=== PATIENT | male | born 1965 ===

== ENCOUNTER 2020-03-10 17:22 | Outpatient (REF) | payer MEDICAID, SELFPAY ==
--- NOTE | 2020-03-10 18:15 | MR_ITS ---
EXAMINATION: MR LUMBAR SPINE WITHOUT CONTRAST CLINICAL INFORMATION: Bilateral leg pain. COMPARISON: X-ray from 09/26/2019 TECHNIQUE: MRI of the lumbar spine was obtained using routine sequences without contrast. FINDINGS: VERTEBRAL BODIES AND PARASPINAL STRUCTURES: Chronic fatty marrow degenerative endplate changes and significant disc space narrowing evident at L5-S1. There is a minimal posterior subluxation at L4-L5. No compression fractures are seen. The paraspinal soft tissues are unremarkable. There are mild degenerative changes of the left sacroiliac joint. The prostate gland is mildly enlarged, measuring 4.4 x 3.2 cm on the nondiagnostic lateral localizer acquisition. CONUS MEDULLARIS AND CAUDA EQUINA: Normal, terminating at the level of T12. No lower cord signal normality is seen. The cauda equina nerve roots appear normal. SPINAL LEVELS: L1-L2: No disc pathology. No central canal stenosis or foraminal narrowing. L2-L3: Well-hydrated disc without central canal stenosis or foraminal narrowing. L3-L4: Mild endplate spurring and minimal annular bulge. No central canal stenosis. Mild foraminal narrowing. L4-L5: Broad-based central disc protrusion with mild impression upon the ventral thecal sac, also abutting the traversing L5 nerve roots. Mild facet arthropathy. No central canal stenosis. Moderate foraminal narrowing, more so on the right side. L5-S1: Severe loss of disc height and mild disc bulge with facet arthropathy. No central canal stenosis. Mild bilateral foraminal narrowing. MR/MR lumbar spine wo con IMPRESSION: 1. Broad-based central disc protrusion at L4-L5 with mild impression upon the ventral thecal sac and L5 nerve roots. Moderate bilateral foraminal narrowing without central canal stenosis. 2. Severe chronic degenerative disc disease at L5-S1 without central canal stenosis. Mild foraminal narrowing at this level. 3. Incidental prostatomegaly.
== END 2020-03-10 17:23 | disposition home or self-care (01) ==
LOC: HO.MRI 17:22
PROVIDERS: Visit Provider Anesthesiology
DX: M51.36 Other intervertebral disc degeneration, lumbar region (principal)
CPT/HCPCS: 72148

== ENCOUNTER 2020-12-30 18:36 | Emergency (ER) | payer MEDICAID, SELFPAY ==
[2020-12-30 19:37] VITALS: BP 151/82; PULSE 72; RESP 16; TEMP 36.6; O2SAT 97; BMI 39.5
[2020-12-30 20:18] LABS: COVID-19 Test Negative (Negative)
[2020-12-30 20:47] LABS: IDNOW Serial# 9DD0AD1C; Strep A Nucleic Acid Negative (Negative)
[2020-12-30 21:17] LABS: Influenza A PCR NEGATIVE (Negative); Influenza B PCR NEGATIVE (Negative); Resp Syncy Virus RNA Qual PCR NEGATIVE (Negative); SARS COV2 PCR INHOUSE NEGATIVE (Negative)
--- NOTE | 2020-12-30 21:24 | ED_ITS ---
HPI - General Adult General Chief complaint: General Medical Stated complaint: flu like Time Seen by Provider: 12/30/20 20:31 Source: patient Mode of arrival: ambulatory Limitations: no limitations History of Present Illness HPI narrative: 55 y/o male whose girlfriend tested positive for COVID and was on Tamiflu at home presents for headache, body ache, sore throat. Patient has not had fevers, no cough, no vomiting or nausea. Related Data Previous Rx's Medication Instructions Recorded oseltamivir 75 mg capsule 75 mg PO BID 5 Days #10 cap 12/30/20 prednisone 20 mg tablet 40 mg PO DAILY 5 Days #10 tab 12/30/20 Allergies Allergy/AdvReac Type Severity Reaction Status Date / Time aspirin [ASA] Allergy Unknown ABD PAIN Verified 12/30/20 19:39 Review of Systems Constitutional: Constitutional: Reports body ache(s), Denies chills, Reports fatigue, Denies fever(s), Reports headache(s), Reports malaise and Denies weakness Eyes: Eyes: Denies blurry vision and Denies diplopia ENT: Denies vertigo, Denies dizziness, Denies otalgia, Reports headache(s), Denies mouth pain, Denies post nasal drip, Denies sinus pain, Denies sinus p ressure, Reports sore throat and Denies throat swelling Cardiovascular: Cardiovascular: Denies chest pain, Denies syncope, Denies leg edema, Denies lightheadedness, Denies Loss of Consciousness, Denies palpitations and Denies dyspnea Respiratory: Respiratory: Denies chest congestion, Denies cough and Denies dyspnea Gastrointestinal: Gastrointestinal: Denies abdominal pain, Denies hematochezia, Denies constipation, Denies diarrhea and Denies vomiting Musculoskeletal: Musculoskeletal: Reports no additional musculoskeletal complaints Neurologic: Denies confusion, Denies vertigo, Denies dizziness, Denies syncope, Reports headache(s) and Denies weakness Psychiatric: Psychiatric: Denies anxiety, Denies confusion and Denies depression Endocrine: Endocrine: Reports fatigue and Denies palpitations Allergic/Immunologic: Allergic/Immunologic: Denies throat swelling PMFSH Social History Social History Advance Directives: No Physical Exam Vital Signs: Vital Signs: Last Vital Signs Temp 97.9 F 12/30/20 19:37 Pulse 72 12/30/20 19:37 Resp 16 12/30/20 19:37 BP 151/82 H 12/30/20 19:37 Pulse Ox 97 12/30/20 19:37 Body Mass Index 39.5 Const: General: No confusion Nutritional Appearance: well nourished Orientation/consciousness: No confusion Limitations: no limitations HENMT: Head: Yes normal to inspection, Yes normocephalic and Yes atraumatic Ears: hearing grossly normal bilaterally, external ears normal, TM's normal bilaterally and EAC's normal General nose exam: Normal external nose present Face and sinus: Yes normal facial exam and Yes sinuses nontender Mouth: Normal oral and palatal mucosa present Throat: Yes uvula midline and Yes posterior oropharynx abnormal (erythematous) Eyes: Other: watery Conjunctivae: conjunctival abnormal diffuse (injection) Pupils: Equal, round and reactive pupils present EOM: EOMs intact bilaterally Neck: Neck: Yes full ROM, Yes supple and Yes lymphadenopathy (anterior cervical) Resp: Effort & Inspection: normal respiratory effort and able to speak in complete sentences Auscultation: clear to auscultation bilaterally, no crackles, no rales, no rhonchi and no wheezes Cardio: Rate: regular rate Rhythm: regular rhythm Heart sounds: S1 normal heart sound present and S2 normal heart sound present GI: Inspection: Yes normal to inspection Palpation (GI): Soft to palpation, nontender, no guarding and not rigid Percussion: Yes normal to percussion Auscultation: normal bowel sounds Skin: General skin exam: no rashes or lesions noted Neuro: General: No confusion Cranial nerves: Yes Equal, round and reactive pupils present Extrem: General: Yes normal to inspection and Yes full ROM Psych: Appearance: grossly normal Affect: normal affect Attitude: cooperative Thought process: Normal thought process present Course Course Course Narrative: 55-year-old male with flu-like symptoms but no fever who had exposure because his live-in girlfriend is flu positive and on Tamiflu. The patient's rapid COVID is negative, strep is negative. On exam, patient has a beefy erythematous throat, and looks like he has a viral illness. Problem with labs, flu test not run. Will treat for flu because of exposure, will give prednisone for pharyngitis. Give return precautions Medical Decision Making Lab Data Labs: Lab Results 12/30/20 12/30/20 12/30/20 Range/Units 19:42 20:02 20:02 Coronavirus (PCR) NEGATIVE (Negative) COVID-19 (SHO) Negative (Negative) COVID-19 Clin Com See Note Influenza Type A (PCR) NEGATIVE (Negative) Influenza Type B (PCR) NEGATIVE (Negative) RSV RNA Qual (PCR) NEGATIVE (Negative) S. pyogenes GrpA ANITA Negative (Negative) Discharge Plan Discharge Clinical Impression: Influenza Acute pharyngitis Qualifiers: Pharyngitis/tonsillitis etiology: other specified organisms Qualified Code(s): J02.8 - Acute pharyngitis due to other specified organisms Patient Disposition: Home, Self-Care Instructions: Pharyngitis (ED), Influenza (ED) Additional Instructions: Please use salt water gargles. Put 1 tsp of salt in a couple of warm water and gargle and spit it out. Do this 3 times a day. Please fill your prescriptions and take them as prescribed. Please alternate Tylenol and ibuprofen for pain. Take 1 or the other every 4 hours. For example, at midnight take 1000 mg of Tylenol, then at 4:00 a.m. take 800 mg ibuprofen, at 8:00 a.m. take 1000 mg of Tylenol, at noon take 800 mg of ibuprofen, at 4:00 p.m. take 1000 mg of Tylenol, at 8:00 p.m. take 800 mg of ibuprofen. Do not exceed 3000 mg of Tylenol in 24 hours. This method is proven to be as effective as an opioid for pain control. Please call your primary care provider for follow-up appointment on Friday Please return to the emergency room if you have fevers or worsening symptoms. Prescriptions: New oseltamivir 75 mg capsule 75 mg PO BID 5 Days Qty: 10 RF: 0 prednisone 20 mg tablet 40 mg PO DAILY 5 Days Qty: 10 RF: 0 Interventions: ED Discharge Assessment Last Done: 12/30/20 21:55 Discharge Date/Time: 12/30/20 21:57
== END 2020-12-30 21:57 | disposition home or self-care (01) ==
PROVIDERS: Emergency Provider Internal Medicine; PCP Student in an Organized Health Care Education/Training Program
DX: J02.8 Acute pharyngitis due to other specified organisms (principal); J11.1 Influenza due to unidentified influenza virus with other respiratory manifestations; Z20.822 Contact with and (suspected) exposure to COVID-19; R51.9 Headache, unspecified
CPT/HCPCS: 0241U; 36415; 87635; 87651; 99283

== ENCOUNTER 2021-01-22 09:19 | Emergency (ER) | payer MEDICAID, SELFPAY ==
--- NOTE | ~2021-01-22 | CT_ITS ---
EXAMINATION: CT ABDOMEN AND PELVIS WITH CONTRAST CLINICAL INFORMATION: Left upper quadrant pain. COMPARISON: Previous CT of the abdomen and pelvis August 2015 TECHNIQUE: Multidetector volumetric images were obtained from the superior aspect of the liver through the pubic symphysis following administration of 71 mL of Omnipaque 350 intravenous contrast. Sagittal and coronal reformatted images were obtained on the technologist's workstation. Oral contrast: Yes. This CT examination was performed using dose optimization techniques as appropriate, variously including the following: *Automated exposure control *Adjustment of mA and/or kV according to patient size (this includes techniques or standardized protocols for targeted exams where dose is matched to indication/reason for exam; i.e. extremities or head) *Use of iterative reconstruction technique DLP: 990 mGy-cm FINDINGS: LUNG BASES: The visualized lung bases are unremarkable. LIVER, GALLBLADDER, AND BILIARY TREE: The liver is normal in size, shape, and attenuation. No focal hepatic lesion or biliary ductal dilatation is present. The gallbladder is unremarkable with no evidence of radiopaque gallstones, gallbladder wall thickening, or obvious pericholecystic inflammatory changes. PANCREAS: Unremarkable. SPLEEN: The spleen is absent. There is subtle infiltration of the intra-abdominal fat in the left upper quadrant just deep to the abdominal wall muscles and anterior to the stomach, for example axial image 30 series 3, coronal reconstructed image 16 and sagittal reconstructed image 40. This is new from previous exam October 2015. It is, therefore, unlikely related to postsurgical changes from possible splenectomy. This may represent an area of fat necrosis. ADRENAL GLANDS: Unremarkable. KIDNEYS AND URETERS: The kidneys are unremarkable. There is contrast opacification of the collecting systems and ureters with excreted contrast. This lowers sensitivity for detection of a small stone. No stone is seen. No hydronephrosis is seen. BLADDER: Unremarkable. GASTROINTESTINAL TRACT: There is diverticulosis of the colon. The small and large bowel are otherwise unremarkable. The appendix is unremarkable. ABDOMINAL WALL: No significant hernia is appreciated. LYMPH NODES: Normal. VASCULAR: Unremarkable. PELVIC VISCERA: Unremarkable. OSSEOUS STRUCTURES: There is degenerative disc disease at L5-S1. There is a sclerotic lesion in the right iliac bone that is stable from prior exam and probably represents a bone island. CT/CT abdomen pelvis w con IMPRESSION: Slight infiltration of the fat in the left upper quadrant just deep to the abdominal wall questionable for panniculitis or fat necrosis. Absent spleen. Mild diverticulosis of the colon.
--- NOTE | ~2021-01-22 | XR_ITS ---
EXAMINATION: XR CHEST CLINICAL INFORMATION: Left upper quadrant pain. Question pneumonia. COMPARISON: Previous chest x-ray most recent April 2018 TECHNIQUE: Frontal view of the chest was obtained. FINDINGS: No significant abnormality is noted involving the heart, lungs, mediastinum, bony thorax or soft tissues. XR/XR chest 1V IMPRESSION: Unremarkable examination.
--- NOTE | ~2021-01-22 | CT_ITS ---
EXAMINATION: CT ANGIOGRAM OF THE CHEST WITH AND WITHOUT CONTRAST (CT PULMONARY ANGIOGRAM FOR PE) CLINICAL INFORMATION: Reason for Exam LUQ pain. elevated D-dimer COMPARISON: Chest x-ray from earlier the same day. TECHNIQUE: Prior to contrast administration, noncontrast localization images were obtained. Subsequently, multidetector volumetric imaging was performed from the thoracic inlet to below the diaphragms following the administration of 71 mL Omnipaque 350 intravenous contrast. No contrast reaction reported Sagittal, coronal, and MIP oblique sagittal reformatted images were obtained on the CT workstation, uploaded to PACS, and reviewed. This CT examination was performed using dose optimization techniques as appropriate, variously including the following: *Automated exposure control *Adjustment of mA and/or kV according to patient size (this includes techniques or standardized protocols for targeted exams where dose is matched to indication/reason for exam; i.e. extremities or head) *Use of iterative reconstruction technique Total exam dose-length product 500 mGy-cm FINDINGS: QUALITY OF STUDY/CONTRAST BOLUS: Exam is limited due to late timing/imaging following contrast administration. The pulmonary arteries are not optimally opacified with IV contrast. PULMONARY ARTERIES: The pulmonary arteries are normal in caliber. Exam is nondiagnostic for pulmonary embolism. THORACIC AORTA: No aneurysm or dissection. LUNG: No focal consolidation, nodules or masses. PLEURA: No pleural effusion or pneumothorax. MEDIASTINUM: The heart is upper normal in size. No pericardial effusion. No hilar or mediastinal lymphadenopathy. No evidence of septal bowing or right heart strain. CHEST WALL/AXILLA: No axillary or internal mammary lymphadenopathy. OSSEOUS STRUCTURES: There are degenerative changes of the spine.. UPPER ABDOMEN: No reflux of contrast into the hepatic veins to suggest elevated right heart pressures. CT/CT angio chest PE protocol IMPRESSION: Nondiagnostic exam for pulmonary embolism.
[2021-01-22 09:28] VITALS: BP 137/96; PULSE 70; RESP 16; TEMP 36.6; O2SAT 97; BMI 42.1
--- NOTE | 2021-01-22 09:37 | ECG_ITS ---
Test Reason : ABD PAIN Blood Pressure : / mmHG Vent. Rate : 061 BPM Atrial Rate : 061 BPM P-R Int : 134 ms QRS Dur : 086 ms QT Int : 410 ms P-R-T Axes : 011 059 015 degrees QTc Int : 412 ms Sinus rhythm with occasional Premature ventricular complexes Nonspecific T wave abnormality Abnormal ECG When compared with ECG of 04-MAR-2017 21:43, Premature ventricular complexes are now Present Nonspecific T wave abnormality now evident in Lateral leads Referred By: Wilfrid Galvez Electronically Signed By:PATTIE WASHBURN
--- NOTE | 2021-01-22 09:42 | ED.ABDPAIN ---
HPI - Abdominal Pain General Chief Complaint: Abdominal Pain Stated Complaint: ABD PAIN Time Seen by Provider: 01/22/21 09:34 Source: patient Mode of arrival: ambulatory Limitations: no limitations History of Present Illness HPI narrative: Patient presents to ED for left upper quadrant pain for 2-3 weeks. Patient describes pain as sharp and painful on movement of torso, on inspiration, and when he lies flat. Denies any recent trauma to the abdomen. Denies any shortness of breath. Patient denies any coughing, fever, or chills. MD elicited complaint: abdominal pain Related Data Previous Rx's Medication Instructions Recorded oseltamivir 75 mg capsule 75 mg PO BID 5 Days #10 cap 12/30/20 prednisone 20 mg tablet 40 mg PO DAILY 5 Days #10 tab 12/30/20 acetaminophen 325 mg capsule 325 mg PO QID PRN #28 cap 01/22/21 (Tylenol) cyclobenzaprine 10 mg tablet 10 mg PO TID PRN #18 tab 01/22/21 Allergies Allergy/AdvReac Type Severity Reaction Status Date / Time aspirin [ASA] Allergy Unknown ABD PAIN Verified 12/30/20 19:39 Review of Systems Constitutional: Reports as per HPI and Reports no additional constitutional complaints Eyes: Reports as per HPI and Reports no additional eye complaints Reports system reviewed and no additional complaints, except as documented and Reports as per HPI Cardiovascular: Reports as per HPI and Reports no additional cardiovascular complaints Respiratory: Reports as per HPI, Reports no additional respiratory complaints and Reports pain on inspiration Gastrointestinal: Reports as per HPI, Reports no additional gastrointestinal complaints and Reports abdominal pain (Left upper quadrant pain) Genitourinary: Reports no additional male genitourinary complaints and Reports as per HPI Musculoskeletal: Reports no additional musculoskeletal complaints and Reports as per HPI Reports system reviewed and no additional complaints, except as documented and Reports as per HPI Psychiatric: Reports no additional psychiatric complaints and Reports as per HPI Physical Exam Vital Signs: Vital Signs: Last Vital Signs Temp 97.8 F 01/22/21 12:51 Pulse 69 01/22/21 14:14 Resp 20 01/22/21 14:14 BP 120/51 L 01/22/21 14:14 Pulse Ox 97 01/22/21 14:14 Body Mass Index 42.1 Const: General: cooperative, healthy appearing, comfortable, no acute distress, well developed, alert, awake and Physically active Orientation/consciousness: patient oriented x3 HENMT: Head: Yes normal to inspection, Yes No palpable skull fracture present, Yes normocephalic and Yes atraumatic Eyes: General: appearance normal, both eyes and all related structures Neck: Neck: Yes normal visual inspection, Yes full ROM, Yes no lymphadenopathy, Yes no meningeal signs, Yes trachea midline, Yes supple and No tender Chest: Chest palpation & inspection: normal inspection of the chest and normal palpation of entire chest wall Resp: Effort & Inspection: normal respiratory effort and able to speak in complete sentences Auscultation: clear to auscultation bilaterally Cardio: Jugular venous distension: no JVD Heart sounds: S1 normal heart sound present and S2 normal heart sound present GI: Inspection: Yes normal to inspection and No abdominal wall ecchymosis Palpation (GI): Soft to palpation, not firm, Tenderness to palpation present (GI) in the LUQ, no guarding and not rigid Abdomen image: 1. Tenderness on palpation and on movement. Negative for any erythema, ecchymosis, or obvious palpable mass. : General: No CVA tenderness and Yes no CVA tenderness Back/Spine/Pelvis: Back: no CVA tenderness, No CVA tenderness and No back tenderness Skin: General skin exam: no rashes or lesions noted and elasticity normal Neuro: General: patient oriented x3, gait normal, no meningeal signs and CN's II-XI intact bilaterally Cranial nerves: Yes CN's II-XII intact bilaterally Extrem: Other: Lower extremities negative for swelling, pitting edema, or calf tenderness. General: Yes normal to inspection and Yes full ROM Psych: Appearance: grossly normal, well kempt and not disheveled Course Course Course Narrative: Patient will have medical evaluation including EKG, labs, and chest x-ray. GI cocktail ordered. Reevaluation(s) Reevaluation #1: EKG negative for STEMI. Troponin after 4 weeks of symptoms negative. Liver enzymes are normal. D-dimer elevated so patient will be sent for chest CT a to rule out PE the patient states pleuritic chest pain. Chest x-ray negative for pneumonia. We will sent for abdominal CT scan. Time: 09:56 Reevaluation #2: Abdominal CT scan came back positive for pannuculitis. This was discussed with patient and he was informed to follow-up with primary care provider in case he will need a biopsy of the pannuculitis. Patient given copy of labs and images for follow-up. Patient will be discharged with pain meds and muscle relaxer. Time: 15:20 MDM - Abdominal Pain MDM Narrative Medical decision making narrative: pannuculitis, abdominal strain Lab Data Result diagrams: 01/22/21 09:56 01/22/21 09:56 Labs: Lab Results 01/22/21 01/22/21 01/22/21 Range/Units 09:56 09:56 09:56 WBC 9.8 (4.8-10.8) X10*3/uL RBC 4.25 L (4.60-5.80) X10*6/uL Hgb 13.5 L (14.0-18.0) g/dl Hct 40.2 L (42-52) % MCV 94.6 (80-98) fL MCH 31.8 (27.0-33.0) pg MCHC 33.6 (31.0-36.0) g/dl RDW 14.0 (11.0-16.0) % Plt Count 364 (160-400) X10*3/uL MPV 9.7 (9.4-12.4) fL Immature Gran % (Auto) 0.3 (0.0-0.4) % Neut % (Auto) 52.8 (45-73) % Lymph % (Auto) 34.1 (20-40) % Rapides % (Auto) 8.7 (2-11) % Eos % (Auto) 3.3 (0-4) % Baso % (Auto) 0.8 (0-2) % Lymph # (Auto) 3.4 (1.2-4.9) X10*3/uL [place] # (Auto) 0.9 (0.1-1.2) X10*3/uL Eos # (Auto) 0.3 (0.0-0.4) X10*3/uL Baso # (Auto) 0.1 (0.0-0.2) X10*3/uL Abs Immat Gran (auto) 0.03 (0.00-0.03) X10*3/uL Absolute Neuts (auto) 5.2 (2.0-8.3) X10*3/uL Absolute Nucleated RBC 0.000 (0.0-0.012) X10*3/uL Nucleated RBC % (auto) 0.0 (0.0-0.2) /100WBC PT (9.9-13.0) SEC INR (0.9-1.1) APTT (24.1-38.0) SEC D-Dimer NG/ML Sodium 139 (135-145) mmol/L Potassium 4.2 (3.3-5.1) mmol/L Chloride 105 (96-108) mmol/L Carbon Dioxide 24 (22-29) mmol/L Anion Gap 14 (12-20) BUN 17 H (9-16) mg/dL Creatinine 0.85 (0.5-1.4) mg/dL Estim Creat Clear Calc 118.9 Estimated GFR > 60 Random Glucose 111 (60-115) mg/dL Calcium 9.1 (8.4-10.2) mg/dL Total Bilirubin 0.4 (0.0-1.0) mg/dL Direct Bilirubin < 0.2 (0.0-0.5) mg/dL AST 17 (5-37) U/L ALT 15 (0-40) U/L Alkaline Phosphatase 78 (39-117) U/L Troponin I High Sens < 3.5 (<3.5-35.0) ng/L Total Protein 7.1 (6.5-8.0) g/dL Albumin 4.1 (3.5-5.0) g/dL Lipase 13 (8-78) U/L // Range/Units 09:56 WBC (4.8-10.8) X10*3/uL RBC (4.60-5.80) X10*6/uL Hgb (14.0-18.0) g/dl Hct (42-52) % MCV (80-98) fL MCH (27.0-33.0) pg MCHC (31.0-36.0) g/dl RDW (11.0-16.0) % Plt Count (160-400) X10*3/uL MPV (9.4-12.4) fL Immature Gran % (Auto) (0.0-0.4) % Neut % (Auto) (45-73) % Lymph % (Auto) (20-40) % Rapides % (Auto) (2-11) % Eos % (Auto) (0-4) % Baso % (Auto) (0-2) % Lymph # (Auto) (1.2-4.9) X10*3/uL [place] # (Auto) (0.1-1.2) X10*3/uL Eos # (Auto) (0.0-0.4) X10*3/uL Baso # (Auto) (0.0-0.2) X10*3/uL Abs Immat Gran (auto) (0.00-0.03) X10*3/uL Absolute Neuts (auto) (2.0-8.3) X10*3/uL Absolute Nucleated RBC (0.0-0.012) X10*3/uL Nucleated RBC % (auto) (0.0-0.2) /100WBC PT 11.3 (9.9-13.0) SEC INR 1.0 (0.9-1.1) APTT 38.2 H (24.1-38.0) SEC D-Dimer 279 NG/ML Sodium (135-145) mmol/L Potassium (3.3-5.1) mmol/L Chloride (96-108) mmol/L Carbon Dioxide (22-29) mmol/L Anion Gap (12-20) BUN (9-16) mg/dL Creatinine (0.5-1.4) mg/dL Estim Creat Clear Calc Estimated GFR Random Glucose (60-115) mg/dL Calcium (8.4-10.2) mg/dL Total Bilirubin (0.0-1.0) mg/dL Direct Bilirubin (0.0-0.5) mg/dL AST (5-37) U/L ALT (0-40) U/L Alkaline Phosphatase (39-117) U/L Troponin I High Sens (<3.5-35.0) ng/L Total Protein (6.5-8.0) g/dL Albumin (3.5-5.0) g/dL Lipase (8-78) U/L ECG Data Interpretation: Sinus rhythm with PVC. Ventricular rate 64. Pr interval 130. QRS 84. QTC 425. Negative STEMI Discharge Plan Discharge Clinical Impression: Muscle strain, Panniculitis Patient Disposition: Home, Self-Care Instructions: Muscle Strain (ED) Additional Instructions: Return to the ED for worsening abdominal pain, nausea, vomiting, chest pain, shortness of breath, dysuria, hematuria, flank pain, fever, chills, swelling of lower extremities, calf pain, any other concerning symptoms. Prescriptions: New cyclobenzaprine 10 mg tablet 10 mg PO TID PRN (Reason: pain) Qty: 18 RF: 0 acetaminophen [Tylenol] 325 mg capsule 325 mg PO QID PRN (Reason: pain) Qty: 28 RF: 0 No Action oseltamivir 75 mg capsule 75 mg PO BID 5 Days Qty: 10 RF: 0 prednisone 20 mg tablet 40 mg PO DAILY 5 Days Qty: 10 RF: 0 Interventions: ED Discharge Assessment Last Done: 01/22/21 15:40 Discharge Date/Time: 01/22/21 15:42 Print Language: Panamanian [facility] Past Medical History Medical History (Updated 01/22/21 @ 15:23 by TOLU Crowley) Anxiety Cholecystectomy planned HTN (hypertension) Social History Social History Alcohol intake: never Patient Tobacco Use Status: Never used Tobacco Use of substances other than those prescribed or required for medical reasons: No Advance Directives: No Advance Directives Information Provided: No
[2021-01-22] MEDS: Famotidine/PF 20 MG/2 ML VIAL IVPUSH (10:00)
[2021-01-22] MEDS: Magnesium Hydrox/Alum Hydrox 30 ML ORAL.SUSP PO (10:00)
[2021-01-22] MEDS: Lidocaine HCl Viscous 2 % 15 ML SOLUTION MUCOUS MEM (10:00)
[2021-01-22] MEDS: PHENobarb/Hyoscy/Atropine/Scop 10 ML ELIXIR PO (10:00)
[2021-01-22 10:01] LABS: MANUAL DIFF FLAG NO
[2021-01-22 10:03] LABS: Basophils Absolute Auto 0.1 X10*3/uL (0.0-0.2); Basophils Percent Auto 0.8 % (0-2); Eosinophils Absolute Auto 0.3 X10*3/uL (0.0-0.4); Eosinophils Percent Auto 3.3 % (0-4); Hematocrit 40.2 % (42-52); Hemoglobin 13.5 g/dl (14.0-18.0); Imm Gran Abs Auto 0.03 X10*3/uL (0.00-0.03); Imm Gran Pct Auto 0.3 % (0.0-0.4); Lymphocytes Absolute Auto 3.4 X10*3/uL (1.2-4.9); Lymphocytes Percent Auto 34.1 % (20-40); Mean Corpuscular HGB Conc 33.6 g/dl (31.0-36.0); Mean Corpuscular Hemoglobin 31.8 pg (27.0-33.0); Mean Corpuscular Volume 94.6 fL (80-98); Mean Platelet Volume 9.7 fL (9.4-12.4); Monocytes Absolute Auto 0.9 X10*3/uL (0.1-1.2); Monocytes Percent Auto 8.7 % (2-11); Neutrophils Absolute Auto 5.2 X10*3/uL (2.0-8.3); Neutrophils Percent Auto 52.8 % (45-73); Platelet Count 364 X10*3/uL (160-400); Red Blood Count 4.25 X10*6/uL (4.60-5.80); White Blood Count 9.8 X10*3/uL (4.8-10.8)
[2021-01-22 10:09] LABS: Prothrombin Time 11.3 SEC (9.9-13.0)
[2021-01-22 10:12] LABS: D Dimer 279 NG/ML; Partial Thromboplastin Time 38.2 SEC (24.1-38.0)
[2021-01-22 10:26] LABS: Troponin-I High Sensitivity < 3.5 ng/L (<3.5-35.0)
[2021-01-22 10:28] LABS: Alanine Aminotransferase 15 U/L (0-40); Albumin Level 4.1 g/dL (3.5-5.0); Alkaline Phosphatase 78 U/L (39-117); Anion Gap 14 (12-20); Aspartate Amino Transferase 17 U/L (5-37); Bilirubin Direct < 0.2 mg/dL (0.0-0.5); Bilirubin Total 0.4 mg/dL (0.0-1.0); Blood Urea Nitrogen 17 mg/dL (9-16); Calcium 9.1 mg/dL (8.4-10.2); Carbon Dioxide 24 mmol/L (22-29); Chloride 105 mmol/L (96-108); Creatinine Clr Calc Pharmacy 118.9; Estimated Glomerular Filt Rate > 60; Glucose Random 111 mg/dL (60-115); Lipase 13 U/L (8-78); Potassium 4.2 mmol/L (3.3-5.1); Sodium 139 mmol/L (135-145); Total Protein 7.1 g/dL (6.5-8.0)
[2021-01-22 12:51] VITALS: BP 135/76; PULSE 63; RESP 18; TEMP 36.6; O2SAT 98
[2021-01-22 14:14] VITALS: BP 120/51; PULSE 69; RESP 20; O2SAT 97
== END 2021-01-22 15:42 | disposition home or self-care (01) ==
PROVIDERS: Physician Assistant; Emergency Provider Emergency Medicine; PCP Student in an Organized Health Care Education/Training Program
DX: M79.3 Panniculitis, unspecified (principal); R10.12 Left upper quadrant pain; Z79.899 Other long term (current) drug therapy
CPT/HCPCS: 36415; 71045; 71275; 74177; 80053; 82248; 83690; 84484; 85025; 85379; 85610; 85730; 93005; 96374; 99284; 99285

== ENCOUNTER → 2021-02-26 12:47 | Outpatient (BNVA) | payer MEDICAID, SELFPAY | PROVIDERS: PCP Student in an Organized Health Care Education/Training Program; Visit Provider Anesthesiology | DX: M47.816 Spondylosis without myelopathy or radiculopathy, lumbar region (principal); M51.36 Other intervertebral disc degeneration, lumbar region | CPT/HCPCS: 99212 ==

== ENCOUNTER 2021-05-25 09:57 | Day surgery (SDC) | payer MEDICAID, SELFPAY ==
[2021-05-21 12:20] VITALS: BMI 39.7
--- NOTE | 2021-05-23 13:06 | P.CONAN_ITS ---
Documented by User: Kay Ortiz NP 05/23/21 13:07 HPI - Anesthesia Eval Consult details Narrative: 55yo M for Bilateral L4-L5 Transforaminal Epidural Injection PMFSH Active Problems Active Problems: All Active Problems (Updated 05/21/21 @ 12:19 by Whit Osman RN) Disc degeneration, lumbar (Acute) Spondylosis of lumbar spine (Acute) Past Medical History Medical History (Updated 05/21/21 @ 12:19 by Whit Osman RN) Anxiety Cholecystectomy planned COVID-19 vaccine series completed Disc degeneration, lumbar HTN (hypertension) MRSA (methicillin resistant Staphylococcus aureus) Renal calculi Spondylosis of lumbar spine Surgical History Surgical History (Updated 05/21/21 @ 12:19 by Whit Osman RN) Hx of cholecystectomy Hx of cystoscopy Social History Social History Are you a primary medicare sales representative to a significant other at home: No Do you presently have visiting nurse or other home services: No Alcohol intake: never Patient Tobacco Use Status: Never used Tobacco Use of substances other than those prescribed or required for medical reasons: No Have you been hit, kicked, punched, or otherwise hurt by someone within the past year? If so, by whom?: No Are you DNR?: No Advance Directives: No Advance Directives Information Provided: Yes Advance Directives on File: No Recently lost weight without trying: No Eating poorly because of decreased appetite: No Nutrition Risks: No Nutritional Risk Poor oral hygiene: No Meds Allergies Allergy/AdvReac Type Severity Reaction Status Date / Time aspirin [ASA] Allergy Intermediate ABD PAIN Verified 05/21/21 12:19 Home Medications Medication Instructions Recorded Confirmed Last Taken Type acetaminophen 325 650 mg PO 05/21/21 Unknown History mg tablet amitriptyline 50 1 tab PO BEDTIME 05/21/21 05/21/21 Unknown History mg tablet amlodipine 10 mg 1 tab PO DAILY 05/21/21 05/21/21 05/25/21 History tablet cetirizine 10 mg 1 tab PO DAILY 05/21/21 05/21/21 Unknown History tablet chlorthalidone 50 1 tab PO DAILY 05/21/21 05/21/21 Unknown History mg tablet cholecalciferol 1 cap PO DAILY 05/21/21 05/21/21 Unknown History (vitamin D3) 25 mcg (1,000 unit) capsule cyclobenzaprine 1 tab PO TID 05/21/21 05/21/21 Unknown History 10 mg tablet gabapentin 100 mg 1 cap PO DAILY 05/21/21 05/21/21 Unknown History capsule hydroxyzine HCl 1 tab PO BEDTIME 05/21/21 05/21/21 Unknown History 50 mg tablet losartan 50 mg 1 tab PO DAILY 05/21/21 05/21/21 Unknown History tablet amlodipine 10 mg 1 tab PO DAILY 05/25/21 05/25/21 Unknown History tablet Exam Exam Date and Time: May 23, 2021 1306 Height,Weight and Vital Signs: Height 5 ft 9 in Weight 122.016 kg Pertinent Lab Results Pertinent Lab Results: Laboratory Tests 01/22/21 01/22/21 09:56 09:56 WBC 9.8 Hgb 13.5 L Hct 40.2 L Plt Count 364 Sodium 139 Potassium 4.2 Chloride 105 Carbon Dioxide 24 BUN 17 H Creatinine 0.85 Assessment and Plan Assessment Anesthesia Assessment: Chart Reviewed Documented by User: Basim Bales MD 05/25/21 14:04 COUNT INCLUDES THE [facility] Past Medical History Medical History (Updated 05/21/21 @ 12:19 by Whit Osman RN) Anxiety Cholecystectomy planned COVID-19 vaccine series completed Disc degeneration, lumbar HTN (hypertension) MRSA (methicillin resistant Staphylococcus aureus) Renal calculi Spondylosis of lumbar spine Family History Family history of problems with anesthesia: No Surgical History Surgical History (Updated 05/21/21 @ 12:19 by Whit Osman RN) Hx of cholecystectomy Hx of cystoscopy History of Problems with Anesthesia: No Social History Social History Are you a primary medicare sales representative to a significant other at home: No Do you presently have visiting nurse or other home services: No Alcohol intake: never Patient Tobacco Use Status: Never used Tobacco Use of substances other than those prescribed or required for medical reasons: No Have you been hit, kicked, punched, or otherwise hurt by someone within the past year? If so, by whom?: No Are you DNR?: No Advance Directives: No Advance Directives Information Provided: Yes Advance Directives on File: No Recently lost weight without trying: No Eating poorly because of decreased appetite: No Nutrition Risks: No Nutritional Risk Poor oral hygiene: No Meds Allergies Allergy/AdvReac Type Severity Reaction Status Date / Time aspirin [ASA] Allergy Intermediate ABD PAIN Verified 05/21/21 12:19 Home Medications Medication Instructions Recorded Confirmed Last Taken Type acetaminophen 325 650 mg PO 05/21/21 Unknown History mg tablet amitriptyline 50 1 tab PO BEDTIME 05/21/21 05/21/21 Unknown History mg tablet amlodipine 10 mg 1 tab PO DAILY 05/21/21 05/21/21 05/25/21 History tablet cetirizine 10 mg 1 tab PO DAILY 05/21/21 05/21/21 Unknown History tablet chlorthalidone 50 1 tab PO DAILY 05/21/21 05/21/21 Unknown History mg tablet cholecalciferol 1 cap PO DAILY 05/21/21 05/21/21 Unknown History (vitamin D3) 25 mcg (1,000 unit) capsule cyclobenzaprine 1 tab PO TID 05/21/21 05/21/21 Unknown History 10 mg tablet gabapentin 100 mg 1 cap PO DAILY 05/21/21 05/21/21 Unknown History capsule hydroxyzine HCl 1 tab PO BEDTIME 05/21/21 05/21/21 Unknown History 50 mg tablet losartan 50 mg 1 tab PO DAILY 05/21/21 05/21/21 Unknown History tablet amlodipine 10 mg 1 tab PO DAILY 05/25/21 05/25/21 Unknown History tablet Exam Airway Mallampati Class: II TM Dist: >3cm Neck ROM: Full Assessment and Plan Assessment Anesthesia Assessment: Anesthesia Plan Discussed Final Anesthetic Review Family History of Problems with Anesthesia: No History of Problems with Anesthesia: No NPO: Yes ASA Class: II Final Preanesthetic Review: No Changes in Pt Med Stat, Meds/Allgs Chart Reviewed, Consent Obtained/Reviewed and Anes Risks/Benef Reviewed Patient Risk: Low Procedure Risk: Low Anesthetic Plan Anesthetic Plan: MAC: Disposition: Standard PACU
--- NOTE | ~2021-05-25 | FL_ITS ---
EXAMINATION: XR FLUOROSCOPY WITH IMAGES CLINICAL INFORMATION: L4-L5 transforaminal epidural injection. COMPARISON: None. TECHNIQUE: Fluoroscopy performed by Dr. Harkins. Fluoroscopy time: 0.3 minutes DAP: 6.02 mGycm2 Images: 2 FL/FL guidance in OR FINDINGS/IMPRESSION: [place] positioned over the left L4-L5 foramen with contrast injected at this site. Please refer to the procedure report for detailed findings.
[2021-05-25 12:16] VITALS: BP 149/80; PULSE 65; RESP 17; TEMP 36.1; O2SAT 98
[2021-05-25] MEDS: Lactated Ringers 1,000 ML 100 ML IVCONT (12:35)
--- NOTE | 2021-05-25 14:56 | P.HPSUR_ITS ---
Pre-Procedural Eval Section A Date of Service: 05/25/21 Section B Chief Complaint: intervertebral disc degeneration,lumbar region Details of Present Illness: as above Relevant Family History (Specify if Yes): No Relevant Social History: None Present Medications: see Short Stay Collaborative assessment Medical History: No relevant PMH History of Previous Operations: No relevant previous surgery Allergies: Allergies Allergy/AdvReac Type Severity Reaction Status Date / Time aspirin [ASA] Allergy Intermediate ABD PAIN Verified 05/21/21 12:19 Review of Systems Sugical H&P ROS: Negative: Constitution, Cardiovascular, Respiratory, Neuro logical, Psychiatric, Hem-Onc, Allergic/Immunologic, Gastrointestinal, Genitourinary, Musculoskeletal, Integumentary, Endocrine and Eyes/Ears/Nose/Throat Exam Surgical H&P Exam: Normal: HEENT, Normal: Heart, Normal: Lungs, Normal: Extremities, Normal: Abdomen, Normal: Skin and Normal: Neurological Plan Diagnosis/Plan: Unchanged I have reviewed the history and physical and performed a pertinent physical examination on my patient. No changes have occurred unless specified.
--- NOTE | 2021-05-25 15:41 | P.BOP_ITS ---
Brief Operative Note Date of Service: 05/25/21 Pre-op diagnosis: disc degeneration lumbar Post-op diagnosis: same Procedure: transforaminal epidural steroid injection L4-5 on the right Implants: none Surgeon: Royal Harkins MD Was an Prototype Machine Operator used for this Procedure?: No Estimated blood loss (mL): 0 Condition: stable Disposition: PACU
--- NOTE | 2021-05-25 15:42 | W.PM.OPN ---
Operative Note Operative Note Date of Service: 05/25/21 Narrative: THE PATIENT CAME TO THE OPERATING ROOM AFTER OBTAINING INFORMED CONSENT.? THE RISKS OF THE PROCEDURE WERE DELINEATED THE RISK OF BLEEDING INFECTION PERIPHERAL NERVE DAMAGE EPIDURAL HEMATOMA EPIDURAL ABSCESS AND OTHER UNSPECIFIED RISKS.? THE PATIENT WAS POSITIONED PRONE ON THE OPERATING TABLE [employer] MONITORS WERE APPLIED AND PATIENT WAS MODERATELY SEDATED. ? TIME-OUT WAS OBTAINED DELINEATING CORRECT SIDE AND SITE OF THE PROCEDURE, PATIENT NAME AND DATE OF , NEED OF THE ANTIBIOTIC, RISK OF FIRE. ? LUMBAR AREA OF THE PATIENT WAS PREPPED WITH CHLORAPREP AND DRAPED WITH STERILE DRAPES, STERILELY DRAPED C-ARM WAS BROUGHT OVER THE OPERATING FIELD AND SQ PICTURE OF L2 VERTEBRA WAS DELINEATED ON THE SCREEN.? C-ARM WAS TILTED 20? TO THE RIGHT SIDE AND PICTURE OF THE RIGHT PEDICLE L4 VERTEBRA WAS OBTAINED ON THE SCREEN.? 3 MM BELOW THE LOWEST POINT OF THE PEDICLE PROJECTION TO THE SKIN WAS CHOSEN A STARTING POINT OF THE INJECTION.? 22 GAUGE 5 IN [place] SPINAL NEEDLE WAS INSERTED THROUGH THE SKIN AND STARTED TO ADVANCE TO THE FORAMINA IN ANTERIOR POSTERIOR AND OBLIQUE VIEWS IN TUNNEL VISION FASHION.? WHEN ON THE AP VIEW THE NEEDLE ENTERED THE MOST POSTERIOR AND SUPERIOR PORTION OF THE FORAMINA INJECTION OF THE CONTRAST PERFORMED DELINEATING L4 PERINEURAL SPREAD OF THE CONTRAST.? AFTER THAT TREATMENT SOLUTION CONTAINING 3 ML OF PRESERVATIVE-FREE LIDOCAINE 1% MIXED WITH KENALOG 40 MG WAS INJECTED INTO THE NEEDLE.? UPON COMPLETION OF THE INJECTION THE NEEDLE WAS REMOVED AND STERILE DRESSING WAS APPLIED.? PATIENT TOLERATED PROCEDURE WELL SHE WAS AWAKEN TAKEN OUTSIDE OF THE OPERATING ROOM TO PACU WHERE SHE RECOVERED UNEVENTFULLY.? SHE WENT HOME WITHOUT IMMEDIATE COMPLICATIONS.
[2021-05-25 15:45] VITALS: BP 170/98; PULSE 72; RESP 16; TEMP 37.3; O2SAT 95
[2021-05-25 16:00] VITALS: BP 160/97; PULSE 69; RESP 16; O2SAT 96
[2021-05-25 16:15] VITALS: BP 121/88; PULSE 74; RESP 16; TEMP 36.9; O2SAT 97
[2021-05-25 16:30] VITALS: PULSE 68; RESP 16; TEMP 36.9; O2SAT 97
== END 2021-05-25 16:39 | disposition home or self-care (01) ==
PROVIDERS: PCP Student in an Organized Health Care Education/Training Program; Visit Provider Anesthesiology
PROC: (CPT 64483; principal; 2021-05-25 13:20)
DX: M51.36 Other intervertebral disc degeneration, lumbar region (principal); M47.816 Spondylosis without myelopathy or radiculopathy, lumbar region; M54.50 Low back pain, unspecified; M79.605 Pain in left leg; M79.604 Pain in right leg; F41.1 Generalized anxiety disorder; I10 Essential (primary) hypertension; Z79.899 Other long term (current) drug therapy; Z88.8 Allergy status to other drugs, medicaments and biological substances
CPT/HCPCS: 64483; J2250; J2405; J3010; J3300; Q9967

== ENCOUNTER → 2021-06-27 08:59 | Outpatient (BNVA) | payer MEDICAID, SELFPAY | PROVIDERS: PCP Student in an Organized Health Care Education/Training Program; Visit Provider Anesthesiology | DX: M47.816 Spondylosis without myelopathy or radiculopathy, lumbar region (principal); M51.36 Other intervertebral disc degeneration, lumbar region | CPT/HCPCS: 99212 ==

== ENCOUNTER 2021-08-29 05:23 | Emergency (ER) | payer MEDICAID, SELFPAY ==
[2021-08-29 05:57] VITALS: BP 138/79; PULSE 65; RESP 20; TEMP 36.5; O2SAT 98; BMI 45.0
[2021-08-29 06:10] LABS: COVID-19 Test Negative (Negative)
[2021-08-29 06:12] LABS: Influenza A Negative (Negative); Influenza B2 Negative (Negative)
--- NOTE | 2021-08-29 06:59 | ED_ITS ---
HPI - General Adult General Chief complaint: General Medical Stated complaint: Flu like symptoms Time Seen by Provider: 08/29/21 06:36 Source: patient Mode of arrival: ambulatory Limitations: no limitations History of Present Illness MD complaint: flu like symptoms Onset (ago): day(s) (4) Location: head, face and back Radiation: non-radiation Severity: mild Quality: aching, dull and constant Pain Consistency: constant Relieving factors: none Exacerbating factors: none Associated symptoms: headaches, loss of appetite, malaise and other (sinus pressure, congestion, sore throat) Treatments prior to arrival: other (allergy medications) Related Data Home Medications Medication Instructions Recorded Confirmed acetaminophen 325 mg tablet 650 mg PO 05/21/21 amitriptyline 50 mg tablet 1 tab PO BEDTIME 05/21/21 05/21/21 amlodipine 10 mg tablet 1 tab PO DAILY 05/21/21 05/21/21 cetirizine 10 mg tablet 1 tab PO DAILY 05/21/21 05/21/21 chlorthalidone 50 mg tablet 1 tab PO DAILY 05/21/21 05/21/21 cholecalciferol (vitamin D3) 25 1 cap PO DAILY 05/21/21 05/21/21 mcg (1,000 unit) capsule cyclobenzaprine 10 mg tablet 1 tab PO TID 05/21/21 05/21/21 gabapentin 100 mg capsule 1 cap PO DAILY 05/21/21 05/21/21 hydroxyzine HCl 50 mg tablet 1 tab PO BEDTIME 05/21/21 05/21/21 losartan 50 mg tablet 1 tab PO DAILY 05/21/21 05/21/21 amlodipine 10 mg tablet 1 tab PO DAILY 05/25/21 05/25/21 Previous Rx's Medication Instructions Recorded oseltamivir 75 mg capsule 75 mg PO BID 5 Days #10 cap 12/30/20 prednisone 20 mg tablet 40 mg PO DAILY 5 Days #10 tab 12/30/20 acetaminophen 325 mg capsule 325 mg PO QID PRN #28 cap 01/22/21 (Tylenol) cyclobenzaprine 10 mg tablet 10 mg PO TID PRN #18 tab 01/22/21 amoxicillin 875 mg-potassium 1 tab PO BID #14 tab 08/29/21 clavulanate 125 mg tablet cyclobenzaprine 10 mg tablet 10 mg PO TID PRN #14 tab 08/29/21 lidocaine 4 % topical patch 1 patch TOPICAL DAILY PRN #10 ea 08/29/21 prednisone 20 mg tablet 40 mg PO DAILY 5 Days #10 tab 08/29/21 Allergies Allergy/AdvReac Type Severity Reaction Status Date / Time aspirin [ASA] Allergy Intermediate ABD PAIN Verified 06/27/21 09:22 Review of Systems Review of Systems: Constitutional : no Fever, positive Chills, positive fatigue, positive Malaise ENT/Mouth : positive sore throat, positive runny nose, pos sinus pressure and pain Eyes: No Discharge Cardiovascular : No Chest Pain, No SOB Respiratory : No Cough, No Sputum Gastrointestinal : No Nausea, No Vomiting, No Diarrhea Genitourinary : No Dysuria, No Urinary Frequency Musculoskeletal : positive Myalgia, pos back pain Skin : No rash Neuro : No Headache PMFSH Past Medical History Attestation statement: The following information was validated with the patient. Medical History Anxiety Cholecystectomy planned COVID-19 vaccine series completed Disc degeneration, lumbar HTN (hypertension) MRSA (methicillin resistant Staphylococcus aureus) Renal calculi Spondylosis of lumbar spine Surgical History Hx of cholecystectomy Hx of cystoscopy Social History Social History Are you a primary continuum of care manager to a significant other at home: No Do you presently have visiting nurse or other home services: No Alcohol intake: never Patient Tobacco Use Status: Never used Tobacco Advance Directives: No Advance Directives Information Provided: Yes Physical Exam ED Vital Signs: Vital Signs - 24 hr 08/29/21 05:57 Temperature 97.7 F Pulse Rate 65 Respiratory Rate 20 Blood Pressure 138/79 Pulse Oximetry 98 BMI result Body Mass Index 45.0 Appearance: Alert. Oriented X3. No acute distress. Eyes: Pupils equal, round and reactive to light. ENT: Pharynx mild erythema. Bilateral TMs normal. Sinus bilateral ttp, mild swelling over bilateral maxillary sinuses Neck: Normal inspection. Neck supple. CVS: Normal heart rate and rhythm. Pulses normal. Respiratory: No respiratory distress. Breath sounds normal. Abdomen: Soft and nontender. Back: mild lower back ttp on muscles no midline Skin: Skin warm and dry. Normal skin color. Normal skin turgor. Extremities: No lower extremity edema. Neuro: Oriented X 3. No motor deficit. No sensory deficit. Medical Decision Making MDM Narrative Medical decision making narrative: 55 yo male with viral like symptoms for 4 days c/o sinus pressure headache he is on allergy medications has facial pain and mild swelling - negative testing today for flu and COVID will treat for sinusitis no concern for deeper infection. At this time will treat with antibiotics and asking for medications for chronic back pain. Asked to retest in 2 days if symptoms persist Lab Data Labs: Lab Results 08/29/21 08/29/21 Range/Units 05:44 05:44 COVID-19 (SHO) Negative (Negative) COVID-19 Clin Com See Note Influenza Type A (ANITA) Negative (Negative) Influenza Type B (ANITA) Negative (Negative) Influenza A & B Note See Note Discharge Plan Discharge Clinical Impression: Acute viral syndrome Sinusitis Qualifiers: Sinusitis location: maxillary Chronicity: acute Recurrence: non-recurrent Qualified Code(s): J01.00 - Acute maxillary sinusitis, unspecified Patient Disposition: Home, Self-Care Instructions: Sinusitis (ED), Viral Syndrome (ED) Additional Instructions: return to ED for any worsening symptoms or concerns negative test for covid in flu if symptoms persist repeat in 2 days wear a mask for 5 days Prescriptions: New cyclobenzaprine 10 mg tablet 10 mg PO TID PRN (Reason: muscle spasm) Qty: 14 0RF lidocaine 4 % adhesive patch,medicated 1 patch topical DAILY PRN (Reason: pain) Qty: 10 0RF Rx Instructions: may leave on for up to 12 hrs prednisone 20 mg tablet 40 mg PO DAILY 5 Days Qty: 10 0RF amoxicillin-pot clavulanate 875-125 mg tablet 1 tab PO BID Qty: 14 0RF No Action oseltamivir 75 mg capsule 75 mg PO BID 5 Days Qty: 10 0RF prednisone 20 mg tablet 40 mg PO DAILY 5 Days Qty: 10 0RF cyclobenzaprine 10 mg tablet 10 mg PO TID PRN (Reason: pain) Qty: 18 0RF Rx Instructions: side effect is drowsiness. Do not take at work or while driving. acetaminophen [Tylenol] 325 mg capsule 325 mg PO QID PRN (Reason: pain) Qty: 28 0RF losartan 50 mg tablet 1 tab PO DAILY 0RF cyclobenzaprine 10 mg tablet 1 tab PO TID 0RF acetaminophen 325 mg tablet 650 mg PO 0RF cetirizine 10 mg tablet 1 tab PO DAILY 0RF hydroxyzine HCl 50 mg tablet 1 tab PO BEDTIME 0RF chlorthalidone 50 mg tablet 1 tab PO DAILY 0RF amitriptyline 50 mg tablet 1 tab PO BEDTIME 0RF amlodipine 10 mg tablet 1 tab PO DAILY 0RF gabapentin 100 mg capsule 1 cap PO DAILY 0RF cholecalciferol (vitamin D3) 25 mcg (1,000 unit) capsule 1 cap PO DAILY 0RF amlodipine 10 mg tablet 1 tab PO DAILY 0RF
== END 2021-08-29 07:14 | disposition home or self-care (01) ==
PROVIDERS: Emergency Provider Emergency Medicine
DX: B34.9 Viral infection, unspecified (principal); J01.00 Acute maxillary sinusitis, unspecified; G89.29 Other chronic pain; M54.9 Dorsalgia, unspecified; I10 Essential (primary) hypertension; Z20.822 Contact with and (suspected) exposure to COVID-19
CPT/HCPCS: 87502; 87635; 99283

== ENCOUNTER 2021-09-07 06:07 | Emergency (ER) | payer MEDICAID, SELFPAY ==
--- NOTE | ~2021-09-07 | CT_ITS ---
EXAMINATION: CT HEAD WITHOUT CONTRAST CLINICAL INFORMATION: New headache. COMPARISON: 09/26/[address] scan[address] TECHNIQUE: Contiguous axial imaging was performed from the skull base to vertex without intravenous administration of contrast. Coronal and sagittal reformatted images were obtained This CT examination was performed using dose optimization techniques as appropriate, variously including the following: *Automated exposure control *Adjustment of mA and/or kV according to patient size (this includes techniques or standardized protocols for targeted exams where dose is matched to indication/reason for exam; i.e. extremities or head) *Use of iterative reconstruction technique DLP: 1753 mGy-cm FINDINGS: There is no evidence of acute intracranial hemorrhage or territorial infarction. No abnormal mass effect or midline shift is seen. [place] to white matter differentiation is well preserved. No extra-axial fluid collections are identified. The ventricles are normal in size. There is no abnormal attenuation within the brain parenchyma. The osseous structures and soft tissues are normal. The paranasal sinuses show small retention cyst versus inflammatory polyp anteriorly in the left maxillary sinus. No air-fluid levels. The mastoid air cells are clear. Moderate anterior nasal septal deviation, apex the left. CT/CT head/brain wo con IMPRESSION: No acute intracranial pathology.
--- NOTE | ~2021-09-07 | CT_ITS ---
EXAMINATION: CT ABDOMEN AND PELVIS WITHOUT CONTRAST CLINICAL INFORMATION: Left upper quadrant abdominal pain. COMPARISON: CT of the abdomen and pelvis done on 01/22/2021. TECHNIQUE: Multidetector volumetric imaging was performed from the superior aspect of the liver through the pubic symphysis. Sagittal and coronal reformatted images were obtained on the technologist's workstation. This CT examination was performed using dose optimization techniques as appropriate, variously including the following: *Automated exposure control *Adjustment of mA and/or kV according to patient size (this includes techniques or standardized protocols for targeted exams where dose is matched to indication/reason for exam; i.e. extremities or head) *Use of iterative reconstruction technique DLP: 921.05 mGy-cm FINDINGS: LUNG BASES: The visualized lung bases are unremarkable. LIVER, GALLBLADDER, AND BILIARY TREE: No focal liver lesion on this nonenhanced study. The gallbladder is unremarkable with no evidence of radiopaque gallstones, gallbladder wall thickening, or obvious pericholecystic inflammatory changes. PANCREAS: Unremarkable. SPLEEN: Nonvisualized, presumably surgically absent. ADRENAL GLANDS: Unremarkable. KIDNEYS AND URETERS: The kidneys are normal in size, shape, and attenuation. No hydronephrosis, hydroureter, or calculi seen. No perinephric stranding. BLADDER: Suboptimally distended. Apparent mild diffuse wall thickening is present likely related to physiologic suboptimal distention. Superimposed infection, altered obstruction may also have similar appearance and cannot be further differentiated. GASTROINTESTINAL TRACT: Mild colonic diverticulosis without any CT features of superimposed acute diverticulitis. The small bowel loops are decompressed. The stomach is decompressed. The appendix is unremarkable. ABDOMINAL WALL: No significant hernia is appreciated. Previously documented subtle fat stranding at left upper quadrant of the abdomen shows interval resolution. LYMPH NODES: Normal. VASCULAR: Mild diffuse atherosclerotic disease of the aorta and is branches. PELVIC VISCERA: There is no pelvic mass present. No evidence of any free fluid and/or free air. OSSEOUS STRUCTURES: Stable presumed bone island involving the right iliac bone. No new abnormalities. CT/CT abdomen pelvis wo con IMPRESSION: No significant abnormality. No CT evidence of any acute intra-abdominal or intrapelvic pathology is present. Previously documented subtle fat stranding at left upper quadrant of the abdomen shows interval resolution. Fleischner guidelines were followed.
[2021-09-07 06:39] VITALS: BP 140/90; PULSE 66; RESP 16; TEMP 36.9; O2SAT 96; BMI 27.4
[2021-09-07 06:55] LABS: MANUAL DIFF FLAG NO
[2021-09-07 06:58] LABS: Basophils Absolute Auto 0.1 X10*3/uL (0.0-0.2); Basophils Percent Auto 0.6 % (0-2); Eosinophils Absolute Auto 0.4 X10*3/uL (0.0-0.4); Eosinophils Percent Auto 3.5 % (0-4); Hematocrit 42.8 % (42.0-52.0); Hemoglobin 14.3 g/dl (14.0-18.0); Imm Gran Abs Auto 0.04 X10*3/uL (0.00-0.03); Imm Gran Pct Auto 0.4 % (0.0-0.4); Lymphocytes Absolute Auto 4.4 X10*3/uL (1.2-4.9); Lymphocytes Percent Auto 39.7 % (20-40); Mean Corpuscular HGB Conc 33.4 g/dl (31.0-36.0); Mean Corpuscular Hemoglobin 31.6 pg (27.0-33.0); Mean Corpuscular Volume 94.5 fL (80.0-98.0); Mean Platelet Volume 9.5 fL (9.4-12.4); Monocytes Percent Auto 8.8 % (2-11); Neutrophils Absolute Auto 5.2 x10*3/uL (2.0-8.3); Platelet Count 386 X10*3/uL (160-400); Red Blood Count 4.53 X10*6/uL (4.60-5.80); Red Cell Distribution Width 14.3 % (11.0-16.0)
[2021-09-07 07:09] LABS: COVID-19 Test Negative (Negative); IDNOW Serial# 16C4AD1C; Influenza A Negative (Negative); Influenza B2 Negative (Negative)
[2021-09-07 07:10] LABS: Anion Gap 12 (12-20); Blood Urea Nitrogen 11 mg/dL (9-16); Calcium 9.4 mg/dL (8.4-10.2); Carbon Dioxide 28 mmol/L (22-29); Chloride 102 mmol/L (96-108); Creatinine Clr Calc Pharmacy 91.6; Estimated Glomerular Filt Rate > 60; Glucose Random 107 mg/dL (60-115); Potassium 3.9 mmol/L (3.3-5.1); Sodium 138 mmol/L (135-145)
[2021-09-07 07:27] VITALS: BP 163/90; PULSE 61; RESP 18; TEMP 36.7; O2SAT 100
--- NOTE | 2021-09-07 07:44 | ED.GENADULT ---
HPI - General Adult General Chief complaint: General Medical Stated complaint: lower back pain radiates to legs Time Seen by Provider: 09/07/21 07:38 Source: patient Mode of arrival: ambulatory Limitations: no limitations Related Data Home Medications Medication Instructions Recorded Confirmed acetaminophen 325 mg tablet 650 mg PO 05/21/21 amitriptyline 50 mg tablet 1 tab PO BEDTIME 05/21/21 05/21/21 amlodipine 10 mg tablet 1 tab PO DAILY 05/21/21 05/21/21 cetirizine 10 mg tablet 1 tab PO DAILY 05/21/21 05/21/21 chlorthalidone 50 mg tablet 1 tab PO DAILY 05/21/21 05/21/21 cholecalciferol (vitamin D3) 25 1 cap PO DAILY 05/21/21 05/21/21 mcg (1,000 unit) capsule cyclobenzaprine 10 mg tablet 1 tab PO TID 05/21/21 05/21/21 gabapentin 100 mg capsule 1 cap PO DAILY 05/21/21 05/21/21 hydroxyzine HCl 50 mg tablet 1 tab PO BEDTIME 05/21/21 05/21/21 losartan 50 mg tablet 1 tab PO DAILY 05/21/21 05/21/21 amlodipine 10 mg tablet 1 tab PO DAILY 05/25/21 05/25/21 Previous Rx's Medication Instructions Recorded oseltamivir 75 mg capsule 75 mg PO BID 5 Days #10 cap 12/30/20 prednisone 20 mg tablet 40 mg PO DAILY 5 Days #10 tab 12/30/20 acetaminophen 325 mg capsule 325 mg PO QID PRN #28 cap 01/22/21 (Tylenol) cyclobenzaprine 10 mg tablet 10 mg PO TID PRN #18 tab 01/22/21 amoxicillin 875 mg-potassium 1 tab PO BID #14 tab 08/29/21 clavulanate 125 mg tablet cyclobenzaprine 10 mg tablet 10 mg PO TID PRN #14 tab 08/29/21 lidocaine 4 % topical patch 1 patch TOPICAL DAILY PRN #10 ea 08/29/21 prednisone 20 mg tablet 40 mg PO DAILY 5 Days #10 tab 08/29/21 Allergies Allergy/AdvReac Type Severity Reaction Status Date / Time aspirin [ASA] Allergy Intermediate ABD PAIN Verified 06/27/21 09:22 [facility] Past Medical History Medical History Anxiety Cholecystectomy planned COVID-19 vaccine series completed Disc degeneration, lumbar HTN (hypertension) MRSA (methicillin resistant Staphylococcus aureus) Renal calculi Spondylosis of lumbar spine Surgical History Hx of cholecystectomy Hx of cystoscopy Social History Social History Are you a primary care companion to a significant other at home: No Do you presently have visiting nurse or other home services: No Alcohol intake: never Patient Tobacco Use Status: Never used Tobacco Advance Directives: No Advance Directives Information Provided: No Physical Exam ED Vital Signs: Vital Signs - 24 hr 09/07/21 06:39 09/07/21 07:27 Temperature 98.4 F 98.1 F Pulse Rate 66 61 Respiratory Rate 16 18 Blood Pressure 140/90 H 163/90 H Pulse Oximetry 96 100 BMI result Body Mass Index 27.4 Medical Decision Making Lab Data Result diagrams: 09/07/21 06:47 09/07/21 06:47 Labs: Lab Results 09/07/21 09/07/21 09/07/21 Range/Units 06:47 06:47 06:47 WBC 11.0 H (4.8-10.8) X10*3/uL RBC 4.53 L (4.60-5.80) X10*6/uL Hgb 14.3 (14.0-18.0) g/dl Hct 42.8 (42.0-52.0) % MCV 94.5 (80.0-98.0) fL MCH 31.6 (27.0-33.0) pg MCHC 33.4 (31.0-36.0) g/dl RDW 14.3 (11.0-16.0) % Plt Count 386 (160-400) X10*3/uL MPV 9.5 (9.4-12.4) fL Immature Gran % (Auto) 0.4 (0.0-0.4) % Neut % (Auto) 47.0 (45-73) % Lymph % (Auto) 39.7 (20-40) % [place] % (Auto) 8.8 (2-11) % Eos % (Auto) 3.5 (0-4) % Baso % (Auto) 0.6 (0-2) % Lymph # (Auto) 4.4 (1.2-4.9) X10*3/uL [place] # (Auto) 1.0 (0.1-1.2) X10*3/uL Eos # (Auto) 0.4 (0.0-0.4) X10*3/uL Baso # (Auto) 0.1 (0.0-0.2) X10*3/uL Abs Immat Gran (auto) 0.04 H (0.00-0.03) X10*3/uL Absolute Neuts (auto) 5.2 (2.0-8.3) x10*3/uL Absolute Nucleated RBC 0.000 (0.0-0.012) X10*3/uL Nucleated RBC % (auto) 0.0 (0.0-0.2) /100WBC Sodium 138 (135-145) mmol/L Potassium 3.9 (3.3-5.1) mmol/L Chloride 102 (96-108) mmol/L Carbon Dioxide 28 (22-29) mmol/L Anion Gap 12 (12-20) BUN 11 (9-16) mg/dL Creatinine 0.89 (0.5-1.4) mg/dL Estim Creat Clear Calc 91.6 Estimated GFR > 60 Random Glucose 107 (60-115) mg/dL Calcium 9.4 (8.4-10.2) mg/dL COVID-19 (SHO) (Negative) COVID-19 Clin Com Influenza Type A (ANITA) Negative (Negative) Influenza Type B (ANITA) Negative (Negative) Influenza A & B Note See Note 09/07/21 Range/Units 06:47 WBC (4.8-10.8) X10*3/uL RBC (4.60-5.80) X10*6/uL Hgb (14.0-18.0) g/dl Hct (42.0-52.0) % MCV (80.0-98.0) fL MCH (27.0-33.0) pg MCHC (31.0-36.0) g/dl RDW (11.0-16.0) % Plt Count (160-400) X10*3/uL MPV (9.4-12.4) fL Immature Gran % (Auto) (0.0-0.4) % Neut % (Auto) (45-73) % Lymph % (Auto) (20-40) % [place] % (Auto) (2-11) % Eos % (Auto) (0-4) % Baso % (Auto) (0-2) % Lymph # (Auto) (1.2-4.9) X10*3/uL [place] # (Auto) (0.1-1.2) X10*3/uL Eos # (Auto) (0.0-0.4) X10*3/uL Baso # (Auto) (0.0-0.2) X10*3/uL Abs Immat Gran (auto) (0.00-0.03) X10*3/uL Absolute Neuts (auto) (2.0-8.3) x10*3/uL Absolute Nucleated RBC (0.0-0.012) X10*3/uL Nucleated RBC % (auto) (0.0-0.2) /100WBC Sodium (135-145) mmol/L Potassium (3.3-5.1) mmol/L Chloride (96-108) mmol/L Carbon Dioxide (22-29) mmol/L Anion Gap (12-20) BUN (9-16) mg/dL Creatinine (0.5-1.4) mg/dL Estim Creat Clear Calc Estimated GFR Random Glucose (60-115) mg/dL Calcium (8.4-10.2) mg/dL COVID-19 (SHO) Negative (Negative) COVID-19 Clin Com See Note Influenza Type A (ANITA) (Negative) Influenza Type B (ANITA) (Negative) Influenza A & B Note Discharge Plan Discharge Prescriptions: No Action oseltamivir 75 mg capsule 75 mg PO BID 5 Days Qty: 10 0RF prednisone 20 mg tablet 40 mg PO DAILY 5 Days Qty: 10 0RF cyclobenzaprine 10 mg tablet 10 mg PO TID PRN (Reason: pain) Qty: 18 0RF Rx Instructions: side effect is drowsiness. Do not take at work or while driving. acetaminophen [Tylenol] 325 mg capsule 325 mg PO QID PRN (Reason: pain) Qty: 28 0RF losartan 50 mg tablet 1 tab PO DAILY 0RF cyclobenzaprine 10 mg tablet 1 tab PO TID 0RF acetaminophen 325 mg tablet 650 mg PO 0RF cetirizine 10 mg tablet 1 tab PO DAILY 0RF hydroxyzine HCl 50 mg tablet 1 tab PO BEDTIME 0RF chlorthalidone 50 mg tablet 1 tab PO DAILY 0RF amitriptyline 50 mg tablet 1 tab PO BEDTIME 0RF amlodipine 10 mg tablet 1 tab PO DAILY 0RF gabapentin 100 mg capsule 1 cap PO DAILY 0RF cholecalciferol (vitamin D3) 25 mcg (1,000 unit) capsule 1 cap PO DAILY 0RF amlodipine 10 mg tablet 1 tab PO DAILY 0RF cyclobenzaprine 10 mg tablet 10 mg PO TID PRN (Reason: muscle spasm) Qty: 14 0RF lidocaine 4 % adhesive patch,medicated 1 patch topical DAILY PRN (Reason: pain) Qty: 10 0RF Rx Instructions: may leave on for up to 12 hrs prednisone 20 mg tablet 40 mg PO DAILY 5 Days Qty: 10 0RF amoxicillin-pot clavulanate 875-125 mg tablet 1 tab PO BID Qty: 14 0RF
--- NOTE | 2021-09-07 07:50 | PC.NURSE ---
pt alert and oriented, skin appropriate for ethnicity, pt states not feeling well for months, having lots of headaches describes it as pressure, back pain, sore throat, also reports that his legs where very swollen last night, no visible edema this morning, and feeling generally weak
[2021-09-07 07:54] LABS: Alanine Aminotransferase 16 U/L (0-40); Albumin Level 3.9 g/dL (3.5-5.0); Alkaline Phosphatase 81 U/L (39-117); Aspartate Amino Transferase 15 U/L (5-37); Bilirubin Direct < 0.2 mg/dL (0.0-0.5); Bilirubin Total 0.3 mg/dL (0.0-1.0); Lipase 12 U/L (8-78); Total Protein 6.9 g/dL (6.5-8.0)
[2021-09-07 08:00] LABS: Appearance Urine CLEAR; Color Urine YELLOW; Glucose Urine UA NEG (NEG); Leukocyte Esterase Urine NEG (NEG); Nitrite Urine NEG (NEG); Specific Gravity - Urine 1.015 (1.005-1.025); UACC Culture Trigger NO; Urine Blood 1+ (NEG); Urine Ketones NEG (NEG); Urine Protein NEG (NEG-TRACE)
[2021-09-07 08:05] LABS: Squamous Epithelial Cell Urine 1+ /LPF
[2021-09-07 08:06] LABS: WBC Urine 0 /HPF (0-4)
--- NOTE | 2021-09-07 08:30 | ED_ITS ---
HPI - General Adult General Chief complaint: General Medical Stated complaint: lower back pain radiates to legs Time Seen by Provider: 09/07/21 07:38 Source: patient Mode of arrival: ambulatory Limitations: no limitations History of Present Illness HPI narrative: 55-year-old male presents with multiple complaints. Patient states that he has tingling and pain in his bilateral legs, radiating into his low back. He has body aches and feels that his ?bones hurt?. He has had a constant headache. He has had left upper quadrant pain that is worse with eating. His eyes are itchy. Patient was seen 08/29/2021 for 4 days of a viral syndrome with back pain diagnosed with sinusitis given Augmentin, prednisone, and Flexeril for chronic back pain. Patient states he has not gotten any better since that visit. Patient states he has been feeling ill for 2 months. States that 2 months ago his headache started and have been gradual in onset. They were intermittent but have been constant for the last month. The headache is on the right side of his head and is 9/10. No neck pain, no blurry vision, no double vision, no loss of vision. Patient has no headache history. Patient has a past medical history of chronic low back pain, with lumbar degenerative disc disease, and spondylosis of lumbar spine. Patient states when he wakes up in the morning his legs are very painful, and he can walk but stiffly. States his mom had rheumatoid arthritis. He has not had any rashes, no fevers. He has not been incontinent of bowel or bladder, no urinary retention, no saddle paresthesias, no history of IV drug use, no history of cancer. Patient did have an MR of his lumbar spine in 2019 it showed disc protrusion at L4-L5 with involvement of L5 nerve roots with moderate bilateral foraminal narrowing, and severe chronic degenerative disc disease of L5-S1, no central canal stenosis Patient states he has had left upper quadrant pain for the past 7 months, he is nauseous after he eats. No diarrhea, no changes in bowel movement. No vomiting. Patient had CT abdomen pelvis December 2020 left upper quadrant showed possible panniculitis or fat necrosis. In addition, patient states he has had itchy eyes and sore throat for the last month. Related Data Home Medications Medication Instructions Recorded Confirmed acetaminophen 325 mg tablet 650 mg PO 05/21/21 amitriptyline 50 mg tablet 1 tab PO BEDTIME 05/21/21 05/21/21 amlodipine 10 mg tablet 1 tab PO DAILY 05/21/21 05/21/21 cetirizine 10 mg tablet 1 tab PO DAILY 05/21/21 05/21/21 chlorthalidone 50 mg tablet 1 tab PO DAILY 05/21/21 05/21/21 cholecalciferol (vitamin D3) 25 1 cap PO DAILY 05/21/21 05/21/21 mcg (1,000 unit) capsule cyclobenzaprine 10 mg tablet 1 tab PO TID 05/21/21 05/21/21 gabapentin 100 mg capsule 1 cap PO DAILY 05/21/21 05/21/21 hydroxyzine HCl 50 mg tablet 1 tab PO BEDTIME 05/21/21 05/21/21 losartan 50 mg tablet 1 tab PO DAILY 05/21/21 05/21/21 amlodipine 10 mg tablet 1 tab PO DAILY 05/25/21 05/25/21 Previous Rx's Medication Instructions Recorded oseltamivir 75 mg capsule 75 mg PO BID 5 Days #10 cap 12/30/20 prednisone 20 mg tablet 40 mg PO DAILY 5 Days #10 tab 12/30/20 acetaminophen 325 mg capsule 325 mg PO QID PRN #28 cap 01/22/21 (Tylenol) cyclobenzaprine 10 mg tablet 10 mg PO TID PRN #18 tab 01/22/21 amoxicillin 875 mg-potassium 1 tab PO BID #14 tab 08/29/21 clavulanate 125 mg tablet cyclobenzaprine 10 mg tablet 10 mg PO TID PRN #14 tab 08/29/21 lidocaine 4 % topical patch 1 patch TOPICAL DAILY PRN #10 ea 08/29/21 prednisone 20 mg tablet 40 mg PO DAILY 5 Days #10 tab 08/29/21 dexamethasone 6 mg tablet 6 mg PO DAILY 3 Days #3 tab 09/07/21 ketorolac 10 mg tablet 10 mg PO Q6H 5 Days #20 tab 09/07/21 Allergies Allergy/AdvReac Type Severity Reaction Status Date / Time aspirin [ASA] Allergy Intermediate ABD PAIN Verified 06/27/21 09:22 Review of Systems Constitutional: Constitutional: Reports body ache(s), Denies chills, Reports fatigue, Denies fever(s), Reports headache(s), Denies malaise and Denies weakness Eyes: Eyes: Denies blurry vision, Denies change in vision, Denies diplopia, Reports itchy eyes and Denies loss of vision ENT: Reports Normal hearing present, Denies vertigo, Denies dizziness, Denies otalgia, Reports headache(s), Denies mouth pain, Denies post nasal drip, Denies sinus pain, Denies sinus pressure, Denies sore throat and Denies throat swelling Cardiovascular: Cardiovascular: Denies chest pain, Denies syncope, Denies leg edema, Denies lightheadedness, Denies Loss of Consciousness, Denies palpitations and Denies dyspnea Respiratory: Respiratory: Denies chest congestion, Denies cough and Denies dyspnea Gastrointestinal: Gastrointestinal: Reports abdominal pain, Denies hematochezia, Denies constipation, Denies fecal incontinence, Denies diarrhea, Reports nausea and Denies vomiting Genitourinary: Genitourinary: Reports no additional male genitourinary complaints, Reports dysuria, Denies flank pain, Denies urinary incontinence and Denies urinary urgency Musculoskeletal: Musculoskeletal: Reports back pain and Reports myalgias Neurologic: Reports Normal hearing present, Denies Abnormal speech present, Denies confusion, Denies vertigo, Denies dizziness, Denies syncope, Reports headache(s), Denies loss of vision, Denies Sensory deficit (Neuro) and Denies weakness Psychiatric: Psychiatric: Denies anxiety, Denies confusion and Denies depress ion Endocrine: Endocrine: Reports fatigue, Reports polydipsia and Denies palpitations Allergic/Immunologic: Allergic/Immunologic: Reports itchy eyes, Reports seasonal rhinorrhea and Denies throat swelling PMFSH Past Medical History Medical History Anxiety Cholecystectomy planned COVID-19 vaccine series completed Disc degeneration, lumbar HTN (hypertension) MRSA (methicillin resistant Staphylococcus aureus) Renal calculi Spondylosis of lumbar spine Surgical History Hx of cholecystectomy Hx of cystoscopy Social History Social History Are you a primary career guidance technician to a significant other at home: No Do you presently have visiting nurse or other home services: No Alcohol intake: never Patient Tobacco Use Status: Never used Tobacco Use of substances other than those prescribed or required for medical reasons: No Advance Directives: No Advance Directives Information Provided: No Physical Exam ED Vital Signs: Vital Signs - 24 hr 09/07/21 06:39 09/07/21 07:27 Temperature 98.4 F 98.1 F Pulse Rate 66 61 Respiratory Rate 16 18 Blood Pressure 140/90 H 163/90 H Pulse Oximetry 96 100 BMI result Body Mass Index 27.4 Const General: comfortable, alert and awake; No confusion Nutritional Appearance: well nourished and obese centrally obese Orientation/consciousness: patient oriented x3 and No confusion Limitations: no limitations HENMT Head: Yes normal to inspection, Yes normocephalic and Yes atraumatic Ears: hearing grossly normal bilaterally, external ears normal, TM's normal bilaterally and EAC's normal General nose exam: Normal external nose present Face and sinus: Yes normal facial exam and Yes sinuses nontender Mouth: Normal oral and palatal mucosa present Throat: Yes posterior oropharynx normal Eyes Conjunctivae: conjunctival abnormal bilateral conjunctival injection diffuse Pupils: Equal, round and reactive pupils present EOM: EOMs intact bilaterally and No Nystagmus present Neck Neck: Yes full ROM, Yes no lymphadenopathy and Yes supple Resp Effort & Inspection: normal respiratory effort and able to speak in complete sentences Auscultation: clear to auscultation bilaterally, no crackles, no rales, no rhonc hi and no wheezes Cardio Rate: regular rate Rhythm: regular rhythm Heart sounds: S1 normal heart sound present and S2 normal heart sound present GI Inspection: Yes distended, Yes Abdominal panniculus present, Yes obesity and Yes scar Palpation (GI): Soft to palpation, Tenderness to palpation present (GI) in the epigastrum and in the LUQ, Guarding due to palpation present (GI) in the LUQ and not rigid Percussion: Yes normal to percussion Auscultation: normal bowel sounds General: Yes CVA tenderness on the right Back/Spine/Pelvis Back: CVA tenderness Cervical Spine: normal cervical lordosis, cervical ROM normal, No Cervical spine tenderness, No step off deformity and No cervical ROM abnormal Thoracic/Lumbar Spine: straight leg raise negative bilaterally, paraspinal muscle tenderness on the right in the upper lumbar, No thoracic spinal tenderness and lumbar spinal tenderness at L4 and at L5 Skin General skin exam: no rashes or lesions noted Neuro General: patient oriented x3, gait normal, tone normal, moves all extremities and No confusion Cranial nerves: Yes CN's II-XII intact bilaterally, Yes Facial sensation intact/muscles of mastication intact, Yes Equal, round and reactive pupils present, Yes Normal accommodation reflex present, Yes Bilaterally intact EOM present, Yes Nystagmus not present, Yes Normal facial strength present, Yes Midline tongue present, Yes Normal hearing present, Yes Ability to bilaterally rotate head present, Yes Ability to bilaterally elevate shoulders present and No Nystagmus present Cognition (Neuro): normal cognition Speech: No Abnormal speech present Gait exam (Neuro): Normal gait present Motor exam (neuro): 5/5 motor strength present throughout and Pronator motor function not present Sensory Exam: No Sensory deficit (Neuro) Deep tendon reflexes (DTR's): Right brachioradialis reflex intensity grade: 1+, Left brachioradialis reflex intensity grade: 1+, Right patellar reflex intensity grade: 1+ and Left patellar reflex intensity grade: 1+ Coordination: [id number] test normal and [id number] test normal Pupils: Normal pupillary reactivity/response: bilateral Extrem General: Yes normal to inspection and Yes full ROM Psych Appearance: grossly normal Affect: normal affect Attitude: cooperative Thought process: Normal thought process present Course Course Course Narrative: 55-year-old male presents for multiple complaints including left upper quadrant pain, body aches, back pain, leg numbness, headache, seasonal allergy symptoms. On exam, patient is mildly hypertensive at 163/90, he tells me he has the appointment with his PCP in 2 weeks to address his hypertension. He is afebrile. On exam, patient has injected conjunctiva, eyes are puffy, patient has right CVA tenderness, is tender and guarding in his left upper quadrant, has tenderness over his lumbar bony spine. Patient says he is always tender over his lumbar spine, that this is chronic, patient is neurologically intact, can get up and walk, no focal neuro deficits. White blood cell count is 11, creatinine 0.89, lipase is 12, labs are unremarkable. Patient is flu and COVID negative. Urine shows +1 blood, no infection. Will CT head, CT abdomen, get Lyme test, give patient headache cocktail Reevaluation(s) Reevaluation #1: CT/CT abdomen pelvis wo con IMPRESSION: No significant abnormality. No CT evidence of any acute intra-abdominal or intrapelvic pathology is present. Previously documented subtle fat stranding at left upper quadrant of the abdomen shows interval resolution. Head CT shows no acute intracranial abnormality On re-exam, patient's headache has resolved completely, his back pain and body aches are better. With normal labs, stable vitals, normal neurological exam, and normal imaging, patient is safe to disposition home Will prescribe dexamethasone to stop a rebound headache, will continue with keto rolac, counseled patient he must follow up with his primary care provider for rheumatological referral, to follow-up on Lyme disease lab, to follow-up on his microscopic hematuria Given to caution, patient's were answered Medical Decision Making Lab Data Result diagrams: 09/07/21 06:47 09/07/21 06:47 Labs: Lab Results 09/07/21 09/07/21 09/07/21 Range/Units 06:47 06:47 06:47 WBC 11.0 H (4.8-10.8) X10*3/uL RBC 4.53 L (4.60-5.80) X10*6/uL Hgb 14.3 (14.0-18.0) g/dl Hct 42.8 (42.0-52.0) % MCV 94.5 (80.0-98.0) fL MCH 31.6 (27.0-33.0) pg MCHC 33.4 (31.0-36.0) g/dl RDW 14.3 (11.0-16.0) % Plt Count 386 (160-400) X10*3/uL MPV 9.5 (9.4-12.4) fL Immature Gran % (Auto) 0.4 (0.0-0.4) % Neut % (Auto) 47.0 (45-73) % Lymph % (Auto) 39.7 (20-40) % [place] % (Auto) 8.8 (2-11) % Eos % (Auto) 3.5 (0-4) % Baso % (Auto) 0.6 (0-2) % Lymph # (Auto) 4.4 (1.2-4.9) X10*3/uL [place] # (Auto) 1.0 (0.1-1.2) X10*3/uL Eos # (Auto) 0.4 (0.0-0.4) X10*3/uL Baso # (Auto) 0.1 (0.0-0.2) X10*3/uL Abs Immat Gran (auto) 0.04 H (0.00-0.03) X10*3/uL Absolute Neuts (auto) 5.2 (2.0-8.3) x10*3/uL Absolute Nucleated RBC 0.000 (0.0-0.012) X10*3/uL Nucleated RBC % (auto) 0.0 (0.0-0.2) /100WBC Sodium 138 (135-145) mmol/L Potassium 3.9 (3.3-5.1) mmol/L Chloride 102 (96-108) mmol/L Carbon Dioxide 28 (22-29) mmol/L Anion Gap 12 (12-20) BUN 11 (9-16) mg/dL Creatinine 0.89 (0.5-1.4) mg/dL Estim Creat Clear Calc 91.6 Estimated GFR > 60 Random Glucose 107 (60-115) mg/dL Calcium 9.4 (8.4-10.2) mg/dL Total Bilirubin 0.3 (0.0-1.0) mg/dL Direct Bilirubin < 0.2 (0.0-0.5) mg/dL AST 15 (5-37) U/L ALT 16 (0-40) U/L Alkaline Phosphatase 81 (39-117) U/L Total Protein 6.9 (6.5-8.0) g/dL Albumin 3.9 (3.5-5.0) g/dL Lipase 12 (8-78) U/L Urine Color Urine Appearance Urine pH (5.0-8.0) Ur Specific [place] (1.005-1.025) Urine Protein (NEG-TRACE) MG/DL Urine Glucose (UA) (NEG) MG/DL Urine Ketones (NEG) MG/DL Urine Blood (NEG) Urine Nitrite (NEG) Ur Leukocyte Esterase (NEG) Urine RBC (0) /HPF Urine WBC (0-4) /HPF Ur Squamous Epith Cells /LPF Urine Bacteria /LPF COVID-19 (SHO) (Negative) COVID-19 Clin Com Influenza Type A (ANITA) Negative (Negative) Influenza Type B (ANITA) Negative (Negative) Influenza A & B Note See Note 09/07/21 09/07/21 Range/Units 06:47 07:47 WBC (4.8-10.8) X10*3/uL RBC (4.60-5.80) X10*6/uL Hgb (14.0-18.0) g/dl Hct (42.0-52.0) % MCV (80.0-98.0) fL MCH (27.0-33.0) pg MCHC (31.0-36.0) g/dl RDW (11.0-16.0) % Plt Count (160-400) X10*3/uL MPV (9.4-12.4) fL Immature Gran % (Auto) (0.0-0.4) % Neut % (Auto) (45-73) % Lymph % (Auto) (20-40) % [place] % (Auto) (2-11) % Eos % (Auto) (0-4) % Baso % (Auto) (0-2) % Lymph # (Auto) (1.2-4.9) X10*3/uL [place] # (Auto) (0.1-1.2) X10*3/uL Eos # (Auto) (0.0-0.4) X10*3/uL Baso # (Auto) (0.0-0.2) X10*3/uL Abs Immat Gran (auto) (0.00-0.03) X10*3/uL Absolute Neuts (auto) (2.0-8.3) x10*3/uL Absolute Nucleated RBC (0.0-0.012) X10*3/uL Nucleated RBC % (auto) (0.0-0.2) /100WBC Sodium (135-145) mmol/L Potassium (3.3-5.1) mmol/L Chloride (96-108) mmol/L Carbon Dioxide (22-29) mmol/L Anion Gap (12-20) BUN (9-16) mg/dL Creatinine (0.5-1.4) mg/dL Estim Creat Clear Calc Estimated GFR Random Glucose (60-115) mg/dL Calcium (8.4-10.2) mg/dL Total Bilirubin (0.0-1.0) mg/dL Direct Bilirubin (0.0-0.5) mg/dL AST (5-37) U/L ALT (0-40) U/L Alkaline Phosphatase (39-117) U/L Total Protein (6.5-8.0) g/dL Albumin (3.5-5.0) g/dL Lipase (8-78) U/L Urine Color YELLOW Urine Appearance CLEAR Urine pH 7.0 (5.0-8.0) Ur Specific [place] 1.015 (1.005-1.025) Urine Protein NEG (NEG-TRACE) MG/DL Urine Glucose (UA) NEG (NEG) MG/DL Urine Ketones NEG (NEG) MG/DL Urine Blood 1+ H (NEG) Urine Nitrite NEG (NEG) Ur Leukocyte Esterase NEG (NEG) Urine RBC 1-4 (0) /HPF Urine WBC 0 (0-4) /HPF Ur Squamous Epith Cells 1+ /LPF Urine Bacteria NONE /LPF COVID-19 (SHO) Negative (Negative) COVID-19 Clin Com See Note Influenza Type A (ANITA) (Negative) Influenza Type B (ANITA) (Negative) Influenza A & B Note Discharge Plan Discharge Clinical Impression: Chronic low back pain, Headache, Myalgia, Abdominal pain, Hematuria Patient Disposition: Home, Self-Care Instructions: Acute Headache (ED), Abdominal Pain (ED), Back Pain (ED) Additional Instructions: I have ordered dexamethasone to stop your headache from returning. You got a dose today, fill the prescription and take it once a day for the next 3 days starting tomorrow I also prescribed ketorolac, this is very good pain medication, please take every 6 hours for the next 5 days. The pathology in your abdomen that was seen on prior CT scan has resolved. This CT scan of your belly is normal. The CT scan of your head is normal. All of your labs were normal. You have a trace amount of blood in your urine. I did do a lab for Lyme disease. These are things he must follow-up with with your primary care provider. I also think you need to be referred to rheumatology. Please return to the emergency room for any new or concerning symptoms. Prescriptions: New dexamethasone 6 mg tablet 6 mg PO DAILY 3 Days Qty: 3 0RF ketorolac 10 mg tablet 10 mg PO Q6H 5 Days Qty: 20 0RF No Action oseltamivir 75 mg capsule 75 mg PO BID 5 Days Qty: 10 0RF prednisone 20 mg tablet 40 mg PO DAILY 5 Days Qty: 10 0RF cyclobenzaprine 10 mg tablet 10 mg PO TID PRN (Reason: pain) Qty: 18 0RF Rx Instructions: side effect is drowsiness. Do not take at work or while driving. acetaminophen [Tylenol] 325 mg capsule 325 mg PO QID PRN (Reason: pain) Qty: 28 0RF losartan 50 mg tablet 1 tab PO DAILY 0RF cyclobenzaprine 10 mg tablet 1 tab PO TID 0RF acetaminophen 325 mg tablet 650 mg PO 0RF cetirizine 10 mg tablet 1 tab PO DAILY 0RF hydroxyzine HCl 50 mg tablet 1 tab PO BEDTIME 0RF chlorthalidone 50 mg tablet 1 tab PO DAILY 0RF amitriptyline 50 mg tablet 1 tab PO BEDTIME 0RF amlodipine 10 mg tablet 1 tab PO DAILY 0RF gabapentin 100 mg capsule 1 cap PO DAILY 0RF cholecalciferol (vitamin D3) 25 mcg (1,000 unit) capsule 1 cap PO DAILY 0RF amlodipine 10 mg tablet 1 tab PO DAILY 0RF cyclobenzaprine 10 mg tablet 10 mg PO TID PRN (Reason: muscle spasm) Qty: 14 0RF lidocaine 4 % adhesive patch,medicated 1 patch topical DAILY PRN (Reason: pain) Qty: 10 0RF Rx Instructions: may leave on for up to 12 hrs prednisone 20 mg tablet 40 mg PO DAILY 5 Days Qty: 10 0RF amoxicillin-pot clavulanate 875-125 mg tablet 1 tab PO BID Qty: 14 0RF
[2021-09-07] MEDS: Ketorolac Tromethamine 30 MG/ML VIAL IM (08:56)
[2021-09-07] MEDS: diphenhydrAMINE HCL 25 MG TABLET 50 MG PO (08:56)
[2021-09-07] MEDS: Metoclopramide HCl 10 MG TABLET PO (08:57)
--- NOTE | 2021-09-07 10:30 | PC.NURSE ---
pt resting comfortably reports no pain at this time
[2021-09-07] MEDS: dexAMETHasone 6 MG TABLET PO (11:21)
[2021-09-07 11:32] VITALS: BP 148/87; PULSE 65; RESP 17; O2SAT 97
[2021-09-10 21:31] LABS: Lyme Abs Screen <0.90 index
== END 2021-09-07 11:34 | disposition home or self-care (01) ==
PROVIDERS: Physician Assistant; Emergency Provider Emergency Medicine
DX: M54.50 Low back pain, unspecified (principal); G89.29 Other chronic pain; R51.9 Headache, unspecified; R31.9 Hematuria, unspecified; M79.10 Myalgia, unspecified site; M51.36 Other intervertebral disc degeneration, lumbar region; M47.816 Spondylosis without myelopathy or radiculopathy, lumbar region; M51.26 Other intervertebral disc displacement, lumbar region; I10 Essential (primary) hypertension; Z20.822 Contact with and (suspected) exposure to COVID-19
CPT/HCPCS: 70450; 74176; 80048; 80076; 81001; 81003; 83690; 85025; 86617; 86618; 87502; 87635; 96372; 99284; J1885; J8540; Q0163

== ENCOUNTER 2021-10-24 08:24 | Emergency (ER) | payer MEDICAID, SELFPAY ==
[2021-10-24 08:27] VITALS: BP 162/90; PULSE 70; RESP 17; TEMP 36.8; O2SAT 97; BMI 44.9
[2021-10-24 08:44] LABS: MANUAL DIFF FLAG NO
[2021-10-24 08:47] LABS: Basophils Absolute Auto 0.1 X10*3/uL (0.0-0.2); Basophils Percent Auto 0.8 % (0-2); Eosinophils Absolute Auto 0.4 X10*3/uL (0.0-0.4); Eosinophils Percent Auto 2.8 % (0-4); Hematocrit 43.3 % (42.0-52.0); Hemoglobin 14.8 g/dl (14.0-18.0); Imm Gran Abs Auto 0.04 X10*3/uL (0.00-0.03); Imm Gran Pct Auto 0.3 % (0.0-0.4); Lymphocytes Absolute Auto 4.3 X10*3/uL (1.2-4.9); Lymphocytes Percent Auto 34.6 % (20-40); Mean Corpuscular HGB Conc 34.2 g/dl (31.0-36.0); Mean Corpuscular Hemoglobin 32.4 pg (27.0-33.0); Mean Corpuscular Volume 94.7 fL (80.0-98.0); Mean Platelet Volume 10.1 fL (9.4-12.4); Monocytes Absolute Auto 1.1 X10*3/uL (0.1-1.2); Monocytes Percent Auto 8.8 % (2-11); Neutrophils Absolute Auto 6.6 x10*3/uL (2.0-8.3); Neutrophils Percent Auto 52.7 % (45-73); Platelet Count 357 X10*3/uL (160-400); Red Blood Count 4.57 X10*6/uL (4.60-5.80); Red Cell Distribution Width 14.4 % (11.0-16.0); White Blood Count 12.6 X10*3/uL (4.8-10.8)
[2021-10-24 08:56] LABS: Anion Gap 12 (12-20); Blood Urea Nitrogen 15 mg/dL (9-16); Carbon Dioxide 26 mmol/L (22-29); Chloride 106 mmol/L (96-108); Creatinine Clr Calc Pharmacy 121.7; Estimated Glomerular Filt Rate > 60; Glucose Random 104 mg/dL (60-115); Sodium 140 mmol/L (135-145)
--- NOTE | 2021-10-24 09:12 | ED.URI ---
HPI - URI/Sore Throat General Chief Complaint: Headache Stated Complaint: HEADACHE, JAW PAIN, BACK PAIN, DIZZY Time Seen by Provider: 10/24/21 09:04 Source: patient Mode of arrival: ambulatory Limitations: no limitations History of Present Illness HPI Narrative: Patient presents to the emergency department for evaluation of upper respiratory symptoms. He states that the past week he has been experiencing diffuse headache, pressure, nasal congestion, pain in his upper jaw, sore throat, and chronic low back pain. Has generalized body aches. Has trialed OTC cold medications without relief. Denies any known sick contacts, states he has been vaccinated for COVID-19. He denies fevers, chills, dizziness or lightheadedness, presyncope/syncope, neck pain or stiffness, chest pain, palpitations, shortness of breath, difficulty breathing, nausea, vomiting, diarrhea, constipation, abdominal pain, dysuria, urinary frequency, numbness or tingling of the perineum or extremities weakness. MD elicited complaint: sore throat, nasal congestion and sinus pain Pertinent past history: sinusitis Onset (ago): week(s) Consistency: constant Severity: moderate Description of mucous: yellow Able to tolerate fluids by mouth: Yes Relieving factors: nothing Related Data Home Medications Medication Instructions Recorded Confirmed acetaminophen 325 mg tablet 650 mg PO 05/21/21 amitriptyline 50 mg tablet 1 tab PO BEDTIME 05/21/21 05/21/21 amlodipine 10 mg tablet 1 tab PO DAILY 05/21/21 05/21/21 cetirizine 10 mg tablet 1 tab PO DAILY 05/21/21 05/21/21 chlorthalidone 50 mg tablet 1 tab PO DAILY 05/21/21 05/21/21 cholecalciferol (vitamin D3) 25 1 cap PO DAILY 05/21/21 05/21/21 mcg (1,000 unit) capsule cyclobenzaprine 10 mg tablet 1 tab PO TID 05/21/21 05/21/21 gabapentin 100 mg capsule 1 cap PO DAILY 05/21/21 05/21/21 hydroxyzine HCl 50 mg tablet 1 tab PO BEDTIME 05/21/21 05/21/21 losartan 50 mg tablet 1 tab PO DAILY 05/21/21 05/21/21 amlodipine 10 mg tablet 1 tab PO DAILY 05/25/21 05/25/21 Previous Rx's Medication Instructions Recorded oseltamivir 75 mg capsule 75 mg PO BID 5 days #10 caps 12/30/20 prednisone 20 mg tablet 40 mg PO DAILY 5 days #10 tabs 12/30/20 acetaminophen 325 mg capsule 325 mg PO QID PRN pain #28 caps 01/22/21 (Tylenol) cyclobenzaprine 10 mg tablet 10 mg PO TID PRN pain #18 tabs 01/22/21 amoxicillin 875 mg-potassium 1 tab PO BID #14 tabs 08/29/21 clavulanate 125 mg tablet cyclobenzaprine 10 mg tablet 10 mg PO TID PRN muscle spasm #14 08/29/21 tabs lidocaine 4 % topical patch 1 patch topical DAILY PRN pain #10 08/29/21 ea prednisone 20 mg tablet 40 mg PO DAILY 5 days #10 tabs 08/29/21 dexamethasone 6 mg tablet 6 mg PO DAILY 3 days #3 tabs 09/07/21 ketorolac 10 mg tablet 10 mg PO Q6H 5 days #20 tabs 09/07/21 amoxicillin 875 mg-potassium 1 tab PO BID 7 days #14 tabs 10/24/21 clavulanate 125 mg tablet fluticasone propionate 50 1 spray intranasal DAILY #16 grams 10/24/21 mcg/actuation nasal spray,suspension (Flonase Allergy Relief) Allergies Allergy/AdvReac Type Severity Reaction Status Date / Time aspirin [ASA] Allergy Intermediate ABD PAIN Verified 06/27/21 09:22 Review of Systems Review of Systems: Constitutional: No fever. No chills. No weakness. Positive fatigue. ENT/ Mouth: No Ear Pain, positive Nasal Congestion, positive sore throat, No Rhinorrhea, No Swallowing Difficulty Skin: No rash or itching. Cardiovascular: No chest pain. No palpitations. Respiratory: No shortness of breath. Positive cough. No sputum production. Gastrointestinal: No nausea. No vomiting. No diarrhea. No abdominal pain. Genitourinary: No burning micturition. No urinary frequency. Neurologic: No headache. No dizziness. No syncope. No numbness or tingling in the extremities. Musculoskeletal: No muscle pain. No back pain. No joint pain or stiffness. Yes all other systems are reviewed and are negative PMFSH Past Medical History Attestation statement: The following information was validated with the patient. Source: old records reviewed Medical History Anxiety Cholecystectomy planned COVID-19 vaccine series completed HTN (hypertension) MRSA (methicillin resistant Staphylococcus aureus) Renal calculi Surgical History Hx of cholecystectomy Hx of cystoscopy Social History Social History Are you a primary healthcare technician to a significant other at home: No Do you presently have visiting nurse or other home services: No Alcohol intake: never Patient Tobacco Use Status: Never used Tobacco Advance Directives: No Advance Directives Information Provided: Yes Physical Exam Vital Signs: Vital Signs: Last Vital Signs Temp 98.2 F 10/24/21 08:27 Pulse 70 10/24/21 08:27 Resp 17 10/24/21 08:27 BP 162/90 H 10/24/21 08:27 Pulse Ox 97 10/24/21 08:27 O2 Del Method 10/24/21 08:27 BMI result Body Mass Index 44.9 Vital signs have been reviewed as normal and appeared to be correct. Blood pressure normal.? Heart rate normal.? Respiration rate normal. Temperature normal.? Oxygen saturation normal. Appearance: Alert.?Oriented to person, place and time. No acute distress.?Normal affect. Eyes: Pupils equal, round and reactive to light.? EOMI. No nystagmus. ENT: TM normal bilaterally. Pharynx normal.??Tenderness with palpation over the left frontal and maxillary sinus Neck: Normal inspection.? Neck supple.??No cervical adenopathy CVS: Heart sounds normal. Normal heart rate and rhythm.? Pulses normal.?? Respiratory: No respiratory distress.? Lung sounds clear to auscultation bilaterally?? Abdomen: Soft and non-tender. Normoactive bowel sounds. Skin: Skin warm and dry.? Normal skin color.? ? Extremities: No lower extremity edema.? Neuro: Moves all extremities spontaneously. Sensation intact bilaterally. No motor deficits. Ambulates with normal steady gait. Course Course Course Narrative: Patient is a 55-year-old male with past medical history of anxiety, hypertension, degenerative disc disease of the lumbar spine, chronic low back pain presenting for evaluation of upper respiratory symptoms. COVID-19 testing negative. Influenza testing negative. At this time history and physical exam not consistent with ACS/PE/pneumonia. Well-appearing, nontoxic, afebrile, no tachycardia or tachypnea/hypoxia. Speaking clear full sentences, ambulatory with steady gait. Reports already trialing OTC cold medications without relief. At this time will treat for sinusitis with antibiotic, discussed conservative treatment including rest, hydration, Tylenol/ibuprofen as needed for headache and and body aches, saline nasal spray, humidifier, [id number] cold medication. Advised to follow-up with primary care provider as needed, discussed reasons to return back to the emergency department. All questions were answered. Patient discharged home in stable condition. MDM - URI/Sore Throat Medical Records Attestation: I reviewed the patient's medical records. Lab Data Attestation: I reviewed the patient's lab results. Result diagrams: 10/24/21 08:39 10/24/21 08:39 Labs: Lab Results 10/24/21 10/24/21 10/24/21 Range/Units 08:39 08:39 09:09 WBC 12.6 H (4.8-10.8) X10*3/uL RBC 4.57 L (4.60-5.80) X10*6/uL Hgb 14.8 (14.0-18.0) g/dl Hct 43.3 (42.0-52.0) % MCV 94.7 (80.0-98.0) fL MCH 32.4 (27.0-33.0) pg MCHC 34.2 (31.0-36.0) g/dl RDW 14.4 (11.0-16.0) % Plt Count 357 (160-400) X10*3/uL MPV 10.1 (9.4-12.4) fL Immature Gran % (Auto) 0.3 (0.0-0.4) % Neut % (Auto) 52.7 (45-73) % Lymph % (Auto) 34.6 (20-40) % [place] % (Auto) 8.8 (2-11) % Eos % (Auto) 2.8 (0-4) % Baso % (Auto) 0.8 (0-2) % Lymph # (Auto) 4.3 (1.2-4.9) X10*3/uL [place] # (Auto) 1.1 (0.1-1.2) X10*3/uL Eos # (Auto) 0.4 (0.0-0.4) X10*3/uL Baso # (Auto) 0.1 (0.0-0.2) X10*3/uL Abs Immat Gran (auto) 0.04 H (0.00-0.03) X10*3/uL Absolute Neuts (auto) 6.6 (2.0-8.3) x10*3/uL Absolute Nucleated RBC 0.000 (0.0-0.012) X10*3/uL Nucleated RBC % (auto) 0.0 (0.0-0.2) /100WBC Sodium 140 (135-145) mmol/L Potassium 4.0 (3.3-5.1) mmol/L Chloride 106 (96-108) mmol/L Carbon Dioxide 26 (22-29) mmol/L Anion Gap 12 (12-20) BUN 15 (9-16) mg/dL Creatinine 0.86 (0.5-1.4) mg/dL Estim Creat Clear Calc 121.7 Estimated GFR > 60 Random Glucose 104 (60-115) mg/dL Calcium 9.0 (8.4-10.2) mg/dL COVID-19 ([facility]O) (Negative) COVID-19 Clin Com Influenza Type A (ANITA) Negative (Negative) Influenza Type B (ANITA) Negative (Negative) Influenza A & B Note See Note 10/24/21 Range/Units 09:09 WBC (4.8-10.8) X10*3/uL RBC (4.60-5.80) X10*6/uL Hgb (14.0-18.0) g/dl Hct (42.0-52.0) % MCV (80.0-98.0) fL MCH (27.0-33.0) pg MCHC (31.0-36.0) g/dl RDW (11.0-16.0) % Plt Count (160-400) X10*3/uL MPV (9.4-12.4) fL Immature Gran % (Auto) (0.0-0.4) % Neut % (Auto) (45-73) % Lymph % (Auto) (20-40) % [place] % (Auto) (2-11) % Eos % (Auto) (0-4) % Baso % (Auto) (0-2) % Lymph # (Auto) (1.2-4.9) X10*3/uL [place] # (Auto) (0.1-1.2) X10*3/uL Eos # (Auto) (0.0-0.4) X10*3/uL Baso # (Auto) (0.0-0.2) X10*3/uL Abs Immat Gran (auto) (0.00-0.03) X10*3/uL Absolute Neuts (auto) (2.0-8.3) x10*3/uL Absolute Nucleated RBC (0.0-0.012) X10*3/uL Nucleated RBC % (auto) (0.0-0.2) /100WBC Sodium (135-145) mmol/L Potassium (3.3-5.1) mmol/L Chloride (96-108) mmol/L Carbon Dioxide (22-29) mmol/L Anion Gap (12-20) BUN (9-16) mg/dL Creatinine (0.5-1.4) mg/dL Estim Creat Clear Calc Estimated GFR Random Glucose (60-115) mg/dL Calcium (8.4-10.2) mg/dL COVID-19 ([facility]) Negative (Negative) COVID-19 Clin Com See Note Influenza Type A (ANITA) (Negative) Influenza Type B (ANITA) (Negative) Influenza A & B Note Discharge Plan Discharge Clinical Impression: Sinusitis Patient Disposition: Home, Self-Care Instructions: Sinusitis (ED) Additional Instructions: You may given an antibiotic to treat your sinus infection, please complete this entire course. Be sure to rest, stay well hydrated drinking plenty of fluids, eat small frequent meals. Tylenol/ibuprofen can be used as needed for fever/pain. Muvy-eyv-mwtaadv cold medications may be helpful as well for symptoms. Saline nasal spray, humidifier may be helpful for nasal congestion. You may return to the emergency department with any new or worsening symptoms or concerns. Follow-up with your primary care provider as needed. Prescriptions: New amoxicillin-pot clavulanate 875-125 mg tablet 1 tab PO BID 7 Days Qty: 14 0RF fluticasone propionate [Flonase Allergy Relief] 50 mcg/actuation spray,suspension 1 spray intranasal DAILY Qty: 16 0RF Rx Instructions: administer into each nostril No Action oseltamivir 75 mg capsule 75 mg PO BID 5 Days Qty: 10 0RF prednisone 20 mg tablet 40 mg PO DAILY 5 Days Qty: 10 0RF cyclobenzaprine 10 mg tablet 10 mg PO TID PRN (Reason: pain) Qty: 18 0RF Rx Instructions: side effect is drowsiness. Do not take at work or while driving. acetaminophen [Tylenol] 325 mg capsule 325 mg PO QID PRN (Reason: pain) Qty: 28 0RF losartan 50 mg tablet 1 tab PO DAILY cyclobenzaprine 10 mg tablet 1 tab PO TID acetaminophen 325 mg tablet 650 mg PO cetirizine 10 mg tablet 1 tab PO DAILY hydroxyzine HCl 50 mg tablet 1 tab PO BEDTIME chlorthalidone 50 mg tablet 1 tab PO DAILY amitriptyline 50 mg tablet 1 tab PO BEDTIME amlodipine 10 mg tablet 1 tab PO DAILY gabapentin 100 mg capsule 1 cap PO DAILY cholecalciferol (vitamin D3) 25 mcg (1,000 unit) capsule 1 cap PO DAILY amlodipine 10 mg tablet 1 tab PO DAILY cyclobenzaprine 10 mg tablet 10 mg PO TID PRN (Reason: muscle spasm) Qty: 14 0RF lidocaine 4 % adhesive patch,medicated 1 patch topical DAILY PRN (Reason: pain) Qty: 10 0RF Rx Instructions: may leave on for up to 12 hrs prednisone 20 mg tablet 40 mg PO DAILY 5 Days Qty: 10 0RF amoxicillin-pot clavulanate 875-125 mg tablet 1 tab PO BID Qty: 14 0RF dexamethasone 6 mg tablet 6 mg PO DAILY 3 Days Qty: 3 0RF ketorolac 10 mg tablet 10 mg PO Q6H 5 Days Qty: 20 0RF
[2021-10-24 09:37] LABS: COVID-19 Test Negative (Negative); IDNOW Serial# 16C4AD1C
[2021-10-24 09:38] LABS: IDNOW Serial# 9DD0AD1C; Influenza A Negative (Negative); Influenza B2 Negative (Negative)
== END 2021-10-24 10:03 | disposition home or self-care (01) ==
PROVIDERS: Nurse Practitioner Family; Emergency Provider Emergency Medicine; PCP Student in an Organized Health Care Education/Training Program
DX: J32.8 Other chronic sinusitis (principal); Z20.822 Contact with and (suspected) exposure to COVID-19; I10 Essential (primary) hypertension
CPT/HCPCS: 36415; 80048; 85025; 87502; 87635; 99283

== ENCOUNTER 2021-11-18 07:37 | Emergency (ER) | payer MEDICAID, SELFPAY ==
[2021-11-18 07:48] VITALS: BP 147/89; PULSE 108; RESP 20; TEMP 36.8; O2SAT 96; BMI 44.9
[2021-11-18 08:12] LABS: COVID-19 Test Positive (Negative); IDNOW Serial# 08D9AD1C
--- NOTE | 2021-11-18 09:07 | ED_ITS ---
HPI - General Adult General Chief complaint: Dizziness Stated complaint: back pain, headache Time Seen by Provider: 11/18/21 09:02 Source: patient Mode of arrival: ambulatory Limitations: no limitations History of Present Illness HPI narrative: This is a 55 years old male presented to the ED complaining of general malaise nausea poor p.o. intake he tested positive for COVID. He has been unable to eat or drink for the last couple Onset (ago): day(s) (2) Radiation: non-radiation Severity: mild Pain Consistency: constant Relieving factors: none Exacerbating factors: none Related Data Home Medications Medication Instructions Recorded Confirmed acetaminophen 325 mg tablet 650 mg PO 05/21/21 amitriptyline 50 mg tablet 1 tab PO BEDTIME 05/21/21 05/21/21 amlodipine 10 mg tablet 1 tab PO DAILY 05/21/21 05/21/21 cetirizine 10 mg tablet 1 tab PO DAILY 05/21/21 05/21/21 chlorthalidone 50 mg tablet 1 tab PO DAILY 05/21/21 05/21/21 cholecalciferol (vitamin D3) 25 1 cap PO DAILY 05/21/21 05/21/21 mcg (1,000 unit) capsule cyclobenzaprine 10 mg tablet 1 tab PO TID 05/21/21 05/21/21 gabapentin 100 mg capsule 1 cap PO DAILY 05/21/21 05/21/21 hydroxyzine HCl 50 mg tablet 1 tab PO BEDTIME 05/21/21 05/21/21 losartan 50 mg tablet 1 tab PO DAILY 05/21/21 05/21/21 amlodipine 10 mg tablet 1 tab PO DAILY 05/25/21 05/25/21 Previous Rx's Medication Instructions Recorded oseltamivir 75 mg capsule 75 mg PO BID 5 days #10 caps 12/30/20 prednisone 20 mg tablet 40 mg PO DAILY 5 days #10 tabs 12/30/20 acetaminophen 325 mg capsule 325 mg PO QID PRN pain #28 caps 01/22/21 (Tylenol) cyclobenzaprine 10 mg tablet 10 mg PO TID PRN pain #18 tabs 01/22/21 amoxicillin 875 mg-potassium 1 tab PO BID #14 tabs 08/29/21 clavulanate 125 mg tablet cyclobenzaprine 10 mg tablet 10 mg PO TID PRN muscle spasm #14 05/04/22 tabs lidocaine 4 % topical patch 1 patch topical DAILY PRN pain #10 08/29/21 ea prednisone 20 mg tablet 40 mg PO DAILY 5 days #10 tabs 08/29/21 dexamethasone 6 mg tablet 6 mg PO DAILY 3 days #3 tabs 09/07/21 ketorolac 10 mg tablet 10 mg PO Q6H 5 days #20 tabs 09/07/21 amoxicillin 875 mg-potassium 1 tab PO BID 7 days #14 tabs 10/24/21 clavulanate 125 mg tablet fluticasone propionate 50 1 spray intranasal DAILY #16 grams 10/24/21 mcg/actuation nasal spray,suspension (Flonase Allergy Relief) nirmatrelvir 300 mg (150 mg x See Rx Instructions PO .COMPLEX 11/18/21 2)-ritonavir 100 mg tablet (EUA) #30 tabs (Paxlovid) Allergies Allergy/AdvReac Type Severity Reaction Status Date / Time aspirin [ASA] Allergy Intermediate ABD PAIN Verified 06/27/21 09:22 Review of Systems Review of Systems: Yes all other systems are reviewed and are negative Constitutional: Constitutional: Reports no additional constitutional complaints ENT: Reports system reviewed and no additional complaints, except as docum ented Cardiovascular: Cardiovascular: Reports no additional cardiovascular complaints Neurologic: Reports system reviewed and no additional complaints, except as documented Psychiatric: Psychiatric: Reports as per HPI Hematologic/Lymphatic: Hematologic/Lymphatic: Reports no additional hematologic/lymphatic complaints PMFSH Past Medical History Medical History Anxiety Cholecystectomy planned COVID-19 vaccine series completed Disc degeneration, lumbar HTN (hypertension) MRSA (methicillin resistant Staphylococcus aureus) Renal calculi Spondylosis of lumbar spine Surgical History Hx of cholecystectomy Hx of cystoscopy Social History Social History Are you a primary senior resident care director to a significant other at home: No Do you presently have visiting nurse or other home services: No Alcohol intake: never Patient Tobacco Use Status: Never used Tobacco Advance Directives: No Advance Directives Information Provided: No Physical Exam ED Vital Signs: Vital Signs - 24 hr 11/18/21 07:48 Temperature 98.2 F Pulse Rate 108 H Respiratory Rate 20 Blood Pressure 147/89 H Pulse Oximetry 96 Oxygen Delivery Method Room Air BMI result Body Mass Index 44.9 Const General: cooperative Nutritional Appearance: average body habitus Orientation/consciousness: oriented to person Limitations: no limitations HENMT Head: Yes normal to inspection Ears: hearing grossly normal bilaterally General nose exam: Normal external nose present Face and sinus: Yes normal facial exam Throat: Yes posterior oropharynx normal Neck Neck: Yes normal visual inspection Resp Effort & Inspection: normal respiratory effort and able to speak in complete sentences Auscultation: clear to auscultation bilaterally Cardio Jugular venous distension: no JVD Rate: regular rate Rhythm: regular rhythm GI Inspection: Yes normal to inspection Palpation (GI): Soft to palpation, not firm, nontender and no guarding Neuro General: oriented to person Course Reevaluation(s) Reevaluation #1: Patient feeling better,he is requesting prescription for paxlovid,risk benefit discussed,he wants elaine go ahead with paxlovid Medical Decision Making Lab Data Result diagrams: 11/18/21 09:14 11/18/21 09:14 Labs: Lab Results 11/18/21 11/18/21 11/18/21 Range/Units 07:54 09:14 09:14 WBC 8.5 (4.8-10.8) X10*3/uL RBC 5.11 (4.60-5.80) X10*6/uL Hgb 16.0 (14.0-18.0) g/dl Hct 47.5 (42.0-52.0) % MCV 93.0 (80.0-98.0) fL MCH 31.3 (27.0-33.0) pg MCHC 33.7 (31.0-36.0) g/dl RDW 14.0 (11.0-16.0) % Plt Count 109 L D (160-400) X10*3/uL MPV 9.8 (9.4-12.4) fL Immature Gran % (Auto) 0.6 H (0.0-0.4) % Neut % (Auto) 78.0 H (45-73) % Lymph % (Auto) 17.5 L (20-40) % [place] % (Auto) 3.7 (2-11) % Eos % (Auto) 0.0 (0-4) % Baso % (Auto) 0.2 (0-2) % Lymph # (Auto) 1.5 (1.2-4.9) X10*3/uL [place] # (Auto) 0.3 (0.1-1.2) X10*3/uL Eos # (Auto) 0.0 (0.0-0.4) X10*3/uL Baso # (Auto) 0.0 (0.0-0.2) X10*3/uL Abs Immat Gran (auto) 0.05 H (0.00-0.03) X10*3/uL Absolute Neuts (auto) 6.6 (2.0-8.3) x10*3/uL Absolute Nucleated RBC 0.000 (0.0-0.012) X10*3/uL Nucleated RBC % (auto) 0.0 (0.0-0.2) /100WBC Smear Tech's Comments VERIFIED Sodium 138 (135-145) mmol/L Potassium 3.5 (3.3-5.1) mmol/L Chloride 99 (96-108) mmol/L Carbon Dioxide 26 (22-29) mmol/L Anion Gap 17 (12-20) BUN 14 (9-16) mg/dL Creatinine 1.10 (0.5-1.4) mg/dL Estim Creat Clear Calc 95.2 Estimated GFR > 60 Random Glucose 82 (60-115) mg/dL Calcium 8.6 (8.4-10.2) mg/dL Total Bilirubin 2.7 H (0.0-1.0) mg/dL AST 04229 H (5-37) U/L ALT 46901 H (0-40) U/L Alkaline Phosphatase 177 H D (39-117) U/L Total Protein 6.9 (6.5-8.0) g/dL Albumin 3.9 (3.5-5.0) g/dL COVID-19 ([facility]O) Positive A (Negative) COVID-19 Clin Com See Note Discharge Plan Discharge Clinical Impression: COVID-19 Patient Disposition: Home, Self-Care Instructions: COVID-19 (Coronavirus Disease 2019) (ED) Additional Instructions: Follow-up with primary care physician return if worse Prescriptions: New Paxlovid (EUA) 300 mg (150 mg x 2)-100 mg tablet See Rx Instructions .ROUTE .COMPLEX Qty: 30 0RF Rx Instructions: take TWO 150 mg tablets of nirmatrelvir with ONE 100 mg tablet of ritonavir twice daily for 5 days No Action oseltamivir 75 mg capsule 75 mg PO BID 5 Days Qty: 10 0RF prednisone 20 mg tablet 40 mg PO DAILY 5 Days Qty: 10 0RF cyclobenzaprine 10 mg tablet 10 mg PO TID PRN (Reason: pain) Qty: 18 0RF Rx Instructions: side effect is drowsiness. Do not take at work or while driving. acetaminophen [Tylenol] 325 mg capsule 325 mg PO QID PRN (Reason: pain) Qty: 28 0RF losartan 50 mg tablet 1 tab PO DAILY cyclobenzaprine 10 mg tablet 1 tab PO TID acetaminophen 325 mg tablet 650 mg PO cetirizine 10 mg tablet 1 tab PO DAILY hydroxyzine HCl 50 mg tablet 1 tab PO BEDTIME chlorthalidone 50 mg tablet 1 tab PO DAILY amitriptyline 50 mg tablet 1 tab PO BEDTIME amlodipine 10 mg tablet 1 tab PO DAILY gabapentin 100 mg capsule 1 cap PO DAILY cholecalciferol (vitamin D3) 25 mcg (1,000 unit) capsule 1 cap PO DAILY amlodipine 10 mg tablet 1 tab PO DAILY cyclobenzaprine 10 mg tablet 10 mg PO TID PRN (Reason: muscle spasm) Qty: 14 0RF lidocaine 4 % adhesive patch,medicated 1 patch topical DAILY PRN (Reason: pain) Qty: 10 0RF Rx Instructions: may leave on for up to 12 hrs prednisone 20 mg tablet 40 mg PO DAILY 5 Days Qty: 10 0RF amoxicillin-pot clavulanate 875-125 mg tablet 1 tab PO BID Qty: 14 0RF dexamethasone 6 mg tablet 6 mg PO DAILY 3 Days Qty: 3 0RF ketorolac 10 mg tablet 10 mg PO Q6H 5 Days Qty: 20 0RF amoxicillin-pot clavulanate 875-125 mg tablet 1 tab PO BID 7 Days Qty: 14 0RF fluticasone propionate [Flonase Allergy Relief] 50 mcg/actuation spray,suspension 1 spray intranasal DAILY Qty: 16 0RF Rx Instructions: administer into each nostril Interventions: ED Discharge Assessment Last Done: 11/18/21 11:10 Discharge Date/Time: 11/18/21 11:11
[2021-11-18] MEDS: 0.9 % Sodium Chloride 1,000 ML 999 ML IVCONT (09:16)
[2021-11-18 09:23] LABS: Basophils Percent Auto 0.2 % (0-2); PLT CLUMP 1; SCAN SMEAR FLAG 1
[2021-11-18 09:24] LABS: Hematocrit 47.5 % (42.0-52.0); Imm Gran Abs Auto 0.05 X10*3/uL (0.00-0.03); Imm Gran Pct Auto 0.6 % (0.0-0.4); Lymphocytes Absolute Auto 1.5 X10*3/uL (1.2-4.9); Lymphocytes Percent Auto 17.5 % (20-40); MANUAL DIFF FLAG SCAN; Mean Corpuscular HGB Conc 33.7 g/dl (31.0-36.0); Mean Corpuscular Hemoglobin 31.3 pg (27.0-33.0); Mean Platelet Volume 9.8 fL (9.4-12.4); Monocytes Absolute Auto 0.3 X10*3/uL (0.1-1.2); Monocytes Percent Auto 3.7 % (2-11); Neutrophils Absolute Auto 6.6 x10*3/uL (2.0-8.3); Red Blood Count 5.11 X10*6/uL (4.60-5.80)
[2021-11-18 09:25] LABS: White Blood Count 8.5 X10*3/uL (4.8-10.8)
[2021-11-18 09:32] LABS: Platelet Count 109 X10*3/uL (160-400)
[2021-11-18 09:48] LABS: SLIDE REVIEW VERIFIED
[2021-11-18 09:52] LABS: Albumin Level 3.9 g/dL (3.5-5.0); Alkaline Phosphatase 177 U/L (39-117); Anion Gap 17 (12-20); Bilirubin Total 2.7 mg/dL (0.0-1.0); Blood Urea Nitrogen 14 mg/dL (9-16); Calcium 8.6 mg/dL (8.4-10.2); Carbon Dioxide 26 mmol/L (22-29); Chloride 99 mmol/L (96-108); Creatinine Clr Calc Pharmacy 95.2; Estimated Glomerular Filt Rate > 60; Glucose Random 82 mg/dL (60-115); Potassium 3.5 mmol/L (3.3-5.1); Sodium 138 mmol/L (135-145); Total Protein 6.9 g/dL (6.5-8.0)
[2021-11-18 11:09] LABS: Alanine Aminotransferase 12980 U/L (0-40); Aspartate Amino Transferase 20916 U/L (5-37)
== END 2021-11-18 11:11 | disposition home or self-care (01) ==
PROVIDERS: Emergency Provider Emergency Medicine; PCP Student in an Organized Health Care Education/Training Program
DX: U07.1 COVID-19 (principal); R42 Dizziness and giddiness; R51.9 Headache, unspecified; M54.50 Low back pain, unspecified; Z79.899 Other long term (current) drug therapy
CPT/HCPCS: 36415; 80053; 85025; 87635; 99283

== ENCOUNTER 2022-03-30 11:53 | Emergency (ER) | payer MEDICAID, SELFPAY ==
[2022-03-30 12:09] VITALS: BP 164/105; PULSE 64; RESP 18; TEMP 36.9; O2SAT 98; BMI 44.4
--- NOTE | 2022-03-30 12:17 | ED_ITS ---
HPI - General Adult General Chief complaint: Upper Respiratory Symptoms Stated complaint: headache, back pain, sore throat Time Seen by Provider: 03/30/22 12:39 Source: patient Mode of arrival: ambulatory Limitations: no limitations History of Present Illness HPI narrative: Naman is a 56 yo male with a PMHx of chronic low back pain and hypertension who presents to the emergency department with a CC of 3-4 days of headache which he says is 10/10 throbbing pain, which he says is making his vision blurry, but he does have chronic vision changes and uses girlfriend glasses, he also endorses runny nose, sore throat, and body aches. He has tried allergy medication which hasn't helped, but nothing seems to make his symptoms worse. He additionally reports some fevers, chills, occasional sob, a non productive cough, but denies chest pain, n/v/d/c or urinary changes. He reports that his sister is sick with similar symptoms. He has been vaccinated against COVID and flu, and did have COVID this past summer. Onset (ago): day(s) (4) Location: head and back Radiation: non-radiation Severity: severe Relieving factors: none Exacerbating factors: none Associated symptoms: cough, fever/chills and headaches Treatments prior to arrival: other (allergy medication) Related Data Home Medications Medication Instructions Recorded Confirmed acetaminophen 325 mg tablet 650 mg PO 05/21/21 amitriptyline 50 mg tablet 1 tab PO BEDTIME 05/21/21 05/21/21 amlodipine 10 mg tablet 1 tab PO DAILY 05/21/21 05/21/21 cetirizine 10 mg tablet 1 tab PO DAILY 05/21/21 05/21/21 chlorthalidone 50 mg tablet 1 tab PO DAILY 05/21/21 05/21/21 cholecalciferol (vitamin D3) 25 1 cap PO DAILY 05/21/21 05/21/21 mcg (1,000 unit) capsule cyclobenzaprine 10 mg tablet 1 tab PO TID 05/21/21 05/21/21 gabapentin 100 mg capsule 1 cap PO DAILY 05/21/21 05/21/21 hydroxyzine HCl 50 mg tablet 1 tab PO BEDTIME 05/21/21 05/21/21 losartan 50 mg tablet 1 tab PO DAILY 05/21/21 05/21/21 amlodipine 10 mg tablet 1 tab PO DAILY 05/25/21 05/25/21 Previous Rx's Medication Instructions Recorded oseltamivir 75 mg capsule 75 mg PO BID 5 days #10 caps 12/30/20 prednisone 20 mg tablet 40 mg PO DAILY 5 days #10 tabs 12/30/20 acetaminophen 325 mg capsule 325 mg PO QID PRN pain #28 caps 01/22/21 (Tylenol) cyclobenzaprine 10 mg tablet 10 mg PO TID PRN pain #18 tabs 01/22/21 amoxicillin 875 mg-potassium 1 tab PO BID #14 tabs 08/29/21 clavulanate 125 mg tablet cyclobenzaprine 10 mg tablet 10 mg PO TID PRN muscle spasm #14 08/29/21 tabs lidocaine 4 % topical patch 1 patch topical DAILY PRN pain #10 08/29/21 ea prednisone 20 mg tablet 40 mg PO DAILY 5 days #10 tabs 08/29/21 dexamethasone 6 mg tablet 6 mg PO DAILY 3 days #3 tabs 09/07/21 ketorolac 10 mg tablet 10 mg PO Q6H 5 days #20 tabs 09/07/21 amoxicillin 875 mg-potassium 1 tab PO BID 7 days #14 tabs 10/24/21 clavulanate 125 mg tablet fluticasone propionate 50 1 spray intranasal DAILY #16 grams 10/24/21 mcg/actuation nasal spray,suspension (Flonase Allergy Relief) nirmatrelvir 300 mg (150 mg See Rx Instructions PO .COMPLEX 11/18/21 x2)-ritonavir 100 mg tablet,dose #30 tabs pack(EUA) (Paxlovid) cyclobenzaprine 10 mg tablet 10 mg PO TID PRN muscle spasm #10 03/30/22 tabs ketorolac 10 mg tablet 10 mg PO Q8H #20 tabs 03/30/22 Allergies Allergy/AdvReac Type Severity Reaction Status Date / Time aspirin [ASA] Allergy Intermediate ABD PAIN Verified 03/30/22 12:09 Review of Systems Review of Systems: Yes all other systems are reviewed and are negative Constitutional: Constitutional: Reports no additional constitutional complaints, Reports body ache(s), Reports chills, Reports fever(s), Reports headache(s) and Denies weakness Eyes: Eyes: Reports no additional eye complaints and Reports change in vision (ongoing issue, is planning on getting glasses) ENT: Reports system reviewed and no additional complaints, except as documented, Denies dizziness, Reports headache(s), Reports nasal congestion, Denies nasal discharge, Denies neck pain and Reports sore throat Cardiovascular: Cardiovascular: Reports no additional cardiovascular complaints, Denies chest pain, Denies leg edema and Reports dyspnea (occasional) Respiratory: Respiratory: Reports no additional respiratory complaints, Reports cough and Reports dyspnea (occasional) Gastrointestinal: Gastrointestinal: Reports no additional gastrointestinal complaints, Denies abdominal pain, Denies diarrhea, Denies nausea and Denies vomiting Genitourinary: Genitourinary: Denies urinary incontinence Musculoskeletal: Musculoskeletal: Reports no additional musculoskeletal complaints, Reports back pain, Denies arthralgias, Denies joint swelling, Denies neck pain, Denies numbness and Denies tingling Integumentary/Breasts: Skin/Breast: Reports system reviewed and no additional complaints, except as docu and Denies rash Neurologic: Reports system reviewed and no additional complaints, except as documented, Denies dizziness, Reports headache(s), Denies numbness, Denies tingling and Denies weakness PMFSH Past Medical History Attestation statement: The following information was validated with the patient. Source: old records reviewed and nursing notes reviewed Medical History Anxiety Cholecystectomy planned COVID-19 vaccine series completed Disc degeneration, lumbar HTN (hypertension) MRSA (methicillin resistant Staphylococcus aureus) Renal calculi Spondylosis of lumbar spine Surgical History Hx of cholecystectomy Hx of cystoscopy Social History Social History Are you a primary human services care specialist to a significant other at home: No Do you presently have visiting nurse or other home services: No Alcohol intake: never Patient Tobacco Use Status: Never used Tobacco Advance Directives: No Advance Directives Information Provided: Yes Physical Exam ED Vital Signs: Vital Signs - 24 hr 03/30/22 12:09 Temperature 98.4 F Pulse Rate 64 Respiratory Rate 18 Blood Pressure 164/105 H Pulse Oximetry 98 Oxygen Delivery Method Room Air BMI result Body Mass Index 44.4 Const General: cooperative, well developed, alert and awake Orientation/consciousness: patient oriented x3 Limitations: no limitations HENUT Head: Yes normal to inspection Ears: hearing grossly normal bilaterally, external ears normal and TM's normal bilaterally General nose exam: Normal external nose present Face and sinus: Yes normal facial exam Mouth: Normal oral and palatal mucosa present Throat: Yes posterior oropharynx normal Eyes General: appearance normal, both eyes and all related structures Pupils: Equal, round and reactive pupils present EOM: EOMs intact bilaterally Neck Neck: Yes normal visual inspection, Yes full ROM and Yes no lymphadenopathy Resp Effort & Inspection: normal respiratory effort and able to speak in complete sentences Auscultation: clear to auscultation bilaterally Cardio Rate: regular rate Rhythm: regular rhythm Heart sounds: S1 normal heart sound present and S2 normal heart sound present GI Inspection: Yes normal to inspection Auscultation: normal bowel sounds General: Yes no CVA tenderness Back/Spine/Pelvis Back: no CVA tenderness Thoracic/Lumbar Spine: lumbar spinal tenderness (disc degeneration) Skin General skin exam: no rashes or lesions noted Neuro General: patient oriented x3 Cranial nerves: Yes CN's II-XII intact bilaterally and Yes Equal, round and re active pupils present Extrem General: Yes normal to inspection, Yes no pedal edema and Yes no calf tenderness Course Course Course Narrative: This is a rapid medical exam. Additional HPI/ROS/PE deferred to primary provider. 56 yo male history of HTN here with complaints of headache, back pain, joint pain, body aches, sore throat x 3 days. Will send testing for rsv, flu, covid, strep. VSS 56 yo male with PMHx of chornic back pain and hypertension presents with CC of 3-4 days of fever, chills, headache, body aches, nasal congestion, non- productive cough, sore throat, and occasional shortness of breath. He denies CP, n/v/d/c, or urinary changes. PE is notable for lumbar spine tenderness on palpation, rest of exam not concerning. 1318 pending COVID, Flu, RSV swabs, Strep negative. Reevaluation(s) Reevaluation #1: 1500-strep test is negative. Flu, COVID, RSV testing are negative. Likely viral syndrome. Patient will be discharged home with recommendations for supportive care. Reviewed worrisome signs and symptoms when to return to the emergency room. Comfortable plan for discharge home. Medications Administered Discontinued Medications Generic Name Dose Route Start Last Admin Trade Name Freq PRN Reason Stop Dose Admin Acetaminophen 975 mg 03/30/22 12:36 03/30/22 12:41 Acetaminophen 325 Mg Tablet PO 03/30/22 12:37 975 mg ONCE ONE Administration Medical Decision Making MDM Narrative Medical decision making narrative: Based on history and physical exam, symptoms likely correspond with viral infection. Medical Records Medical records reviewed: Yes I reviewed the patient's medical records. Lab Data Lab results reviewed: Yes I reviewed the patient's lab results. Labs: Lab Results 03/30/22 03/30/22 Range/Units 12:20 12:20 Influenza Type A (PCR) NEGATIVE (Negative) Influenza Type B (PCR) NEGATIVE (Negative) RSV RNA Qual (PCR) NEGATIVE (Negative) SARS-CoV-2 RNA (RT-PCR) NEGATIVE (Negative) S. pyogenes GrpA ANITA Negative (Negative) Discharge Plan Discharge Clinical Impression: Viral infection Patient Disposition: Home, Self-Care Instructions: Viral Syndrome (ED) Additional Instructions: Testing for flu, COVID, RSV are all negative. Strep test is negative. Motrin or Tylenol continue for any pain or fever Increase fluids, rest Follow-up with primary care doctor for any persistent symptoms. Prescriptions: New ketorolac 10 mg tablet 10 mg PO Q8H Qty: 20 0RF cyclobenzaprine 10 mg tablet 10 mg PO TID PRN (Reason: muscle spasm) Qty: 10 0RF No Action oseltamivir 75 mg capsule 75 mg PO BID 5 Days Qty: 10 0RF prednisone 20 mg tablet 40 mg PO DAILY 5 Days Qty: 10 0RF cyclobenzaprine 10 mg tablet 10 mg PO TID PRN (Reason: pain) Qty: 18 0RF Rx Instructions: side effect is drowsiness. Do not take at work or while driving. acetaminophen [Tylenol] 325 mg capsule 325 mg PO QID PRN (Reason: pain) Qty: 28 0RF losartan 50 mg tablet 1 tab PO DAILY cyclobenzaprine 10 mg tablet 1 tab PO TID acetaminophen 325 mg tablet 650 mg PO cetirizine 10 mg tablet 1 tab PO DAILY hydroxyzine HCl 50 mg tablet 1 tab PO BEDTIME chlorthalidone 50 mg tablet 1 tab PO DAILY amitriptyline 50 mg tablet 1 tab PO BEDTIME amlodipine 10 mg tablet 1 tab PO DAILY gabapentin 100 mg capsule 1 cap PO DAILY cholecalciferol (vitamin D3) 25 mcg (1,000 unit) capsule 1 cap PO DAILY amlodipine 10 mg tablet 1 tab PO DAILY cyclobenzaprine 10 mg tablet 10 mg PO TID PRN (Reason: muscle spasm) Qty: 14 0RF lidocaine 4 % adhesive patch,medicated 1 patch topical DAILY PRN (Reason: pain) Qty: 10 0RF Rx Instructions: may leave on for up to 12 hrs prednisone 20 mg tablet 40 mg PO DAILY 5 Days Qty: 10 0RF amoxicillin-pot clavulanate 875-125 mg tablet 1 tab PO BID Qty: 14 0RF dexamethasone 6 mg tablet 6 mg PO DAILY 3 Days Qty: 3 0RF ketorolac 10 mg tablet 10 mg PO Q6H 5 Days Qty: 20 0RF amoxicillin-pot clavulanate 875-125 mg tablet 1 tab PO BID 7 Days Qty: 14 0RF fluticasone propionate [Flonase Allergy Relief] 50 mcg/actuation spray,suspension 1 spray intranasal DAILY Qty: 16 0RF Rx Instructions: administer into each nostril Paxlovid (EUA) 300 mg (150 mg x 2)-100 mg tablet See Rx Instructions .ROUTE .COMPLEX Qty: 30 0RF Rx Instructions: take TWO 150 mg tablets of nirmatrelvir with ONE 100 mg tablet of ritonavir twice daily for 5 days Referrals: Heather Marroquin MD [Primary Care Provider] - 1 week Interventions: ED Discharge Assessment Last Done: 03/30/22 14:47 Discharge Date/Time: 03/30/22 14:47
--- NOTE | 2022-03-30 12:26 | PC.NURSE ---
odilia almaraz pt ok to go to [facility] with BP
[2022-03-30] MEDS: Acetaminophen 325 MG TABLET 975 MG PO (12:41)
[2022-03-30 12:55] LABS: Strep A Nucleic Acid Negative (Negative)
[2022-03-30 13:36] LABS: Influenza A PCR NEGATIVE (Negative); Influenza B PCR NEGATIVE (Negative); Resp Syncy Virus RNA Qual PCR NEGATIVE (Negative); SARS COV2 PCR INHOUSE NEGATIVE (Negative)
== END 2022-03-30 14:47 | disposition home or self-care (01) ==
PROVIDERS: Emergency Provider Emergency Medicine; PCP Student in an Organized Health Care Education/Training Program
DX: B34.9 Viral infection, unspecified (principal); R51.9 Headache, unspecified; Z20.822 Contact with and (suspected) exposure to COVID-19; I10 Essential (primary) hypertension; Z79.899 Other long term (current) drug therapy
CPT/HCPCS: 0241U; 36415; 87651; 99283

== ENCOUNTER 2022-04-21 09:34 | Emergency (ER) | payer MEDICAID, SELFPAY ==
[2022-04-21 09:39] VITALS: BP 156/88; PULSE 86; RESP 18; TEMP 37; O2SAT 98; BMI 34.2
--- NOTE | 2022-04-21 09:54 | PC.NURSE ---
nasal swab obtained
--- NOTE | 2022-04-21 10:02 | ED_ITS ---
HPI - General Adult General Chief complaint: General Medical Stated complaint: headache 4days/ back pain Time Seen by Provider: 04/21/22 09:47 Source: patient Mode of arrival: ambulatory History of Present Illness HPI narrative: 56-year-old male with past medical history of anxiety, HTN, degenerative disc disease, MRSA, spondylosis, renal calculi, presenting to the ED complaining of headache, myalgias, body ache, generalized fatigue, and back pain x4 days. States back pain is acute on chronic, denies known injury/trauma or fall. Denies headache being maximal in onset. Denies vision loss, cough, CP/SOB, abdominal pain, pedal edema, recent travel, known sick contacts, urinary retention/incontinence Onset (ago): day(s) Related Data Home Medications Medication Instructions Recorded Confirmed acetaminophen 325 mg tablet 650 mg PO 05/21/21 amitriptyline 50 mg tablet 1 tab PO BEDTIME 05/21/21 05/21/21 amlodipine 10 mg tablet 1 tab PO DAILY 05/21/21 05/21/21 cetirizine 10 mg tablet 1 tab PO DAILY 05/21/21 05/21/21 chlorthalidone 50 mg tablet 1 tab PO DAILY 05/21/21 05/21/21 cholecalciferol (vitamin D3) 25 1 cap PO DAILY 05/21/21 05/21/21 mcg (1,000 unit) capsule cyclobenzaprine 10 mg tablet 1 tab PO TID 05/21/21 05/21/21 gabapentin 100 mg capsule 1 cap PO DAILY 05/21/21 05/21/21 hydroxyzine HCl 50 mg tablet 1 tab PO BEDTIME 05/21/21 05/21/21 losartan 50 mg tablet 1 tab PO DAILY 05/21/21 05/21/21 amlodipine 10 mg tablet 1 tab PO DAILY 05/25/21 05/25/21 Previous Rx's Medication Instructions Recorded oseltamivir 75 mg capsule 75 mg PO BID 5 days #10 caps 12/30/20 prednisone 20 mg tablet 40 mg PO DAILY 5 days #10 tabs 12/30/20 acetaminophen 325 mg capsule 325 mg PO QID PRN pain #28 caps 01/22/21 (Tylenol) cyclobenzaprine 10 mg tablet 10 mg PO TID PRN pain #18 tabs 01/22/21 amoxicillin 875 mg-potassium 1 tab PO BID #14 tabs 08/29/21 clavulanate 125 mg tablet cyclobenzaprine 10 mg tablet 10 mg PO TID PRN muscle spasm #14 08/29/21 tabs lidocaine 4 % topical patch 1 patch topical DAILY PRN pain #10 08/29/21 ea prednisone 20 mg tablet 40 mg PO DAILY 5 days #10 tabs 08/29/21 dexamethasone 6 mg tablet 6 mg PO DAILY 3 days #3 tabs 09/07/21 ketorolac 10 mg tablet 10 mg PO Q6H 5 days #20 tabs 09/07/21 amoxicillin 875 mg-potassium 1 tab PO BID 7 days #14 tabs 10/24/21 clavulanate 125 mg tablet fluticasone propionate 50 1 spray intranasal DAILY #16 grams 10/24/21 mcg/actuation nasal spray,suspension (Flonase Allergy Relief) nirmatrelvir 300 mg (150 mg See Rx Instructions PO .COMPLEX 11/18/21 x2)-ritonavir 100 mg tablet,dose #30 tabs pack(EUA) (Paxlovid) cyclobenzaprine 10 mg tablet 10 mg PO TID PRN muscle spasm #10 03/30/22 tabs ketorolac 10 mg tablet 10 mg PO Q8H #20 tabs 03/30/22 [id number]-[id number] 1 cap PO Q4-6H PRN headache #14 04/21/22 50 mg-300 mg-40 mg capsule caps (Fioricet) Allergies Allergy/AdvReac Type Severity Reaction Status Date / Time aspirin [ASA] Allergy Intermediate ABD PAIN Verified 03/30/22 12:09 Review of Systems Review of Systems: Constitutional: No Fever, No Chills, No Night Sweats, + Fatigue, + Malaise ENT/Mouth: + Ear Pain, + Nasal Congestion, No Sinus Pain, No Hoarseness, No sore throat, + Rhinorrhea, No Swallowing Difficulty Eyes: No Eye Pain, No Swelling, No Discharge, No Vision Changes Cardiovascular: No Chest Pain, No SOB, No Dyspnea on Exertion, No Edema Respiratory: No Cough, No Sputum, No Dyspnea Gastrointestinal: No Nausea, No Vomiting, No Diarrhea, No Constipation, No Abdominal pain Genitourinary: No Dysuria, No Urinary Frequency, No Hematuria, No Urinary Incontinence/retention, No Flank Pain Musculoskeletal: No joint pain, + Myalgias, No Joint Swelling Skin: No Skin Lesions, No rash Neuro: No Weakness, No Numbness, No Loss of Consciousness, No Dizziness, + Headache Yes all other systems are reviewed and are negative Constitutional: Constitutional: Reports as per [facility] Past Medical History Attestation statement: The following information was validated with the patient. Medical History Anxiety Cholecystectomy planned COVID-19 vaccine series completed Disc degeneration, lumbar HTN (hypertension) MRSA (methicillin resistant Staphylococcus aureus) Renal calculi Spondylosis of lumbar spine Surgical History Hx of cholecystectomy Hx of cystoscopy Social History Social History Are you a primary neurocritical care physician to a significant other at home: No Do you presently have visiting nurse or other home services: No Alcohol intake: never Patient Tobacco Use Status: Never used Tobacco Advance Directives: No Physical Exam ED Vital Signs: Vital Signs - 24 hr 04/21/22 09:39 Temperature 98.6 F Pulse Rate 86 Respiratory Rate 18 Blood Pressure 156/88 H Pulse Oximetry 98 Oxygen Delivery Method Room Air BMI result Body Mass Index 34.2 Const General: cooperative, healthy appearing and no acute distress Orientation/consciousness: patient oriented x3 Limitations: no limitations HENMT Head: Yes normal to inspection and Yes atraumatic Ears: hearing grossly normal bilaterally, external ears normal, TM's normal bilaterally and mastoids normal General nose exam: Normal external nose present Face and sinus: Yes normal facial exam Mouth: Normal oral and palatal mucosa present Throat: Yes posterior oropharynx normal, Yes tonsils normal, Yes uvula midline, No peritonsillar mass, No uvula laterally displaced and No uvular edema Eyes Other: + mild bilateral periorbital puffiness. No erythema/warmth/cellulitis. EOMs intact without entrapment General: appearance normal, both eyes and all related structures Pupils: Equal, round and reactive pupils present EOM: EOMs intact bilaterally Neck Neck: Yes normal visual inspection and Yes no meningeal signs Resp Effort & Inspection: normal respiratory effort and no respiratory distress Auscultation: clear to auscultation bilaterally, no crackles, no rales, no rhonchi and no wheezes Cardio Rate: regular rate Heart sounds: S1 normal heart sound present and S2 normal heart sound present GI Inspection: Yes normal to inspection Palpation (GI): Soft to palpation, nontender, no guarding and not rigid Skin Rashes: no rashes Wounds: no wounds Neuro Other: Strength intact throughout. No saddle anesthesia. Sensation intact to light touch. Neurovascular intact distally General: patient oriented x3, tone normal and no meningeal signs Cranial nerves: Yes Equal, round and reactive pupils present Gait exam (Neuro): Normal gait present Extrem General: Yes normal to inspection, Yes no pedal edema and Yes no calf tenderness Course Course Course Narrative: 1158--COVID-19/influenza/RSV negative > patient reports symptomatic improvement Results discussed with patient including worrisome signs and symptoms and strict return precautions, and when to return to the emergency department. They verbalized understanding and feel safe for discharge at this time. Medications Administered Discontinued Medications Generic Name Dose Route Start Last Admin Trade Name Freq PRN Reason Stop Dose Admin Acetaminophen/Butalbital/Caffeine 2 tab 04/21/22 09:56 04/21/22 10:22 Butalb/Acetamin/Caff 50/325/40 Tablet PO 04/21/22 09:57 2 tab ONCE ONE Administration Diphenhydramine HCl 12.5 mg 04/21/22 11:30 04/21/22 12:01 Diphenhydramine Hcl 25 Mg Capsule PO 04/21/22 11:31 Not Given ONCE ONE Diphenhydramine HCl 25 mg 04/21/22 12:01 04/21/22 12:04 Diphenhydramine Hcl 25 Mg Capsule PO 04/21/22 12:02 25 mg ONCE ONE Administration Metoclopramide HCl 10 mg 04/21/22 11:30 04/21/22 12:00 Metoclopramide Hcl 10 Mg Tablet PO 04/21/22 11:31 10 mg ONCE ONE Administration Sumatriptan Succinate 50 mg 04/21/22 11:30 04/21/22 12:19 Sumatriptan Succinate 50 Mg Tablet PO 04/21/22 11:31 50 mg ONCE ONE Administration Medical Decision Making Medical Decision Making MDM Narrative: 56-year-old male with past medical history of anxiety, HTN, degenerative disc disease, MRSA, spondylosis, renal calculi, presenting to the ED complaining of headache, myalgias, body ache, generalized fatigue, and back pain x4 days. On exam vital signs stable, NAD, nontoxic appearing, no midline spinous tenderness, no right-sided symptoms, ambulating with steady gait. Concern for viral illness vs MSK pain/strain/spasm pain vs migraine headache. Low suspicion for ICH, SAH, cauda equina/cord compression Plan: COVID-19/influenza/RSV testing, p.o. Fioricet, re-evaluate Differential Diagnosis Differential Diagnoses: The differential diagnosis associated with the presentation includes Admission/Observation Consideration of admission/observation: Escalation of care including admission/observation considered Lab Data Labs: Lab Results 04/21/22 Range/Units 09:51 Influenza Type A (PCR) NEGATIVE (Negative) Influenza Type B (PCR) NEGATIVE (Negative) RSV RNA Qual (PCR) NEGATIVE (Negative) SARS-CoV-2 RNA (RT-PCR) NEGATIVE (Negative) Discharge Plan Discharge Clinical Impression: Acute viral syndrome Patient Disposition: Home, Self-Care Instructions: Viral Syndrome (ED) Additional Instructions: You tested negative for COVID-19, flu, and RSV Rest. Stay hydrated. Fioricet for headaches, take as needed. In addition take Motrin. Be aware Fioricet as Tylenol mixed in do not exceed 4 g in 1 day. If headache persists or worsens, you develop weakness, vision change or loss return to the emergency department. Please have close follow-up with her doctor Prescriptions: New pefdirjkox-[id number]-dvzh [Fioricet] 50-300-40 mg capsule 1 cap PO Q4-6H PRN (Reason: headache) Qty: 14 0RF No Action oseltamivir 75 mg capsule 75 mg PO BID 5 Days Qty: 10 0RF prednisone 20 mg tablet 40 mg PO DAILY 5 Days Qty: 10 0RF cyclobenzaprine 10 mg tablet 10 mg PO TID PRN (Reason: pain) Qty: 18 0RF Rx Instructions: side effect is drowsiness. Do not take at work or while driving. acetaminophen [Tylenol] 325 mg capsule 325 mg PO QID PRN (Reason: pain) Qty: 28 0RF losartan 50 mg tablet 1 tab PO DAILY cyclobenzaprine 10 mg tablet 1 tab PO TID acetaminophen 325 mg tablet 650 mg PO cetirizine 10 mg tablet 1 tab PO DAILY hydroxyzine HCl 50 mg tablet 1 tab PO BEDTIME chlorthalidone 50 mg tablet 1 tab PO DAILY amitriptyline 50 mg tablet 1 tab PO BEDTIME amlodipine 10 mg tablet 1 tab PO DAILY gabapentin 100 mg capsule 1 cap PO DAILY cholecalciferol (vitamin D3) 25 mcg (1,000 unit) capsule 1 cap PO DAILY amlodipine 10 mg tablet 1 tab PO DAILY cyclobenzaprine 10 mg tablet 10 mg PO TID PRN (Reason: muscle spasm) Qty: 14 0RF lidocaine 4 % adhesive patch,medicated 1 patch topical DAILY PRN (Reason: pain) Qty: 10 0RF Rx Instructions: may leave on for up to 12 hrs prednisone 20 mg tablet 40 mg PO DAILY 5 Days Qty: 10 0RF amoxicillin-pot clavulanate 875-125 mg tablet 1 tab PO BID Qty: 14 0RF dexamethasone 6 mg tablet 6 mg PO DAILY 3 Days Qty: 3 0RF ketorolac 10 mg tablet 10 mg PO Q6H 5 Days Qty: 20 0RF amoxicillin-pot clavulanate 875-125 mg tablet 1 tab PO BID 7 Days Qty: 14 0RF fluticasone propionate [Flonase Allergy Relief] 50 mcg/actuation spray,suspension 1 spray intranasal DAILY Qty: 16 0RF Rx Instructions: administer into each nostril Paxlovid (EUA) 300 mg (150 mg x 2)-100 mg tablet See Rx Instructions .ROUTE .COMPLEX Qty: 30 0RF Rx Instructions: take TWO 150 mg tablets of nirmatrelvir with ONE 100 mg tablet of ritonavir twice daily for 5 days ketorolac 10 mg tablet 10 mg PO Q8H Qty: 20 0RF cyclobenzaprine 10 mg tablet 10 mg PO TID PRN (Reason: muscle spasm) Qty: 10 0RF Referrals: Heather Marroquin MD [Primary Care Provider] - 5 days Interventions: ED Discharge Assessment Last Done: 04/21/22 12:31 Discharge Date/Time: 04/21/22 12:32
--- NOTE | 2022-04-21 10:30 | PC.NURSE ---
pt medicated per order for 12/05 headache
[2022-04-21 11:14] LABS: Influenza A PCR NEGATIVE (Negative); Influenza B PCR NEGATIVE (Negative); Resp Syncy Virus RNA Qual PCR NEGATIVE (Negative); SARS COV2 PCR INHOUSE NEGATIVE (Negative)
--- NOTE | 2022-04-21 12:06 | PC.NURSE ---
pt medicated per order, called pharmacy for missing medication will administer when it is brought to [facility]
== END 2022-04-21 12:32 | disposition home or self-care (01) ==
PROVIDERS: Emergency Provider Student in an Organized Health Care Education/Training Program; PCP Student in an Organized Health Care Education/Training Program
DX: B34.9 Viral infection, unspecified (principal); R51.9 Headache, unspecified; M54.50 Low back pain, unspecified; Z20.822 Contact with and (suspected) exposure to COVID-19
CPT/HCPCS: 0241U; 99283

== ENCOUNTER 2022-05-23 07:11 | Emergency (ER) | payer MEDICAID, SELFPAY ==
--- NOTE | ~2022-05-23 | CT_ITS ---
EXAMINATION: CT ABDOMEN AND PELVIS WITHOUT CONTRAST CLINICAL INFORMATION: Left flank pain COMPARISON: Abdomen from 09/07/2021 TECHNIQUE: Multidetector volumetric imaging was performed from the superior aspect of the liver through the pubic symphysis. Sagittal and coronal reformatted images were obtained on the technologist's workstation. This CT examination was performed using dose optimization techniques as appropriate, variously including the following: *Automated exposure control *Adjustment of mA and/or kV according to patient size (this includes techniques or standardized protocols for targeted exams where dose is matched to indication/reason for exam; i.e. extremities or head) *Use of iterative reconstruction technique DLP: 1102 mGy-cm FINDINGS: LUNG BASES: Bibasilar atelectasis. LIVER, GALLBLADDER, AND BILIARY TREE: The liver is normal in size and shape. Decreased hepatic attenuation suggesting hepatic steatosis. No focal hepatic lesion or biliary ductal dilatation is present. The gallbladder is unremarkable with no evidence of radiopaque gallstones, gallbladder wall thickening, or obvious pericholecystic inflammatory changes. PANCREAS: Unremarkable. SPLEEN: Not visualized and presumed surgical absence ADRENAL GLANDS: Unremarkable. KIDNEYS AND URETERS: The kidneys are normal in size, shape, and attenuation. No hydronephrosis, hydroureter, or calculi seen. No perinephric stranding. BLADDER: Unremarkable. GASTROINTESTINAL TRACT: Slight colonic diverticulosis without acute diverticulitis. The small and large bowel are unremarkable. The appendix is unremarkable. ABDOMINAL WALL: No significant hernia is appreciated. LYMPH NODES: No enlarged lymph nodes per size criteria. VASCULAR: Abdominal aorta is nonaneurysmal and demonstrates atherosclerotic calcifications. PELVIC VISCERA: Prostate measures 3.9 cm. OSSEOUS STRUCTURES: Multilevel degenerative changes of the thoracolumbar and lumbosacral spine. No large lytic or blastic lesions degenerative changes of the bilateral sacroiliac joints. Sclerotic focus in the right ilium statistically representing bone islands. Smaller bone island also noted left iliac bone. CT/CT abdomen pelvis wo IV con IMPRESSION: 1. No acute process of the abdomen or pelvis identified. 2. Decreased hepatic attenuation suggesting hepatic steatosis. 3. Spleen is not visualized and presumed surgical absence. 4. Slight colonic diverticulosis without acute diverticulitis.
--- NOTE | 2022-05-23 07:37 | ED.BACK ---
HPI - Back Pain/Injury General Chief Complaint: Back Pain/Injury Stated Complaint: back pain Time Seen by Provider: 05/23/22 07:27 Source: patient Mode of arrival: ambulatory History of Present Illness HPI Narrative: 56-year-old male who presents with chronic, persistent back pain without associated fever, chills, nausea, vomiting, IVDA history, bowel or bladder dysfunction and denies weakness in either lower extremity. Patient also denies any traumatic event and states he is undergone physical therapy as well as back injections and the last back injection he received was 2 months ago. Related Data Home Medications Medication Instructions Recorded Confirmed acetaminophen 325 mg tablet 650 mg PO 05/21/21 amitriptyline 50 mg tablet 1 tab PO BEDTIME 05/21/21 05/21/21 amlodipine 10 mg tablet 1 tab PO DAILY 05/21/21 05/21/21 cetirizine 10 mg tablet 1 tab PO DAILY 05/21/21 05/21/21 chlorthalidone 50 mg tablet 1 tab PO DAILY 05/21/21 05/21/21 cholecalciferol (vitamin D3) 25 1 cap PO DAILY 05/21/21 05/21/21 mcg (1,000 unit) capsule cyclobenzaprine 10 mg tablet 1 tab PO TID 05/21/21 05/21/21 gabapentin 100 mg capsule 1 cap PO DAILY 05/21/21 05/21/21 hydroxyzine HCl 50 mg tablet 1 tab PO BEDTIME 05/21/21 05/21/21 losartan 50 mg tablet 1 tab PO DAILY 05/21/21 05/21/21 amlodipine 10 mg tablet 1 tab PO DAILY 05/25/21 05/25/21 Previous Rx's Medication Instructions Recorded oseltamivir 75 mg capsule 75 mg PO BID 5 days #10 caps 12/30/20 prednisone 20 mg tablet 40 mg PO DAILY 5 days #10 tabs 12/30/20 acetaminophen 325 mg capsule 325 mg PO QID PRN pain #28 caps 01/22/21 (Tylenol) cyclobenzaprine 10 mg tablet 10 mg PO TID PRN pain #18 tabs 01/22/21 amoxicillin 875 mg-potassium 1 tab PO BID #14 tabs 08/29/21 clavulanate 125 mg tablet cyclobenzaprine 10 mg tablet 10 mg PO TID PRN muscle spasm #14 08/29/21 tabs lidocaine 4 % topical patch 1 patch topical DAILY PRN pain #10 08/29/21 ea prednisone 20 mg tablet 40 mg PO DAILY 5 days #10 tabs 08/29/21 dexamethasone 6 mg tablet 6 mg PO DAILY 3 days #3 tabs 09/07/21 ketorolac 10 mg tablet 10 mg PO Q6H 5 days #20 tabs 09/07/21 amoxicillin 875 mg-potassium 1 tab PO BID 7 days #14 tabs 10/24/21 clavulanate 125 mg tablet fluticasone propionate 50 1 spray intranasal DAILY #16 grams 10/24/21 mcg/actuation nasal spray,suspension (Flonase Allergy Relief) nirmatrelvir 300 mg (150 mg See Rx Instructions PO .COMPLEX 11/18/21 x2)-ritonavir 100 mg tablet,dose #30 tabs pack(EUA) (Paxlovid) cyclobenzaprine 10 mg tablet 10 mg PO TID PRN muscle spasm #10 03/30/22 tabs ketorolac 10 mg tablet 10 mg PO Q8H #20 tabs 03/30/22 uamydnmpyn-xxhxgafkuhypj-ythbxmxp 1 cap PO Q4-6H PRN headache #14 04/21/22 50 mg-300 mg-40 mg capsule caps (Fioricet) cyclobenzaprine 5 mg tablet 5 mg PO Q8H PRN pain (scale score 04/21/22 7-10) 5 days #14 tabs lidocaine 5 % topical patch 1 patch topical DAILY PRN pain #30 04/21/22 (Lidoderm) ea nitrofurantoin 100 mg PO Q12H 7 days #14 caps 05/23/22 monohydrate/macrocrystals 100 mg capsule (Macrobid) Allergies Allergy/AdvReac Type Severity Reaction Status Date / Time aspirin [ASA] Allergy Intermediate ABD PAIN Verified 03/30/22 12:09 Review of Systems Review of Systems: Pertinent positives and negatives as stated in HPI [facility] Past Medical History Source: nursing notes reviewed Medical History Anxiety Cholecystectomy planned COVID-19 vaccine series completed Disc degeneration, lumbar HTN (hypertension) MRSA (methicillin resistant Staphylococcus aureus) Renal calculi Spondylosis of lumbar spine Surgical History Hx of cholecystectomy Hx of cystoscopy Social History Social History Are you a primary critical care unit nurse to a significant other at home: No Do you presently have visiting nurse or other home services: No Alcohol intake: never Patient Tobacco Use Status: Never used Tobacco Advance Directives: No Physical Exam Vital Signs: Vital Signs: Last Vital Signs Temp 97.6 F 05/23/22 07:45 Pulse 74 05/23/22 07:45 Resp 16 05/23/22 07:45 BP 178/82 H 05/23/22 07:45 Pulse Ox 97 05/23/22 07:45 O2 Del Method 05/23/22 07:45 BMI result Body Mass Index 43.5 VITAL SIGNS: Reviewed. GENERAL: Well developed, well nourished, in no acute distress. HEAD: Normocephalic/atraumatic EYES: PERRLA, EOMI EARS: Ext canals without abnormality OROPHARYNX: no oral lesions noted, posterior pharynx clear LUNGS: Normal breath sounds. CARDIOVASCULAR: Regular rate and rhythm without noted murmurs ABDOMEN: Soft, non-tender, non-distended with bowel sounds. BACK: No midline vertebral tenderness or step-offs noted patient appears to have increased tenderness on palpation left paraspinal of the lumbar greater than right. No evidence of erythema or induration. MUSCULOSKELETAL: No tenderness, deformities, or effusions noted on gross inspection. EXTREMITIES: No cyanosis, clubbing or edema. SKIN: Inspection of the skin reveals no rashes NEUROLOGIC: Alert and oriented x 4. Strength and sensation to light touch were grossly intact x 4, DTRs intact Medications Administered Discontinued Medications Generic Name Dose Route Start Last Admin Trade Name Ace PRN Reason Stop Dose Admin Acetaminophen 975 mg 05/23/22 07:42 05/23/22 07:52 Acetaminophen 325 Mg Tablet PO 05/23/22 07:43 975 mg ONCE ONE Administration Lidocaine 1 patch 05/23/22 07:42 05/23/22 07:53 Lidocaine 4 % Patch Adh..Patch TRANSDERMA 05/23/22 07:43 1 patch ONCE ONE Administration Protocol Medical Decision Making Medical Decision Making MDM Narrative: 56-year-old male with chronic, persistent back pain with multiple modalities pursued previously. I will provide combination analgesics but patient was counseled on the need for having a discussion with his primary care provider about possible surgical intervention if warranted. There is no clinical suspicion for cauda equina or spinal abscess at this time. Will obtain a urine sample to rule out urinary etiologies he does have a remote history of renal colic however symptoms are not consistent with a renal colic presentation. I reviewed all laboratory investigations and imaging in my interpretation is that patient has chronic back pain with UTI. Patient was recommended to continue with current regimen and to follow-up with his primary care provider for extensive discussion regarding possible surgical intervention. Differential Diagnosis Differential Diagnoses: The differential diagnosis associated with the presentation includes Please see discussion above Lab Data MDM Lab Attestation statement: I reviewed the patient's lab results. Please see the discussion above Labs: Lab Results 05/23/22 Range/Units 07:56 Urine Color Yellow Urine Appearance Clear Urine pH 6.5 (5.0-9.0) Ur Specific [place] 1.020 (1.005-1.025) Urine Protein Negative (Neg-Trace) mg/dL Urine Glucose (UA) Negative (Negative) mg/dL Urine Ketones Trace (Negative) mg/dL Urine Blood Small (1+) H (Negative) Urine Nitrite Negative (Negative) Ur Leukocyte Esterase Small (1+) H (Negative) Urine RBC 6-10 H (0-2) /HPF Urine WBC 11-20 H (0-5) /HPF Ur Squamous Epith Cells 0-2 (0-2) /HPF Urine Bacteria None Seen (None Seen) Hyaline Casts 0-2 (0-2) /LPF Radiology Impression Radiologist Impression: My interpretation is in agreement with radiology's impression of the imaging study. External Record Review External record reviewed: Outpatient record and Prior outpatient labs Chronic Conditions Patient?s care impacted by: Hypertension Discharge Plan Discharge Clinical Impression: Chronic low back pain, Acute UTI Patient Disposition: Home, Self-Care Instructions: Urinary Tract Infection in Men (ED), Pain Management (ED), Chronic Pain (ED), Back Pain (ED), Lower Back Exercises (ED) Additional Instructions: 1. Tylenol 1000 mg, orally, every 6 hours as needed for pain control. Do not exceed 4000 mg within 24 hours. 2. Lidocaine patch, apply to area of maximal tenderness as directed on the outside packaging. 3. Please follow-up with your primary care provider next 1-2 days for re-evaluation and a full discussion regarding your options for further treatment of your chronic back pain. Return to the ER for any worsening of your symptoms that are associated with fever, chills, nausea, vomiting. Prescriptions: New nitrofurantoin monohyd/m-cryst [Macrobid] 100 mg capsule 100 mg PO Q12H 7 Days Qty: 14 0RF Rx Instructions: must administer with a meal/food No Action oseltamivir 75 mg capsule 75 mg PO BID 5 Days Qty: 10 0RF prednisone 20 mg tablet 40 mg PO DAILY 5 Days Qty: 10 0RF adngxyjjla-byuynxlfrgwdr-oahh [Fioricet] 50-300-40 mg capsule 1 cap PO Q4-6H PRN (Reason: headache) Qty: 14 0RF lidocaine [Lidoderm] 5 % adhesive patch,medicated 1 patch topical DAILY MDD remove after 12 hours PRN (Reason: pain) Qty: 30 0RF Rx Instructions: leave on most painful area for up to 12 hrs cyclobenzaprine 5 mg tablet 5 mg PO Q8H PRN (Reason: pain (scale score 7-10)) 5 Days Qty: 14 0RF cyclobenzaprine 10 mg tablet 10 mg PO TID PRN (Reason: pain) Qty: 18 0RF Rx Instructions: side effect is drowsiness. Do not take at work or while driving. acetaminophen [Tylenol] 325 mg capsule 325 mg PO QID PRN (Reason: pain) Qty: 28 0RF losartan 50 mg tablet 1 tab PO DAILY cyclobenzaprine 10 mg tablet 1 tab PO TID acetaminophen 325 mg tablet 650 mg PO cetirizine 10 mg tablet 1 tab PO DAILY hydroxyzine HCl 50 mg tablet 1 tab PO BEDTIME chlorthalidone 50 mg tablet 1 tab PO DAILY amitriptyline 50 mg tablet 1 tab PO BEDTIME amlodipine 10 mg tablet 1 tab PO DAILY gabapentin 100 mg capsule 1 cap PO DAILY cholecalciferol (vitamin D3) 25 mcg (1,000 unit) capsule 1 cap PO DAILY amlodipine 10 mg tablet 1 tab PO DAILY cyclobenzaprine 10 mg tablet 10 mg PO TID PRN (Reason: muscle spasm) Qty: 14 0RF lidocaine 4 % adhesive patch,medicated 1 patch topical DAILY PRN (Reason: pain) Qty: 10 0RF Rx Instructions: may leave on for up to 12 hrs prednisone 20 mg tablet 40 mg PO DAILY 5 Days Qty: 10 0RF amoxicillin-pot clavulanate 875-125 mg tablet 1 tab PO BID Qty: 14 0RF dexamethasone 6 mg tablet 6 mg PO DAILY 3 Days Qty: 3 0RF ketorolac 10 mg tablet 10 mg PO Q6H 5 Days Qty: 20 0RF amoxicillin-pot clavulanate 875-125 mg tablet 1 tab PO BID 7 Days Qty: 14 0RF fluticasone propionate [Flonase Allergy Relief] 50 mcg/actuation spray,suspension 1 spray intranasal DAILY Qty: 16 0RF Rx Instructions: administer into each nostril Paxlovid (EUA) 300 mg (150 mg x 2)-100 mg tablet See Rx Instructions .ROUTE .COMPLEX Qty: 30 0RF Rx Instructions: take TWO 150 mg tablets of nirmatrelvir with ONE 100 mg tablet of ritonavir twice daily for 5 days ketorolac 10 mg tablet 10 mg PO Q8H Qty: 20 0RF cyclobenzaprine 10 mg tablet 10 mg PO TID PRN (Reason: muscle spasm) Qty: 10 0RF Referrals: Heather Marroquin MD [Primary Care Provider] -
[2022-05-23 07:45] VITALS: BP 178/82; PULSE 74; RESP 16; TEMP 36.4; O2SAT 97; BMI 43.5
[2022-05-23] MEDS: Acetaminophen 325 MG TABLET 975 MG PO (07:52)
[2022-05-23] MEDS: Lidocaine 4 % Patch ADH..PATCH 1 PATCH TRANSDERMA (07:53)
[2022-05-23 08:07] LABS: Appearance Urine Clear; Color Urine Yellow; Glucose Urine UA Negative (Negative); Leukocyte Esterase Urine Small (1+) (Negative); Nitrite Urine Negative (Negative); PH 6.5 (5.0-9.0); UMIC TRIGGER UACC YES; Urine Blood Small (1+) (Negative); Urine Ketones Trace mg/dL (Negative); Urine Protein Negative (Neg-Trace)
[2022-05-23 08:09] LABS: Bacteria Urine None Seen (None Seen); Hyaline Casts Urine 0-2 /LPF (0-2); Squamous Epithelial Cell Urine 0-2 /HPF (0-2); UACC Culture Trigger YES
--- NOTE | 2022-05-23 08:20 | PC.NURSE ---
PT MEDICATED CHARTED. HE IS AMBULATORY IN ED WITH MILD GUARDING
[2022-05-23] MEDS: Nitrofurantoin Monohyd/M-Cryst 100 MG CAPSULE PO (09:37)
== END 2022-05-23 09:42 | disposition home or self-care (01) ==
PROVIDERS: Emergency Provider Student in an Organized Health Care Education/Training Program; PCP Student in an Organized Health Care Education/Training Program
DX: N39.0 Urinary tract infection, site not specified (principal); M54.50 Low back pain, unspecified; R10.9 Unspecified abdominal pain; Z79.899 Other long term (current) drug therapy
CPT/HCPCS: 74176; 81001; 81003; 87086; 99284

== ENCOUNTER 2022-06-17 10:12 | Emergency (ER) | payer MEDICAID, SELFPAY ==
--- NOTE | ~2022-06-17 | XR_ITS ---
EXAMINATION: XR FOOT, RIGHT CLINICAL INFORMATION: Pain and swelling after falling down 3 steps. COMPARISON: March 04, 2017 TECHNIQUE: AP, lateral, and oblique views of the right foot. FINDINGS: There is no evidence of acute fracture or dislocation of the right foot. Calcaneal spurs at insertion of Achilles tendon is seen. Joint spaces appear maintained. There is some dorsal spurring related to tell lesions about the dorsum of the talar and navicular bones. No radiopaque foreign body. There is soft tissue swelling overlying the dorsum of the tarsal bones. XR/XR foot RT 2V IMPRESSION: No acute fracture or dislocation of the right foot.
[2022-06-17 10:20] VITALS: BP 155/100; PULSE 100; RESP 18; TEMP 36.7; O2SAT 97; BMI 44.9
[2022-06-17 12:10] VITALS: BP 164/87; PULSE 87; RESP 13; TEMP 36.6; O2SAT 95
--- NOTE | 2022-06-17 13:20 | ED.LOWEXIN ---
HPI - Extremity Injury (Lower) General Chief Complaint: Extremity Injury, Lower Stated Complaint: R foot inj Time Seen by Provider: 06/17/22 12:10 History of Present Illness HPI Narrative: Patient complains of right foot and ankle pain and swelling for the last 3 days after he tripped and twisted his ankle and foot coming down some stairs No other injury, no head injury no headache no neck pain no numbness weakness or tingling no back pain no other extremity Related Data Home Medications Medication Instructions Recorded Confirmed acetaminophen 325 mg tablet 650 mg PO 05/21/21 amitriptyline 50 mg tablet 1 tab PO BEDTIME 05/21/21 05/21/21 amlodipine 10 mg tablet 1 tab PO DAILY 05/21/21 05/21/21 cetirizine 10 mg tablet 1 tab PO DAILY 05/21/21 05/21/21 chlorthalidone 50 mg tablet 1 tab PO DAILY 05/21/21 05/21/21 cholecalciferol (vitamin D3) 25 1 cap PO DAILY 05/21/21 05/21/21 mcg (1,000 unit) capsule cyclobenzaprine 10 mg tablet 1 tab PO TID 05/21/21 05/21/21 gabapentin 100 mg capsule 1 cap PO DAILY 05/21/21 05/21/21 hydroxyzine HCl 50 mg tablet 1 tab PO BEDTIME 05/21/21 05/21/21 losartan 50 mg tablet 1 tab PO DAILY 05/21/21 05/21/21 amlodipine 10 mg tablet 1 tab PO DAILY 05/25/21 05/25/21 Previous Rx's Medication Instructions Recorded oseltamivir 75 mg capsule 75 mg PO BID 5 days #10 caps 12/30/20 prednisone 20 mg tablet 40 mg PO DAILY 5 days #10 tabs 12/30/20 acetaminophen 325 mg capsule 325 mg PO QID PRN pain #28 caps 01/22/21 (Tylenol) cyclobenzaprine 10 mg tablet 10 mg PO TID PRN pain #18 tabs 01/22/21 amoxicillin 875 mg-potassium 1 tab PO BID #14 tabs 08/29/21 clavulanate 125 mg tablet cyclobenzaprine 10 mg tablet 10 mg PO TID PRN muscle spasm #14 08/29/21 tabs lidocaine 4 % topical patch 1 patch topical DAILY PRN pain #10 08/29/21 ea prednisone 20 mg tablet 40 mg PO DAILY 5 days #10 tabs 08/29/21 dexamethasone 6 mg tablet 6 mg PO DAILY 3 days #3 tabs 09/07/21 ketorolac 10 mg tablet 10 mg PO Q6H 5 days #20 tabs 09/07/21 amoxicillin 875 mg-potassium 1 tab PO BID 7 days #14 tabs 10/24/21 clavulanate 125 mg tablet fluticasone propionate 50 1 spray intranasal DAILY #16 grams 10/24/21 mcg/actuation nasal spray,suspension (Flonase Allergy Relief) nirmatrelvir 300 mg (150 mg See Rx Instructions PO .COMPLEX 11/18/21 x2)-ritonavir 100 mg tablet,dose #30 tabs pack(EUA) (Paxlovid) cyclobenzaprine 10 mg tablet 10 mg PO TID PRN muscle spasm #10 03/30/22 tabs ketorolac 10 mg tablet 10 mg PO Q8H #20 tabs 03/30/22 bybbnobhde-ejnibngscvfpn-xjcjcxop 1 cap PO Q4-6H PRN headache #14 04/21/22 50 mg-300 mg-40 mg capsule caps (Fioricet) cyclobenzaprine 5 mg tablet 5 mg PO Q8H PRN pain (scale score 04/21/22 7-10) 5 days #14 tabs lidocaine 5 % topical patch 1 patch topical DAILY PRN pain #30 04/21/22 (Lidoderm) ea nitrofurantoin 100 mg PO Q12H 7 days #14 caps 05/23/22 monohydrate/macrocrystals 100 mg capsule (Macrobid) oxycodone 5 mg tablet 5 mg PO Q6H PRN pain #10 tabs 06/17/22 Allergies Allergy/AdvReac Type Severity Reaction Status Date / Time aspirin [ASA] Allergy Intermediate Dizziness Verified 06/17/22 10:22 [facility] Past Medical History Source: nursing notes reviewed Medical History Anxiety Cholecystectomy planned COVID-19 vaccine series completed Disc degeneration, lumbar HTN (hypertension) MRSA (methicillin resistant Staphylococcus aureus) Renal calculi Spondylosis of lumbar spine Surgical History Hx of cholecystectomy Hx of cystoscopy Social History Social History Are you a primary wound care center consultant to a significant other at home: No Do you presently have visiting nurse or other home services: No Alcohol intake: never Patient Tobacco Use Status: Never used Tobacco Physical Exam Vital Signs: Vital Signs: Last Vital Signs Temp 97.8 F 06/17/22 12:10 Pulse 87 06/17/22 12:10 Resp 13 06/17/22 12:10 BP 164/87 H 06/17/22 12:10 Pulse Ox 95 06/17/22 12:10 O2 Del Method 06/17/22 12:10 BMI result Body Mass Index 44.9 General appearance no acute distress Head is normocephalic atraumatic Neck is supple nontender Respiratory no distress Chest wall nontender Abdomen is non tender The back full range of motion no tenderness Extremities the right ankle is tender and swollen both medially and laterally with some ecchymosis, neurovascular intact distal, knee has full range of motion no tenderness Other extremities normal range of motion Neuro no focal motor sensory deficits Course Course Course Narrative: X-rays of right foot and ankle were negative Patient could ambulate but was uncomfortable so he is given crutches and will follow with orthopedist if needed Medications Administered Discontinued Medications Generic Name Dose Route Start Last Admin Trade Name Freq PRN Reason Stop Dose Admin Oxycodone HCl 5 mg 06/17/22 13:24 06/17/22 13:41 Oxycodone Hcl Immed Release 5 Mg Tablet PO 06/17/22 13:25 5 mg ONCE ONE Administration Discharge Plan Discharge Clinical Impression: Right ankle sprain Patient Disposition: Home, Self-Care Additional Instructions: X-rays did not show a broken bone but x-rays can miss fractures and many other soft tissue injuries Usually you will have a lot of improvement within a week if not improving after week follow with orthopedist or your doctor for re-evaluation Return any worse condition or any concerns Prescriptions: New oxycodone 5 mg tablet 5 mg PO Q6H PRN (Reason: pain) Qty: 10 0RF Rx Instructions: Partial Fill upon patient request. No Action oseltamivir 75 mg capsule 75 mg PO BID 5 Days Qty: 10 0RF prednisone 20 mg tablet 40 mg PO DAILY 5 Days Qty: 10 0RF csfzcdntut-jvxlcjjxoyluc-fwar [Fioricet] 50-300-40 mg capsule 1 cap PO Q4-6H PRN (Reason: headache) Qty: 14 0RF lidocaine [Lidoderm] 5 % adhesive patch,medicated 1 patch topical DAILY MDD remove after 12 hours PRN (Reason: pain) Qty: 30 0RF Rx Instructions: leave on most painful area for up to 12 hrs cyclobenzaprine 5 mg tablet 5 mg PO Q8H PRN (Reason: pain (scale score 7-10)) 5 Days Qty: 14 0RF nitrofurantoin monohyd/m-cryst [Macrobid] 100 mg capsule 100 mg PO Q12H 7 Days Qty: 14 0RF Rx Instructions: must administer with a meal/food cyclobenzaprine 10 mg tablet 10 mg PO TID PRN (Reason: pain) Qty: 18 0RF Rx Instructions: side effect is drowsiness. Do not take at work or while driving. acetaminophen [Tylenol] 325 mg capsule 325 mg PO QID PRN (Reason: pain) Qty: 28 0RF losartan 50 mg tablet 1 tab PO DAILY cyclobenzaprine 10 mg tablet 1 tab PO TID acetaminophen 325 mg tablet 650 mg PO cetirizine 10 mg tablet 1 tab PO DAILY hydroxyzine HCl 50 mg tablet 1 tab PO BEDTIME chlorthalidone 50 mg tablet 1 tab PO DAILY amitriptyline 50 mg tablet 1 tab PO BEDTIME amlodipine 10 mg tablet 1 tab PO DAILY gabapentin 100 mg capsule 1 cap PO DAILY cholecalciferol (vitamin D3) 25 mcg (1,000 unit) capsule 1 cap PO DAILY amlodipine 10 mg tablet 1 tab PO DAILY cyclobenzaprine 10 mg tablet 10 mg PO TID PRN (Reason: muscle spasm) Qty: 14 0RF lidocaine 4 % adhesive patch,medicated 1 patch topical DAILY PRN (Reason: pain) Qty: 10 0RF Rx Instructions: may leave on for up to 12 hrs prednisone 20 mg tablet 40 mg PO DAILY 5 Days Qty: 10 0RF amoxicillin-pot clavulanate 875-125 mg tablet 1 tab PO BID Qty: 14 0RF dexamethasone 6 mg tablet 6 mg PO DAILY 3 Days Qty: 3 0RF ketorolac 10 mg tablet 10 mg PO Q6H 5 Days Qty: 20 0RF amoxicillin-pot clavulanate 875-125 mg tablet 1 tab PO BID 7 Days Qty: 14 0RF fluticasone propionate [Flonase Allergy Relief] 50 mcg/actuation spray,suspension 1 spray intranasal DAILY Qty: 16 0RF Rx Instructions: administer into each nostril Paxlovid (EUA) 300 mg (150 mg x 2)-100 mg tablet See Rx Instructions .ROUTE .COMPLEX Qty: 30 0RF Rx Instructions: take TWO 150 mg tablets of nirmatrelvir with ONE 100 mg tablet of ritonavir twice daily for 5 days ketorolac 10 mg tablet 10 mg PO Q8H Qty: 20 0RF cyclobenzaprine 10 mg tablet 10 mg PO TID PRN (Reason: muscle spasm) Qty: 10 0RF Referrals: Omer Hanna MD [Physician] - (Right foot and ankle injury) Interventions: ED Discharge Assessment Last Done: 06/17/22 13:47 Discharge Date/Time: 06/17/22 13:52
[2022-06-17] MEDS: oxyCODONE HCl Immed Release 5 MG TABLET PO (13:41)
== END 2022-06-17 13:52 | disposition home or self-care (01) ==
PROVIDERS: Emergency Provider Emergency Medicine; PCP Student in an Organized Health Care Education/Training Program
DX: S99.921A Unspecified injury of right foot, initial encounter (principal); M25.571 Pain in right ankle and joints of right foot; W01.0XXA Fall on same level from slipping, tripping and stumbling without subsequent striking against object, initial encounter; Y93.9 Activity, unspecified; Y92.9 Unspecified place or not applicable; Y99.9 Unspecified external cause status; Z79.899 Other long term (current) drug therapy
CPT/HCPCS: 73620; 99283; 99284

== ENCOUNTER 2022-07-11 09:47 | Outpatient (REF) | payer MEDICAID, SELFPAY ==
--- NOTE | ~2022-07-11 | XR_ITS ---
EXAMINATION: XR ANKLE, RIGHT CLINICAL INFORMATION: Pain COMPARISON: Foot radiographs 06/17/2022 TECHNIQUE: AP, lateral, and mortise views of the right ankle. FINDINGS: There is an corticated fracture fragment arising from the medial malleolus, likely small avulsion fracture. There is overlying soft tissue swelling. Tibial plafond and intact. Degenerative changes are noted at the talonavicular joint. Calcaneal spurs. All broad-based osteochondroma arising from the posterior malleolus. XR/XR ankle RT min 3V IMPRESSION: Small avulsion fracture arising from the medial malleolus, not apparent on foot radiographs dated 06/23/2022.
== END 2022-07-11 09:48 | disposition home or self-care (01) ==
LOC: HO.HOSX 09:47
PROVIDERS: Visit Provider Physician Assistant
DX: S93.401A Sprain of unspecified ligament of right ankle, initial encounter (principal)
CPT/HCPCS: 73610; 99202

== ENCOUNTER 2022-07-12 10:43 | Outpatient (REF) | payer MEDICAID, SELFPAY ==
--- NOTE | ~2022-07-12 | US_ITS ---
EXAMINATION: US VENOUS ULTRASOUND WITH DOPPLER LOWER EXTREMITY, RIGHT CLINICAL INFORMATION: Right ankle swelling. COMPARISON: Ultrasound bilateral lower extremity 10/29/2018 TECHNIQUE: Ultrasound of the deep veins is performed from the hip to the calf with compression sonography and color and pulse Doppler assessment. Spectral analysis with color-flow imaging is performed. FINDINGS: There is normal venous compression and respiratory variation and augmented flow. The visualized common femoral vein, superficial femoral vein, profunda femoral vein, popliteal vein, and the trifurcation region shows no evidence of deep venous thrombosis. There is a small Funk's cyst measuring 3.8 minute 0.9 cm. There is a dense calcification in the medial calf question loose body. It measures 2.2 x 1.0 cm small lymph node visualized in the popliteal fossa measuring 0.6 x 0.5 x 1.0 cm. Minimal thickening of the Achilles tendon. If the patient's symptoms persist, followup ultrasound in 5 days 7 days might be of value to exclude proximal propagation from a non-visualized calf vein. US/US venous duplex LE RT IMPRESSION: No DVT demonstrated in the right lower extremity. Small Funk's cyst, small benign-appearing lymph node and medial popliteal fossa calcification question loose body versus vascular. Correlate with right knee x-rays.
== END 2022-07-12 10:44 | disposition home or self-care (01) ==
LOC: HO.US 10:43
PROVIDERS: PCP Student in an Organized Health Care Education/Training Program; Visit Provider Student in an Organized Health Care Education/Training Program
DX: M25.471 Effusion, right ankle (principal)
CPT/HCPCS: 93971

== ENCOUNTER 2022-08-11 09:38 | Emergency (ER) | payer MEDICAID, SELFPAY ==
--- NOTE | ~2022-08-11 | US_ITS ---
EXAMINATION: BILATERAL LOWER EXTREMITY VENOUS ULTRASOUND CLINICAL INFORMATION: Bilateral lower extremity edema. COMPARISON: None TECHNIQUE: Doppler spectral analysis and color flow Doppler imaging was performed of the lower extremities. Compression and augmentation maneuvers were performed. FINDINGS: The right and left common femoral vein, greater saphenous vein takeoff, femoral vein, and popliteal vein are normally compressible with normal augmentation responses and phasic changes seen with Doppler imaging. The midcalf posterior tibial veins are patent as well. The [place] peroneal veins are only partially visualized and appear patent to the extent seen. There is soft tissue edema in the calf bilaterally, more prominent on the right side than the left. No popliteal cyst is seen. US/US venous duplex LE BI IMPRESSION: No evidence of deep venous thrombosis in the right or left lower extremity. Depending on clinical circumstances, since the peroneal veins are incompletely imaged, consider repeat DVT exam in 7-10 days to exclude proximal clot propagation from a nonvisualized calf vein.
[2022-08-11 09:50] VITALS: BP 146/110; PULSE 69; RESP 17; TEMP 36.9; O2SAT 95; BMI 44.4
--- NOTE | 2022-08-11 10:05 | ED_ITS ---
HPI - General Adult General Chief complaint: Allergic Reaction Stated complaint: allergic reaction? Time Seen by Provider: 08/11/22 10:04 Source: patient Mode of arrival: ambulatory History of Present Illness HPI narrative: 56-year-old male with a past medical history of anxiety, HTN, MRSA, renal calculi, DVT, presenting to the ED complaining of feeling not right after drinking multiple around 09:00. Reports something 'chunky' inside the bottle which he coughed/puked up. Reports associated abdominal discomfort, nausea, and pruritic eyes after ingestion. Also reports bilateral LE pitting edema > RLE since waking this morning. Denies SOB, cough, fever, diarrhea, rash, known allergens, recent travel, CP, vision change/loss. Denies taking AC Onset (ago): hour(s) Related Data Home Medications Medication Instructions Recorded Confirmed acetaminophen 325 mg tablet 650 mg PO 05/21/21 amitriptyline 50 mg tablet 1 tab PO BEDTIME 05/21/21 05/21/21 amlodipine 10 mg tablet 1 tab PO DAILY 05/21/21 05/21/21 cetirizine 10 mg tablet 1 tab PO DAILY 05/21/21 05/21/21 chlorthalidone 50 mg tablet 1 tab PO DAILY 05/21/21 05/21/21 cholecalciferol (vitamin D3) 25 1 cap PO DAILY 05/21/21 05/21/21 mcg (1,000 unit) capsule cyclobenzaprine 10 mg tablet 1 tab PO TID 05/21/21 05/21/21 gabapentin 100 mg capsule 1 cap PO DAILY 05/21/21 05/21/21 hydroxyzine HCl 50 mg tablet 1 tab PO BEDTIME 05/21/21 05/21/21 losartan 50 mg tablet 1 tab PO DAILY 05/21/21 05/21/21 amlodipine 10 mg tablet 1 tab PO DAILY 05/25/21 05/25/21 Previous Rx's Medication Instructions Recorded oseltamivir 75 mg capsule 75 mg PO BID 5 days #10 caps 12/30/20 prednisone 20 mg tablet 40 mg PO DAILY 5 days #10 tabs 12/30/20 acetaminophen 325 mg capsule 325 mg PO QID PRN pain #28 caps 01/22/21 (Tylenol) cyclobenzaprine 10 mg tablet 10 mg PO TID PRN pain #18 tabs 01/22/21 amoxicillin 875 mg-potassium 1 tab PO BID #14 tabs 08/29/21 clavulanate 125 mg tablet cyclobenzaprine 10 mg tablet 10 mg PO TID PRN muscle spasm #14 08/29/21 tabs lidocaine 4 % topical patch 1 patch topical DAILY PRN pain #10 08/29/21 ea prednisone 20 mg tablet 40 mg PO DAILY 5 days #10 tabs 08/29/21 dexamethasone 6 mg tablet 6 mg PO DAILY 3 days #3 tabs 09/07/21 ketorolac 10 mg tablet 10 mg PO Q6H 5 days #20 tabs 09/07/21 amoxicillin 875 mg-potassium 1 tab PO BID 7 days #14 tabs 10/24/21 clavulanate 125 mg tablet fluticasone propionate 50 1 spray intranasal DAILY #16 grams 10/24/21 mcg/actuation nasal spray,suspension (Flonase Allergy Relief) nirmatrelvir 300 mg (150 mg See Rx Instructions PO .COMPLEX 11/18/21 x2)-ritonavir 100 mg tablet,dose #30 tabs pack(EUA) (Paxlovid) cyclobenzaprine 10 mg tablet 10 mg PO TID PRN muscle spasm #10 03/30/22 tabs ketorolac 10 mg tablet 10 mg PO Q8H #20 tabs 03/30/22 [id number]-fjzhualcgjzbj-jlrgjqnr 1 cap PO Q4-6H PRN headache #14 04/21/22 50 mg-300 mg-40 mg capsule caps (Fioricet) cyclobenzaprine 5 mg tablet 5 mg PO Q8H PRN pain (scale score 04/21/22 7-10) 5 days #14 tabs lidocaine 5 % topical patch 1 patch topical DAILY PRN pain #30 04/21/22 (Lidoderm) ea nitrofurantoin 100 mg PO Q12H 7 days #14 caps 05/23/22 monohydrate/macrocrystals 100 mg capsule (Macrobid) oxycodone 5 mg tablet 5 mg PO Q6H PRN pain #10 tabs 06/17/22 diclofenac sodium 75 mg 75 mg PO BID PRN pain #60 tabs 07/11/22 tablet,delayed release Allergies Allergy/AdvReac Type Severity Reaction Status Date / Time aspirin [ASA] Allergy Intermediate Dizziness Verified 08/11/22 09:53 Review of Systems Review of Systems: Constitutional: No Fever, No Chills, No Fatigue, No Malaise ENT/Mouth: No Ear Pain, No Nasal Congestion, No sore throat, No Rhinorrhea, No Swallowing Difficulty Eyes: No Eye Pain, + Swelling, +pruritis, No Redness, No Foreign Body, No Discharge, No Vision Changes Cardiovascular: No Chest Pain, No SOB, + Edema Respiratory: + Cough, No Sputum, No Wheezing, No Dyspnea Gastrointestinal: + Nausea, No Vomiting, No Diarrhea, No Constipation, + Abdominal pain Genitourinary: No Dysuria, No Urinary Frequency, No Hematuria, No Urinary Incontinence/retention, No Flank Pain Musculoskeletal: No joint pain, No Myalgias, No Joint Swelling Skin: No Skin Lesions, No rash Neuro: No Weakness, No Numbness, No Dizziness, No Headache Yes all other systems are reviewed and are negative Constitutional: Constitutional: Reports as per [facility] Past Medical History Attestation statement: The following information was validated with the patient. Medical History Anxiety Cholecystectomy planned COVID-19 vaccine series completed Disc degeneration, lumbar HTN (hypertension) MRSA (methicillin resistant Staphylococcus aureus) Renal calculi Spondylosis of lumbar spine Surgical History Hx of cholecystectomy Hx of cystoscopy Social History Social History Are you a primary home health caregiver to a significant other at home: No Do you presently have visiting nurse or other home services: No Alcohol intake: never Patient Tobacco Use Status: Never used Tobacco Advance Directives: No Advance Directives Information Provided: Yes Physical Exam ED Vital Signs: Vital Signs - 24 hr 08/11/22 09:50 08/11/22 12:20 Temperature 98.4 F 97.8 F Pulse Rate 69 66 Respiratory Rate 17 18 Blood Pressure 146/110 H 166/96 H Pulse Oximetry 95 100 Oxygen Delivery Method Room Air Room Air BMI result Body Mass Index 44.4 Const General: cooperative, healthy appearing, comfortable and no acute distress Orientation/consciousness: patient oriented x3 Limitations: no limitations HENMT Head: Yes normal to inspection and Yes atraumatic Ears: hearing grossly normal bilaterally General nose exam: Normal external nose present Face and sinus: Yes normal facial exam Mouth: Normal oral and palatal mucosa present Throat: Yes posterior oropharynx normal, Yes tonsils normal, Yes uvula midline, No peritonsillar mass, No uvula laterally displaced and No uvular edema Eyes Other: + mild bilateral eye puffiness, no edema/erythema or warmth. No conjunctival injection/drainage. PERRLA General: appearance normal, both eyes and all related structures Pupils: Equal, round and reactive pupils present EOM: EOMs intact bilaterally Neck Neck: Yes normal visual inspection, Yes no meningeal signs, Yes supple and No anterior neck swelling Resp Effort & Inspection: normal respiratory effort, no respiratory distress and no stridor Auscultation: clear to auscultation bilaterally, no crackles, no rales, no rhonchi and no wheezes Cardio Rate: regular rate Heart sounds: S1 normal heart sound present and S2 normal heart sound present GI Inspection: Yes normal to inspection Palpation (GI): Soft to palpation, nontender, no guarding and not rigid Skin Rashes: no rashes Wounds: no wounds Neuro General: patient oriented x3, gait normal, tone normal, moves all extremities and no meningeal signs Cranial nerves: Yes Equal, round and reactive pupils present Gait exam (Neuro): Normal gait present Extrem Other: + bilateral LE pitting edema > RLE. No calf ttp General: Yes edema Course Course Course Narrative: -1245--labs reassuring. BNP 30 US venous duplex LE BI IMPRESSION: No evidence of deep venous thrombosis in the right or left lower extremity. Depending on clinical circumstances, since the peroneal veins are incompletely imaged, consider repeat DVT exam in 7-10 days to exclude proximal clot propagation from a nonvisualized calf vein. ? > results discussed. Patient reports symptomatic improvement after medications given in the ED. Results discussed with patient including worrisome signs and symptoms and strict return precautions, and when to return to the emergency department. They verbalized understanding and feel safe for discharge at this time. Medications Administered Discontinued Medications Generic Name Dose Route Start Last Admin Trade Name Freq PRN Reason Stop Dose Admin Diphenhydramine HCl 50 mg 08/11/22 10:15 08/11/22 10:49 Diphenhydramine Hcl 50 Mg/Ml Vial IM 08/11/22 10:16 50 mg ONCE ONE Administration Loratadine 10 mg 08/11/22 10:15 08/11/22 10:50 Loratadine 10 Mg Tablet PO 08/11/22 10:16 10 mg ONCE ONE Administration Medical Decision Making Medical Decision Making [facility] Narrative: 56-year-old male with a past medical history of anxiety, HTN, MRSA, renal calculi, DVT, presenting to the ED complaining of feeling not right after drinking multiple around 09:00. Reports associated abdominal discomfort, nausea, and pruritic eyes after ingestion. Also reports bilateral LE pitting edema > RLE. On exam hypertensive, NAD, nontoxic appearing, mild bilateral eye puffiness noted without evidence of preseptal/septal cellulitis. No appreciable rash, lungs CTA, posterior oropharynx abdominal, talking in complete sentences, no stridor. Abdomen soft/nontender. Bilateral LE pitting edema noted, greater on the right. Patient brought green substance which he coughed up to the ED & would like it to be tested. Concern for allergic reaction vs spoiled [place] vs DVT vs ?CHF. No evidence of anaphylaxis. Low suspicion for intra abdominal process including appendicitis/diverticulitis or pancreatitis. Plan: Labs, venous duplex ultrasound, sputum culture, IM Benadryl and Claritin Please refer to course for remaining clinical decision making, interpretation of labs/imaging results, and discussions with consultants and/or family members. Differential Diagnosis Differential Diagnoses: The differential diagnosis associated with the presentation includes As above Admission/Observation Consideration of admission/observation: Escalation of care including admission/observation considered Lab Data [facility] Lab Attestation statement: I reviewed the patient's lab results. 08/11/22 11:19 08/11/22 11:19 Labs: Lab Results 08/11/22 08/11/22 08/11/22 Range/Units 11:19 11:19 11:19 WBC 9.2 (4.8-10.8) X10*3/uL RBC 4.29 L (4.60-5.80) X10*6/uL Hgb 13.5 L (14.0-18.0) g/dl Hct 41.1 L (42.0-52.0) % MCV 95.8 (80.0-98.0) fL MCH 31.5 (27.0-33.0) pg MCHC 32.8 (31.0-36.0) g/dl RDW 15.0 (11.0-16.0) % Plt Count 341 D (160-400) X10*3/uL MPV 10.2 (9.4-12.4) fL Immature Gran % (Auto) 0.3 (0.0-0.4) % Neut % (Auto) 53.3 (45-73) % Lymph % (Auto) 33.8 (20-40) % [place] % (Auto) 9.7 (2-11) % Eos % (Auto) 2.2 (0-4) % Baso % (Auto) 0.7 (0-2) % Lymph # (Auto) 3.1 (1.2-4.9) X10*3/uL [place] # (Auto) 0.9 (0.1-1.2) X10*3/uL Eos # (Auto) 0.2 (0.0-0.4) X10*3/uL Baso # (Auto) 0.1 (0.0-0.2) X10*3/uL Abs Immat Gran (auto) 0.03 (0.00-0.03) X10*3/uL Absolute Neuts (auto) 4.9 (2.0-8.3) x10*3/uL Absolute Nucleated RBC 0.000 (0.0-0.012) X10*3/uL Nucleated RBC % (auto) 0.0 (0.0-0.2) /100WBC PT 11.6 (10.0-13.1) SEC INR 1.0 (0.9-1.1) Sodium 143 (135-145) mmol/L Potassium 3.7 (3.3-5.1) mmol/L Chloride 108 (96-108) mmol/L Carbon Dioxide 30 H (22-29) mmol/L Anion Gap 9 L (12-20) BUN 16 (9-16) mg/dL Creatinine 0.89 (0.5-1.4) mg/dL Estim Creat Clear Calc 115.5 Estimated GFR > 60 Random Glucose 105 (60-115) mg/dL Calcium 9.0 (8.4-10.2) mg/dL Total Bilirubin 0.7 (0.0-1.0) mg/dL Direct Bilirubin 0.2 (0.0-0.5) mg/dL AST 21 (5-37) U/L ALT 15 (0-40) U/L Alkaline Phosphatase 80 (39-117) U/L B-Natriuretic Peptide (<100) pg/mL Total Protein 6.6 (6.5-8.0) g/dL Albumin 4.0 (3.5-5.0) g/dL 08/11/22 Range/Units 11:19 WBC (4.8-10.8) X10*3/uL RBC (4.60-5.80) X10*6/uL Hgb (14.0-18.0) g/dl Hct (42.0-52.0) % MCV (80.0-98.0) fL MCH (27.0-33.0) pg MCHC (31.0-36.0) g/dl RDW (11.0-16.0) % Plt Count (160-400) X10*3/uL MPV (9.4-12.4) fL Immature Gran % (Auto) (0.0-0.4) % Neut % (Auto) (45-73) % Lymph % (Auto) (20-40) % [place] % (Auto) (2-11) % Eos % (Auto) (0-4) % Baso % (Auto) (0-2) % Lymph # (Auto) (1.2-4.9) X10*3/uL [place] # (Auto) (0.1-1.2) X10*3/uL Eos # (Auto) (0.0-0.4) X10*3/uL Baso # (Auto) (0.0-0.2) X10*3/uL Abs Immat Gran (auto) (0.00-0.03) X10*3/uL Absolute Neuts (auto) (2.0-8.3) x10*3/uL Absolute Nucleated RBC (0.0-0.012) X10*3/uL Nucleated RBC % (auto) (0.0-0.2) /100WBC PT (10.0-13.1) SEC INR (0.9-1.1) Sodium (135-145) mmol/L Potassium (3.3-5.1) mmol/L Chloride (96-108) mmol/L Carbon Dioxide (22-29) mmol/L Anion Gap (12-20) BUN (9-16) mg/dL Creatinine (0.5-1.4) mg/dL Estim Creat Clear Calc Estimated GFR Random Glucose (60-115) mg/dL Calcium (8.4-10.2) mg/dL Total Bilirubin (0.0-1.0) mg/dL Direct Bilirubin (0.0-0.5) mg/dL AST (5-37) U/L ALT (0-40) U/L Alkaline Phosphatase (39-117) U/L B-Natriuretic Peptide 30 (<100) pg/mL Total Protein (6.5-8.0) g/dL Albumin (3.5-5.0) g/dL Radiology Impression Discussion of test interpretation with radiology: I have reviewed the radiologist's reading. External Record Review External record reviewed: Inpatient record, Office record, Outpatient record, Prior outpatient labs, Prior outpatient radiology, Primary care record and Outside ED record Discharge Plan Discharge Clinical Impression: Allergic reaction, Bilateral edema of lower extremity Patient Disposition: Home, Self-Care Instructions: Leg Edema (ED), General Allergic Reaction (ED) Additional Instructions: Your blood work was reassuring. ultrasound does not show a blood clot however if your symptoms persist we recommend repeat ultrasound in 7-10 days Please avoid [place]. If symptoms recur, persist please take Benadryl or Zyrtec/Claritin at home If you develop any shortness of breath/wheezing or throat closing sensation return to the ED immediately Please have close follow-up with your doctor Prescriptions: No Action oseltamivir 75 mg capsule 75 mg PO BID 5 Days Qty: 10 0RF prednisone 20 mg tablet 40 mg PO DAILY 5 Days Qty: 10 0RF avhqyprusj-fjuicwpackpkt-hlty [Fioricet] 50-300-40 mg capsule 1 cap PO Q4-6H PRN (Reason: headache) Qty: 14 0RF lidocaine [Lidoderm] 5 % adhesive patch,medicated 1 patch topical DAILY MDD remove after 12 hours PRN (Reason: pain) Qty: 30 0RF Rx Instructions: leave on most painful area for up to 12 hrs cyclobenzaprine 5 mg tablet 5 mg PO Q8H PRN (Reason: pain (scale score 7-10)) 5 Days Qty: 14 0RF nitrofurantoin monohyd/m-cryst [Macrobid] 100 mg capsule 100 mg PO Q12H 7 Days Qty: 14 0RF Rx Instructions: must administer with a meal/food oxycodone 5 mg tablet 5 mg PO Q6H PRN (Reason: pain) Qty: 10 0RF Rx Instructions: Partial Fill upon patient request. cyclobenzaprine 10 mg tablet 10 mg PO TID PRN (Reason: pain) Qty: 18 0RF Rx Instructions: side effect is drowsiness. Do not take at work or while driving. acetaminophen [Tylenol] 325 mg capsule 325 mg PO QID PRN (Reason: pain) Qty: 28 0RF losartan 50 mg tablet 1 tab PO DAILY cyclobenzaprine 10 mg tablet 1 tab PO TID acetaminophen 325 mg tablet 650 mg PO cetirizine 10 mg tablet 1 tab PO DAILY hydroxyzine HCl 50 mg tablet 1 tab PO BEDTIME chlorthalidone 50 mg tablet 1 tab PO DAILY amitriptyline 50 mg tablet 1 tab PO BEDTIME amlodipine 10 mg tablet 1 tab PO DAILY gabapentin 100 mg capsule 1 cap PO DAILY cholecalciferol (vitamin D3) 25 mcg (1,000 unit) capsule 1 cap PO DAILY amlodipine 10 mg tablet 1 tab PO DAILY cyclobenzaprine 10 mg tablet 10 mg PO TID PRN (Reason: muscle spasm) Qty: 14 0RF lidocaine 4 % adhesive patch,medicated 1 patch topical DAILY PRN (Reason: pain) Qty: 10 0RF Rx Instructions: may leave on for up to 12 hrs prednisone 20 mg tablet 40 mg PO DAILY 5 Days Qty: 10 0RF amoxicillin-pot clavulanate 875-125 mg tablet 1 tab PO BID Qty: 14 0RF dexamethasone 6 mg tablet 6 mg PO DAILY 3 Days Qty: 3 0RF ketorolac 10 mg tablet 10 mg PO Q6H 5 Days Qty: 20 0RF amoxicillin-pot clavulanate 875-125 mg tablet 1 tab PO BID 7 Days Qty: 14 0RF fluticasone propionate [Flonase Allergy Relief] 50 mcg/actuation spray,suspension 1 spray intranasal DAILY Qty: 16 0RF Rx Instructions: administer into each nostril Paxlovid (EUA) 300 mg (150 mg x 2)-100 mg tablet See Rx Instructions .ROUTE .COMPLEX Qty: 30 0RF Rx Instructions: take TWO 150 mg tablets of nirmatrelvir with ONE 100 mg tablet of ritonavir twice daily for 5 days ketorolac 10 mg tablet 10 mg PO Q8H Qty: 20 0RF cyclobenzaprine 10 mg tablet 10 mg PO TID PRN (Reason: muscle spasm) Qty: 10 0RF diclofenac sodium 75 mg tablet,delayed release (DR/EC) 75 mg PO BID PRN (Reason: pain) Qty: 60 0RF Referrals: Heather Marroquin MD [Primary Care Provider] - 3 days Interventions: ED Discharge Assessment Last Done: 08/11/22 13:04 Discharge Date/Time: 08/11/22 13:05
[2022-08-11] MEDS: diphenhydrAMINE HCL 50 MG/ML VIAL IM (10:49)
[2022-08-11] MEDS: Loratadine 10 MG TABLET PO (10:50)
[2022-08-11 11:28] LABS: MANUAL DIFF FLAG NO
[2022-08-11 11:30] LABS: Basophils Absolute Auto 0.1 X10*3/uL (0.0-0.2); Basophils Percent Auto 0.7 % (0-2); Eosinophils Absolute Auto 0.2 X10*3/uL (0.0-0.4); Eosinophils Percent Auto 2.2 % (0-4); Hematocrit 41.1 % (42.0-52.0); Hemoglobin 13.5 g/dl (14.0-18.0); Imm Gran Abs Auto 0.03 X10*3/uL (0.00-0.03); Imm Gran Pct Auto 0.3 % (0.0-0.4); Lymphocytes Absolute Auto 3.1 X10*3/uL (1.2-4.9); Lymphocytes Percent Auto 33.8 % (20-40); Mean Corpuscular HGB Conc 32.8 g/dl (31.0-36.0); Mean Corpuscular Hemoglobin 31.5 pg (27.0-33.0); Mean Corpuscular Volume 95.8 fL (80.0-98.0); Mean Platelet Volume 10.2 fL (9.4-12.4); Monocytes Absolute Auto 0.9 X10*3/uL (0.1-1.2); Monocytes Percent Auto 9.7 % (2-11); Neutrophils Absolute Auto 4.9 x10*3/uL (2.0-8.3); Neutrophils Percent Auto 53.3 % (45-73); Platelet Count 341 X10*3/uL (160-400); Red Blood Count 4.29 X10*6/uL (4.60-5.80); White Blood Count 9.2 X10*3/uL (4.8-10.8)
[2022-08-11 11:34] LABS: Prothrombin Time 11.6 SEC (10.0-13.1)
[2022-08-11 11:51] LABS: Alanine Aminotransferase 15 U/L (0-40); Alkaline Phosphatase 80 U/L (39-117); Anion Gap 9 (12-20); Aspartate Amino Transferase 21 U/L (5-37); Bilirubin Direct 0.2 mg/dL (0.0-0.5); Bilirubin Total 0.7 mg/dL (0.0-1.0); Blood Urea Nitrogen 16 mg/dL (9-16); Carbon Dioxide 30 mmol/L (22-29); Chloride 108 mmol/L (96-108); Creatinine Clr Calc Pharmacy 115.5; Estimated Glomerular Filt Rate > 60; Glucose Random 105 mg/dL (60-115); Potassium 3.7 mmol/L (3.3-5.1); Sodium 143 mmol/L (135-145); Total Protein 6.6 g/dL (6.5-8.0)
[2022-08-11 12:02] LABS: B Type Natriuretic Peptide 30 pg/mL (<100)
[2022-08-11 12:20] VITALS: BP 166/96; PULSE 66; RESP 18; TEMP 36.6; O2SAT 100
== END 2022-08-11 13:05 | disposition home or self-care (01) ==
PROVIDERS: Physician Assistant; Emergency Provider Emergency Medicine; PCP Student in an Organized Health Care Education/Training Program
DX: R60.0 Localized edema (principal); L50.0 Allergic urticaria; R06.02 Shortness of breath; Z79.899 Other long term (current) drug therapy
CPT/HCPCS: 36415; 80048; 80076; 83880; 85025; 85610; 93970; 99284; J1200

== ENCOUNTER 2022-12-14 17:08 | Emergency (ER) | payer MEDICAID, SELFPAY ==
[2022-12-14 17:14] VITALS: BP 138/93; PULSE 85; RESP 18; TEMP 36.4; O2SAT 95; BMI 43.6
--- NOTE | 2022-12-14 17:14 | ED_ITS ---
HPI - Back Pain/Injury General Chief Complaint: Back Pain/Injury Stated Complaint: lower back pain x1 wk Time Seen by Provider: 12/14/22 17:20 Source: patient Mode of arrival: ambulatory Limitations: no limitations History of Present Illness HPI Narrative: 57 yo male with with past medical history of HTN, depression, chronic lower back pain here with lower back pain radiating down right leg x 1 week. No fall or i njury. NO incontinence of urine/stool. No fevers/chills. No numbness/tingling. Taking motrin/tylenol without relief of pain. Patient ambulatory Related Data Home Medications Medication Instructions Recorded Confirmed acetaminophen 325 mg tablet 650 mg PO 05/21/21 amitriptyline 50 mg tablet 1 tab PO BEDTIME 05/21/21 05/21/21 amlodipine 10 mg tablet 1 tab PO DAILY 05/21/21 05/21/21 cetirizine 10 mg tablet 1 tab PO DAILY 05/21/21 05/21/21 chlorthalidone 50 mg tablet 1 tab PO DAILY 05/21/21 05/21/21 cholecalciferol (vitamin D3) 25 1 cap PO DAILY 05/21/21 05/21/21 mcg (1,000 unit) capsule cyclobenzaprine 10 mg tablet 1 tab PO TID 05/21/21 05/21/21 gabapentin 100 mg capsule 1 cap PO DAILY 05/21/21 05/21/21 hydroxyzine HCl 50 mg tablet 1 tab PO BEDTIME 05/21/21 05/21/21 losartan 50 mg tablet 1 tab PO DAILY 05/21/21 05/21/21 amlodipine 10 mg tablet 1 tab PO DAILY 05/25/21 05/25/21 Previous Rx's Medication Instructions Recorded oseltamivir 75 mg capsule 75 mg PO BID 5 days #10 caps 12/30/20 prednisone 20 mg tablet 40 mg PO DAILY 5 days #10 tabs 12/30/20 acetaminophen 325 mg capsule 325 mg PO QID PRN pain #28 caps 01/22/21 (Tylenol) cyclobenzaprine 10 mg tablet 10 mg PO TID PRN pain #18 tabs 01/22/21 amoxicillin 875 mg-potassium 1 tab PO BID #14 tabs 08/29/21 clavulanate 125 mg tablet cyclobenzaprine 10 mg tablet 10 mg PO TID PRN muscle spasm #14 08/29/21 tabs lidocaine 4 % topical patch 1 patch topical DAILY PRN pain #10 08/29/21 ea prednisone 20 mg tablet 40 mg PO DAILY 5 days #10 tabs 08/29/21 dexamethasone 6 mg tablet 6 mg PO DAILY 3 days #3 tabs 09/07/21 ketorolac 10 mg tablet 10 mg PO Q6H 5 days #20 tabs 09/07/21 amoxicillin 875 mg-potassium 1 tab PO BID 7 days #14 tabs 10/24/21 clavulanate 125 mg tablet fluticasone propionate 50 1 spray intranasal DAILY #16 grams 10/24/21 mcg/actuation nasal spray,suspension (Flonase Allergy Relief) nirmatrelvir 300 mg (150 mg See Rx Instructions PO .COMPLEX 11/18/21 x2)-ritonavir 100 mg tablet,dose #30 tabs pack (Paxlovid) cyclobenzaprine 10 mg tablet 10 mg PO TID PRN muscle spasm #10 03/30/22 tabs ketorolac 10 mg tablet 10 mg PO Q8H #20 tabs 03/30/22 darwuljhzs-icxiwypbqghoa-fanjfaou 1 cap PO Q4-6H PRN headache #14 04/21/22 50 mg-300 mg-40 mg capsule caps (Fioricet) cyclobenzaprine 5 mg tablet 5 mg PO Q8H PRN pain (scale score 04/21/22 7-10) 5 days #14 tabs lidocaine 5 % topical patch 1 patch topical DAILY PRN pain #30 04/21/22 (Lidoderm) ea nitrofurantoin 100 mg PO Q12H 7 days #14 caps 05/23/22 monohydrate/macrocrystals 100 mg capsule (Macrobid) oxycodone 5 mg tablet 5 mg PO Q6H PRN pain #10 tabs 06/17/22 diclofenac sodium 75 mg 75 mg PO BID PRN pain #60 tabs 07/11/22 tablet,delayed release amlodipine 10 mg tablet (Norvasc) 10 mg PO DAILY #30 tabs 12/14/22 cyclobenzaprine 10 mg tablet 10 mg PO TID PRN muscle spasm #15 12/14/22 tabs lidocaine 5 % topical patch 1 patch topical DAILY #30 ea 12/14/22 (Lidoderm) naproxen 500 mg tablet 500 mg PO BID PRN pain #30 tabs 12/14/22 Allergies Allergy/AdvReac Type Severity Reaction Status Date / Time aspirin [ASA] Allergy Intermediate Dizziness Verified 08/11/22 09:53 Review of Systems Review of Systems: Yes all other systems are reviewed and are negative Constitutional: Constitutional: Reports no additional constitutional complaints, Denies body ache(s), Denies chills, Denies fever(s), Denies headache(s) and Denies weakness Eyes: Eyes: Reports no additional eye complaints and Denies change in vision ENT: Reports system reviewed and no additional complaints, except as documented, Denies dizziness, Denies headache(s), Denies nasal congestion, Denies nasal discharge and Denies neck pain Cardiovascular: Cardiovascular: Reports no additional cardiovascular complaints, Denies chest pain, Denies leg edema and Denies dyspnea Respiratory: Respiratory: Reports no additional respiratory complaints, Denies cough and Denies dyspnea Gastrointestinal: Gastrointestinal: Reports no additional gastrointestinal complaints, Denies abdominal pain, Denies diarrhea, Denies nausea and Denies vomiting Genitourinary: Genitourinary: Denies urinary incontinence Musculoskeletal: Musculoskeletal: Reports no additional musculoskeletal complaints, Reports back pain, Denies arthralgias, Denies joint swelling, Denies neck pain, Denies numbness and Denies tingling Integumentary/Breasts: Skin/Breast: Reports system reviewed and no additional complaints, except as docu and Denies rash Neurologic: Reports system reviewed and no additional complaints, except as documented, Denies Abnormal speech present, Denies dizziness, Denies headache(s), Denies numbness, Denies tingling and Denies weakness PMF Past Medical History Attestation statement: The following information was validated with the patient. Source: old records reviewed and nursing notes reviewed Medical History Anxiety Cholecystectomy planned COVID-19 vaccine series completed Disc degeneration, lumbar HTN (hypertension) MRSA (methicillin resistant Staphylococcus aureus) Renal calculi Spondylosis of lumbar spine Surgical History Hx of cholecystectomy Hx of cystoscopy Social History Social History Are you a primary associate director career services to a significant other at home: No Do you presently have visiting nurse or other home services: No Alcohol intake: never Patient Tobacco Use Status: Never used Tobacco Advance Directives: No Advance Directives Information Provided: No Physical Exam Vital Signs: Vital Signs: Last Vital Signs Temp 97.6 F 12/14/22 17:14 Pulse 85 12/14/22 17:14 Resp 18 12/14/22 17:14 BP 138/93 H 12/14/22 17:14 Pulse Ox 95 12/14/22 17:14 O2 Del Method Room Air 12/14/22 17:14 BMI result Body Mass Index 43.6 Const: General: cooperative, healthy appearing, comfortable and no acute distress Orientation/consciousness: patient oriented x3 Limitations: no limitations HEENT: Head: Yes normal to inspection Ears: hearing grossly normal bilaterally General nose exam: Normal external nose present Face and sinus: Yes normal facial exam Mouth: Normal oral and palatal mucosa present Throat: Yes posterior oropharynx normal Eyes: General: appearance normal, both eyes and all related structures Pupils: Equal, round and reactive pupils present Neck: Neck: Yes normal visual inspection Chest: Chest palpation & inspection: normal inspection of the chest Resp: Effort & Inspection: normal respiratory effort Auscultation: clear to auscultation bilaterally Cardio: Rate: regular rate Rhythm: regular rhythm Peripheral pulses: Peripheral pulses 2+ throughout GI: Inspection: Yes normal to inspection Palpation (GI): Soft to palpation and nontender Auscultation: normal bowel sounds Back/Spine/Pelvis: Other: +tenderness to lumbar mid spine, soft tissues lumbar area R>L Thoracic/Lumbar Spine: thoracic and lumbar spine normal to inspection Skin: General skin exam: no rashes or lesions noted Neuro: General: patient oriented x3, no focal motor deficits and normal sensation to monofilament Cranial nerves: Yes Equal, round and reactive pupils present Cognition (Neuro): normal cognition Speech: No Abnormal speech present Gait exam (Neuro): Normal gait present Motor exam (neuro): 5/5 motor strength present throughout Sensory Exam: Normal double simultaneous stimulation for sensation Deep tendon reflexes (DTR's): Right patellar reflex intensity grade: 2+ and Left patellar reflex intensity grade: 2+ Extrem: General: Yes normal to inspection Course Course Course Narrative: This is a rapid medical exam. Deferred additional HPI, ROS, PE to primary provider. 57 yo male with past medical history of HTN, depression, chronic lower back pain here with lower back pain radiating down right leg x 1 week. No fall or injury. NO incontinence of urine/stool. No fevers/chills. No numbness/tingling. Taking motrin/tylenol without relief of pain Medications Administered Discontinued Medications Generic Name Dose Route Start Last Admin Trade Name Freq PRN Reason Stop Dose Admin Ketorolac Tromethamine 60 mg 12/14/22 17:22 12/14/22 17:30 Ketorolac Tromethamine 60 Mg/2 Ml Vial IM 12/14/22 17:23 60 mg ONCE ONE Administration Medical Decision Making Medical Decision Making MDM Narrative: 57 yo male with history of HTN, depression, chronic lower back pain here with lo wer back pain radiating down right leg x 1 week. No fall or injury. NO incontinence of urine/stool. No fevers/chills. No numbness/tingling. Taking motrin/tylenol without relief of pain ON exam TTP to mid lumbar spine with no step offs or deformities. No neurological deficits or red flag symptoms Likely chronic back pain Will send home with NSAID, muscle relaxant and medicated patches Reviewed worrisome signs/symptoms with patient and when to seek additional care. comfortable with discharge home -also requesting ref[facility] [place] [facility] Differential Diagnosis Differential Diagnoses: The differential diagnosis associated with the presentation includes NO neurological deficits or red flag symptoms, no fevers, no weight loss/night sweats, no immunocompromised state, no IVDA to suggest need for epidural abscess, malignancy, cord compression/caude equina No fall or trauma to suggest fracture Admission/Observation Consideration of admission/observation: Escalation of care including admission/observation considered NO neurological deficits or red flag symptoms to suggest neurosurgical emergency, need for emergent MRI and or referral Tests considered The following testing was considered but not selected: NO neurological deficits or red flag symptoms to suggest need for emergent MRI Discharge Plan Discharge Clinical Impression: Chronic low back pain Patient Disposition: Home, Self-Care Instructions: Chronic Back Pain (DC) Additional Instructions: Heat or ice Gentle stretching No heavy lifting or bending Follow-up with pain management Friday return for incontinence of urine/stool, fever >100.4, numbness/tingling or weakness in the lower extremities Prescriptions: New naproxen 500 mg tablet 500 mg PO BID PRN (Reason: pain) Qty: 30 0RF cyclobenzaprine 10 mg tablet 10 mg PO TID PRN (Reason: muscle spasm) Qty: 15 0RF lidocaine [Lidoderm] 5 % adhesive patch,medicated 1 patch topical DAILY Qty: 30 0RF Rx Instructions: leave on most painful area for up to 12 hrs amlodipine [Norvasc] 10 mg tablet 10 mg PO DAILY Qty: 30 0RF No Action oseltamivir 75 mg capsule 75 mg PO BID 5 Days Qty: 10 0RF prednisone 20 mg tablet 40 mg PO DAILY 5 Days Qty: 10 0RF [id number] [Fioricet] 50-300-40 mg capsule 1 cap PO Q4-6H PRN (Reason: headache) Qty: 14 0RF lidocaine [Lidoderm] 5 % adhesive patch,medicated 1 patch topical DAILY MDD remove after 12 hours PRN (Reason: pain) Qty: 30 0RF Rx Instructions: leave on most painful area for up to 12 hrs cyclobenzaprine 5 mg tablet 5 mg PO Q8H PRN (Reason: pain (scale score 7-10)) 5 Days Qty: 14 0RF nitrofurantoin monohyd/m-cryst [Macrobid] 100 mg capsule 100 mg PO Q12H 7 Days Qty: 14 0RF Rx Instructions: must administer with a meal/food oxycodone 5 mg tablet 5 mg PO Q6H PRN (Reason: pain) Qty: 10 0RF Rx Instructions: Partial Fill upon patient request. cyclobenzaprine 10 mg tablet 10 mg PO TID PRN (Reason: pain) Qty: 18 0RF Rx Instructions: side effect is drowsiness. Do not take at work or while driving. acetaminophen [Tylenol] 325 mg capsule 325 mg PO QID PRN (Reason: pain) Qty: 28 0RF losartan 50 mg tablet 1 tab PO DAILY cyclobenzaprine 10 mg tablet 1 tab PO TID acetaminophen 325 mg tablet 650 mg PO cetirizine 10 mg tablet 1 tab PO DAILY hydroxyzine HCl 50 mg tablet 1 tab PO BEDTIME chlorthalidone 50 mg tablet 1 tab PO DAILY amitriptyline 50 mg tablet 1 tab PO BEDTIME amlodipine 10 mg tablet 1 tab PO DAILY gabapentin 100 mg capsule 1 cap PO DAILY cholecalciferol (vitamin D3) 25 mcg (1,000 unit) capsule 1 cap PO DAILY amlodipine 10 mg tablet 1 tab PO DAILY cyclobenzaprine 10 mg tablet 10 mg PO TID PRN (Reason: muscle spasm) Qty: 14 0RF lidocaine 4 % adhesive patch,medicated 1 patch topical DAILY PRN (Reason: pain) Qty: 10 0RF Rx Instructions: may leave on for up to 12 hrs prednisone 20 mg tablet 40 mg PO DAILY 5 Days Qty: 10 0RF amoxicillin-pot clavulanate 875-125 mg tablet 1 tab PO BID Qty: 14 0RF dexamethasone 6 mg tablet 6 mg PO DAILY 3 Days Qty: 3 0RF ketorolac 10 mg tablet 10 mg PO Q6H 5 Days Qty: 20 0RF amoxicillin-pot clavulanate 875-125 mg tablet 1 tab PO BID 7 Days Qty: 14 0RF fluticasone propionate [Flonase Allergy Relief] 50 mcg/actuation spray,suspension 1 spray intranasal DAILY Qty: 16 0RF Rx Instructions: administer into each nostril Paxlovid 300 mg (150 mg x 2)-100 mg tablet See Rx Instructions .ROUTE .COMPLEX Qty: 30 0RF Rx Instructions: take TWO 150 mg tablets of nirmatrelvir with ONE 100 mg tablet of ritonavir twice daily for 5 days ketorolac 10 mg tablet 10 mg PO Q8H Qty: 20 0RF cyclobenzaprine 10 mg tablet 10 mg PO TID PRN (Reason: muscle spasm) Qty: 10 0RF diclofenac sodium 75 mg tablet,delayed release (DR/EC) 75 mg PO BID PRN (Reason: pain) Qty: 60 0RF Referrals: Royal Harkins MD [Physician] - 1 week
[2022-12-14] MEDS: Ketorolac Tromethamine 60 MG/2 ML VIAL IM (17:30)
== END 2022-12-14 17:35 | disposition home or self-care (01) ==
PROVIDERS: Emergency Provider Emergency Medicine; PCP Student in an Organized Health Care Education/Training Program
DX: M54.50 Low back pain, unspecified (principal); G89.29 Other chronic pain; I10 Essential (primary) hypertension; Z79.899 Other long term (current) drug therapy
CPT/HCPCS: 96372; 99283; 99284; J1885

== ENCOUNTER 2022-12-26 08:11 | Emergency (ER) | payer MEDICAID, SELFPAY ==
--- NOTE | ~2022-12-26 | CT_ITS ---
EXAMINATION: CT ABDOMEN AND PELVIS WITHOUT CONTRAST CLINICAL INFORMATION: Right flank pain. Hematuria. COMPARISON: 05/23/2022 TECHNIQUE: Multidetector volumetric imaging was performed from the superior aspect of the liver through the pubic symphysis. Sagittal and coronal reformatted images were obtained on the technologist's workstation. This CT examination was performed using dose optimization techniques as appropriate, variously including the following: *Automated exposure control *Adjustment of mA and/or kV according to patient size (this includes techniques or standardized protocols for targeted exams where dose is matched to indication/reason for exam; i.e. extremities or head) *Use of iterative reconstruction technique DLP: 813 mGy-cm FINDINGS: Motion artifact technically degrades image quality. LUNG BASES: No pleural or pericardial effusion. LIVER, GALLBLADDER, AND BILIARY TREE: The noncontrast liver is normal in size and contour. No biliary ductal dilatation is present. The gallbladder is unremarkable with no evidence of radiopaque gallstones, gallbladder wall thickening, or obvious pericholecystic inflammatory changes. PANCREAS: No ductal dilatation. SPLEEN: Surgically absent. ADRENAL GLANDS: No adrenal mass. KIDNEYS AND URETERS: The kidneys are symmetric in size. No renal calculus. No hydronephrosis or perinephric stranding. BLADDER: Unremarkable. GASTROINTESTINAL TRACT: Duodenal diverticulum. Small and large bowel loops are of normal caliber. No small bowel obstruction. Appendix is within normal limits. ABDOMINAL WALL: No significant hernia is appreciated. LYMPH NODES: No bulky abdominal or pelvic lymphadenopathy. VASCULAR: Normal caliber abdominal aorta. PELVIC VISCERA: The prostate gland and seminal vesicles are unremarkable. OSSEOUS STRUCTURES: No destructive bone lesions. CT/CT abdomen pelvis wo IV con IMPRESSION: No nephrolithiasis or hydronephrosis.
--- NOTE | ~2022-12-26 | XR_ITS ---
EXAMINATION: XR LUMBOSACRAL SPINE CLINICAL INFORMATION: 3 weeks of low back pain. COMPARISON: 09/26/2019 lumbar spine radiographs. TECHNIQUE: Three views of the lumbosacral spine. FINDINGS: There is normal lumbar lordosis and spinal alignment. The vertebral bodies are intact. Mild to moderate marginal osteophyte formation is seen. Moderate degenerative disc disease is seen at L5-S1. There is no acute fracture. The soft tissues are unremarkable. XR/XR lumbar spine 2-3V IMPRESSION: 1. Multilevel degenerative changes as detailed above without acute abnormality.
[2022-12-26 08:17] VITALS: BP 148/95; PULSE 67; RESP 18; TEMP 36.6; O2SAT 96; BMI 43.4
[2022-12-26 08:21] VITALS: O2SAT 97
--- NOTE | 2022-12-26 08:21 | PC.NURSE ---
pt a&ox3. respirations even and unlabored. pt comes reporting 10/10 lower right back pain that radiates into his right upper back. pt denies injury to the area. pt denies urinary and bowel problems. pt lower right back hanger to touch. provider at bedside.
--- NOTE | 2022-12-26 08:29 | ED_ITS ---
HPI - Back Pain/Injury General Chief Complaint: Back Pain/Injury Stated Complaint: lower back pain Time Seen by Provider: 12/26/22 08:18 Source: patient Mode of arrival: ambulatory Limitations: no limitations History of Present Illness HPI Narrative: 57-year-old male presents with acute on chronic back pain. The pain is in the lumbar area. The pain sometimes radiates to the thoracic area. Is worse with movement, rotation, lifting, twisting. There is no numbness, tingling or weakness. The pain is severe. The pain is achy and sore. patient does not remember any specific injury. He has been on ibuprofen 800 mg and muscle relaxers without any relief. Related Data Home Medications Medication Instructions Recorded Confirmed acetaminophen 325 mg tablet 650 mg PO 05/21/21 amitriptyline 50 mg tablet 1 tab PO BEDTIME 05/21/21 05/21/21 amlodipine 10 mg tablet 1 tab PO DAILY 05/21/21 05/21/21 cetirizine 10 mg tablet 1 tab PO DAILY 05/21/21 05/21/21 chlorthalidone 50 mg tablet 1 tab PO DAILY 05/21/21 05/21/21 cholecalciferol (vitamin D3) 25 1 cap PO DAILY 05/21/21 05/21/21 mcg (1,000 unit) capsule cyclobenzaprine 10 mg tablet 1 tab PO TID 05/21/21 05/21/21 gabapentin 100 mg capsule 1 cap PO DAILY 05/21/21 05/21/21 hydroxyzine HCl 50 mg tablet 1 tab PO BEDTIME 05/21/21 05/21/21 losartan 50 mg tablet 1 tab PO DAILY 05/21/21 05/21/21 amlodipine 10 mg tablet 1 tab PO DAILY 05/25/21 05/25/21 Previous Rx's Medication Instructions Recorded oseltamivir 75 mg capsule 75 mg PO BID 5 days #10 caps 12/30/20 prednisone 20 mg tablet 40 mg PO DAILY 5 days #10 tabs 12/30/20 acetaminophen 325 mg capsule 325 mg PO QID PRN pain #28 caps 01/22/21 (Tylenol) cyclobenzaprine 10 mg tablet 10 mg PO TID PRN pain #18 tabs 01/22/21 amoxicillin 875 mg-potassium 1 tab PO BID #14 tabs 08/29/21 clavulanate 125 mg tablet cyclobenzaprine 10 mg tablet 10 mg PO TID PRN muscle spasm #14 08/29/21 tabs lidocaine 4 % topical patch 1 patch topical DAILY PRN pain #10 08/29/21 ea prednisone 20 mg tablet 40 mg PO DAILY 5 days #10 tabs 08/29/21 dexamethasone 6 mg tablet 6 mg PO DAILY 3 days #3 tabs 09/07/21 ketorolac 10 mg tablet 10 mg PO Q6H 5 days #20 tabs 09/07/21 amoxicillin 875 mg-potassium 1 tab PO BID 7 days #14 tabs 10/24/21 clavulanate 125 mg tablet fluticasone propionate 50 1 spray intranasal DAILY #16 grams 10/24/21 mcg/actuation nasal spray,suspension (Flonase Allergy Relief) nirmatrelvir 300 mg (150 mg See Rx Instructions PO .COMPLEX 11/18/21 x2)-ritonavir 100 mg tablet,dose #30 tabs pack (Paxlovid) cyclobenzaprine 10 mg tablet 10 mg PO TID PRN muscle spasm #10 03/30/22 tabs ketorolac 10 mg tablet 10 mg PO Q8H #20 tabs 03/30/22 [id number] 1 cap PO Q4-6H PRN headache #14 04/21/22 50 mg-300 mg-40 mg capsule caps (Fioricet) cyclobenzaprine 5 mg tablet 5 mg PO Q8H PRN pain (scale score 04/21/22 7-10) 5 days #14 tabs lidocaine 5 % topical patch 1 patch topical DAILY PRN pain #30 04/21/22 (Lidoderm) ea nitrofurantoin 100 mg PO Q12H 7 days #14 caps 05/23/22 monohydrate/macrocrystals 100 mg capsule (Macrobid) oxycodone 5 mg tablet 5 mg PO Q6H PRN pain #10 tabs 06/17/22 diclofenac sodium 75 mg 75 mg PO BID PRN pain #60 tabs 07/11/22 tablet,delayed release amlodipine 10 mg tablet (Norvasc) 10 mg PO DAILY #30 tabs 12/14/22 cyclobenzaprine 10 mg tablet 10 mg PO TID PRN muscle spasm #15 12/14/22 tabs lidocaine 5 % topical patch 1 patch topical DAILY #30 ea 08/19/23 (Lidoderm) naproxen 500 mg tablet 500 mg PO BID PRN pain #30 tabs 12/14/22 gabapentin 300 mg capsule 300 mg PO TID #30 caps 12/26/22 lidocaine 5 % topical patch 1 patch topical DAILY #30 ea 12/26/22 meloxicam 15 mg tablet 15 mg PO DAILY #20 tabs 12/26/22 methocarbamol 750 mg tablet 750 mg PO Q8H PRN muscle pain #14 12/26/22 tabs Allergies Allergy/AdvReac Type Severity Reaction Status Date / Time aspirin [ASA] Allergy Intermediate Dizziness Verified 12/26/22 08:21 Review of Systems Review of Systems: CONSTITUTIONAL: Denies weight loss, fever and chills. HEENT: Denies changes in vision and hearing. RESPIRATORY: Denies SOB and cough. CV: Denies palpitations no CP. GI: Denies abdominal pain, nausea, vomiting and diarrhea. : Denies dysuria and urinary frequency. MSK: + myalgia and joint pain. SKIN: Denies rash and pruritus. NEUROLOGICAL: Denies headache and syncope. PSYCHIATRIC: Denies recent changes in mood. Denies anxiety and depression. All other ROS are negative unless in HPI PMFSH Past Medical History Medical History Anxiety Cholecystectomy planned COVID-19 vaccine series completed Disc degeneration, lumbar HTN (hypertension) MRSA (methicillin resistant Staphylococcus aureus) Renal calculi Spondylosis of lumbar spine Surgical History Hx of cholecystectomy Hx of cystoscopy Social History Social History Are you a primary attending ambulatory care to a significant other at home: No Do you presently have visiting nurse or other home services: No Alcohol intake: never Patient Tobacco Use Status: Never used Tobacco Smoked in Last 30 Days: No Use of substances other than those prescribed or required for medical reasons: No Advance Directives: No Advance Directives Information Provided: No Physical Exam Vital Signs: Vital Signs: Last Vital Signs Temp 97.8 F 12/26/22 10:38 Pulse 53 12/26/22 10:38 Resp 18 12/26/22 10:38 BP 143/89 H 12/26/22 10:38 Pulse Ox 97 08/31/23 10:38 O2 Del Method Room Air 12/26/22 10:38 BMI result Body Mass Index 43.4 GEN: Well developed, no acute distress, alert, oriented HEENT: Normocephalic, atraumatic, normal external ears, nose appears normal Eyes: Normal to appearance Neck: Supple, no lymphadenopathy Respiratory: Talks in complete sentences, no respiratory distress Extremities: No clubbing cyanosis or edema Neurologic: No focal neurologic deficits, cranial nerves 2-12 intact, gait normal Skin: No rash Back: No midline tenderness, step-off or deformity. Significant left-sided paraspinous tenderness Course Reevaluation(s) Reevaluation #1: pain is moderated. Waiting on urinalysis. Time: 10:33 Reevaluation #2: Patient is doing better at this time. We discussed all results. He will follow-up regarding hematuria. He will follow up also with his primary care provider regarding possible physical therapy or other complementary care for his chronic back pain Time: 12:50 Medications Administered Discontinued Medications Generic Name Dose Route Start Last Admin Trade Name Ace PRN Reason Stop Dose Admin Acetaminophen 975 mg 12/26/22 08:27 12/26/22 08:36 Acetaminophen 325 Mg Tablet PO 12/26/22 08:28 975 mg ONCE ONE Administration Gabapentin 300 mg 12/26/22 08:27 12/26/22 08:37 Gabapentin 300 Mg Capsule PO 12/26/22 08:28 300 mg ONCE ONE Administration Ketorolac Tromethamine 30 mg 12/26/22 08:27 12/26/22 08:37 Ketorolac Tromethamine 30 Mg/Ml Vial IM 12/26/22 08:28 30 mg ONCE ONE Administration Lidocaine 1 patch 12/26/22 08:27 12/26/22 08:37 Lidocaine 4 % Patch Adh..Patch TRANSDERMA 12/26/22 08:28 1 patch ONCE ONE Administration Protocol Medical Decision Making Medical Decision Making MDM Narrative: This patient presents with back pain most consistent with muscle pain. Differential diagnoses includes lumbago versus musculoskeletal spasm / strain versus sciatica. No back pain red flags on history or physical. Presentation not consistent with malignancy (lack of history of malignancy, lack of B symptoms), fracture (no trauma, no bony tenderness to palpation), cauda equina (no bowel or urinary incontinence/retention, no saddle anesthesia, no distal weakness), AAA, viscus perforation , pulmonary embolism, renal colic, pyelonephritis (afebrile, no CVAT, no urinary symptoms). Given the clinical picture, no indication for MRI at this time. Plan: pain control, supportive care, reassess Differential Diagnosis Differential Diagnoses: The differential diagnosis associated with the presentation includes (see above) Lumbar back pain Lab Data MDM Lab Attestation statement: I reviewed the patient's lab results. Labs: Lab Results 12/26/22 Range/Units 09:10 Urine Color Yellow Urine Appearance Clear Urine pH 6.5 (5.0-9.0) Ur Specific [place] >= 1.030 H (1.005-1.025) Urine Protein Trace (Neg-Trace) mg/dL Urine Glucose (UA) Negative (Negative) mg/dL Urine Ketones Trace (Negative) mg/dL Urine Blood Small (1+) H (Negative) Urine Nitrite Negative (Negative) Ur Leukocyte Esterase Negative (Negative) Urine RBC 11-20 H (0-2) /HPF Urine WBC 0-5 (0-5) /HPF Ur Squamous Epith Cells 3-5 (0-2) /HPF Urine Bacteria None Seen (None Seen) Hyaline Casts 0-2 (0-2) /LPF Independent Interpretation I performed an independent interpretation of an: Plain X-Ray ( lumbar spine: No acute findings) and CT Scan ( Abdomen pelvis no acute findings) Radiology Impression Discussion of test interpretation with radiology: I have reviewed the radiologist's reading. Radiologist Impression: XR/XR lumbar spine 2-3V IMPRESSION: 1. Multilevel degenerative changes as detailed above without acute abnormality. ? ? Dictated By: Getachew Qureshi MD Signed By: <Electronically signed by Getachew Qureshi MD in [facility]> 12/26/[address]/CT abdomen pelvis wo IV con IMPRESSION: No nephrolithiasis or hydronephrosis. Dictated By: Michelle Flowers MD Signed By: <Electronically signed by Michelle Flowers MD in [facility]> 12/26/22 1234 Tests considered The following testing was considered but not selected: CT, MRI Prescription Management I considered prescription management with: Pain Medication Chronic Conditions Patient?s care impacted by: Hypertension Discharge Plan Discharge Clinical Impression: Strain of lumbar region, Microscopic hematuria Patient Disposition: Home, Self-Care Instructions: Acute Low Back Pain (ED) Additional Instructions: for Pain Meloxicam 15 mg daily Gabapention 300 mg three times daily Lidocaine Patch daily Tylenol 975 mg every 6 hours as needed Methocarbamol 750 mg every 8 hours as needed Stop cyclobenazaprine, ibuprofen, naproxen, diclofinac Prescriptions: New meloxicam 15 mg tablet 15 mg PO DAILY Qty: 20 0RF gabapentin 300 mg capsule 300 mg PO TID Qty: 30 0RF methocarbamol 750 mg tablet 750 mg PO Q8H PRN (Reason: muscle pain) Qty: 14 0RF lidocaine 5 % adhesive patch,medicated 1 patch topical DAILY Qty: 30 0RF Rx Instructions: leave on most painful area for up to 12 hrs No Action oseltamivir 75 mg capsule 75 mg PO BID 5 Days Qty: 10 0RF prednisone 20 mg tablet 40 mg PO DAILY 5 Days Qty: 10 0RF [id number] [Fioricet] 50-300-40 mg capsule 1 cap PO Q4-6H PRN (Reason: headache) Qty: 14 0RF lidocaine [Lidoderm] 5 % adhesive patch,medicated 1 patch topical DAILY MDD remove after 12 hours PRN (Reason: pain) Qty: 30 0RF Rx Instructions: leave on most painful area for up to 12 hrs cyclobenzaprine 5 mg tablet 5 mg PO Q8H PRN (Reason: pain (scale score 7-10)) 5 Days Qty: 14 0RF nitrofurantoin monohyd/m-cryst [Macrobid] 100 mg capsule 100 mg PO Q12H 7 Days Qty: 14 0RF Rx Instructions: must administer with a meal/food oxycodone 5 mg tablet 5 mg PO Q6H PRN (Reason: pain) Qty: 10 0RF Rx Instructions: Partial Fill upon patient request. cyclobenzaprine 10 mg tablet 10 mg PO TID PRN (Reason: pain) Qty: 18 0RF Rx Instructions: side effect is drowsiness. Do not take at work or while driving. acetaminophen [Tylenol] 325 mg capsule 325 mg PO QID PRN (Reason: pain) Qty: 28 0RF losartan 50 mg tablet 1 tab PO DAILY cyclobenzaprine 10 mg tablet 1 tab PO TID acetaminophen 325 mg tablet 650 mg PO cetirizine 10 mg tablet 1 tab PO DAILY hydroxyzine HCl 50 mg tablet 1 tab PO BEDTIME chlorthalidone 50 mg tablet 1 tab PO DAILY amitriptyline 50 mg tablet 1 tab PO BEDTIME amlodipine 10 mg tablet 1 tab PO DAILY gabapentin 100 mg capsule 1 cap PO DAILY cholecalciferol (vitamin D3) 25 mcg (1,000 unit) capsule 1 cap PO DAILY amlodipine 10 mg tablet 1 tab PO DAILY cyclobenzaprine 10 mg tablet 10 mg PO TID PRN (Reason: muscle spasm) Qty: 14 0RF lidocaine 4 % adhesive patch,medicated 1 patch topical DAILY PRN (Reason: pain) Qty: 10 0RF Rx Instructions: may leave on for up to 12 hrs prednisone 20 mg tablet 40 mg PO DAILY 5 Days Qty: 10 0RF amoxicillin-pot clavulanate 875-125 mg tablet 1 tab PO BID Qty: 14 0RF dexamethasone 6 mg tablet 6 mg PO DAILY 3 Days Qty: 3 0RF ketorolac 10 mg tablet 10 mg PO Q6H 5 Days Qty: 20 0RF amoxicillin-pot clavulanate 875-125 mg tablet 1 tab PO BID 7 Days Qty: 14 0RF fluticasone propionate [Flonase Allergy Relief] 50 mcg/actuation spray,suspension 1 spray intranasal DAILY Qty: 16 0RF Rx Instructions: administer into each nostril Paxlovid 300 mg (150 mg x 2)-100 mg tablet See Rx Instructions .ROUTE .COMPLEX Qty: 30 0RF Rx Instructions: take TWO 150 mg tablets of nirmatrelvir with ONE 100 mg tablet of ritonavir twice daily for 5 days ketorolac 10 mg tablet 10 mg PO Q8H Qty: 20 0RF cyclobenzaprine 10 mg tablet 10 mg PO TID PRN (Reason: muscle spasm) Qty: 10 0RF naproxen 500 mg tablet 500 mg PO BID PRN (Reason: pain) Qty: 30 0RF cyclobenzaprine 10 mg tablet 10 mg PO TID PRN (Reason: muscle spasm) Qty: 15 0RF lidocaine [Lidoderm] 5 % adhesive patch,medicated 1 patch topical DAILY Qty: 30 0RF Rx Instructions: leave on most painful area for up to 12 hrs amlodipine [Norvasc] 10 mg tablet 10 mg PO DAILY Qty: 30 0RF diclofenac sodium 75 mg tablet,delayed release (/EDUARD) 75 mg PO BID PRN (Reason: pain) Qty: 60 0RF Referrals: Heather Marroquin MD [Primary Care Provider] - 5 days (Recommend seeing primary care provider for PT.)
[2022-12-26] MEDS: Acetaminophen 325 MG TABLET 975 MG PO (08:36)
[2022-12-26] MEDS: Lidocaine 4 % Patch ADH..PATCH 1 PATCH TRANSDERMA (08:37)
[2022-12-26] MEDS: Gabapentin 300 MG CAPSULE PO (08:37)
[2022-12-26] MEDS: Ketorolac Tromethamine 30 MG/ML VIAL IM (08:37)
[2022-12-26 09:20] LABS: Appearance Urine Clear; Color Urine Yellow; Glucose Urine UA Negative (Negative); Leukocyte Esterase Urine Negative (Negative); Nitrite Urine Negative (Negative); PH 6.5 (5.0-9.0); Specific Gravity - Urine >= 1.030 (1.005-1.025); UMIC TRIGGER UACC YES; Urine Blood Small (1+) (Negative); Urine Ketones Trace mg/dL (Negative); Urine Protein Trace mg/dL (Neg-Trace)
[2022-12-26 10:38] VITALS: BP 143/89; PULSE 53; RESP 18; TEMP 36.6; O2SAT 97
[2022-12-26 11:07] LABS: Bacteria Urine None Seen (None Seen); Hyaline Casts Urine 0-2 /LPF (0-2); WBC Urine 0-5 /HPF (0-5)
== END 2022-12-26 13:12 | disposition home or self-care (01) ==
PROVIDERS: Emergency Provider Emergency Medicine; PCP Student in an Organized Health Care Education/Training Program
DX: S39.012A Strain of muscle, fascia and tendon of lower back, initial encounter (principal); X58.XXXA Exposure to other specified factors, initial encounter; R31.29 Other microscopic hematuria; Z79.899 Other long term (current) drug therapy; Y93.9 Activity, unspecified; Y92.9 Unspecified place or not applicable; Y99.9 Unspecified external cause status
CPT/HCPCS: 72100; 74176; 81001; 96372; 99284; J1885

== ENCOUNTER 2023-04-17 06:21 | Emergency (ER) | payer MEDICAID, SELFPAY ==
--- NOTE | ~2023-04-17 | CT_ITS ---
EXAMINATION: CT ABDOMEN AND PELVIS WITHOUT CONTRAST CLINICAL INFORMATION: Epigastric and left upper quadrant pain with tenderness to palpation COMPARISON: CT abdomen pelvis 12/26/2022 TECHNIQUE: Multidetector volumetric imaging was performed from the superior aspect of the liver through the pubic symphysis. Sagittal and coronal reformatted images were obtained on the technologist's workstation. This CT examination was performed using dose optimization techniques as appropriate, variously including the following: *Automated exposure control *Adjustment of mA and/or kV according to patient size (this includes techniques or standardized protocols for targeted exams where dose is matched to indication/reason for exam; i.e. extremities or head) *Use of iterative reconstruction technique DLP: 856 mGy-cm FINDINGS: LUNG BASES: The visualized lung bases are unremarkable. LIVER, GALLBLADDER, AND BILIARY TREE: The liver is normal in size, shape, and attenuation. No focal hepatic lesion or biliary ductal dilatation is present. The gallbladder is unremarkable with no evidence of radiopaque gallstones, gallbladder wall thickening, or obvious pericholecystic inflammatory changes. PANCREAS: Unremarkable. SPLEEN: The spleen is not seen ADRENAL GLANDS: Unremarkable. KIDNEYS AND URETERS: The kidneys are normal in size, shape, and attenuation. No hydronephrosis, hydroureter, or calculi seen. No perinephric stranding. BLADDER: Unremarkable. GASTROINTESTINAL TRACT: The small and large bowel are unremarkable. The appendix is unremarkable. ABDOMINAL WALL: No significant hernia is appreciated. LYMPH NODES: No retroperitoneal lymphadenopathy. VASCULAR: Calcific atherosclerotic changes are present in the aorta and iliofemoral vessels. There is no evidence of an abdominal aortic aneurysm. PELVIC VISCERA: The prostate and seminal vesicles are unremarkable. OSSEOUS STRUCTURES: Mild degenerative changes are seen in the spine most prominent in the lower thoracic region and at L5-S1. No bony destructive lesions. CT/CT abdomen pelvis wo IV con IMPRESSION: 1. A cause for the patient's epigastric and left upper quadrant pain has not been found. 2. Incidental findings as described above. Fleischner guidelines were followed.
[2023-04-17 06:29] VITALS: BP 177/99; PULSE 72; RESP 18; TEMP 36.9; O2SAT 96; BMI 46.0
--- NOTE | 2023-04-17 06:38 | ED_ITS ---
HPI - General Adult General Chief complaint: Back Pain/Injury Stated complaint: Abd pain/Back pain/Headache Time Seen by Provider: 04/17/23 06:35 Source: patient Mode of arrival: ambulatory Limitations: no limitations History of Present Illness HPI narrative: 57 year old male with pmhx significant for HTN, chronic low back pain, lumbar DDD, DVT presents to the ED this morning with a complaint of abdominal pain x2 days. Reports pain in the epigastric and LUQ region. Pain is intermittent, lasting a few hours. Describes pain as a tight, squeezing sensation. No radiation. Pain is not exacerbated with eating. Last BM yesterday which he reports was normal stool. Additionally endorses acute on chronic low back pain. Takes muscle relaxers and motrin for this at home. Denies fall/injury/trauma. States at last ED visit he was told I have a lump in my abdomen that could be cancerous . Has followed up with PCP with unremarkable workup. Colonoscopy 8 mo ago returned normal. Denies fever, chills, chest pain, palpitations, SOB, nausea, vomiting, hematemesis, diarrhea, constipation, hematochezia, melena, dysuria, hematuria, penile discharge, flank pain, bowel or bladder incontinence or retention, saddle anesthesia. Denies ETOH consumption. Denies IVDU. Related Data Home Medications Medication Instructions Recorded Confirmed acetaminophen 325 mg tablet 650 mg PO 05/21/21 amitriptyline 50 mg tablet 1 tab PO BEDTIME 05/21/21 05/21/21 amlodipine 10 mg tablet 1 tab PO DAILY 05/21/21 05/21/21 cetirizine 10 mg tablet 1 tab PO DAILY 05/21/21 05/21/21 chlorthalidone 50 mg tablet 1 tab PO DAILY 05/21/21 05/21/21 cholecalciferol (vitamin D3) 25 1 cap PO DAILY 05/21/21 05/21/21 mcg (1,000 unit) capsule cyclobenzaprine 10 mg tablet 1 tab PO TID 05/21/21 05/21/21 gabapentin 100 mg capsule 1 cap PO DAILY 05/21/21 05/21/21 hydroxyzine HCl 50 mg tablet 1 tab PO BEDTIME 05/21/21 05/21/21 losartan 50 mg tablet 1 tab PO DAILY 05/21/21 05/21/21 amlodipine 10 mg tablet 1 tab PO DAILY 05/25/21 05/25/21 Previous Rx's Medication Instructions Recorded oseltamivir 75 mg capsule 75 mg PO BID 5 days #10 caps 12/30/20 prednisone 20 mg tablet 40 mg (2 x 20 mg) PO DAILY 5 days 12/30/20 #10 tabs acetaminophen 325 mg capsule 325 mg PO QID PRN pain #28 caps 01/22/21 (Tylenol) cyclobenzaprine 10 mg tablet 10 mg PO TID PRN pain #18 tabs 01/22/21 amoxicillin 875 mg-potassium 1 tab PO BID #14 tabs 08/29/21 clavulanate 125 mg tablet cyclobenzaprine 10 mg tablet 10 mg PO TID PRN muscle spasm #14 08/29/21 tabs lidocaine 4 % topical patch 1 patch topical DAILY PRN pain #10 08/29/21 ea prednisone 20 mg tablet 40 mg (2 x 20 mg) PO DAILY 5 days 08/29/21 #10 tabs dexamethasone 6 mg tablet 6 mg PO DAILY 3 days #3 tabs 09/07/21 ketorolac 10 mg tablet 10 mg PO Q6H 5 days #20 tabs 09/07/21 amoxicillin 875 mg-potassium 1 tab PO BID 7 days #14 tabs 10/24/21 clavulanate 125 mg tablet fluticasone propionate 50 1 spray intranasal DAILY #16 grams 10/24/21 mcg/actuation nasal spray,suspension (Flonase Allergy Relief) nirmatrelvir 300 mg (150 mg See Rx Instructions PO .COMPLEX 11/18/21 x2)-ritonavir 100 mg tablet,dose #30 tabs pack (Paxlovid) cyclobenzaprine 10 mg tablet 10 mg PO TID PRN muscle spasm #10 03/30/22 tabs ketorolac 10 mg tablet 10 mg PO Q8H #20 tabs 03/30/22 [id number]-[id number]-[id number] 1 cap PO Q4-6H PRN headache #14 04/21/22 50 mg-300 mg-40 mg capsule caps (Fioricet) cyclobenzaprine 5 mg tablet 5 mg PO Q8H PRN pain (scale score 04/21/22 7-10) 5 days #14 tabs lidocaine 5 % topical patch 1 patch topical DAILY PRN pain #30 04/21/22 (Lidoderm) ea nitrofurantoin 100 mg PO Q12H 7 days #14 caps 05/23/22 monohydrate/macrocrystals 100 mg capsule (Macrobid) oxycodone 5 mg tablet 5 mg PO Q6H PRN pain #10 tabs 06/17/22 diclofenac sodium 75 mg 75 mg PO BID PRN pain #60 tabs 07/11/22 tablet,delayed release amlodipine 10 mg tablet (Norvasc) 10 mg PO DAILY #30 tabs 12/14/22 cyclobenzaprine 10 mg tablet 10 mg PO TID PRN muscle spasm #15 12/14/22 tabs lidocaine 5 % topical patch 1 patch topical DAILY #30 ea 12/14/22 (Lidoderm) naproxen 500 mg tablet 500 mg PO BID PRN pain #30 tabs 12/14/22 gabapentin 300 mg capsule 300 mg PO TID #30 caps 12/26/22 lidocaine 5 % topical patch 1 patch topical DAILY #30 ea 12/26/22 meloxicam 15 mg tablet 15 mg PO DAILY #20 tabs 12/26/22 methocarbamol 750 mg tablet 750 mg PO Q8H PRN muscle pain #14 12/26/22 tabs cyclobenzaprine 10 mg tablet 10 mg PO BEDTIME PRN muscle spasm 04/17/23 #7 tabs lidocaine 5 % topical patch 1 patch topical DAILY #15 ea 04/17/23 (Lidoderm) naproxen 500 mg tablet 500 mg PO Q8-12H PRN pain (scale 04/17/23 score 4-6) #14 tabs Allergies Allergy/AdvReac Type Severity Reaction Status Date / Time aspirin [ASA] Allergy Intermediate Dizziness Verified 12/26/22 08:21 Review of Systems 2 Review of Systems: Constitutional: No fever, chills, fatigue, night sweats, weight changes ENT/Mouth: No ear pain, hearing loss, nasal congestion, sinus pain, rhinorrhea, sore throat Eyes: No eye pain, swelling, redness, vision changes, discharge Cardio: No chest pain, palpitations, BARRAZA, orthopnea, peripheral edema Pulm: No SOB, cough, sputum, wheezing, dyspnea, hemoptysis GI: No nausea, vomiting, hematemesis, +abdominal pain, No diarrhea, constipation, hematochezia, melena : No irregular bleeding, dysuria, frequency, urgency, hesitancy, hematuria, flank pain, urinary flow changes, urinary incontinence or retention MSK: +back pain, No neck pain, joint pain, myalgias Skin: No lesions, rashes Neuro: No weakness, numbness, paresthesias, LOC, dizziness, headache All other systems reviewed and are negative. [facility] Past Medical History Attestation statement: The following information was validated with the patient. Source: old records reviewed and nursing notes reviewed Medical History COVID-19 vaccine series completed Renal calculi MRSA (methicillin resistant Staphylococcus aureus) Disc degeneration, lumbar Spondylosis of lumbar spine Cholecystectomy planned Anxiety HTN (hypertension) Surgical History Hx of cholecystectomy Hx of cystoscopy Social History Social History Are you a primary intensive care unit nurse to a significant other at home: No Do you presently have visiting nurse or other home services: No Alcohol intake: never Patient Tobacco Use Status: Never used Tobacco Smoked in Last 30 Days: No Use of substances other than those prescribed or required for medical reasons: No Advance Directives: No Advance Directives Information Provided: No Physical Exam ED Vital Signs: Vital Signs - 24 hr 04/17/23 06:29 04/17/23 07:32 04/17/23 08:06 Temperature 98.5 F 98.1 F 97.9 F Pulse Rate 72 67 58 Respiratory Rate 18 18 20 Blood Pressure 177/99 H 161/94 H 157/89 H Pulse Oximetry 96 95 96 Oxygen Delivery Method Room Air Room Air Room Air BMI result Body Mass Index 46.0 Vital signs stable Const General: cooperative, healthy appearing, comfortable, no acute distress, alert and awake Orientation/consciousness: patient oriented x3 Limitations: no limitations HENMT Head: Yes normal to inspection Ears: hearing grossly normal bilaterally Eyes General: appearance normal, both eyes and all related structures Conjunctivae: conjunctivae normal Sclerae: sclerae normal Pupils: Equal, round and reactive pupils present EOM: EOMs intact bilaterally Neck Neck: Yes normal visual inspection, Yes full ROM and Yes no JVD Resp Effort & Inspection: normal respiratory effort and able to speak in complete sentences Auscultation: clear to auscultation bilaterally Cardio Rate: regular rate Rhythm: regular rhythm Peripheral pulses: radial pulses present, posterior tibial pulses present and dorsalis pedis present GI Other: + obese abdomen, soft, nondistended, tender to palpation of the epigastric and left upper quadrant, no rebound tenderness or guarding, no hepatomegaly. Spleen absent. Normoactive bowel sounds x4. Inspection: Yes normal to inspection General: Yes no CVA tenderness Back/Spine/Pelvis Other: No midline spinous tenderness. Bilateral lumbar paraspinal muscle tenderness to palpation. No step off deformity. Back: no CVA tenderness Skin General skin exam: no rashes or lesions noted Neuro Other: Strength 5/5 intact throughout.? No saddle anesthesia.? Sensation intact to light touch.? Neurovascular intact distally.? General: patient oriented x3, gait normal and moves all extremities Cranial nerves: Yes Equal, round and reactive pupils present Deep tendon reflexes (DTR's): Right patellar reflex intensity grade: 2+ and Left patellar reflex intensity grade: 2+ Extrem General: Yes normal to inspection and Yes full ROM Course Course Course Narrative: 09-- CBC showing slight leukocytosis to 11.4 without left shift. Chemistry without acute electrolyte abnormality requiring intervention. Lipase WNL. Patient tested negative for influenza, COVID, RSV. CT essentially unremarkable. It does show degenerative changes within the lower thoracic spine consistent with patient's pain. >> discussed workup with patient. As there is no definitive etiology for patient's epigastric pain, will refer patient to GI specialist for possible upper endoscopy if symptoms persist. >> he reports improvement in back pain with Toradol and lidocaine patch. Likely musculoskeletal pain. Will send these medications to patient's pharmacy. Advised him to follow-up with his primary care provider as he may need corticosteroid injections. States that he has had these in the past however it has been sometime. >> He is ambulating with steady gait in the emergency department. Patient has remained stable throughout ED visit today. Discussed strict return precautions. All questions answered at this time. Patient is agreeable with disposition and stable for discharge. Medications Administered Discontinued Medications Generic Name Dose Route Start Last Admin Trade Name Freq PRN Reason Stop Dose Admin Baclofen 10 mg 04/17/23 06:54 04/17/23 07:33 Baclofen 10 Mg Tablet PO 04/17/23 06:55 10 mg ONCE ONE Administration Ketorolac Tromethamine 30 mg 04/17/23 06:54 04/17/23 07:34 Ketorolac Tromethamine 30 Mg/Ml Vial IVPUSH 04/17/23 06:55 30 mg ONCE ONE Administration Lidocaine 1 patch 04/17/23 06:54 04/17/23 07:33 Lidocaine 4 % Patch Adh..Patch TRANSDERMA 04/17/23 06:55 1 patch ONCE ONE Administration Protocol Medical Decision Making Medical Decision Making [facility] Narrative: 57 year old male with pmhx significant for HTN, chronic low back pain, lumbar DDD, DVT presents to the ED this morning with a complaint of abdominal pain x2 days. Vital signs stable. Patient nontoxic appearing and in no acute distress. On exam, obese abdomen, soft, nondistended, tender to palpation of the epigastric and left upper quadrant, no rebound tenderness or guarding, no hepatomegaly. Spleen absent. Normoactive bowel sounds x4. no midline spinous tenderness. Bilateral lumbar paraspinal muscle tenderness to palpation. No step off deformity. No CVAT. Ambulating with steady gait. Clinical concern for pancreatitis, diverticulosis, diverticulitis, gastritis, gastroenteritis, peptic ulcer disease. Unlikely appendicitis, hepatitis, cirrhosis, ischemic bowel, bowel obstruction. Plan for basic labs, serology, imaging, UA, pain control, and re-evaluation. Differential Diagnosis Differential Diagnoses: The differential diagnosis associated with the presentation includes As above Admission/Observation Consideration of admission/observation: Escalation of care including admission/observation considered In this 57-year-old male with acute epigastric pain, admission was considered. Lab Data [facility] Lab Attestation statement: I reviewed the patient's lab results. As above 04/17/23 06:40 04/17/23 06:40 Labs: Lab Results 04/17/23 Range/Units 06:40 WBC 11.4 H (4.8-10.8) X10*3/uL RBC 4.80 (4.60-5.80) X10*6/uL Hgb 15.1 (14.0-18.0) g/dl Hct 44.4 (42.0-52.0) % MCV 92.5 (80.0-98.0) fL MCH 31.5 (27.0-33.0) pg MCHC 34.0 (31.0-36.0) g/dl RDW 14.0 (11.0-16.0) % Plt Count 401 H (160-400) X10*3/uL MPV 10.1 (9.4-12.4) fL Immature Gran % (Auto) 0.4 (0.0-0.4) % Neut % (Auto) 42.7 L (45-73) % Lymph % (Auto) 45.2 H (20-40) % Sanders % (Auto) 7.6 (2-11) % Eos % (Auto) 3.3 (0-4) % Baso % (Auto) 0.8 (0-2) % Lymph # (Auto) 5.1 H (1.2-4.9) X10*3/uL Sanders # (Auto) 0.9 (0.1-1.2) X10*3/uL Eos # (Auto) 0.4 (0.0-0.4) X10*3/uL Baso # (Auto) 0.1 (0.0-0.2) X10*3/uL Abs Immat Gran (auto) 0.04 H (0.00-0.03) X10*3/uL Absolute Neuts (auto) 4.9 (2.0-8.3) x10*3/uL Absolute Nucleated RBC 0.000 (0.0-0.012) X10*3/uL Nucleated RBC % (auto) 0.0 (0.0-0.2) /100WBC Smear Tech's Comments VERIFIED Sodium 141 (135-145) mmol/L Potassium 3.6 (3.3-5.1) mmol/L Chloride 103 (96-108) mmol/L Carbon Dioxide 25 (22-29) mmol/L Anion Gap 17 (12-20) BUN 12 (9-16) mg/dL Creatinine 0.87 (0.5-1.4) mg/dL Estim Creat Clear Calc 119.1 Estimated GFR > 60 Random Glucose 104 (60-115) mg/dL Calcium 9.1 (8.4-10.2) mg/dL Total Bilirubin 0.4 (0.0-1.0) mg/dL AST 20 (5-37) U/L ALT 13 (0-40) U/L Alkaline Phosphatase 94 (39-117) U/L Total Protein 7.8 (6.5-8.0) g/dL Albumin 4.2 (3.5-5.0) g/dL Lipase 14 (8-78) U/L Influenza Type A (PCR) NEGATIVE (Negative) Influenza Type B (PCR) NEGATIVE (Negative) RSV RNA Qual (PCR) NEGATIVE (Negative) SARS-CoV-2 RNA (RT-PCR) NEGATIVE (Negative) Independent Interpretation I performed an independent interpretation of an: CT Scan Interpretation: CT abdomen/pelvis without acute intra-abdominal pathology, agree with radiologist's interpretation. Radiology Impression Discussion of test interpretation with radiology: I have reviewed the radiologist's reading. Radiologist Impression: CT abdomen pelvis wo IV con IMPRESSION: 1. A cause for the patient's epigastric and left upper quadrant pain has not been found. 2. Incidental findings as described above. Fleischner guidelines were followed. External Record Review External record reviewed: Inpatient record, Office record, Outpatient record, Prior outpatient labs, Prior outpatient radiology, Primary care record and Outside ED record Prescription Management I considered prescription management with: Pain Medication and Other (muscle relaxer) Chronic Conditions Patient?s care impacted by: Other (chronic back pain) Social Determinants Patient?s care significantly limited by Social Determinants of Health including: Other Social Determinant of Health Critical Care Time Critical Care Time Critical Care Time: No Discharge Plan Discharge Clinical Impression: Chronic thoracic back pain Patient Disposition: Home, Self-Care Instructions: Chronic Pain (ED), Lower Back Exercises (ED), Non-pharmacological Pain Management Therapies for Adults (ED) Additional Instructions: Your lab work was unremarkable. You tested negative for flu, RSV, COVID. The CT scan of your abdomen/pelvis did not show any acute pathology in the abdomen. It does show degenerative changes within your lower thoracic spine. Your pain improved with Toradol and lidocaine patch today. Please follow-up with your primary care provider. A referral to a GI doctor and an design engineering specialist have been provided to you. You may call them to make an appointment. Avoid bending, lifting, or twisting. You may ice several times per day for 20 minutes at a time for the next 48 hours and then change to heat for back pain. Flexeril is a muscle relaxer. Take this at night as it makes you drowsy. Do not drive, drink alcohol, or operate machinery while taking it. Naproxen is an anti-inflammatory / pain medication. Take with food. Do not take this with Ibuprofen. Lidoderm patches are numbing patches. Apply to painful areas. In addition you may take Tylenol at home. If your pain worsens, if you develop new numbness, tingling, weakness, loss of bowel or bladder function call 911 or return to the ER immediately for evaluation. Prescriptions: New lidocaine [Lidoderm] 5 % adhesive patch,medicated 1 patch topical DAILY Qty: 15 0RF Rx Instructions: leave on most painful area for up to 12 hrs naproxen 500 mg tablet 500 mg PO Q8-12H PRN (Reason: pain (scale score 4-6)) Qty: 14 0RF cyclobenzaprine 10 mg tablet 10 mg PO BEDTIME PRN (Reason: muscle spasm) Qty: 7 0RF No Action oseltamivir 75 mg capsule 75 mg PO BID 5 Days Qty: 10 0RF prednisone 20 mg tablet 40 mg PO DAILY 5 Days Qty: 10 0RF ynbduxfvip-slxcvfsoiemdn-uigf [Fioricet] 50-300-40 mg capsule 1 cap PO Q4-6H PRN (Reason: headache) Qty: 14 0RF lidocaine [Lidoderm] 5 % adhesive patch,medicated 1 patch topical DAILY MDD remove after 12 hours PRN (Reason: pain) Qty: 30 0RF Rx Instructions: leave on most painful area for up to 12 hrs cyclobenzaprine 5 mg tablet 5 mg PO Q8H PRN (Reason: pain (scale score 7-10)) 5 Days Qty: 14 0RF nitrofurantoin monohyd/m-cryst [Macrobid] 100 mg capsule 100 mg PO Q12H 7 Days Qty: 14 0RF Rx Instructions: must administer with a meal/food oxycodone 5 mg tablet 5 mg PO Q6H PRN (Reason: pain) Qty: 10 0RF Rx Instructions: Partial Fill upon patient request. cyclobenzaprine 10 mg tablet 10 mg PO TID PRN (Reason: pain) Qty: 18 0RF Rx Instructions: side effect is drowsiness. Do not take at work or while driving. acetaminophen [Tylenol] 325 mg capsule 325 mg PO QID PRN (Reason: pain) Qty: 28 0RF losartan 50 mg tablet 1 tab PO DAILY cyclobenzaprine 10 mg tablet 1 tab PO TID acetaminophen 325 mg tablet 650 mg PO cetirizine 10 mg tablet 1 tab PO DAILY hydroxyzine HCl 50 mg tablet 1 tab PO BEDTIME chlorthalidone 50 mg tablet 1 tab PO DAILY amitriptyline 50 mg tablet 1 tab PO BEDTIME amlodipine 10 mg tablet 1 tab PO DAILY gabapentin 100 mg capsule 1 cap PO DAILY cholecalciferol (vitamin D3) 25 mcg (1,000 unit) capsule 1 cap PO DAILY amlodipine 10 mg tablet 1 tab PO DAILY cyclobenzaprine 10 mg tablet 10 mg PO TID PRN (Reason: muscle spasm) Qty: 14 0RF lidocaine 4 % adhesive patch,medicated 1 patch topical DAILY PRN (Reason: pain) Qty: 10 0RF Rx Instructions: may leave on for up to 12 hrs prednisone 20 mg tablet 40 mg PO DAILY 5 Days Qty: 10 0RF amoxicillin-pot clavulanate 875-125 mg tablet 1 tab PO BID Qty: 14 0RF dexamethasone 6 mg tablet 6 mg PO DAILY 3 Days Qty: 3 0RF ketorolac 10 mg tablet 10 mg PO Q6H 5 Days Qty: 20 0RF amoxicillin-pot clavulanate 875-125 mg tablet 1 tab PO BID 7 Days Qty: 14 0RF fluticasone propionate [Flonase Allergy Relief] 50 mcg/actuation spray,suspension 1 spray intranasal DAILY Qty: 16 0RF Rx Instructions: administer into each nostril Paxlovid 300 mg (150 mg x 2)-100 mg tablet See Rx Instructions .ROUTE .COMPLEX Qty: 30 0RF Rx Instructions: take TWO 150 mg tablets of nirmatrelvir with ONE 100 mg tablet of ritonavir twice daily for 5 days ketorolac 10 mg tablet 10 mg PO Q8H Qty: 20 0RF cyclobenzaprine 10 mg tablet 10 mg PO TID PRN (Reason: muscle spasm) Qty: 10 0RF naproxen 500 mg tablet 500 mg PO BID PRN (Reason: pain) Qty: 30 0RF cyclobenzaprine 10 mg tablet 10 mg PO TID PRN (Reason: muscle spasm) Qty: 15 0RF lidocaine [Lidoderm] 5 % adhesive patch,medicated 1 patch topical DAILY Qty: 30 0RF Rx Instructions: leave on most painful area for up to 12 hrs amlodipine [Norvasc] 10 mg tablet 10 mg PO DAILY Qty: 30 0RF meloxicam 15 mg tablet 15 mg PO DAILY Qty: 20 0RF gabapentin 300 mg capsule 300 mg PO TID Qty: 30 0RF methocarbamol 750 mg tablet 750 mg PO Q8H PRN (Reason: muscle pain) Qty: 14 0RF lidocaine 5 % adhesive patch,medicated 1 patch topical DAILY Qty: 30 0RF Rx Instructions: leave on most painful area for up to 12 hrs diclofenac sodium 75 mg tablet,delayed release (DR/EC) 75 mg PO BID PRN (Reason: pain) Qty: 60 0RF Referrals: [facility] [place] Gastroenterology Services [Provider Group] [facility] [place] Orthopedic Surgeons [Provider Group] [facility] [place] Pain Management [Provider Group] Stand Alone Forms: Work/School Release
[2023-04-17 06:56] LABS: Basophils Absolute Auto 0.1 X10*3/uL (0.0-0.2); Basophils Percent Auto 0.8 % (0-2); Eosinophils Absolute Auto 0.4 X10*3/uL (0.0-0.4); Eosinophils Percent Auto 3.3 % (0-4); Hematocrit 44.4 % (42.0-52.0); Hemoglobin 15.1 g/dl (14.0-18.0); Imm Gran Abs Auto 0.04 X10*3/uL (0.00-0.03); Imm Gran Pct Auto 0.4 % (0.0-0.4); Lymphocytes Absolute Auto 5.1 X10*3/uL (1.2-4.9); Lymphocytes Percent Auto 45.2 % (20-40); MANUAL DIFF FLAG SCAN; Mean Corpuscular Hemoglobin 31.5 pg (27.0-33.0); Mean Corpuscular Volume 92.5 fL (80.0-98.0); Mean Platelet Volume 10.1 fL (9.4-12.4); Monocytes Absolute Auto 0.9 X10*3/uL (0.1-1.2); Monocytes Percent Auto 7.6 % (2-11); Neutrophils Absolute Auto 4.9 x10*3/uL (2.0-8.3); Neutrophils Percent Auto 42.7 % (45-73); Platelet Count 401 X10*3/uL (160-400); SCAN SMEAR FLAG 1; White Blood Count 11.4 X10*3/uL (4.8-10.8)
[2023-04-17 07:09] LABS: Alanine Aminotransferase 13 U/L (0-40); Albumin Level 4.2 g/dL (3.5-5.0); Alkaline Phosphatase 94 U/L (39-117); Anion Gap 17 (12-20); Aspartate Amino Transferase 20 U/L (5-37); Bilirubin Total 0.4 mg/dL (0.0-1.0); Blood Urea Nitrogen 12 mg/dL (9-16); Calcium 9.1 mg/dL (8.4-10.2); Carbon Dioxide 25 mmol/L (22-29); Chloride 103 mmol/L (96-108); Creatinine Clr Calc Pharmacy 119.1; Estimated Glomerular Filt Rate > 60; Glucose Random 104 mg/dL (60-115); Lipase 14 U/L (8-78); Potassium 3.6 mmol/L (3.3-5.1); Sodium 141 mmol/L (135-145); Total Protein 7.8 g/dL (6.5-8.0)
[2023-04-17 07:24] LABS: Influenza A PCR NEGATIVE (Negative); Influenza B PCR NEGATIVE (Negative); Resp Syncy Virus RNA Qual PCR NEGATIVE (Negative); SARS COV2 PCR INHOUSE NEGATIVE (Negative)
[2023-04-17 07:32] VITALS: BP 161/94; PULSE 67; RESP 18; TEMP 36.7; O2SAT 95
[2023-04-17 07:33] LABS: SLIDE REVIEW VERIFIED
[2023-04-17] MEDS: Baclofen 10 MG TABLET PO (07:33)
[2023-04-17] MEDS: Lidocaine 4 % Patch ADH..PATCH 1 PATCH TRANSDERMA (07:33)
[2023-04-17] MEDS: Ketorolac Tromethamine 30 MG/ML VIAL IVPUSH (07:34)
--- NOTE | 2023-04-17 07:38 | PC.NURSE ---
Pt reporting upper left abd pain, soft tender. skin pwd. respirations even and unlabored. Pt able to move all extremities independently.
[2023-04-17 08:06] VITALS: BP 157/89; PULSE 58; RESP 20; TEMP 36.6; O2SAT 96
== END 2023-04-17 09:41 | disposition home or self-care (01) ==
PROVIDERS: Emergency Provider Emergency Medicine Emergency Medical Services; PCP Student in an Organized Health Care Education/Training Program
DX: M54.6 Pain in thoracic spine (principal); R10.2 Pelvic and perineal pain; Z20.822 Contact with and (suspected) exposure to COVID-19; Z20.828 Contact with and (suspected) exposure to other viral communicable diseases; Z79.899 Other long term (current) drug therapy
CPT/HCPCS: 0241U; 36415; 74176; 80053; 83690; 85025; 96374; 99284; J1885

== ENCOUNTER 2023-06-27 10:14 | Outpatient (RCR) | payer OTHER, SELFPAY | END 2024-02-19 11:17 | disposition home or self-care (01) | LOC: HO.PT 10:14 | PROVIDERS: PCP Student in an Organized Health Care Education/Training Program; Visit Provider Student in an Organized Health Care Education/Training Program | DX: G89.29 Other chronic pain (principal); M54.6 Pain in thoracic spine | CPT/HCPCS: 97110; 97161; 97162; 97530 ==

== ENCOUNTER 2023-11-03 05:59 | Emergency (ER) | payer OTHER, SELFPAY ==
--- NOTE | ~2023-11-03 | XR_ITS ---
EXAMINATION: XR CHEST CLINICAL INFORMATION: Covid positive with coughing and chest pain. Shortness of breath COMPARISON: Chest radiograph and CT angiogram chest 01/22/2021 TECHNIQUE: Frontal view of the chest was obtained. FINDINGS: No significant abnormality is noted involving the heart, lungs, mediastinum, bony thorax or soft tissues. XR/XR chest 1V IMPRESSION: Unremarkable examination.
[2023-11-03 06:18] VITALS: BP 152/83; PULSE 84; RESP 20; TEMP 36.8; O2SAT 96; BMI 44.4
[2023-11-03 07:16] LABS: Influenza A PCR NEGATIVE (Negative); Influenza B PCR NEGATIVE (Negative); Resp Syncy Virus RNA Qual PCR NEGATIVE (Negative); SARS COV2 PCR INHOUSE POSITIVE (Negative)
[2023-11-03 07:39] LABS: IDNOW Serial# 08D9AD1C; Strep A Nucleic Acid Negative (Negative)
[2023-11-03] MEDS: Ketorolac Tromethamine 60 MG/2 ML VIAL IM (07:43)
--- NOTE | 2023-11-03 07:55 | ED.GENADULT ---
HPI - General Adult General Chief complaint: General Medical Stated complaint: lower back pain Time Seen by Provider: 11/03/23 06:34 Source: patient Mode of arrival: ambulatory Limitations: no limitations History of Present Illness ED Provider: Dr. Higgins HPI narrative: Patient was exposed to his niece who has COVID. In the past he had Paxlovid when he was COVID positive, he has obesity and HTN. patient is complaining of mostly cough, sore throat, severe bodyaches. Onset (ago): day(s) Severity: mild Associated symptoms: cough, fever/chills and headaches Related Data Home Medications ?Medication ?Instructions ?Recorded ?Confirmed acetaminophen 325 mg tablet 650 mg PO 05/21/21 amitriptyline 50 mg tablet 1 tab PO BEDTIME 05/21/21 05/21/21 cetirizine 10 mg tablet 1 tab PO DAILY 05/21/21 05/21/21 chlorthalidone 50 mg tablet 1 tab PO DAILY 05/21/21 05/21/21 cholecalciferol (vitamin D3) 25 1 cap PO DAILY 05/21/21 05/21/21 mcg (1,000 unit) capsule cyclobenzaprine 10 mg tablet 1 tab PO TID 05/21/21 05/21/21 gabapentin 100 mg capsule 1 cap PO DAILY 05/21/21 05/21/21 hydroxyzine HCl 50 mg tablet 1 tab PO BEDTIME 05/21/21 05/21/21 losartan 50 mg tablet 1 tab PO DAILY 05/21/21 05/21/21 amlodipine 10 mg tablet 1 tab PO DAILY 05/25/21 05/25/21 Previous Rx's ?Medication ?Instructions ?Recorded oseltamivir 75 mg capsule 75 mg PO BID 5 days #10 caps 12/30/20 prednisone 20 mg tablet 40 mg (2 x 20 mg) PO DAILY 5 days 12/30/20 #10 tabs acetaminophen 325 mg capsule 325 mg PO QID PRN pain #28 caps 01/22/21 (Tylenol) cyclobenzaprine 10 mg tablet 10 mg PO TID PRN pain #18 tabs 01/22/21 lidocaine 4 % topical patch 1 patch topical DAILY PRN pain #10 08/29/21 ea prednisone 20 mg tablet 40 mg (2 x 20 mg) PO DAILY 5 days 08/29/21 #10 tabs dexamethasone 6 mg tablet 6 mg PO DAILY 3 days #3 tabs 09/07/21 ketorolac 10 mg tablet 10 mg PO Q6H 5 days #20 tabs 09/07/21 amoxicillin 875 mg-potassium 1 tab PO BID 7 days #14 tabs 10/24/21 clavulanate 125 mg tablet fluticasone propionate 50 1 spray intranasal DAILY #16 grams 10/24/21 mcg/actuation nasal spray,suspension (Flonase Allergy Relief) nirmatrelvir 300 mg (150 mg See Rx Instructions PO .COMPLEX 11/18/21 x2)-ritonavir 100 mg tablet,dose #30 tabs pack (Paxlovid) ketorolac 10 mg tablet 10 mg PO Q8H #20 tabs 03/30/22 uralyiehzl-trldsshrzfoze-qrlgofdr 1 cap PO Q4-6H PRN headache #14 04/21/22 50 mg-300 mg-40 mg capsule caps (Fioricet) cyclobenzaprine 5 mg tablet 5 mg PO Q8H PRN pain (scale score 04/21/22 7-10) 5 days #14 tabs nitrofurantoin 100 mg PO Q12H 7 days #14 caps 05/23/22 monohydrate/macrocrystals 100 mg capsule (Macrobid) oxycodone 5 mg tablet 5 mg PO Q6H PRN pain #10 tabs 06/17/22 diclofenac sodium 75 mg 75 mg PO BID PRN pain #60 tabs 07/11/22 tablet,delayed release naproxen 500 mg tablet 500 mg PO BID PRN pain #30 tabs 12/14/22 gabapentin 300 mg capsule 300 mg PO TID #30 caps 12/26/22 lidocaine 5 % topical patch 1 patch topical DAILY #30 ea 12/26/22 meloxicam 15 mg tablet 15 mg PO DAILY #20 tabs 12/26/22 methocarbamol 750 mg tablet 750 mg PO Q8H PRN muscle pain #14 12/26/22 tabs cyclobenzaprine 10 mg tablet 10 mg PO BEDTIME PRN muscle spasm 04/17/23 #7 tabs naproxen 500 mg tablet 500 mg PO Q8-12H PRN pain (scale 04/17/23 score 4-6) #14 tabs nirmatrelvir 300 mg (150 mg See Rx Instructions PO .COMPLEX 11/03/23 x2)-ritonavir 100 mg tablet,dose #30 ea pack (Paxlovid) Allergies Allergy/AdvReac Type Severity Reaction Status Date / Time aspirin [ASA] Allergy Intermediate Dizziness Verified 11/03/23 06:21 Review of Systems Review of Systems: Yes all other systems are reviewed and are negative Neurologic: Denies Sensory deficit (Neuro) [facility] Past Medical History Medical History COVID-19 vaccine series completed Renal calculi MRSA (methicillin resistant Staphylococcus aureus) Disc degeneration, lumbar Spondylosis of lumbar spine Cholecystectomy planned Anxiety HTN (hypertension) Surgical History Hx of cholecystectomy Hx of cystoscopy Social History Social History Are you a primary point of care specialist to a significant other at home: No Do you presently have visiting nurse or other home services: No Alcohol intake: never Patient Tobacco Use Status: Never used Tobacco Smoked in Last 30 Days: No Use of substances other than those prescribed or required for medical reasons: No Advance Directives: No Advance Directives Information Provided: No Physical Exam ED Vital Signs: Vital Signs - 24 hr 11/03/23 06:18 Temperature 98.2 F Pulse Rate 84 Respiratory Rate 20 Blood Pressure 152/83 H Pulse Oximetry 96 Oxygen Delivery Method Room Air BMI result Body Mass Index 44.4 Const Nutritional Appearance: obese Orientation/consciousness: oriented to person and patient oriented x3 Limitations: no limitations HENMT Head: Yes normal to inspection Ears: external ears normal General nose exam: Normal external nose present Mouth: Normal oral and palatal mucosa present and oropharynx normal Throat: Yes posterior oropharynx normal Eyes General: appearance normal, both eyes and all related structures Neck Neck: Yes normal visual inspection Chest Chest palpation & inspection: normal inspection of the chest Resp Auscultation: clear to auscultation bilaterally Cardio Jugular venous distension: no JVD Rate: regular rate Rhythm: regular rhythm Heart sounds: S1 normal heart sound present and S2 normal heart sound present GI Inspection: Yes normal to inspection Palpation (GI): Soft to palpation, nontender and No hepatosplenomegaly present Auscultation: normal bowel sounds General: Yes no CVA tenderness Back/Spine/Pelvis Back: no CVA tenderness Skin General skin exam: no rashes or lesions noted Neuro General: oriented to person and patient oriented x3 Cranial nerves: Yes CN's II-XII intact bilaterally Motor exam (neuro): 5/5 motor strength present throughout Sensory Exam: No Sensory deficit (Neuro) Extrem General: Yes normal to inspection Psych Appearance: grossly normal Course Reevaluation(s) Reevaluation #1: Patient with COVID, asking for paxlovid, will try and order through the pharmacy but this seems to be difficult from the ED Time: 08:00 Medications Administered Discontinued Medications Generic Name Dose Route Start Last Admin Trade Name Brandonq PRN Reason Stop Dose Admin Ketorolac Tromethamine 60 mg 11/03/23 07:23 11/03/23 07:43 Ketorolac Tromethamine 60 Mg/2 Ml Vial IM 11/03/23 07:24 60 mg ONCE ONE Administration Medical Decision Making Differential Diagnosis Differential Diagnoses: The differential diagnosis associated with the presentation includes (COVID, Flu, RSV, pneumonia) Admission/Observation Consideration of admission/observation: Escalation of care including admission/observation considered (upon arrival patient considered for admission) Lab Data Labs: Lab Results 11/03/23 Range/Units 06:27 Influenza Type A (PCR) NEGATIVE (Negative) Influenza Type B (PCR) NEGATIVE (Negative) RSV RNA Qual (PCR) NEGATIVE (Negative) SARS-CoV-2 RNA (RT-PCR) POSITIVE A (Negative) S. pyogenes GrpA ANITA Negative (Negative) Independent Interpretation I performed an independent interpretation of an: Plain X-Ray (no infiltrate) Prescription Management I considered prescription management with: Antibiotic (no evidence of pneumonia) Chronic Conditions Patient?s care impacted by: Hypertension and Other (obesity) Discharge Plan Discharge Clinical Impression: COVID-19 Patient Disposition: Home, Self-Care Instructions: COVID-19 (Coronavirus Disease 2019) (ED) Prescriptions: New Paxlovid 300 mg (150 mg x 2)-100 mg tablets,dose pack See Rx Instructions .ROUTE .COMPLEX Qty: 30 0RF Rx Instructions: take TWO 150 mg tablets of nirmatrelvir with ONE 100 mg tablet of ritonavir twice daily for 5 days No Action oseltamivir 75 mg capsule 75 mg PO BID 5 Days Qty: 10 0RF prednisone 20 mg tablet 40 mg PO DAILY 5 Days Qty: 10 0RF wfakxxxuzy-myqqzexoyuagf-rwfq [Fioricet] 50-300-40 mg capsule 1 cap PO Q4-6H PRN (Reason: headache) Qty: 14 0RF cyclobenzaprine 5 mg tablet 5 mg PO Q8H PRN (Reason: pain (scale score 7-10)) 5 Days Qty: 14 0RF nitrofurantoin monohyd/m-cryst [Macrobid] 100 mg capsule 100 mg PO Q12H 7 Days Qty: 14 0RF Rx Instructions: must administer with a meal/food oxycodone 5 mg tablet 5 mg PO Q6H PRN (Reason: pain) Qty: 10 0RF Rx Instructions: Partial Fill upon patient request. cyclobenzaprine 10 mg tablet 10 mg PO TID PRN (Reason: pain) Qty: 18 0RF Rx Instructions: side effect is drowsiness. Do not take at work or while driving. acetaminophen [Tylenol] 325 mg capsule 325 mg PO QID PRN (Reason: pain) Qty: 28 0RF losartan 50 mg tablet 1 tab PO DAILY cyclobenzaprine 10 mg tablet 1 tab PO TID acetaminophen 325 mg tablet 650 mg PO cetirizine 10 mg tablet 1 tab PO DAILY hydroxyzine HCl 50 mg tablet 1 tab PO BEDTIME chlorthalidone 50 mg tablet 1 tab PO DAILY amitriptyline 50 mg tablet 1 tab PO BEDTIME gabapentin 100 mg capsule 1 cap PO DAILY cholecalciferol (vitamin D3) 25 mcg (1,000 unit) capsule 1 cap PO DAILY amlodipine 10 mg tablet 1 tab PO DAILY lidocaine 4 % adhesive patch,medicated 1 patch topical DAILY PRN (Reason: pain) Qty: 10 0RF Rx Instructions: may leave on for up to 12 hrs prednisone 20 mg tablet 40 mg PO DAILY 5 Days Qty: 10 0RF dexamethasone 6 mg tablet 6 mg PO DAILY 3 Days Qty: 3 0RF ketorolac 10 mg tablet 10 mg PO Q6H 5 Days Qty: 20 0RF amoxicillin-pot clavulanate 875-125 mg tablet 1 tab PO BID 7 Days Qty: 14 0RF fluticasone propionate [Flonase Allergy Relief] 50 mcg/actuation spray,suspension 1 spray intranasal DAILY Qty: 16 0RF Rx Instructions: administer into each nostril Paxlovid 300 mg (150 mg x 2)-100 mg tablet See Rx Instructions .ROUTE .COMPLEX Qty: 30 0RF Rx Instructions: take TWO 150 mg tablets of nirmatrelvir with ONE 100 mg tablet of ritonavir twice daily for 5 days ketorolac 10 mg tablet 10 mg PO Q8H Qty: 20 0RF naproxen 500 mg tablet 500 mg PO BID PRN (Reason: pain) Qty: 30 0RF meloxicam 15 mg tablet 15 mg PO DAILY Qty: 20 0RF gabapentin 300 mg capsule 300 mg PO TID Qty: 30 0RF methocarbamol 750 mg tablet 750 mg PO Q8H PRN (Reason: muscle pain) Qty: 14 0RF lidocaine 5 % adhesive patch,medicated 1 patch topical DAILY Qty: 30 0RF Rx Instructions: leave on most painful area for up to 12 hrs naproxen 500 mg tablet 500 mg PO Q8-12H PRN (Reason: pain (scale score 4-6)) Qty: 14 0RF cyclobenzaprine 10 mg tablet 10 mg PO BEDTIME PRN (Reason: muscle spasm) Qty: 7 0RF diclofenac sodium 75 mg tablet,delayed release (DR/EC) 75 mg PO BID PRN (Reason: pain) Qty: 60 0RF Referrals: Heather Marroquin MD [Primary Care Provider] - 5 days Print Language: Georgian
[2023-11-03 08:52] VITALS: BP 174/96; PULSE 87; RESP 14; O2SAT 98
[2023-11-03 09:07] VITALS: BP 174/96; PULSE 87; RESP 14; TEMP -17.7; TEMP 0; O2SAT 98
== END 2023-11-03 09:09 | disposition home or self-care (01) ==
PROVIDERS: Emergency Provider Emergency Medicine; PCP Student in an Organized Health Care Education/Training Program
DX: U07.1 COVID-19 (principal); R07.89 Other chest pain; J02.9 Acute pharyngitis, unspecified; R06.02 Shortness of breath; M54.50 Low back pain, unspecified; M79.10 Myalgia, unspecified site
CPT/HCPCS: 0241U; 71045; 87651; 96372; 99284; J1885

== ENCOUNTER 2023-12-19 07:13 | Emergency (ER) | payer OTHER, SELFPAY ==
[2023-12-19 07:18] VITALS: BP 151/107; PULSE 72; RESP 16; TEMP 36.4; O2SAT 97; BMI 45.2
--- NOTE | 2023-12-19 07:56 | ED_ITS ---
HPI - Back Pain/Injury General Chief Complaint: Back Pain/Injury Stated Complaint: back pain Time Seen by Provider: 12/19/23 07:34 Source: patient and old records reviewed Mode of arrival: ambulatory Limitations: no limitations History of Present Illness ED Provider: NOMI MEADOWS Narrative: 58 yo male with PMH of HTN, anxiety, chronic back pain not on blood thinners here with c/o chronic worsening pain on tylenol, gabapentin, meloxicam. He denies new injury, no bowel/bladder incontinence, no saddle anesthesia. No fevers. No abdominal pain. He states he has not seen spine doctor in years. He cannot take it anymore. He is asking for something to help him. He also wants COVID test. MD elicited complaint: back pain Pertinent past history: prior back pain Onset (ago): month(s) Timing: progressively worsening Severity: moderate Similar Symptoms Previously: Yes Quality: throbbing Location: lumbar spine Radiation: none Exacerbating factors: movement Relieving factors: none Context: unknown Associated symptoms: denies other symptoms Treatments prior to arrival: cold therapy, NSAIDS and prescription analgesics Work related injury: No Related Data Home Medications ?Medication ?Instructions ?Recorded ?Confirmed acetaminophen 325 mg tablet 650 mg PO 05/21/21 amitriptyline 50 mg tablet 1 tab PO BEDTIME 05/21/21 05/21/21 cetirizine 10 mg tablet 1 tab PO DAILY 05/21/21 05/21/21 chlorthalidone 50 mg tablet 1 tab PO DAILY 05/21/21 05/21/21 cholecalciferol (vitamin D3) 25 1 cap PO DAILY 05/21/21 05/21/21 mcg (1,000 unit) capsule cyclobenzaprine 10 mg tablet 1 tab PO TID 05/21/21 05/21/21 gabapentin 100 mg capsule 1 cap PO DAILY 05/21/21 05/21/21 hydroxyzine HCl 50 mg tablet 1 tab PO BEDTIME 05/21/21 05/21/21 losartan 50 mg tablet 1 tab PO DAILY 05/21/21 05/21/21 amlodipine 10 mg tablet 1 tab PO DAILY 05/25/21 05/25/21 Previous Rx's ?Medication ?Instructions ?Recorded oseltamivir 75 mg capsule 75 mg PO BID 5 days #10 caps 12/30/20 prednisone 20 mg tablet 40 mg (2 x 20 mg) PO DAILY 5 days 12/30/20 #10 tabs acetaminophen 325 mg capsule 325 mg PO QID PRN pain #28 caps 01/22/21 (Tylenol) cyclobenzaprine 10 mg tablet 10 mg PO TID PRN pain #18 tabs 01/22/21 lidocaine 4 % topical patch 1 patch topical DAILY PRN pain #10 08/29/21 ea prednisone 20 mg tablet 40 mg (2 x 20 mg) PO DAILY 5 days 08/29/21 #10 tabs dexamethasone 6 mg tablet 6 mg PO DAILY 3 days #3 tabs 09/07/21 ketorolac 10 mg tablet 10 mg PO Q6H 5 days #20 tabs 09/07/21 amoxicillin 875 mg-potassium 1 tab PO BID 7 days #14 tabs 10/24/21 clavulanate 125 mg tablet fluticasone propionate 50 1 spray intranasal DAILY #16 grams 10/24/21 mcg/actuation nasal spray,suspension (Flonase Allergy Relief) nirmatrelvir 300 mg (150 mg See Rx Instructions PO .COMPLEX 11/18/21 x2)-ritonavir 100 mg tablet,dose #30 tabs pack (Paxlovid) ketorolac 10 mg tablet 10 mg PO Q8H #20 tabs 03/30/22 furoaplhrh-hqhvsrdymvifj-azaozmsd 1 cap PO Q4-6H PRN headache #14 04/21/22 50 mg-300 mg-40 mg capsule caps (Fioricet) cyclobenzaprine 5 mg tablet 5 mg PO Q8H PRN pain (scale score 04/21/22 7-10) 5 days #14 tabs nitrofurantoin 100 mg PO Q12H 7 days #14 caps 05/23/22 monohydrate/macrocrystals 100 mg capsule (Macrobid) oxycodone 5 mg tablet 5 mg PO Q6H PRN pain #10 tabs 06/17/22 diclofenac sodium 75 mg 75 mg PO BID PRN pain #60 tabs 07/11/22 tablet,delayed release naproxen 500 mg tablet 500 mg PO BID PRN pain #30 tabs 12/14/22 gabapentin 300 mg capsule 300 mg PO TID #30 caps 12/26/22 lidocaine 5 % topical patch 1 patch topical DAILY #30 ea 12/26/22 meloxicam 15 mg tablet 15 mg PO DAILY #20 tabs 12/26/22 methocarbamol 750 mg tablet 750 mg PO Q8H PRN muscle pain #14 12/26/22 tabs cyclobenzaprine 10 mg tablet 10 mg PO BEDTIME PRN muscle spasm 04/17/23 #7 tabs naproxen 500 mg tablet 500 mg PO Q8-12H PRN pain (scale 04/17/23 score 4-6) #14 tabs nirmatrelvir 300 mg (150 mg See Rx Instructions PO .COMPLEX 11/03/23 x2)-ritonavir 100 mg tablet,dose #30 ea pack (Paxlovid) morphine 15 mg immediate release 15 mg PO Q8H PRN pain #14 tabs 12/19/23 tablet prednisone 20 mg tablet 40 mg (2 x 20 mg) PO DAILY 5 days 12/19/23 #10 tabs Allergies Allergy/AdvReac Type Severity Reaction Status Date / Time aspirin [ASA] Allergy Intermediate Dizziness Verified 12/19/23 07:20 Review of Systems Review of Systems: Constitutional : No Weight loss, No Fever, No Chills, ENT/Mouth : No Hearing loss, No Ear Pain, No Nasal Congestion, No Sinus Pain, No Hoarseness, No sore throat, No Rhinorrhea, No Swallowing Difficulty Cardiovascular : No Chest Pain, No SOB Respiratory : No Cough, No Dyspnea Gastrointestinal : No Nausea, No Vomiting, No Diarrhea, No abdominal Pain, No Hematochezia, No Melena Genitourinary : No Dysuria, No Urinary Frequency, No Hematuria, No Urinary Incontinence, Musculoskeletal : positive back pain Skin : No Skin Lesions, No rash Neuro : No Weakness, No Numbness, No Paresthesias, no loss of bowel or bladder incontinence, no saddle anesthesia All other systems reviewed and are negative [facility] Past Medical History Attestation statement: The following information was validated with the patient. Source: old records reviewed Medical History COVID-19 vaccine series completed Renal calculi MRSA (methicillin resistant Staphylococcus aureus) Disc degeneration, lumbar Spondylosis of lumbar spine Cholecystectomy planned Anxiety HTN (hypertension) Surgical History Hx of cholecystectomy Hx of cystoscopy Social History Social History Are you a primary foster care worker to a significant other at home: No Do you presently have visiting nurse or other home services: No Alcohol intake: never Patient Tobacco Use Status: Never used Tobacco Advance Directives: No Advance Directives Information Provided: Yes Do you have a plan to hurt others: No Plan Physical Exam Vital Signs: Vital Signs: Last Vital Signs Temp 97.5 F 12/19/23 07:18 Pulse 72 12/19/23 07:18 Resp 16 12/19/23 07:18 BP 151/107 H 12/19/23 07:18 Pulse Ox 97 12/19/23 07:18 O2 Del Method Room Air 12/19/23 07:18 BMI result Body Mass Index 45.2 Appearance: Alert. Oriented X3. No acute distress. Eyes: Pupils equal, round and reactive to light. ENT: Pharynx normal. Neck: Normal inspection. Neck supple. CVS: Normal heart rate and rhythm. Pulses normal. Respiratory: No respiratory distress. Breath sounds normal. Abdomen: Soft and nontender. Back: ttp along right lateral lumbar paraspinals that reproduces pain Skin: Skin warm and dry. Normal skin color. Normal skin turgor. Extremities: No lower extremity edema. No calf ttp Neuro: Oriented X 3. No motor deficit. No sensory deficit. Medical Decision Making Medical Decision Making MDM Narrative: 58 yo male with PMH of HTN, anxiety, chronic back pain not on blood thinners here with c/o low back pain worsening recently he has no b/b incontinence no saddle anesthesia, no IVDA, no thinners at this time will start on steroids and PO pain control refer to our pain management center. He is also asking for COVID test - no CP/SOB Differential Diagnosis Differential Diagnoses: The differential diagnosis associated with the presentation includes lumbar strain, pain, chronic back pain Admission/Observation Consideration of admission/observation: Escalation of care including admission/observation considered not toxic chronic issue can be managed as outpatient Lab Data MDM Lab Attestation statement: I reviewed the patient's lab results. Labs: Lab Results 12/19/23 Range/Units 08:24 COVID-19 ([facility]) Negative (Negative) COVID-19 Clin Com See Note External Record Review External record reviewed: Outpatient record Prescription Management I considered prescription management with: Pain Medication and Other Discharge Plan Discharge Clinical Impression: Chronic low back pain Qualifiers: Back pain laterality: bilateral Sciatica presence: without sciatica Qualified Code(s): M54.50 - Low back pain, unspecified Patient Disposition: Home, Self-Care Instructions: Chronic Pain (ED) Additional Instructions: your COVID swab is negative please follow up with the spine center and pain management center here given your chronic low back pain this will need close management return for worsening symptoms like loss of control of your bowel or bladders, numbness or any other concerns take medications as prescribed Prescriptions: New prednisone 20 mg tablet 40 mg PO DAILY 5 Days Qty: 10 0RF morphine 15 mg tablet 15 mg PO Q8H PRN (Reason: pain) Qty: 14 0RF Rx Instructions: Partial Fill upon patient request. No Action oseltamivir 75 mg capsule 75 mg PO BID 5 Days Qty: 10 0RF prednisone 20 mg tablet 40 mg PO DAILY 5 Days Qty: 10 0RF jmslaemavh-zwsbxyipxqafq-blkt [Fioricet] 50-300-40 mg capsule 1 cap PO Q4-6H PRN (Reason: headache) Qty: 14 0RF cyclobenzaprine 5 mg tablet 5 mg PO Q8H PRN (Reason: pain (scale score 7-10)) 5 Days Qty: 14 0RF nitrofurantoin monohyd/m-cryst [Macrobid] 100 mg capsule 100 mg PO Q12H 7 Days Qty: 14 0RF Rx Instructions: must administer with a meal/food oxycodone 5 mg tablet 5 mg PO Q6H PRN (Reason: pain) Qty: 10 0RF Rx Instructions: Partial Fill upon patient request. cyclobenzaprine 10 mg tablet 10 mg PO TID PRN (Reason: pain) Qty: 18 0RF Rx Instructions: side effect is drowsiness. Do not take at work or while driving. acetaminophen [Tylenol] 325 mg capsule 325 mg PO QID PRN (Reason: pain) Qty: 28 0RF losartan 50 mg tablet 1 tab PO DAILY cyclobenzaprine 10 mg tablet 1 tab PO TID acetaminophen 325 mg tablet 650 mg PO cetirizine 10 mg tablet 1 tab PO DAILY hydroxyzine HCl 50 mg tablet 1 tab PO BEDTIME chlorthalidone 50 mg tablet 1 tab PO DAILY amitriptyline 50 mg tablet 1 tab PO BEDTIME gabapentin 100 mg capsule 1 cap PO DAILY cholecalciferol (vitamin D3) 25 mcg (1,000 unit) capsule 1 cap PO DAILY amlodipine 10 mg tablet 1 tab PO DAILY lidocaine 4 % adhesive patch,medicated 1 patch topical DAILY PRN (Reason: pain) Qty: 10 0RF Rx Instructions: may leave on for up to 12 hrs prednisone 20 mg tablet 40 mg PO DAILY 5 Days Qty: 10 0RF dexamethasone 6 mg tablet 6 mg PO DAILY 3 Days Qty: 3 0RF ketorolac 10 mg tablet 10 mg PO Q6H 5 Days Qty: 20 0RF amoxicillin-pot clavulanate 875-125 mg tablet 1 tab PO BID 7 Days Qty: 14 0RF fluticasone propionate [Flonase Allergy Relief] 50 mcg/actuation spray,suspension 1 spray intranasal DAILY Qty: 16 0RF Rx Instructions: administer into each nostril Paxlovid 300 mg (150 mg x 2)-100 mg tablet See Rx Instructions .ROUTE .COMPLEX Qty: 30 0RF Rx Instructions: take TWO 150 mg tablets of nirmatrelvir with ONE 100 mg tablet of ritonavir twice daily for 5 days ketorolac 10 mg tablet 10 mg PO Q8H Qty: 20 0RF naproxen 500 mg tablet 500 mg PO BID PRN (Reason: pain) Qty: 30 0RF meloxicam 15 mg tablet 15 mg PO DAILY Qty: 20 0RF gabapentin 300 mg capsule 300 mg PO TID Qty: 30 0RF methocarbamol 750 mg tablet 750 mg PO Q8H PRN (Reason: muscle pain) Qty: 14 0RF lidocaine 5 % adhesive patch,medicated 1 patch topical DAILY Qty: 30 0RF Rx Instructions: leave on most painful area for up to 12 hrs naproxen 500 mg tablet 500 mg PO Q8-12H PRN (Reason: pain (scale score 4-6)) Qty: 14 0RF cyclobenzaprine 10 mg tablet 10 mg PO BEDTIME PRN (Reason: muscle spasm) Qty: 7 0RF Paxlovid 300 mg (150 mg x 2)-100 mg tablets,dose pack See Rx Instructions .ROUTE .COMPLEX Qty: 30 0RF Rx Instructions: take TWO 150 mg tablets of nirmatrelvir with ONE 100 mg tablet of ritonavir twice daily for 5 days diclofenac sodium 75 mg tablet,delayed release (DR/EC) 75 mg PO BID PRN (Reason: pain) Qty: 60 0RF Referrals: [facility] [Provider Group] Print Language: Romanian
[2023-12-19 08:49] LABS: COVID-19 Test Negative (Negative); IDNOW Serial# 08D9AD1C
[2023-12-19 09:12] VITALS: BP 151/107; PULSE 72; RESP 16; TEMP 36.4; O2SAT 97
== END 2023-12-19 09:13 | disposition home or self-care (01) ==
PROVIDERS: Emergency Provider Emergency Medicine; PCP Student in an Organized Health Care Education/Training Program
DX: G89.29 Other chronic pain (principal); M54.50 Low back pain, unspecified; Z11.52 Encounter for screening for COVID-19; I10 Essential (primary) hypertension; Z79.899 Other long term (current) drug therapy
CPT/HCPCS: 87635; 99282; 99283

== ENCOUNTER 2024-01-23 13:14 | Outpatient (AMB) | payer OTHER, SELFPAY ==
--- NOTE | 2024-01-23 13:19 | A.OFFVIS_ITS ---
Vital Signs 01/23/24 13:25 Height 5 ft 6 in Weight 280 lb BMI 45.2 BP 170/96 H Blood Pressure Location Lt brachial Position Sitting Respiration 16 Pulse 72 Pulse Source Pulse Oximeter Pulse Oximetry (%) 97 Oxygen Delivery Method Room Air Intake Visit Reasons: LOW BACK PAIN/ED REFERRAL Intake Note: Patient comes in for low back pain. Reports pain 9/10. Allergies aspirin [ASA] Allergy (Intermediate, Verified 01/23/24 13:24) Dizziness HPI Comments Details: Higher him is very pleasant 54 years old gentleman who is under my observation for long period of time.? He received L4-5 transforaminal epidural steroid injection on the right 2 years ago with me. He reported after the procedure 80% pain improvement. He reported today that for 1 year after the injection he had maintain this 80% pain improvement. After that the pain was starting to come back however it was more less easily to be managed with oral NSAIDs and Tylenol. Now patient states that the pain became unbearable again. He wants me to perform the injection as it was done before here. I agreed to perform the injection I will schedule him for the procedure accordingly. He wants to have this procedure done under sedation under anesthesiologist care. He is also reporting that he is trying to lose weight. I encouraged him to continue into this direction. He also complained today on pain in the right shoulder. On physical exam he can not lift the arm above the shoulder line. Very likely shoulder osteoarthritis on the right. I will send him for x-ray and then I will see him in 3 weeks to evaluate his shoulder condition. [facility] Medical History COVID-19 vaccine series completed Renal calculi MRSA (methicillin resistant Staphylococcus aureus) Disc degeneration, lumbar Spondylosis of lumbar spine Cholecystectomy planned Anxiety HTN (hypertension) Surgical History Hx of cholecystectomy Hx of cystoscopy Social History Are you a primary medical care manager to a significant other at home: No Do you presently have visiting nurse or other home services: No Alcohol intake: never Patient Tobacco Use Status: Never used Tobacco Review of Systems Const All systems reviewed & are unremarkable except as noted in HPI and below Neuro Denies confusion and Denies Sensory deficit (Neuro) Psych Denies confusion Physical Exam Vital Signs: Last Vital Signs Pulse 72 01/23/24 13:25 Resp 16 01/23/24 13:25 BP 170/96 H 01/23/24 13:25 Pulse Ox 97 01/23/24 13:25 Oxygen Delivery Method Room Air 01/23/24 13:25 BMI result Body Mass Index 45.2 Const General: No confusion Orientation/consciousness: No confusion Eyes Pupils: Equal, round and reactive pupils present EOM: EOMs intact bilaterally Chest Chest palpation & inspection: normal inspection of the chest Resp Effort & Inspection: normal respiratory effort, able to speak in complete sentences, normal respiratory pattern, no audible wheezes and no cough Cardio Jugular venous distension: no JVD Back/Spine/Pelvis Other: Left knee is tender on palpation. Lower right knee tender on palpation. There is significant tenderness to palpation of entire lumbar spine. He is able to flex lumbar spine forward only to 30?. Unable to flex backward. He reports increasing weakness in bilateral lower extremities. Denies incontinence with urine and/or stool. He denies Valsalva maneuver positive for pain increase. SLR is positive for pain in the back radiating to the level of the knee. [place] is positive for pain increase bilaterally more on the right. Bilateral lateral rotation of the hip results in trochanteric pain but not pain in the groin. Neuro General: No confusion Cranial nerves: Yes Equal, round and reactive pupils present Sensory Exam: No Sensory deficit (Neuro) Extrem Other: On physical exam of the right shoulder range of motion is limited, unable to lift arm above the shoulder line. Psych Speech and movement: Normal speech and movement present Affect: normal affect Attitude: cooperative Thought process: Normal thought process present Thought content: Normal thought content present Insight: Good insight present (Psych) Judgement: Good judgement present (Psych) Results Reviewed Results Reviewed: MRI of the lumbar spine was obtained using routine sequences without contrast. FINDINGS: VERTEBRAL BODIES AND PARASPINAL STRUCTURES: Chronic fatty marrow degenerative endplate changes and significant disc space narrowing evident at L5-S1. There is a minimal posterior subluxation at L4-L5. No compression fractures are seen. The paraspinal soft tissues are unremarkable. There are mild degenerative changes of the left sacroiliac joint. The prostate gland is mildly enlarged, measuring 4.4 x 3.2 cm on the nondiagnostic lateral localizer acquisition. CONUS MEDULLARIS AND CAUDA EQUINA: Normal, terminating at the level of T12. No lower cord signal normality is seen. The cauda equina nerve roots appear normal. SPINAL LEVELS: L1-L2: No disc pathology. No central canal stenosis or foraminal narrowing. L2-L3: Well-hydrated disc without central canal stenosis or foraminal narrowing. L3-L4: Mild endplate spurring and minimal annular bulge. No central canal stenosis. Mild foraminal narrowing. L4-L5: Broad-based central disc protrusion with mild impression upon the ventral thecal sac, also abutting the traversing L5 nerve roots. Mild facet arthropathy. No central canal stenosis. Moderate foraminal narrowing, more so on the right side. L5-S1: Severe loss of disc height and mild disc bulge with facet arthropathy. No central canal stenosis. Mild bilateral foraminal narrowing. IMPRESSION: 1. Broad-based central disc protrusion at L4-L5 with mild impression upon the ventral thecal sac and L5 nerve roots. Moderate bilateral foraminal narrowing without central canal stenosis. ? 2. Severe chronic degenerative disc disease at L5-S1 without central canal stenosis. Mild foraminal narrowing at this level. ? 3. Incidental prostatomegaly. ? Assessment & Plan Assessment & Plan (1) Right shoulder pain: Code(s): M25.511 - Pain in right shoulder Category: Medical (2) Osteoarthritis of right shoulder: Code(s): M19.011 - Primary osteoarthritis, right shoulder Category: Medical (3) Spondylosis of lumbar spine: Code(s): M47.816 - Spondylosis without myelopathy or radiculopathy, lumbar region Category: Medical Plan: Good results for past 35 days he is with 80% pain relief from transforaminal bilateral L4-5 epidural steroid injection. He received this under sedation. Next procedure is needed when his pain will come back. I will schedule this patient for bilateral transforaminal epidural steroid injection L4-5. He reports that he insists that the procedure will be done under sedation. He does not have to schedule an extra appointment with me. He wants to receive the injection he just need to give us a call and we will pre approved with his insurance company. (4) Disc degeneration, lumbar: Code(s): M51.36 - Other intervertebral disc degeneration, lumbar region Category: Medical (5) Radiculopathy, lumbar region: Code(s): M54.16 - Radiculopathy, lumbar region Category: Medical Plan I will schedule this patient for repeated right-sided L4-5 transforaminal epidural steroid injection under minimal sedation in the operating room. I also will schedule him for x-ray of the right shoulder. I will see him in 3 weeks to evaluate right shoulder problem. When his insurance will approve transforaminal epidural steroid injection I will perform the procedure and will see patient in 1 month after the procedure. Orders: Orders XR shoulder RT min 2V Today M19.011 - Primary osteoarthritis, right shoulder, M25.511 - Pain in right shoulder Coding Level of Care Code Est Pt Level 3 (43670) Diagnoses Right shoulder pain M25.511 Osteoarthritis of right shoulder M19.011 Spondylosis of lumbar spine M47.816 Disc degeneration, lumbar M51.36 Radiculopathy, lumbar region M54.16
[2024-01-23 13:25] VITALS: BP 170/96; PULSE 72; RESP 16; O2SAT 97; BMI 45.2
== END 2024-01-23 13:34 | disposition home or self-care (01) ==
PROVIDERS: PCP Student in an Organized Health Care Education/Training Program; Visit Provider Anesthesiology
DX: M25.511 Pain in right shoulder (principal); M19.011 Primary osteoarthritis, right shoulder; M47.816 Spondylosis without myelopathy or radiculopathy, lumbar region; M51.36 Other intervertebral disc degeneration, lumbar region; M54.16 Radiculopathy, lumbar region
CPT/HCPCS: 99213

== ENCOUNTER → 2024-01-23 13:14 | Outpatient (BNVA) | payer OTHER, SELFPAY | PROVIDERS: PCP Student in an Organized Health Care Education/Training Program; Visit Provider Anesthesiology | DX: M25.511 Pain in right shoulder (principal); M19.011 Primary osteoarthritis, right shoulder; M51.36 Other intervertebral disc degeneration, lumbar region; M47.816 Spondylosis without myelopathy or radiculopathy, lumbar region; M54.16 Radiculopathy, lumbar region | CPT/HCPCS: 99212 ==

== ENCOUNTER 2024-02-12 08:41 | Outpatient (REF) | payer OTHER, SELFPAY ==
--- NOTE | ~2024-02-12 | XR_ITS ---
EXAMINATION: XR SHOULDER, RIGHT CLINICAL INFORMATION: Primary osteoarthritis right shoulder COMPARISON: None available. TECHNIQUE: AP external rotation, Grashey, scapular Y, and axillary views of the right shoulder. FINDINGS: Mild osteoarthritis of the acromioclavicular joint. Glenohumeral joint normal. Surrounding bone and soft tissues unremarkable. XR/XR shoulder RT min 2V IMPRESSION: Mild osteoarthritis of the acromioclavicular joint. Electronically signed by: Umang Johnson MD 02/18/2024 01:24 PM EDT RP
== END 2024-02-12 08:42 | disposition home or self-care (01) ==
LOC: HO.XRAY 08:41
PROVIDERS: PCP Student in an Organized Health Care Education/Training Program; Visit Provider Anesthesiology
DX: M19.011 Primary osteoarthritis, right shoulder (principal)
CPT/HCPCS: 73030

== ENCOUNTER 2024-02-22 07:02 | Emergency (ER) | payer OTHER, SELFPAY ==
--- NOTE | ~2024-02-22 | US_ITS ---
EXAMINATION: RIGHT LOWER EXTREMITY DEEP VENOUS ULTRASOUND CLINICAL INFORMATION: Pain COMPARISON: Bilateral lower extremity DVT study August 11, 2022 TECHNIQUE: Duplex Doppler imaging with compression maneuvers were performed of the right lower extremity deep venous system. Examination is limited secondary to patient body habitus. FINDINGS: The visualized common femoral, femoral and popliteal veins demonstrate normal compressibility and color flow without evidence of venous thrombosis. Visualized portions of the calf veins demonstrate normal color fill-in suggesting patency. There is no evidence of a Funk's cyst. US/US venous duplex LE RT IMPRESSION: No evidence of deep venous thrombosis involving the right lower extremity. Electronically signed by: Noman Kaplan MD 02/22/2024 08:30 AM EDT
--- NOTE | ~2024-02-22 | XR_ITS ---
EXAMINATION: XR KNEE, RIGHT CLINICAL INFORMATION: Pain after injury one week ago COMPARISON: Bilateral knee radiographs August 20, 2018 TECHNIQUE: Four views of the right knee. FINDINGS: No fracture or dislocation. Small suprapatellar joint effusion. Joint spaces are well-maintained. Tiny tricompartmental marginal osteophytes. Soft tissue calcifications of the medial knee. No localized soft tissue swelling. XR/XR knee RT 3V IMPRESSION: Small suprapatellar joint effusion with mild degenerative changes of the right knee. Electronically signed by: Noman Kaplan MD 02/22/2024 07:38 AM EDT
[2024-02-22 07:04] VITALS: BP 186/91; PULSE 69; RESP 18; TEMP 36.6; O2SAT 99; BMI 45.1
--- NOTE | 2024-02-22 07:17 | ED.LOWEXIN ---
HPI - Extremity Injury (Lower) General Chief Complaint: Extremity Injury, Lower Stated Complaint: r leg pain Time Seen by Provider: 02/22/24 07:11 Source: patient Mode of arrival: ambulatory Limitations: no limitations History of Present Illness HPI Narrative: Is told the male presented to the emergency is localized in the right knee right calf. Pain is been ongoing for about a week no injury. Denies any systemic symptoms such as fever or chills vomiting Onset (ago): week(s) (1) Place: home Severity: moderate Relieving factors: nothing Exacerbating factors: movement Associated symptoms: snap/pop sensation Other symptoms: none Related Data Home Medications ?Medication ?Instructions ?Recorded ?Confirmed acetaminophen 325 mg tablet 650 mg PO 05/21/21 amitriptyline 50 mg tablet 1 tab PO BEDTIME 05/21/21 05/21/21 cetirizine 10 mg tablet 1 tab PO DAILY 05/21/21 05/21/21 chlorthalidone 50 mg tablet 1 tab PO DAILY 05/21/21 05/21/21 cholecalciferol (vitamin D3) 25 1 cap PO DAILY 05/21/21 05/21/21 mcg (1,000 unit) capsule cyclobenzaprine 10 mg tablet 1 tab PO TID 05/21/21 05/21/21 gabapentin 100 mg capsule 1 cap PO DAILY 05/21/21 05/21/21 hydroxyzine HCl 50 mg tablet 1 tab PO BEDTIME 05/21/21 05/21/21 losartan 50 mg tablet 1 tab PO DAILY 05/21/21 05/21/21 amlodipine 10 mg tablet 1 tab PO DAILY 05/25/21 05/25/21 Previous Rx's ?Medication ?Instructions ?Recorded oseltamivir 75 mg capsule 75 mg PO BID 5 days #10 caps 12/30/20 prednisone 20 mg tablet 40 mg (2 x 20 mg) PO DAILY 5 days 12/30/20 #10 tabs acetaminophen 325 mg capsule 325 mg PO QID PRN pain #28 caps 01/22/21 (Tylenol) cyclobenzaprine 10 mg tablet 10 mg PO TID PRN pain #18 tabs 01/22/21 lidocaine 4 % topical patch 1 patch topical DAILY PRN pain #10 08/29/21 ea prednisone 20 mg tablet 40 mg (2 x 20 mg) PO DAILY 5 days 08/29/21 #10 tabs dexamethasone 6 mg tablet 6 mg PO DAILY 3 days #3 tabs 09/07/21 ketorolac 10 mg tablet 10 mg PO Q6H 5 days #20 tabs 09/07/21 amoxicillin 875 mg-potassium 1 tab PO BID 7 days #14 tabs 10/24/21 clavulanate 125 mg tablet fluticasone propionate 50 1 spray intranasal DAILY #16 grams 10/24/21 mcg/actuation nasal spray,suspension (Flonase Allergy Relief) nirmatrelvir 300 mg (150 mg See Rx Instructions PO .COMPLEX 11/18/21 x2)-ritonavir 100 mg tablet,dose #30 tabs pack (Paxlovid) ketorolac 10 mg tablet 10 mg PO Q8H #20 tabs 03/30/22 hctvenlsos-zqbbedlizxrsq-opiimqls 1 cap PO Q4-6H PRN headache #14 04/21/22 50 mg-300 mg-40 mg capsule caps (Fioricet) cyclobenzaprine 5 mg tablet 5 mg PO Q8H PRN pain (scale score 04/21/22 7-10) 5 days #14 tabs nitrofurantoin 100 mg PO Q12H 7 days #14 caps 05/23/22 monohydrate/macrocrystals 100 mg capsule (Macrobid) oxycodone 5 mg tablet 5 mg PO Q6H PRN pain #10 tabs 06/17/22 diclofenac sodium 75 mg 75 mg PO BID PRN pain #60 tabs 07/11/22 tablet,delayed release naproxen 500 mg tablet 500 mg PO BID PRN pain #30 tabs 12/14/22 gabapentin 300 mg capsule 300 mg PO TID #30 caps 12/26/22 lidocaine 5 % topical patch 1 patch topical DAILY #30 ea 12/26/22 meloxicam 15 mg tablet 15 mg PO DAILY #20 tabs 12/26/22 methocarbamol 750 mg tablet 750 mg PO Q8H PRN muscle pain #14 12/26/22 tabs cyclobenzaprine 10 mg tablet 10 mg PO BEDTIME PRN muscle spasm 04/17/23 #7 tabs naproxen 500 mg tablet 500 mg PO Q8-12H PRN pain (scale 04/17/23 score 4-6) #14 tabs nirmatrelvir 300 mg (150 mg See Rx Instructions PO .COMPLEX 11/03/23 x2)-ritonavir 100 mg tablet,dose #30 ea pack (Paxlovid) morphine 15 mg immediate release 15 mg PO Q8H PRN pain #14 tabs 12/19/23 tablet prednisone 20 mg tablet 40 mg (2 x 20 mg) PO DAILY 5 days 12/19/23 #10 tabs oxycodone 5 mg capsule 5 mg PO Q8H PRN pain #12 caps 02/22/24 Allergies Allergy/AdvReac Type Severity Reaction Status Date / Time aspirin [ASA] Allergy Intermediate Dizziness Verified 02/22/24 07:07 Review of Systems Constitutional: Constitutional: Reports no additional constitutional complaints ENT: Reports system reviewed and no additional complaints, except as documented Respiratory: Respiratory: Reports no additional respiratory complaints [facility]LY [facility], [facility] Past Medical History FOR[facility]LY [facility], [facility]1983 Narrative: History of hypertension, history of chronic lower back pain history of depression anxiety Medical History COVID-19 vaccine series completed Renal calculi MRSA (methicillin resistant Staphylococcus aureus) Disc degeneration, lumbar Spondylosis of lumbar spine Cholecystectomy planned Anxiety HTN (hypertension) Surgical History Hx of cholecystectomy Hx of cystoscopy Social History Social History Are you a primary cardiac care unit nurse to a significant other at home: No Do you presently have visiting nurse or other home services: No Alcohol intake: never Patient Tobacco Use Status: Never used Tobacco Advance Directives: No Advance Directives Information Provided: No Do you have a plan to hurt others: No Plan Physical Exam Vital Signs: Vital Signs: Last Vital Signs Temp 97.2 F 02/22/24 08:34 Pulse 63 02/22/24 08:34 Resp 16 02/22/24 08:34 BP 166/94 H 02/22/24 08:34 Pulse Ox 96 02/22/24 08:34 O2 Del Method Room Air 02/22/24 08:34 BMI result Body Mass Index 45.1 Const: Other: Patient looks well no toxic-appearing General: cooperative, comfortable and no acute distress Nutritional Appearance: average body habitus Orientation/consciousness: patient oriented x3 Limitations: no limitations HEENT: Head: Yes normal to inspection General nose exam: Normal external nose present Face and sinus: Yes normal facial exam Mouth: Normal oral and palatal mucosa present Neck: Neck: Yes normal visual inspection Chest: Chest palpation & inspection: normal inspection of the chest Resp: Effort & Inspection: normal respiratory effort Auscultation: clear to auscultation bilaterally Cardio: Jugular venous distension: no JVD Rate: regular rate Rhythm: regular rhythm GI: Inspection: Yes normal to inspection Palpation (GI): Soft to palpation, not firm, nontender and no guarding Auscultation: normal bowel sounds Skin: General skin exam: no rashes or lesions noted, elasticity normal and turgor normal Lesions: no lesions Rashes: no rashes Neuro: General: patient oriented x3 Cranial nerves: Yes CN's II-XII intact bilaterally Gait exam (Neuro): Normal gait present Motor exam (neuro): 5/5 motor strength present throughout Extrem: Other: Examination of the lower extremity shows no deformity in the right lower extremity, he has good pulses he has mild tenderness in the calf Course Reevaluation(s) Reevaluation #1: X-ray of the knee no fracture ultrasound no DVT anticipate discharge Time: 08:26 Reevaluation #2: Ultrasound no DVT anticipate discharge Time: 08:35 Medical Decision Making Medical Decision Making MDM Narrative: Patient is here complaining of right leg pain for about a week we will get an ultrasound to rule out DVT knee x-ray of the right knee Differential Diagnosis Differential Diagnoses: The differential diagnosis associated with the presentation includes DVT, tibial plateau fracture/musculoskeletal pain Admission/Observation Consideration of admission/observation: Escalation of care including admission/observation considered Independent Interpretation I performed an independent interpretation of an: Plain X-Ray and Ultrasound Interpretation: I personally reviewed interpreted the ultrasound as no DVT and x-ray as no acute fracture Radiology Impression Discussion of test interpretation with radiology: I have reviewed the radiologist's reading. Chronic Conditions Patient?s care impacted by: Hypertension Discharge Plan Discharge Clinical Impression: Leg pain Qualifiers: Laterality: right Qualified Code(s): M79.604 - Pain in right leg Patient Disposition: Home, Self-Care Instructions: Leg Pain (ED) Prescriptions: New oxycodone 5 mg capsule 5 mg PO Q8H PRN (Reason: pain) Qty: 12 0RF Rx Instructions: Partial Fill upon patient request. No Action oseltamivir 75 mg capsule 75 mg PO BID 5 Days Qty: 10 0RF prednisone 20 mg tablet 40 mg PO DAILY 5 Days Qty: 10 0RF bengspmljq-delacuvnkqnyi-buxa [Fioricet] 50-300-40 mg capsule 1 cap PO Q4-6H PRN (Reason: headache) Qty: 14 0RF cyclobenzaprine 5 mg tablet 5 mg PO Q8H PRN (Reason: pain (scale score 7-10)) 5 Days Qty: 14 0RF nitrofurantoin monohyd/m-cryst [Macrobid] 100 mg capsule 100 mg PO Q12H 7 Days Qty: 14 0RF Rx Instructions: must administer with a meal/food oxycodone 5 mg tablet 5 mg PO Q6H PRN (Reason: pain) Qty: 10 0RF Rx Instructions: Partial Fill upon patient request. cyclobenzaprine 10 mg tablet 10 mg PO TID PRN (Reason: pain) Qty: 18 0RF Rx Instructions: side effect is drowsiness. Do not take at work or while driving. acetaminophen [Tylenol] 325 mg capsule 325 mg PO QID PRN (Reason: pain) Qty: 28 0RF losartan 50 mg tablet 1 tab PO DAILY cyclobenzaprine 10 mg tablet 1 tab PO TID acetaminophen 325 mg tablet 650 mg PO cetirizine 10 mg tablet 1 tab PO DAILY hydroxyzine HCl 50 mg tablet 1 tab PO BEDTIME chlorthalidone 50 mg tablet 1 tab PO DAILY amitriptyline 50 mg tablet 1 tab PO BEDTIME gabapentin 100 mg capsule 1 cap PO DAILY cholecalciferol (vitamin D3) 25 mcg (1,000 unit) capsule 1 cap PO DAILY amlodipine 10 mg tablet 1 tab PO DAILY lidocaine 4 % adhesive patch,medicated 1 patch topical DAILY PRN (Reason: pain) Qty: 10 0RF Rx Instructions: may leave on for up to 12 hrs prednisone 20 mg tablet 40 mg PO DAILY 5 Days Qty: 10 0RF dexamethasone 6 mg tablet 6 mg PO DAILY 3 Days Qty: 3 0RF ketorolac 10 mg tablet 10 mg PO Q6H 5 Days Qty: 20 0RF amoxicillin-pot clavulanate 875-125 mg tablet 1 tab PO BID 7 Days Qty: 14 0RF fluticasone propionate [Flonase Allergy Relief] 50 mcg/actuation spray,suspension 1 spray intranasal DAILY Qty: 16 0RF Rx Instructions: administer into each nostril Paxlovid 300 mg (150 mg x 2)-100 mg tablet See Rx Instructions .ROUTE .COMPLEX Qty: 30 0RF Rx Instructions: take TWO 150 mg tablets of nirmatrelvir with ONE 100 mg tablet of ritonavir twice daily for 5 days ketorolac 10 mg tablet 10 mg PO Q8H Qty: 20 0RF naproxen 500 mg tablet 500 mg PO BID PRN (Reason: pain) Qty: 30 0RF meloxicam 15 mg tablet 15 mg PO DAILY Qty: 20 0RF gabapentin 300 mg capsule 300 mg PO TID Qty: 30 0RF methocarbamol 750 mg tablet 750 mg PO Q8H PRN (Reason: muscle pain) Qty: 14 0RF lidocaine 5 % adhesive patch,medicated 1 patch topical DAILY Qty: 30 0RF Rx Instructions: leave on most painful area for up to 12 hrs naproxen 500 mg tablet 500 mg PO Q8-12H PRN (Reason: pain (scale score 4-6)) Qty: 14 0RF cyclobenzaprine 10 mg tablet 10 mg PO BEDTIME PRN (Reason: muscle spasm) Qty: 7 0RF Paxlovid 300 mg (150 mg x 2)-100 mg tablets,dose pack See Rx Instructions .ROUTE .COMPLEX Qty: 30 0RF Rx Instructions: take TWO 150 mg tablets of nirmatrelvir with ONE 100 mg tablet of ritonavir twice daily for 5 days prednisone 20 mg tablet 40 mg PO DAILY 5 Days Qty: 10 0RF morphine 15 mg tablet 15 mg PO Q8H PRN (Reason: pain) Qty: 14 0RF Rx Instructions: Partial Fill upon patient request. diclofenac sodium 75 mg tablet,delayed release (DR/EC) 75 mg PO BID PRN (Reason: pain) Qty: 60 0RF Referrals: Omer Hanna MD [Physician] - 2 days Interventions: ED Discharge Assessment Last Done: 02/22/24 08:34 Discharge Date/Time: 02/22/24 08:35 Print Language: Swiss
[2024-02-22 08:34] VITALS: BP 166/94; PULSE 63; RESP 16; TEMP 36.2; O2SAT 96
== END 2024-02-22 08:35 | disposition home or self-care (01) ==
PROVIDERS: Emergency Provider Emergency Medicine; PCP Student in an Organized Health Care Education/Training Program
DX: M79.604 Pain in right leg (principal); R60.0 Localized edema; M25.561 Pain in right knee; Z79.899 Other long term (current) drug therapy
CPT/HCPCS: 73562; 93971; 99282; 99283

== ENCOUNTER 2024-03-11 09:14 | Outpatient (AMB) | payer OTHER, SELFPAY ==
--- NOTE | 2024-03-11 09:23 | MHC.OFFVIS ---
Vital Signs 03/11/24 09:42 Height 5 ft 6 in Weight 285 lb BMI 46.0 BP 160/70 H Blood Pressure Location Lt brachial Position Sitting Respiration 17 Pulse 67 Pulse Source Pulse Oximeter Pulse Oximetry (%) 97 Oxygen Delivery Method Room Air Intake Visit Reasons: Shoulder F/U Intake Note: Patient comes in for follow up. Reports pain 12/05. Allergies aspirin [ASA] Allergy (Intermediate, Verified 03/11/24 09:43) Dizziness HPI Comments Details: Naman is very pleasant 54 years old gentleman who is under my observation for long period of time.? He received L4-5 transforaminal epidural steroid injection on the right 2 years ago with me. He reported after the procedure 80% pain improvement. He reported today that for 1 year after the injection he had maintain this 80% pain improvement. After that the pain was starting to come back however it was more less easily to be managed with oral NSAIDs and Tylenol. I schedule him for repeat transforaminal epidural steroid injection as above however he was lost for the follow-up of were not able to contact him. We will today connect him with our or schedule her and I will schedule this injection. He was sent for x-ray of the right shoulder and results dictated as below. The AC joint arthritis is very prominent and glenohumeral joint is intact. I offered him in 1 month after the transforaminal epidural steroid injection to perform image guided AC joint injection onto his right shoulder. He is also reporting that he is trying to lose weight. I encouraged him to continue into this direction. [facility] Medical History COVID-19 vaccine series completed Renal calculi MRSA (methicillin resistant Staphylococcus aureus) Disc degeneration, lumbar Spondylosis of lumbar spine Cholecystectomy planned Anxiety HTN (hypertension) Surgical History Hx of cholecystectomy Hx of cystoscopy Social History Are you a primary health care law specialist to a significant other at home: No Do you presently have visiting nurse or other home services: No Alcohol intake: never Patient Tobacco Use Status: Never used Tobacco Review of Systems Const All systems reviewed & are unremarkable except as noted in HPI and below Neuro Denies confusion and Denies Sensory deficit (Neuro) Psych Denies confusion Physical Exam Vital Signs: Last Vital Signs Pulse 67 03/11/24 09:42 Resp 17 03/11/24 09:42 BP 160/70 H 03/11/24 09:42 Pulse Ox 97 03/11/24 09:42 Oxygen Delivery Method Room Air 03/11/24 09:42 BMI result Body Mass Index 46.0 Const General: No confusion Orientation/consciousness: No confusion Eyes Pupils: Equal, round and reactive pupils present EOM: EOMs intact bilaterally Chest Chest palpation & inspection: normal inspection of the chest Resp Effort & Inspection: normal respiratory effort, able to speak in complete sentences, normal respiratory pattern, no audible wheezes and no cough Cardio Jugular venous distension: no JVD Back/Spine/Pelvis Other: Left knee is tender on palpation. Lower right knee tender on palpation. There is significant tenderness to palpation of entire lumbar spine. He is able to flex lumbar spine forward only to 30?. Unable to flex backward. He reports increasing weakness in bilateral lower extremities. Denies incontinence with urine and/or stool. He denies Valsalva maneuver positive for pain increase. SLR is positive for pain in the back radiating to the level of the knee. [place] is positive for pain increase bilaterally more on the right. Bilateral lateral rotation of the hip results in trochanteric pain but not pain in the groin. Neuro General: No confusion Cranial nerves: Yes Equal, round and reactive pupils present Sensory Exam: No Sensory deficit (Neuro) Extrem Other: On physical exam of the right shoulder range of motion is limited, unable to lift arm above the shoulder line. Psych Speech and movement: Normal speech and movement present Affect: normal affect Attitude: cooperative Thought process: Normal thought process present Thought content: Normal thought content present Insight: Good insight present (Psych) Judgement: Good judgement present (Psych) Results Reviewed Results Reviewed: ADM Date: 02/12/24 Right shoulder x-ray Mild osteoarthritis of the acromioclavicular joint. Glenohumeral joint normal. Surrounding bone and soft tissues unremarkable. Assessment & Plan Assessment & Plan (1) Right shoulder pain: Code(s): M25.511 - Pain in right shoulder Category: Medical (2) Osteoarthritis of right shoulder: Code(s): M19.011 - Primary osteoarthritis, right shoulder Category: Medical (3) Spondylosis of lumbar spine: Code(s): M47.816 - Spondylosis without myelopathy or radiculopathy, lumbar region Category: Medical Plan: We were able today to schedule him for repeat transforaminal epidural steroid injection which was very helpful for his pain relief in the back. One month after this procedure I will schedule him for right acromioclavicular joint injection. Follow-up will be as needed. (4) Disc degeneration, lumbar: Code(s): M51.36 - Other intervertebral disc degeneration, lumbar region Category: Medical (5) Radiculopathy, lumbar region: Code(s): M54.16 - Radiculopathy, lumbar region Category: Medical Plan I will schedule this patient for repeated right-sided L4-5 transforaminal epidural steroid injection under minimal sedation in the operating room. I also will schedule him for x-ray of the right shoulder. I will see him in 3 weeks to evaluate right shoulder problem. When his insurance will approve transforaminal epidural steroid injection I will perform the procedure and will see patient in 1 month after the procedure. Coding Level of Care Code Est Pt Level 3 (53966) Diagnoses Right shoulder pain M25.511 Osteoarthritis of right shoulder M19.011 Spondylosis of lumbar spine M47.816 Disc degeneration, lumbar M51.36 Radiculopathy, lumbar region M54.16
[2024-03-11 09:42] VITALS: BP 160/70; PULSE 67; RESP 17; O2SAT 97; BMI 46.0
== END 2024-03-11 10:09 | disposition home or self-care (01) ==
PROVIDERS: PCP Student in an Organized Health Care Education/Training Program; Visit Provider Anesthesiology
DX: M25.511 Pain in right shoulder (principal); M19.011 Primary osteoarthritis, right shoulder; M47.816 Spondylosis without myelopathy or radiculopathy, lumbar region; M51.369 Other intervertebral disc degeneration, lumbar region without mention of lumbar back pain or lower extremity pain; M54.16 Radiculopathy, lumbar region
CPT/HCPCS: 99213

== ENCOUNTER → 2024-03-11 09:14 | Outpatient (BNVA) | payer OTHER, SELFPAY | PROVIDERS: PCP Student in an Organized Health Care Education/Training Program; Visit Provider Anesthesiology | DX: M25.511 Pain in right shoulder (principal); M19.011 Primary osteoarthritis, right shoulder; M51.369 Other intervertebral disc degeneration, lumbar region without mention of lumbar back pain or lower extremity pain; M47.816 Spondylosis without myelopathy or radiculopathy, lumbar region; M54.16 Radiculopathy, lumbar region | CPT/HCPCS: 99212 ==

== ENCOUNTER → 2024-04-02 11:48 | Day surgery (SDC) | payer MEDICARE, SELFPAY ==
--- NOTE | 2024-04-01 10:57 | HO.ANESPROP2 ---
HPI - Anesthesia Eval Consult details Narrative: 58yo M for Right L4 - L5 Transforaminal Epidural Steriod Injection PMFSH Active Problems Active Problems: All Active Problems Radiculopathy, lumbar region (Acute) Right shoulder pain (Acute) Osteoarthritis of right shoulder (Acute) Right ankle sprain (Acute) COVID-19 (Acute) Chronic low back pain (Acute) Depression (Acute) Hypertension (Acute) Disc degeneration, lumbar (Acute) Spondylosis of lumbar spine (Acute) Past Medical History Medical History COVID-19 vaccine series completed Renal calculi MRSA (methicillin resistant Staphylococcus aureus) Disc degeneration, lumbar Spondylosis of lumbar spine Cholecystectomy planned Anxiety HTN (hypertension) Family History Family history of problems with anesthesia: No Surgical History Surgical History Hx of cholecystectomy Hx of cystoscopy History of Problems with Anesthesia: No Social History Social History Are you a primary workforce investment act career manager to a significant other at home: No Do you presently have visiting nurse or other home services: No Alcohol intake: never Patient Tobacco Use Status: Never used Tobacco Meds Allergies Allergy/AdvReac Type Severity Reaction Status Date / Time aspirin [ASA] Allergy Intermediate Dizziness Verified 03/11/24 09:43 Home Medications ?Medication ?Instructions ?Recorded ?Confirmed ?Last Taken ?Type acetaminophen 325 mg tablet 650 mg PO 05/21/21 Unknown History amitriptyline 50 mg tablet 1 tab PO BEDTIME 05/21/21 05/21/21 Unknown History cetirizine 10 mg tablet 1 tab PO DAILY 05/21/21 05/21/21 Unknown History chlorthalidone 50 mg tablet 1 tab PO DAILY 05/21/21 05/21/21 Unknown History cholecalciferol (vitamin D3) 25 1 cap PO DAILY 05/21/21 05/21/21 Unknown History mcg (1,000 unit) capsule cyclobenzaprine 10 mg tablet 1 tab PO TID 05/21/21 05/21/21 Unknown History gabapentin 100 mg capsule 1 cap PO DAILY 05/21/21 05/21/21 Unknown History hydroxyzine HCl 50 mg tablet 1 tab PO BEDTIME 05/21/21 05/21/21 Unknown History losartan 50 mg tablet 1 tab PO DAILY 05/21/21 05/21/21 Unknown History amlodipine 10 mg tablet 1 tab PO DAILY 05/25/21 05/25/21 Unknown History Assessment and Plan Assessment Anesthesia Assessment: Chart Reviewed Final Anesthetic Review Family History of Problems with Anesthesia: No History of Problems with Anesthesia: No
--- NOTE | 2024-04-02 12:04 | PC.NURSE ---
patient brought into preop bed 6. Patient stated he had drank coffee with cream at 0700. Dr. Messina at bedside. Patient offered procedure with local anesthesia and refusing at this time. patient will be cancelled and rescheduled.
== END ==
LOC: HO.SSS 11:49
PROVIDERS: PCP Student in an Organized Health Care Education/Training Program; Visit Provider Anesthesiology
DX: M51.360 Other intervertebral disc degeneration, lumbar region with discogenic back pain only (principal); Z53.9 Procedure and treatment not carried out, unspecified reason; M47.816 Spondylosis without myelopathy or radiculopathy, lumbar region

== ENCOUNTER 2024-04-16 11:01 | Day surgery (SDC) | payer MEDICARE, SELFPAY ==
--- NOTE | 2024-04-14 12:28 | P.CONAN_ITS ---
Documented by User: Kay Ortiz NP 04/14/24 12:29 HPI - Anesthesia Eval Consult details Narrative: 58yo M for Right L4-L5 Transforaminal Epidural Steroid Injection PMFSH Active Problems Active Problems: All Active Problems Radiculopathy, lumbar region (Acute) Right shoulder pain (Acute) Osteoarthritis of right shoulder (Acute) Right ankle sprain (Acute) COVID-19 (Acute) Chronic low back pain (Acute) Depression (Acute) Hypertension (Acute) Disc degeneration, lumbar (Acute) Spondylosis of lumbar spine (Acute) Past Medical History Medical History COVID-19 vaccine series completed Renal calculi MRSA (methicillin resistant Staphylococcus aureus) Disc degeneration, lumbar Spondylosis of lumbar spine Cholecystectomy planned Anxiety HTN (hypertension) Family History Family history of problems with anesthesia: No Surgical History Surgical History Hx of cholecystectomy Hx of cystoscopy History of Problems with Anesthesia: No Social History Social History Are you a primary healthcare insurance sales agent to a significant other at home: No Do you presently have visiting nurse or other home services: No Alcohol intake: never Patient Tobacco Use Status: Never used Tobacco Have you been hit, kicked, punched, or otherwise hurt by someone within the past year? If so, by whom?: No Are you DNR?: No Advance Directives: No Advance Directives Information Provided: Yes Recently lost weight without trying: No Meds Allergies Allergy/AdvReac Type Severity Reaction Status Date / Time aspirin [ASA] Allergy Intermediate Dizziness Verified 03/11/24 09:43 Home Medications ?Medication ?Instructions ?Recorded ?Confirmed ?Last Taken ?Type chlorthalidone 50 mg tablet 1 tab PO DAILY 05/21/21 04/16/24 04/15/24 History amlodipine 10 mg tablet 1 tab PO DAILY 05/25/21 04/16/24 04/16/24 History Assessment and Plan Assessment Anesthesia Assessment: Chart Reviewed Final Anesthetic Review Family History of Problems with Anesthesia: No History of Problems with Anesthesia: No Documented by User: Lyly Boudreaux MD 04/16/24 12:42 PMFSH Past Medical History Medical History COVID-19 vaccine series completed Renal calculi MRSA (methicillin resistant Staphylococcus aureus) Disc degeneration, lumbar Spondylosis of lumbar spine Cholecystectomy planned Anxiety HTN (hypertension) Surgical History Surgical History Hx of cholecystectomy Hx of cystoscopy Social History Social History Are you a primary healthcare insurance sales agent to a significant other at home: No Do you presently have visiting nurse or other home services: No Alcohol intake: never Patient Tobacco Use Status: Never used Tobacco Have you been hit, kicked, punched, or otherwise hurt by someone within the past year? If so, by whom?: No Are you DNR?: No Advance Directives: No Advance Directives Information Provided: Yes Recently lost weight without trying: No Meds Allergies Allergy/AdvReac Type Severity Reaction Status Date / Time aspirin [ASA] Allergy Intermediate Dizziness Verified 03/11/24 09:43 Home Medications ?Medication ?Instructions ?Recorded ?Confirmed ?Last Taken ?Type chlorthalidone 50 mg tablet 1 tab PO DAILY 05/21/21 04/16/24 04/15/24 History amlodipine 10 mg tablet 1 tab PO DAILY 05/25/21 04/16/24 04/16/24 History Exam Airway Mallampati Class: II TM Dist: >3cm Neck ROM: Full Heart: rrr Lungs: cta Assessment and Plan Assessment Anesthesia Assessment: Anesthesia Plan Discussed Final Anesthetic Review NPO: Yes ASA Class: II Final Preanesthetic Review: No Changes in Pt Med Stat, Meds/Allgs Chart Reviewed, Consent Obtained/Reviewed and Anes Risks/Benef Reviewed Patient Risk: Intermediate Procedure Risk: Low Anesthetic Plan Anesthetic Plan: MAC: Disposition: Standard PACU
[2024-04-15 13:51] VITALS: BMI 46.2
[2024-04-16] VITALS (9 sets, daily range): BP systolic 121–172; BP diastolic 64–103; PULSE 62–67; RESP 12–20; TEMP 36.2–36.4; O2SAT 96–97; BMI 46.4
[2024-04-16] MEDS: Lactated Ringers 1,000 ML 100 ML IVCONT (12:10)
--- NOTE | 2024-04-16 13:07 | MHC.SHP ---
Pre-Procedural Eval Section A - 24 Hr Update-Section A only Date of Service: 04/16/24 The patient is an INPATIENT: No Changes since office visit: Yes Patient answered all questions The patient has been examined within 24 hours of the surgical procedure. The History & Physical has been completed within 30 days and I have reviewed it.: No Section B - Complete if H&P > 30 days Chief Complaint: Spondylosis without myelopathy or radiculopathy Details of Present Illness: Spondylosis with radiculopathy. Disc degeneration with radiculopathy, radiculopathy lumbar region Relevant Family History (Specify if Yes): No Relevant Social History: None Present Medications: see Short Stay Collaborative assessment Medical History: No relevant PMH History of Previous Operations: No relevant previous surgery Allergies: Allergies Allergy/AdvReac Type Severity Reaction Status Date / Time aspirin [ASA] Allergy Intermediate Dizziness Verified 03/11/24 09:43 Review of Systems Sugical H&P ROS: Negative: Respiratory, Neurological, Hem-Onc, Allergic/Immunologic, Gastrointestinal, Genitourinary, Integumentary, Endocrine and Eyes/Ears/Nose/Throat and Yes, Specify: Constitution (Morbid obesity), Cardiovascular (Hypertension), Psychiatric (Depression) and Musculoskeletal (As above) Exam Surgical H&P Exam: Normal: HEENT, Normal: Heart, Normal: Lungs, Normal: Extremities, Normal: Abdomen, Normal: Skin and Normal: Neurological Plan Diagnosis/Plan: Unchanged I have reviewed the history and physical and performed a pertinent physical examination on my patient. No changes have occurred unless specified. Time Spent With Patient Time: Total time managing care of this patient today ____ minutes.
--- NOTE | 2024-04-16 13:45 | PM.OP ---
Brief Operative Note Date of Service: 04/16/24 Pre-op diagnosis: Radiculopathy lumbar Post-op diagnosis: same Procedure: Transforaminal epidural steroid injection L4-5. Surgeon: Royal Harkins MD Anesthesia: MAC Was an Bed Worker used for this Procedure?: No Estimated blood loss (mL): 1 Condition: stable Disposition: PACU
--- NOTE | 2024-04-16 13:45 | W.PM.OPN ---
Operative Note Operative Note Date of Service: 04/16/24 Narrative: Transforaminal right epidural steroid injection L4-5. Informed consent was explained thoroughly to the patient risks and benefits were explained risks were explained as bleeding infection peripheral nerve damage spinal cord damage and headache. Alternatives were also explained to the patient. The patient was taken to the operating room and positioned prone on the operating table. [place] monitors were applied patient was minimally sedated. He remained awake throughout the procedure. His lower back and upper buttocks were prepped with ChloraPrep and draped with sterile self adhesive utility towels. After that C-arm was brought over the operating field and sq picture of L4 vertebra was demonstrated on the screen. Tilting C-arm ipsilateral to the right most prominent picture of the right L4 pedicle was demonstrated on the screen. 3 mm below the level of the lowest point of the pedicle projection to the skin injection of the lidocaine 1% was performed forming skin wheal. After that 22 gauge 5 in needle was inserted through the skin wheal and advanced to were the foramina on intermittent anterior posterior and oblique views. When tip of the needle entered foramina injection of the contrast was performed demonstrating epidural and perineural spread of the contrast. After that injection of the 3.5 cc of preservative-free lidocaine mixed with 40 mg of Kenalog was performed into the needle. Upon completion of the injection the needle was removed sterile Band-Aid was applied. The patient tolerated procedure well he was taken outside of the operating room to recovery room where he recovered uneventfully.
[2024-04-16] MEDS: Acetaminophen 325 MG TABLET 975 MG PO (15:02)
[2024-04-16] MEDS: Ketorolac Tromethamine 30 MG/ML VIAL IVPUSH (15:20)
== END 2024-04-16 15:52 | disposition home or self-care (01) ==
PROVIDERS: PCP Nurse Practitioner Family; Visit Provider Anesthesiology
PROC: (CPT 64483; principal; 2024-04-16 14:30)
DX: M54.16 Radiculopathy, lumbar region (principal); M47.816 Spondylosis without myelopathy or radiculopathy, lumbar region; M51.360 Other intervertebral disc degeneration, lumbar region with discogenic back pain only; I10 Essential (primary) hypertension; F41.9 Anxiety disorder, unspecified; Z87.442 Personal history of urinary calculi; Z86.14 Personal history of Methicillin resistant Staphylococcus aureus infection; Z88.6 Allergy status to analgesic agent
CPT/HCPCS: 64483; J1885; J2003; J2250; J2795; J3010; J3301; Q9967

== ENCOUNTER → 2024-04-16 11:01 | Outpatient (BNV) | payer MEDICARE, SELFPAY | PROVIDERS: PCP Nurse Practitioner Family; Visit Provider Anesthesiology | DX: M54.16 Radiculopathy, lumbar region (principal) | CPT/HCPCS: 64483 ==

== ENCOUNTER 2024-05-11 06:29 | Emergency (ER) | payer MEDICARE, MEDICAID, SELFPAY ==
--- NOTE | ~2024-05-11 | CT_ITS ---
EXAMINATION: CT ABDOMEN AND PELVIS WITH CONTRAST CLINICAL INFORMATION: Abdominal pain. Nausea. Vomiting. COMPARISON: CT dated April 17, 2023. TECHNIQUE: Multidetector volumetric images were obtained from the superior aspect of the liver through the pubic symphysis following administration 85 mL of Omnipaque 350 intravenous contrast. Sagittal and coronal reformatted images were obtained on the technologist's workstation. Oral contrast: No This CT examination was performed using dose optimization techniques as appropriate, variously including the following: *Automated exposure control *Adjustment of mA and/or kV according to patient size (this includes techniques or standardized protocols for targeted exams where dose is matched to indication/reason for exam; i.e. extremities or head) *Use of iterative reconstruction technique. DLP: 880 mGy centimeter. FINDINGS: LUNG BASES: No acute airspace disease in the included lungs. Prominent breast tissue, bilaterally. LIVER, GALLBLADDER, AND BILIARY TREE: Liver measures 15 cm. No focal mass. Portal veins and hepatic veins are patent. Intrahepatic portion of the IVC is patent. There is a 5 mm hypodensity in the dome right hepatic lobe too small to be fully characterized. No pericholecystic fluid collection or gallbladder wall thickening. Gallbladder is nondistended. No intrahepatic or extrahepatic biliary ductal dilatation. PANCREAS: No focal mass. No peripancreatic fluid collection. No main pancreatic ductal dilatation. SPLEEN: Absent. ADRENAL GLANDS: No nodular lesions. KIDNEYS AND URETERS: Normal enhancement pattern of the renal parenchyma. No focal mass. No hydronephrosis. BLADDER: Collapsed. GASTROINTESTINAL TRACT: Appendix is normal. No intestinal obstruction pattern. No pneumatosis intestinalis. No pneumoperitoneum. No ascites. Diverticulum, second portion of the duodenum. ABDOMINAL WALL: Small tiny fat-containing umbilical hernia. LYMPH NODES: Prominent lymph nodes, mesenteric with the edema pattern of the mesenteric. VASCULAR: Mixed plaques throughout the abdominal aorta wall and iliac arteries. No aneurysm or dissection, abdominal aorta. 2 cm ectasia, right common iliac arteries. PELVIC VISCERA: Prostate gland is small. OSSEOUS STRUCTURES: Multilevel thoracolumbar spondylosis with the syndesmophyte formation throughout the thoracic spine. Decreased intervertebral disc height endplate sclerosis and marginal osteophyte formation at L5-S1. Focal calcification of the posterior intervertebral disc L4-5. Bilateral neuroforamina stenosis on a multifactorial basis at L4-5 and L5-S1 and central spinal canal stenosis at L4-5 on a degenerative basis. CT/CT abdomen pelvis w IV con IMPRESSION: Prominent mesenteric lymph nodes and mesenteric edema pattern suggesting panniculitis. There is a lengthy differential diagnostic considerations related to this imaging finding. No intestinal obstruction pattern. Fleischner guidelines were followed. Electronically signed by: Mike Moreno MD 05/11/2024 10:51 AM EST
[2024-05-11 07:04] VITALS: BP 151/111; PULSE 87; RESP 20; TEMP 36.8; O2SAT 95; BMI 46.0
[2024-05-11 07:25] LABS: MANUAL DIFF FLAG NO
[2024-05-11 07:28] LABS: Basophils Percent Auto 0.3 % (0-2); Eosinophils Percent Auto 0.4 % (0-4); Hematocrit 46.4 % (42.0-52.0); Hemoglobin 15.7 g/dl (14.0-18.0); Imm Gran Abs Auto 0.04 X10*3/uL (0.00-0.03); Imm Gran Pct Auto 0.4 % (0.0-0.4); Lymphocytes Absolute Auto 3.4 X10*3/uL (1.2-4.9); Lymphocytes Percent Auto 31.9 % (20-40); Mean Corpuscular HGB Conc 33.8 g/dl (31.0-36.0); Mean Corpuscular Hemoglobin 30.7 pg (27.0-33.0); Mean Corpuscular Volume 90.6 fL (80.0-98.0); Mean Platelet Volume 9.1 fL (9.4-12.4); Monocytes Absolute Auto 1.3 X10*3/uL (0.1-1.2); Monocytes Percent Auto 12.3 % (2-11); Neutrophils Absolute Auto 5.9 x10*3/uL (2.0-8.3); Neutrophils Percent Auto 54.7 % (45-73); Platelet Count 352 X10*3/uL (160-400); Red Blood Count 5.12 X10*6/uL (4.60-5.80); Red Cell Distribution Width 14.7 % (11.0-16.0); White Blood Count 10.7 X10*3/uL (4.8-10.8)
[2024-05-11 07:41] LABS: Alanine Aminotransferase 20 U/L (0-40); Albumin Level 4.2 g/dL (3.5-5.0); Alkaline Phosphatase 85 U/L (39-117); Anion Gap 13 (12-20); Aspartate Amino Transferase 25 U/L (5-37); Bilirubin Total 0.3 mg/dL (0.0-1.0); Blood Urea Nitrogen 18 mg/dL (9-16); Carbon Dioxide 26 mmol/L (22-29); Chloride 104 mmol/L (96-108); Creatinine Clr Calc Pharmacy 102.4; Estimated Glomerular Filt Rate > 60; Glucose Random 100 mg/dL (60-115); Potassium 3.4 mmol/L (3.3-5.1); Sodium 140 mmol/L (135-145); Total Protein 7.7 g/dL (6.5-8.0)
[2024-05-11 08:02] LABS: Influenza A PCR NEGATIVE (Negative); Influenza B PCR NEGATIVE (Negative); Resp Syncy Virus RNA Qual PCR NEGATIVE (Negative); SARS COV2 PCR INHOUSE NEGATIVE (Negative)
--- NOTE | 2024-05-11 09:26 | ED.GENADULT ---
HPI - General Adult General Chief complaint: General Medical Stated complaint: gen med Time Seen by Provider: 05/11/24 09:00 Source: patient and RN notes reviewed Mode of arrival: ambulatory Limitations: no limitations History of Present Illness ED Provider: Alona Mackenzie PA-C HPI narrative: This is a 58-year-old male, with a history of hypertension, anxiety, who presents emergency department with concerns for body ache, headaches, nausea, vomiting, diarrhea, cough, and fatigue since Friday. Patient reports that since Friday he has had headaches, diarrhea, vomiting. He states that he has been unable to eat secondary to vomiting. Denies any bloody or black stool. No hemoptysis, or hematemesis. Denies any fevers, chills, chest pain, shortness of breath. He does admit to having abdominal pain. History of cholecystectomy, otherwise no other abdominal surgeries. No sick contacts. No other complaints or concerns at this time. MD complaint: Abdominal pain, vomiting, diarrhea Radiation: non-radiation Severity: moderate Quality: aching Pain Consistency: constant Relieving factors: none Exacerbating factors: none Associated symptoms: denies other symptoms Treatments prior to arrival: none Related Data Home Medications ?Medication ?Instructions ?Recorded ?Confirmed chlorthalidone 50 mg tablet 1 tab PO DAILY 05/21/21 04/16/24 amlodipine 10 mg tablet 1 tab PO DAILY 05/25/21 04/16/24 Previous Rx's ?Medication ?Instructions ?Recorded [id number]-[id number]-[id number] 1 cap PO Q4-6H PRN headache #14 04/21/22 50 mg-300 mg-40 mg capsule caps (Fioricet) acetaminophen 500 mg tablet 500 mg PO Q6H PRN pain #30 tabs 05/11/24 (Tylenol Extra Strength) ondansetron 4 mg disintegrating 4 mg PO Q8H PRN nausea and 05/11/24 tablet vomiting #14 tabs Allergies Allergy/AdvReac Type Severity Reaction Status Date / Time aspirin [ASA] Allergy Intermediate Dizziness Verified 05/11/24 07:07 Review of Systems Review of Systems: Yes all other systems are reviewed and are negative Constitutional: Constitutional: Reports as per [facility] Past Medical History Medical History COVID-19 vaccine series completed Renal calculi MRSA (methicillin resistant Staphylococcus aureus) Disc degeneration, lumbar Spondylosis of lumbar spine Cholecystectomy planned Anxiety HTN (hypertension) Surgical History Hx of cholecystectomy Hx of cystoscopy Social History Social History Are you a primary medicare specialist to a significant other at home: No Do you presently have visiting nurse or other home services: No Alcohol intake: never Patient Tobacco Use Status: Never used Tobacco Advance Directives: No Advance Directives Information Provided: Yes Physical Exam ED Vital Signs: Vital Signs - 24 hr 05/11/24 07:04 Temperature 98.3 F Pulse Rate 87 Respiratory Rate 20 Blood Pressure 151/111 H Pulse Oximetry 95 Oxygen Delivery Method Room Air BMI result Body Mass Index 46.0 Const General: cooperative, comfortable and no acute distress Orientation/consciousness: patient oriented x3 Limitations: no limitations HENMT Head: Yes normal to inspection, Yes normocephalic and Yes atraumatic Ears: hearing grossly normal bilaterally General nose exam: Normal external nose present Face and sinus: Yes normal facial exam Mouth: Normal oral and palatal mucosa present, oropharynx normal and moist mucous membranes Throat: Yes posterior oropharynx normal Eyes General: appearance normal, both eyes and all related structures Eyelids: Yes eyelids normal Conjunctivae: conjunctivae normal Sclerae: sclerae normal Pupils: Equal, round and reactive pupils present EOM: EOMs intact bilaterally Neck Neck: Yes normal visual inspection, Yes full ROM and Yes no lymphadenopathy Lymphatic: no lymphadenopathy noted Chest Chest palpation & inspection: normal inspection of the chest Resp Effort & Inspection: normal respiratory effort and able to speak in complete sentences Auscultation: clear to auscultation bilaterally, no crackles, no rales, no rhonchi and no wheezes Cardio Rate: regular rate Rhythm: regular rhythm Heart sounds: S1 normal heart sound present and S2 normal heart sound present GI Other: Abdomen is soft however with tenderness palpation throughout the entire abdomen, hyperactive bowel sounds present Inspection: Yes normal to inspection Skin General skin exam: no rashes or lesions noted Trauma: no lacerations or abrasions Wounds: no wounds Neuro General: patient oriented x3 and moves all extremities Cranial nerves: Yes Equal, round and reactive pupils present Extrem General: Yes normal to inspection Right upper extremity: normal to inspection Left upper extremity: normal to inspection Right lower extremity: normal to inspection Left lower extremity: normal to inspection Course Reevaluation(s) Reevaluation #1: Patient feeling much better, requesting food, he was able to eat and drink without difficulty. CT scan revealing prominent mesenteric lymph nodes and mesenteric edema pattern suggesting panniculitis. He has no overlying skin changes to suggest this. Likely gastroenteritis. He was unable to provide a stool sample. I discussed overall workup with patient. Given strict return precautions. He will follow-up with his primary care physician. Patient stable for discharge. Time: 11:36 Medications Administered Discontinued Medications Generic Name Dose Route Start Last Admin Trade Name Freq PRN Reason Stop Dose Admin Acetaminophen 1,000 mg in 100 mls @ 400 mls/hr 05/11/24 09:35 05/11/24 10:28 Ofirmev IV 05/11/24 09:49 Infused ONCE ONE Infusion Sodium Chloride 1,000 mls @ 999 mls/hr 05/11/24 09:40 05/11/24 09:51 Ns IV 05/11/24 10:40 999 mls/hr .Q1H1M ONE Administration Iohexol 100 ml 05/11/24 10:16 05/11/24 10:16 Iohexol 350 Mg/Ml 100 Ml Infus..Btl IV 05/11/24 10:17 85 ml ONCE ONE Administration Medical Decision Making Medical Decision Making [facility] Narrative: This is a 58-year-old male, with a history of hypertension, who presents emergency department with concerns for nausea, vomiting, diarrhea, abdominal pain, and headaches. On arrival, blood pressure mildly elevated 151/111, all other vital signs within normal limits. Abdomen is soft however with tenderness throughout, he is unable to eat secondary to nausea, and vomiting. Differential diagnoses include SBO, constipation, gastritis, gastroenteritis, pyelonephritis. Plan: Labs, UA, normal saline, Tylenol Differential Diagnosis Differential Diagnoses: The differential diagnosis associated with the presentation includes See above Lab Data [facility] Lab Attestation statement: I reviewed the patient's lab results. No leukocytosis, stable H&H, chemistry with no significant electrolyte derangement. Negative COVID, flu, RSV 05/11/24 07:21 05/11/24 07:21 Labs: Lab Results 05/11/24 05/11/24 Range/Units 07:21 09:52 WBC 10.7 (4.8-10.8) X10*3/uL RBC 5.12 (4.60-5.80) X10*6/uL Hgb 15.7 (14.0-18.0) g/dl Hct 46.4 (42.0-52.0) % MCV 90.6 (80.0-98.0) fL MCH 30.7 (27.0-33.0) pg MCHC 33.8 (31.0-36.0) g/dl RDW 14.7 (11.0-16.0) % Plt Count 352 (160-400) X10*3/uL MPV 9.1 L (9.4-12.4) fL Immature Gran % (Auto) 0.4 (0.0-0.4) % Neut % (Auto) 54.7 (45-73) % Lymph % (Auto) 31.9 (20-40) % [place] % (Auto) 12.3 H (2-11) % Eos % (Auto) 0.4 (0-4) % Baso % (Auto) 0.3 (0-2) % Lymph # (Auto) 3.4 (1.2-4.9) X10*3/uL [place] # (Auto) 1.3 H (0.1-1.2) X10*3/uL Eos # (Auto) 0.0 (0.0-0.4) X10*3/uL Baso # (Auto) 0.0 (0.0-0.2) X10*3/uL Abs Immat Gran (auto) 0.04 H (0.00-0.03) X10*3/uL Absolute Neuts (auto) 5.9 (2.0-8.3) x10*3/uL Absolute Nucleated RBC 0.000 (0.0-0.012) X10*3/uL Nucleated RBC % (auto) 0.0 (0.0-0.2) /100WBC Sodium 140 (135-145) mmol/L Potassium 3.4 (3.3-5.1) mmol/L Chloride 104 (96-108) mmol/L Carbon Dioxide 26 (22-29) mmol/L Anion Gap 13 (12-20) BUN 18 H (9-16) mg/dL Creatinine 1.00 (0.5-1.4) mg/dL Estim Creat Clear Calc 102.4 Estimated GFR > 60 Random Glucose 100 (60-115) mg/dL Calcium 9.0 (8.4-10.2) mg/dL Magnesium 2.1 (1.6-2.6) mg/dL Total Bilirubin 0.3 (0.0-1.0) mg/dL AST 25 (5-37) U/L ALT 20 (0-40) U/L Alkaline Phosphatase 85 (39-117) U/L Total Protein 7.7 (6.5-8.0) g/dL Albumin 4.2 (3.5-5.0) g/dL Lipase 15 (8-78) U/L Urine Color Dark Yellow Urine Appearance Clear Urine pH 6.0 (5.0-9.0) Ur Specific [place] >= 1.030 H (1.005-1.025) Urine Protein 100 (2+) H (Neg-Trace) mg/dL Urine Glucose (UA) Negative (Negative) mg/dL Urine Ketones Trace (Negative) mg/dL Urine Blood Moderate (2+) H (Negative) Urine Nitrite Negative (Negative) Ur Leukocyte Esterase Negative (Negative) Urine RBC >20 H (0-2) /HPF Urine WBC 0-5 (0-5) /HPF Ur Squamous Epith Cells 11-20 (0-2) /HPF Urine Bacteria None Seen (None Seen) Hyaline Casts 3-5 (0-2) /LPF Influenza Type A (PCR) NEGATIVE (Negative) Influenza Type B (PCR) NEGATIVE (Negative) RSV RNA Qual (PCR) NEGATIVE (Negative) SARS-CoV-2 RNA (RT-PCR) NEGATIVE (Negative) Radiology Impression Discussion of test interpretation with radiology: I have reviewed the radiologist's reading. External Record Review External record reviewed: Inpatient record, Office record, Outpatient record, Prior outpatient labs, Prior outpatient radiology, Primary care record and Outside ED record Discharge Plan Discharge Clinical Impression: Gastroenteritis Patient Disposition: Home, Self-Care Instructions: Gastroenteritis (ED) Additional Instructions: You were seen in the emergency department due to nausea, vomiting, diarrhea. You likely have a virus causing you to have the symptoms. You tested negative for COVID, flu, RSV. You may still have a virus that is contagious therefore limit your exposures to other people until your symptoms have resolved. Your blood work was reassuring. Your CT scan shows inflammation among your lymph nodes, this can happen with viral illness, however want you to follow-up with your primary care physician to ensure that this has resolved. Drink plenty of fluids get plenty of rest. Alternate between ibuprofen and or Tylenol as needed for pain. Take Zofran as needed for nausea and vomiting. If any new or worsening symptoms occur including but not limited to worsening abdominal pain, chest pain, shortness of breath, please seek emergent care. If you were able to provide a stool sample, we will call you if any of these results or positive. Prescriptions: New acetaminophen [Tylenol Extra Strength] 500 mg tablet 500 mg PO Q6H PRN (Reason: pain) Qty: 30 0RF ondansetron 4 mg tablet,disintegrating 4 mg PO Q8H PRN (Reason: nausea and vomiting) Qty: 14 0RF No Action [id number]-opmpfaukqphtd-rvnh [Fioricet] 50-300-40 mg capsule 1 cap PO Q4-6H PRN (Reason: headache) Qty: 14 0RF chlorthalidone 50 mg tablet 1 tab PO DAILY amlodipine 10 mg tablet 1 tab PO DAILY Print Language: [place]ian
[2024-05-11] MEDS: 0.9 % Sodium Chloride 1,000 ML 999 ML IV (09:51)
[2024-05-11] MEDS: Acetaminophen 1,000 MG/100 ML PIGGYBACK 400 MG IV (09:51)
[2024-05-11 10:01] LABS: Appearance Urine Clear; Color Urine Dark Yellow; Glucose Urine UA Negative (Negative); Leukocyte Esterase Urine Negative (Negative); Nitrite Urine Negative (Negative); Specific Gravity - Urine >= 1.030 (1.005-1.025); UMIC TRIGGER UACC YES; Urine Blood Moderate (2+) (Negative); Urine Ketones Trace mg/dL (Negative); Urine Protein 100 (2+) mg/dL (Neg-Trace)
[2024-05-11 10:05] LABS: Lipase 15 U/L (8-78); Magnesium 2.1 mg/dL (1.6-2.6)
[2024-05-11 10:10] LABS: Bacteria Urine None Seen (None Seen); RBC Urine >20 /HPF (0-2); WBC Urine 0-5 /HPF (0-5)
[2024-05-11] MEDS: iohexoL 350 MG/ML 100 ML INFUS..BTL IV (10:16)
[2024-05-11 11:51] VITALS: BP 151/111; PULSE 87; RESP 20; TEMP 36.8; O2SAT 95
== END 2024-05-11 11:52 | disposition home or self-care (01) ==
PROVIDERS: Physician Assistant Medical; Emergency Provider Emergency Medicine; PCP Student in an Organized Health Care Education/Training Program
DX: K52.9 Noninfective gastroenteritis and colitis, unspecified (principal); R11.2 Nausea with vomiting, unspecified; R10.9 Unspecified abdominal pain; R05.9 Cough, unspecified; I10 Essential (primary) hypertension; Z86.14 Personal history of Methicillin resistant Staphylococcus aureus infection; Z03.818 Encounter for observation for suspected exposure to other biological agents ruled out
CPT/HCPCS: 0241U; 74177; 80053; 81001; 81003; 83690; 83735; 85025; 96361; 96365; 99283; 99284; J0131; Q9967

== ENCOUNTER → 2024-05-11 09:35 | Outpatient (BNV) | payer MEDICARE, MEDICAID, SELFPAY | PROVIDERS: Emergency Provider Emergency Medicine; PCP Student in an Organized Health Care Education/Training Program; Visit Provider Radiology Diagnostic Radiology | DX: R10.9 Unspecified abdominal pain (principal); R11.2 Nausea with vomiting, unspecified | CPT/HCPCS: 74177 ==

== ENCOUNTER 2024-05-30 06:50 | Emergency (ER) | payer MEDICARE, MEDICAID, SELFPAY ==
--- NOTE | ~2024-05-30 | XR_ITS ---
CLINICAL HISTORY: PRODUCTIVE COUGH 2 views chest Comparison: CR/MN/SR - XR CHEST 1V - 11/03/23 08:18 EDT Findings: Cardiac and mediastinal contours are normal. Mild interstitial prominence with scattered peribronchial thickening. No focal consolidation. No effusion. No pneumothorax. No acute osseous finding. Impression: Mild interstitial prominence with scattered peribronchial thickening. No focal consolidation to suggest pneumonia. This document has been electronically signed by: Rick Cummins MD on 05/30/2024 09:40:35
--- NOTE | ~2024-05-30 | XR_ITS ---
CLINICAL HISTORY: TWISTED KNEE, MEDIAL PAIN 4 view right knee Comparison: CR/SR - XR KNEE RT 3V - 02/22/24 07:26 EDT Findings: No fractures or dislocations. Moderate tricompartmental degenerative change. No joint effusion. No radiopaque foreign body. IMPRESSION: 1. No acute findings. This document has been electronically signed by: Rick Cummins MD on 05/30/2024 09:40:11
[2024-05-30 07:00] VITALS: BP 160/92; PULSE 75; RESP 18; TEMP 36.7; O2SAT 95; BMI 44.8
--- OUTSIDE RECORDS SUMMARY | 2024-05-30 07:31 | XMS_ITS | Encounter Summary ---
Author Organization [employer] Address [address] [place] [address] Care Team Providers Care Emergency Services Professional Name Role Phone Heather Marroquin MD Primary Care Provider [phone] Encounter Details Date Type Department Care Team (Late st Contact Info) Description 05/11/2024 Orders Only GENERIC EXTERNAL DATA DEPARTMENT Provider, Generic External Data Social History Tobacco Use Types Packs/Day Years Used Date Smoking Tobacco: Former Cigarettes Smokeless Tobacco: Never Alcohol Use Standard Drinks/Week Comments Never 0 (1 standard drink = 0.6 oz pur e alcohol) Housing Stability Answer Date Recorded What is your housing situation today? I have peyton carmina 03/03/[address] you li ve. Do you have problems with any of the following? None of the above 03/03/2023 Food Insecurity Answer Date Recorded Within the past 12 months, y ou worried that your food would run out before you got money to buy more: Never True 03/03/2023 Within the past 12 months,th e food you bought just didn't last and you didn't have enough money to get more: Never True 09/2022 Transportation Answer Date Recorded In the past 12 months, has l ack of transportation kept you from medical appts, meetings, work or from getting things needed for daily living? No 03/03/2023 Utilities Answer Date Recorded In the past 12 months, has t he electric, gas, oil or water company threatened to shut off services in your home? No 03/03/2023 Sex and Gender Information Value Date Recorded Sex Assigned at Male 02/25/2022 10:18 AM EDT Legal Sex Male 10:18 AM EDT Gender Identity Male 02/25/2022 10:18 AM EDT Sexual Orientation Straight 02/25/2022 10 :18 AM EDT documented as of this encounter Plan of Treatment Upcoming Encounters Date Type Department Care Team (Late st Contact Info) Description 06/03/2024 8:45 AM EST Office Visit [facility] [address] [place] [address] Heather Marroquin MD [address] [place] [address] documented as of this encounter Procedures Procedure Name Priority Date/Time Associated Diagnosis Comments URINALYSIS, COMPLETE, WITH REFLEX TO CULTURE Routine 05/11/2024 9:[address] ABDOMEN PELVIS W CONTRAST Routine 05/11/2024 9:35 AM EST SARS COV2/INFLUENZA A/B AND RSV RNA QL NAAT Routine 05/11/2024 7:21 AM EST CBC WITH AUTO DIFFERENTIAL Routine 05/11/2024 7:21 AM EST MAGNESIUM Routine 05/11/2024 7:21 AM EST LIPASE Routine 05/11/2024 7:21 AM EST COMPREHENSIVE METABOLIC PANEL Routine 05/11/2024 7:21 AM EST documented in this encounter Results * (ABNORMAL) Urinalysis, Complete, with Reflex to Culture (05/11/2024 9:52 AM EST) Color Urine Dark Yellow [facility] Appearance Urine Clear [facility] PH 6.0 5.0 - 9.0 [facility] Glucose Urine UA Negative Negative mg/dL [facility] Urine Blood Moderate (2+)(A) Negative [facility] Specific [place] - Urine >=1.030(H) 1.005 - 1.025 [facility] Urine Protein 100 (2+)(A) Neg-Trace mg/dL [facility] Urine Ketones Trace Negative mg/dL [facility] Nitrite Urine Negative Negative [facility] Leukocyte Esterase Urine Negative Negative [facility] RBC Urine >20(A) 0 - 2 /HPF [facility] Urine WBC 0-5 0 - 5 /HPF [facility] Urine Squamous Epithelial Cell 11-20 0 - 2 /HPF [facility] Urine Bacteria None Seen None Seen [facility] Hyaline Casts, Urine 3-5 0 - 2 /LPF [facility] 05/11/2024 9:52 AM EST 05/11/2024 9:57 AM EST Narrative [facility] - 05/11/2024 10:11 AM EST [id number], Clean Catch us Generic External Data Provider LAB URINE ORDERAB LES Final Result [facility] [address] [place] [address] [phone] * CT Abdomen Pelvis w/ Contrast (05/11/2024 9:35 AM EST) Anatomical Region Laterality Modality Body, Pelvis, Abdomen Computed T omography 05/11/2024 9:35 AM EST Narrative 05/11/2024 10:54 AM EST ? [facility] ?[address] ?[place] [address] ? CT Scan Report ? Signed ? Patient: Bolivar Altreche,Naman ?MR#: M ?? [id number] ? : 1965 ?Acct:[id number] ? Age/Sex: 58 / M ?ADM Date: 05/11/25 ? Loc: HO.ED ? Attending Dr: ? Ordering Physician: Alona Mackenzie ?? Date of Service: 05/11/24 ?? Procedure(s): CT abdomen pelvis w IV con ?? Accession Number(s): [id number] ? cc: Alona Mackenzie; Heather Marroquin MD ? Report Number: ?? [id number]: Total DLP = ??880.00 mGy-cm ?? EXAMINATION: ?? CT ABDOMEN AND PELVIS WITH CONTRAST ? CLINICAL INFORMATION: ?? Abdominal pain. Nausea. Vomiting. ? COMPARISON: ?? CT dated April 17, 2023. ? TECHNIQUE: ?? Multidetector volumetric images were obtained from the superior aspect ?? of the liver through the pubic symphysis following administration 85 mL ?? of Omnipaque 350 intravenous contrast. Sagittal and coronal reformatted ?? images were obtained on the technologist's workstation. ? Oral contrast: No ? This CT examination was performed using dose optimization techniques as ?? appropriate, variously including the following: ?? *Automated exposure control ?? *Adjustment of mA and/or kV according to patient size (this includes ?? techniques or standardized protocols for targeted exams where dose is ?? matched to indication/reason for exam; i.e. extremities or head) ?? *Use of iterative reconstruction technique. ?? DLP: 880 mGy centimeter. ? FINDINGS: ?? LUNG BASES: No acute airspace disease in the included lungs. ?? Prominent breast tissue, bilaterally. ? LIVER, GALLBLADDER, AND BILIARY TREE: ?? Liver measures 15 cm. No focal mass. Portal veins and hepatic veins are ?? patent. Intrahepatic portion of the IVC is patent. There is a 5 mm ?? hypodensity in the dome right hepatic lobe too small to be fully ?? characterized. ? No pericholecystic fluid collection or gallbladder wall thickening. ?? Gallbladder is nondistended. ?? No intrahepatic or extrahepatic biliary ductal dilatation. ? PANCREAS: No focal mass. No peripancreatic fluid collection. No main ?? pancreatic ductal dilatation. ? SPLEEN: Absent. ? ADRENAL GLANDS: No nodular lesions. ? KIDNEYS AND URETERS: ? Normal enhancement pattern of the renal parenchyma. No focal mass. No ?? hydronephrosis. ? BLADDER: Collapsed. ? GASTROINTESTINAL TRACT: ? Appendix is normal. ?? No intestinal obstruction pattern. ?? No pneumatosis intestinalis. ?? No pneumoperitoneum. ?? No ascites. ?? Diverticulum, second portion of the duodenum. ? ABDOMINAL WALL: Small tiny fat-containing umbilical hernia. ? LYMPH NODES: Prominent lymph nodes, mesenteric with the edema pattern ?? of the mesenteric. ? VASCULAR: Mixed plaques throughout the abdominal aorta wall and iliac ?? arteries. No aneurysm or dissection, abdominal aorta. 2 cm ectasia, ?? right common iliac arteries. ? PELVIC VISCERA: Prostate gland is small. ? OSSEOUS STRUCTURES: Multilevel thoracolumbar spondylosis with the ?? syndesmophyte formation throughout the thoracic spine. Decreased ?? intervertebral disc height endplate sclerosis and marginal osteophyte ?? formation at L5-S1. Focal calcification of the posterior intervertebral ?? disc L4-5. Bilateral neuroforamina stenosis on a multifactorial basis ?? at L4-5 and L5-S1 and central spinal canal stenosis at L4-5 on a ?? degenerative basis. ? CT/CT abdomen pelvis w IV con ?? IMPRESSION: ?? Prominent mesenteric lymph nodes and mesenteric edema pattern ?? suggesting panniculitis. There is a lengthy differential diagnostic ?? considerations related to this imaging finding. ?? No intestinal obstruction pattern. ? Fleischner guidelines were followed. ? Electronically signed by: ??Mike Moreno MD ??05/11/2024 10:51 AM ?? EST RP ? Dictated By: ?Mike Mazariegos MD ? Signed By: ?<Electronically signed by Mike Reis MD in OV> ? 05/11/24 1051 ? DD/ 0935 ? TD/TT: 05/11/24 1027 ? Business Associate: ? Procedure Note Moises, Kera - 05/11/[address] [address] [address] Scan Report Signed Patient: Aroldo White#: M [id number] : 1965Acct:[id number] Age/Sex: 58 / MADM Date: 05/11/24 Loc: HO.ED Attending Dr: Ordering Physician: Alona Mackenzie Date of Service: 05/11/24 Procedure(s): CT abdomen pelvis w IV con Accession Number(s): [id number] cc: Alona Mackenzie; Heather Marroquin MD Report Number: [id number]: Total DLP = 880.00 mGy-cm EXAMINATION: CT ABDOMEN AND PELVIS WITH CONTRAST CLINICAL INFORMATION: Abdominal pain. Nausea. Vomiting. COMPARISON: CT dated April 17, 2023. TECHNIQUE: Multidetector volumetric images were obtained from the superior aspect of the liver through the pubic symphysis following administration 85 mL of Omnipaque 350 intravenous contrast. Sagittal and coronal reformatted images were obtained on the technologist's workstation. Oral contrast: No This CT examination was performed using dose optimization techniques as appropriate, variously including the following: *Automated exposure control *Adjustment of mA and/or kV according to patient size (this includes techniques or standardized protocols for targeted exams where dose is matched to indication/reason for exam; i.e. extremities or head) *Use of iterative reconstruction technique. DLP: 880 mGy centimeter. FINDINGS: LUNG BASES: No acute airspace disease in the included lungs. Prominent breast tissue, bilaterally. LIVER, GALLBLADDER, AND BILIARY TREE: Liver measures 15 cm. No focal mass. Portal veins and hepatic veins are patent. Intrahepatic portion of the IVC is patent. There is a 5 mm hypodensity in the dome right hepatic lobe too small to be fully characterized. No pericholecystic fluid collection or gallbladder wall thickening. Gallbladder is nondistended. No intrahepatic or extrahepatic biliary ductal dilatation. PANCREAS: No focal mass. No peripancreatic fluid collection. No main pancreatic ductal dilatation. SPLEEN: Absent. ADRENAL GLANDS: No nodular lesions. KIDNEYS AND URETERS: Normal enhancement pattern of the renal parenchyma. No focal mass. No hydronephrosis. BLADDER: Collapsed. GASTROINTESTINAL TRACT: Appendix is normal. No intestinal obstruction pattern. No pneumatosis intestinalis. No pneumoperitoneum. No ascites. Diverticulum, second portion of the duodenum. ABDOMINAL WALL: Small tiny fat-containing umbilical hernia. LYMPH NODES: Prominent lymph nodes, mesenteric with the edema pattern of the mesenteric. VASCULAR: Mixed plaques throughout the abdominal aorta wall and iliac arteries. No aneurysm or dissection, abdominal aorta. 2 cm ectasia, right common iliac arteries. PELVIC VISCERA: Prostate gland is small. OSSEOUS STRUCTURES: Multilevel thoracolumbar spondylosis with the syndesmophyte formation throughout the thoracic spine. Decreased intervertebral disc height endplate sclerosis and marginal osteophyte formation at L5-S1. Focal calcification of the posterior intervertebral disc L4-5. Bilateral neuroforamina stenosis on a multifactorial basis at L4-5 and L5-S1 and central spinal canal stenosis at L4-5 on a degenerative basis. CT/CT abdomen pelvis w IV con IMPRESSION: Prominent mesenteric lymph nodes and mesenteric edema pattern suggesting panniculitis. There is a lengthy differential diagnostic considerations related to this imaging finding. No intestinal obstruction pattern. Fleischner guidelines were followed. Electronically signed by: Mike Moreno MD 05/11/2024 10:51 AM EST Dictated By: Mike Mazariegos MD Signed By: <Electronically signed by Mike Reis MDin OV> 05/11/24 1051 DD/ 0935 TD/TT: 05/11/24 1027 Business Associate: [facility] External Provider IMG CT PROCEDURES Final Result * Lipase (05/11/2024 7:21 AM EST) Lipase 15 8 - 78 U/L [facility] 05/11/2024 7:21 AM EST 05/11/2024 7:23 AM EST Generic External Data Provider LAB BLOOD ORDERAB LES Final Result Performing Organization Address [facility] Co de Phone Number [facility] [address] [place] [phone] * Magnesium (05/11/2024 7:21 AM EST) Magnesium 2.1 1.6 - 2.6 mg/dL [facility] 05/11/2024 7:21 AM EST 05/11/2024 7:23 AM EST Generic External Data Provider LAB BLOOD ORDERAB LES Final Result Performing Organization Address [facility]/ZIP Co de Phone Number [facility] [address] [place] [phone] * SARS-CoV-2 RNA, Influenza A/B, and RSV RNA, Ql NAAT (05/11/2024 7:21 AM EST) Pathologist [facility] Influenza A PCR NEGATIVE Negative [facility] Influenza B PCR NEGATIVE Negative [facility] Resp Syncy Virus RNA Qual PCR NEGATIVE Negative [facility] SARS COV2 PCR NEGATIVE Negative [facility] Comment:All test results mus t be correlated with clinical findings.Negative results do not preclude SARS-CoV2, influenza Avirus, influenza B virus and/or RSV infectionand should not be used as the sole basis for treatment orother patient management decisions. Negative results must becombined with clinical observations, patient history, andepidemiological information.This test has not been evaluated for monitoring treatment ofinfection.This test has been authorized by the FDA under an EmergencyUse Authorization (EUA) for use by authorized laboratories.Testing performed on the [employer]izer GeneXpert utilizingreal-time RT-PCR.All SARS CoV2 and positive influenza A/B results arereported to [facility]. 05/11/2024 7:21 AM EST 05/11/2024 7:23 AM EST us Generic External Data Provider LAB MICROBIOLOGY - GENERAL ORDERABLES Final Result [facility] [address] [place] [phone] [phone] * (ABNORMAL) Comprehensive Metabolic Panel (05/11/2024 7:21 AM EST) Pathologist [facility] Sodium 140 135 - 145 mmol/L [facility] Potassium 3.4 3.3 - 5.1 mmol/L [facility] Chloride 104 96 - 108 mmol/L [facility] Carbon Dioxide 26 22 - 29 mmol/L [facility] Anion Gap 13 12 - 20 [facility] Urea Nitrogen (BUN) 18(H) 9 - 16 mg/dL [facility] Creatinine, Serum 1.00 0.5 - 1.4 mg/dL [facility] Creatinine Clr Calc Pharmacy 102.4 [facility] Comment:eGFR (calculated fro m the MDRD study equation) and eCrCl(calculated from the Cockcroft-Gault equation) are based ondifferent parameters and may not yield comparable results.If eCrCl result is absurd, please check patient'sheight/weight. Estimated Glomerular Filt Rate >60 [facility] Comment:Chronic Kidney Disea se: Estimated GFR < 60 mL/min/1.25v0Elrclc Kidney Disease: Estimated GFR < 15 mL/min/1.73m2 Glucose 100 60 - 115 mg/dL [facility] Calcium 9.0 8.4 - 10.2 mg/dL [facility] Bilirubin, Total 0.3 0.0 - 1.0 mg/dL [facility] Aspartate Amino Transferase 25 5 - 37 U/L [facility] Alanine Aminotransferase 20 0 - 40 U/L [facility] Total Protein 7.7 6.5 - 8.0 g/dL [facility] Albumin Level 4.2 3.5 - 5.0 g/dL [facility] Alkaline Phosphatase 85 39 - 117 U/L [facility] 05/11/2024 7:21 AM EST 05/11/2024 7:23 AM EST us Generic External Data Provider LAB BLOOD ORDERAB LES Final Result [facility] [address] [place] [phone] * (ABNORMAL) CBC auto differential (05/11/2024 7:21 AM EST) White Blood Count 10.7 4.8 - 10.8 X10*3/uL [facility] Red Blood Count 5.12 4.60 - 5.80 X10*6/uL [facility] Hemoglobin 15.7 14.0 - 18.0 g/dl [facility] Hematocrit 46.4 42.0 - 52.0 % [facility] Mean Corpuscular Volume 90.6 80.0 - 98.0 fL [facility] Mean Corpuscular Hemoglobin 30.7 27.0 - 33.0 pg [facility] Mean Corpuscular HGB Conc 33.8 31.0 - 36.0 g/dl [facility] Red Cell Distribution Width 14.7 11.0 - 16.0 % [facility] Platelet Count 352 160 - 400 X10*3/uL [facility] Mean Platelet Volume 9.1(L) 9.4 - 12.4 fL [facility] Neutrophils Percent Auto 54.7 45 - 73 % [facility] Imm Gran Pct Auto 0.4 0.0 - 0.4 % [facility] Lymphocytes Percent Auto 31.9 20 - 40 % [facility] Monocytes Percent Auto 12.3(H) 2 - 11 % [facility] Eosinophils Percent Auto 0.4 0 - 4 % [facility] Basophils Percent Auto 0.3 0 - 2 % [facility] NRBC Pct Auto 0.0 0.0 - 0.2 /100WBC [facility] Neutrophils Absolute Auto 5.9 2.0 - 8.3 x10*3/uL [facility] Imm Gran Abs Auto 0.04(H) 0.00 - 0.03 X10*3/uL [facility] Lymphocytes Absolute Auto 3.4 1.2 - 4.9 X10*3/uL [facility] Monocytes Absolute Auto 1.3(H) 0.1 - 1.2 X10*3/uL [facility] Eosinophils Absolute Auto 0.0 0.0 - 0.4 X10*3/uL [facility] Basophils Absolute Auto 0.0 0.0 - 0.2 X10*3/uL [facility] NRBC Abs Auto 0.000 0.0 - 0.012 X10*3/uL [facility] 05/11/2024 7:21 AM EST 05/11/2024 7:23 AM EST us Generic External Data Provider LAB BLOOD ORDERAB LES Final Result [facility] [address] [place] [phone] documented in this encounter Visit Diagnoses Not on filedocumented in this encounter Care Teams Emergency Services Professional Relationship Specialty Start Date End Date Heather Marroquin MD [address] [place] [phone] PCP - General Family Medicine 04/06/12 documented as of this encounter
--- OUTSIDE RECORDS SUMMARY | 2024-05-30 07:31 | XMS_ITS | Encounter Summary ---
Author Organization [employer] Address [address] [place] [address] Care Team Providers Care Edge Baster Name Role Phone Heather Marroquin MD Primary Care Provider [phone] Reason for Visit * Reason Onset Date Comments Nurse Triage 05/13/2024 Encounter Details Date Type Department Care Team (Late st Contact Info) Description 05/13/[address] [facility] [address] [place] [address] Heather Marroquin MD [address] [place] [address] Nurse Triage Social History Tobacco Use Types Packs/Day Years Used Date Smoking Tobacco: Former Cigarettes Smokeless Tobacco: Never Alcohol Use Standard Drinks/Week Comments Never 0 (1 standard drink = 0.6 oz pur e alcohol) Housing Stability Answer Date Recorded What is your housing situation today? I have peytonkai grewal 03/03/[address] you li [...] t he electric, gas, oil or water [employer] threatened to shut off services in your home? No 03/03/2023 Sex and Gender Information Value Date Recorded Sex Assigned at Male 02/25/2022 10:18 AM EDT Legal Sex Male 10:18 AM EDT Gender Identity Male 02/25/2022 10:18 AM EDT Sexual Orientation Straight 02/25/2022 10 :18 AM EDT documented as of this encounter Miscellaneous Notes * Telephone Encounter - Margarita Worthington RN - 05/13/2024 1:09 PM EST Date: 05/11 [place] [facility] Seen for: Vomiting, Diarrhea, Abdominal Pain Symptomatic Yes Called pt. Pt. States that he went to [facility] [place] for vomiting, diarrhea. Pt has been slowly feeling better and will continue to rest and drink clear fluids for hydration. Pt is looking for refills on BP medication, Allergy medication, naproxen and is requesting a sleeping pill (Ambien) or whatever you suggest as he states I have been having a hard time falling asleep lately . Pt. Has upcoming appt. On 05/25/24 with PCP. Will send request for regular refills to covering and also to Dr. Marroquin to requet sleeping med and/or advise that pt. Will have to wait until appt. On 05/25/24 to discuss sleeping concerns. * Telephone Encounter - Constanza Briceno - 05/13/2024 12:43 PM EST Patient calling to report ED visit on : Date: 05/11 Hospital: [facility] Seen for: Vomiting, Diarrhea, Abdominal Pain Symptomatic Yes *if yes message should go to Triage [phone] documented in this encounter Plan of Treatment Upcoming Encounters Date Type Department Care Team (Late st Contact Info) Description 06/03/2024 8:45 AM EST Office Visit [facility] [address] [place] [phone] Heather Marroquin MD [address] [facility] [place] [phone] documented as of this encounter Visit Diagnoses Not on filedocumented in this encounter Care Teams Edge Baster Relationship Specialty Start Date End Date Heather Marroquin MD [address] [place] [phone] PCP - General Family Medicine 04/06/12 documented as of this encounter
--- OUTSIDE RECORDS SUMMARY | 2024-05-30 07:31 | XMS_ITS | Encounter Summary ---
Author Organization [employer] Address [address] [place] [address] Care Team Providers Care Principal Data Architect Name Role Phone Heather Marroquin MD Primary Care Provider [phone] Reason for Visit * Reason Onset Date Comments Appointment Request 07/18/2023 Encounter Details Date Type Department Care Team ([facility] st Contact Info) Description 07/18/2023 Telephone [facility] [address] [place] [address] Heather Marroquin MD [address] [place] [address] Appointment Request Social History Tobacco Use Types Packs/Day Years [...] encounter Miscellaneous Notes * Telephone Encounter - Wing Loreta RN - 07/21/2023 2:42 PM EDT Tc to pt regarding rescheduling appt. Pt reports exxtreme back pain for a month along with headaches believed to be allergies, and a sore throat week that has lasted for 3 weeks. Pt also requesting eyes doctor due to last place not taking him anymore. Scheduled pt an appt with Dr. Rivas for 07/21 at 10 am. Pt verbalized understanding and agreement with plan. * Telephone Encounter - Wing Loreta RN - 07/18/2023 2:38 PM EDT Tc to pt to reschedule sick visit, unable to reach pt. Left message for pt to call back. * Telephone Encounter - Andrew Julio - 07/18/2023 9:51 AM EDT Tc from pt requesting to r/s sick visit appt scheduled for 07/17/23 with Jasmin. Please contact at [phone] documented in this encounter Plan of Treatment Upcoming Encounters Date Type Department Care Team ([facility] st Contact Info) Description 06/03/2024 8:45 AM EST Office Visit [facility] [address] [place] [address] Heather Marroquin MD [address] [place] [address] documented as of this encounter Visit Diagnoses Not on filedocumented in this encounter Care Teams Principal Data Architect Relationship Specialty Start Date End Date Heather Marroquin MD [address] [place] [phone] PCP - General Family Medicine 04/06/12 documented as of this encounter
--- OUTSIDE RECORDS SUMMARY | 2024-05-30 07:31 | XMS_ITS | Encounter Summary ---
Author Organization [employer] Address [address] [place] [address] Care Team Providers Care Safety Belt Installer Name Role Phone Heather Marroquin MD Primary Care Provider [phone] Encounter Details Date Type Department Care Team ([facility] st Contact Info) Description 05/14/2024 Orders Only [facility] [address], [place] [id number] Tony Sainz MD [address] [place] [address] Resistant hypertension (Primary Dx); Insomnia, unspecified type; Low back pain without sciatica, unspecified back pain laterality, unspecified chronicity Social History Tobacco Use Types Packs/Day Years Used Date Smoking Tobacco: Former Cigarettes Smokeless Tobacco: Never Alcohol Use Standard Drinks/Week Comments Never 0 (1 standard drink = 0.6 oz pur e alcohol) Housing Stability Answer Date Recorded What is your housing situation today? I have [facility] [place] 03/03/[address] you [...] Description 06/03/2024 8:45 AM EST Office Visit [facility] [address] [place] [address] Heather Marroquin MD [address] [place] [address] documented as of this encounter Visit Diagnoses Diagnosis Resistant hypertension- Primary Insomnia, unspecified type Low back pain without sciatica, unspecified back pain laterality, unspecified chronicity documented in this encounter Care Teams Safety Belt Installer Relationship Specialty Start Date End Date Heather Marroquin MD [address] [place] [id number] PCP - General Family Medicine 04/06/12 documented as of this encounter
--- OUTSIDE RECORDS SUMMARY | 2024-05-30 07:31 | XMS_ITS | Clinical Summary ---
Author Organization [employer] Address [address] [place] [address] Care Team Providers Care Supervisor Beet End Name Role Phone Heather Marroquin MD Primary Care Provider [phone] Allergies Active Allergy Reactions Criticality Noted Date Comments Lisinopril Cough Low 07/15/2018 Penicillins Rash High 06/26/2010 Other reaction(s): rash: NAUSEAS Medications cholecalciferol (Vitamin D-3) 25 MCG (1000 UT) capsule take 1 Capsule by Oral route once a day 02/27/20 21 Active clobetasol (Temovate) 0.05 % ointmentIndicat ions:Venous stasis dermatitis of both lower extremities Apply topically 2 times daily. 60 g 06/24/19 23 Active triamcinolone (Kenalog) 0.1 % cream Apply topically if needed in the morning and at bedtime (pain and swelling). 30 g 2 07/22/19 24 Active cyclobenzaprine (Flexeril) 10 MG tablet Take 1 tablet (10 mg) by mouth if needed in the morning, at noon, and at bedtime for muscle spasms for up to 10 days. 30 tablet 07/22/19 24 Active naproxen (Naprosyn) 500 MG tablet TAKE 1 TABLET BY MOUTH TWICE A DAY 60 tablet 1 12/08/19 24 Active cetirizine (ZyrTEC) 10 MG tablet Take 1 tablet (10 mg) by mouth at bedtime. 90 tablet 1 05/03/19 25 Active traZODone (Desyrel) 100 MG tabletIndicatio ns:Insomnia, unspecified type Take 1 tablet (100 mg) by mouth at bedtime. 30 tablet 3 /17/20 25 05/17/2 025 Active cloNIDine (Catapres) 0.1 MG tabletIndicatio ns:Low back pain without sciatica, unspecified back pain laterality, unspecified chronicity Take 1 tablet (0.1 mg) by mouth 2 times daily. 60 tablet 05/14/19 025 Active amLODIPine (Norvasc) 10 MG tabletIndicatio ns:Resistant hypertension Take 1 tablet (10 mg) by mouth Once per day. 30 tablet 05/14/19 25 Active chlorthalidone (Hygroton) 50 MG tabletIndicatio ns:Resistant hypertension Take 1 tablet (50 mg) by mouth Once per day. 30 tablet 05/14/19 25 Active hydrALAZINE (Apresoline) 25 MG tabletIndicatio ns:Resistant hypertension Take 1 tablet (25 mg) by mouth Once per day. 30 tablet 05/14/19 026 Active losartan (Cozaar) 100 MG tabletIndicatio ns:Resistant hypertension Take 1 tablet (100 mg) by mouth Once per day. 30 tablet 05/14/19 026 Active spironolactone (Aldactone) 25 MG tabletIndicatio ns:Resistant hypertension Take 1 tablet (25 mg) by mouth Once per day. 30 tablet 05/14/19 026 Active amLODIPine (Norvasc) 10 MG tablet Take 1 tablet by mouth at bed time. 08/18/19 025 Discontinued(Re order (will not trigger notification to Pharmacy)) chlorthalidone (Hygroton) 50 MG tablet Take 1 tablet by mouth at bed time. 11/03/19 025 Discontinued(Re order (will not trigger notification to Pharmacy)) traZODone (Desyrel) 100 MG tabletIndicatio ns:Insomnia, unspecified type Take 1 tablet (100 mg) by mouth at bedtime. 30 tablet 3 07/13/19 025 Discontinued(Re order (will not trigger notification to Pharmacy)) cloNIDine (Catapres) 0.1 MG tabletIndicatio ns:Low back pain without sciatica, unspecified back pain laterality, unspecified chronicity Take 1 tablet (0.1 mg) by mouth 2 times daily. 60 tablet 3 05/19/19 24 025 Discontinued(Re order (will not trigger notification to Pharmacy)) losartan (Cozaar) 100 MG tablet Take 1 tablet (100 mg) by mouth in the morning. 30 tablet 11 05/19/19 24 025 Discontinued(Re order (will not trigger notification to Pharmacy)) spironolactone (Aldactone) 25 MG tablet Take 1 tablet (25 mg) by mouth in the morning. 30 tablet 05/19/19 24 025 Discontinued(Re order (will not trigger notification to Pharmacy)) hydrALAZINE (Apresoline) 25 MG tablet Take 1 tablet (25 mg) by mouth in the morning. 30 tablet 11 06/11/19 025 Discontinued(Re order (will not trigger notification to Pharmacy)) cetirizine (ZyrTEC) 10 MG tablet Take 1 tablet (10 mg) by mouth at bedtime. 90 tablet 1 07/22/19 24 025 Discontinued(Re order (will not trigger notification to Pharmacy)) Active Problems Problem Noted Date Diagnosed Date Resistant hypertension 07/02/2022 Assessment & Plan (07/02/2022 10:51 AM EST): Uncontrolled, already on high dose ARB/diuretic/ CCB, & clonidine. Will add spirolactone to regimen and scheduled f/up with PCP. Venous stasis dermatitis of both lower extremiti es 07/02/2022 Resolved Problems Problem Noted Date Diagnosed Date Resolved Date Acute right ankle pain 06/24/202208/08 Assessment & Plan (07/02/2022 10:49 AM EST): Medial ankle pain Patient with severe ankle pain on the medial side, given severe elevated BP hold off NSAIDs for now and given short term prescription. Strongly recommended for him to call orthopedics and also placed referral. Encounters Date Type Department Care Team Description 05/25/2024 2:40 PM EST Office Visit [facility] [address] [place], [place] [phone] Stephanie Mcclelland MD Severe uncontrolled hypertension (Primary Dx) 05/25/2024 Travel 05/14/2024 Orders Only [facility] [address] [place] [address] Tony Sainz MD Resistant hypertension (Primary Dx); Insomnia, unspecified type; Low back pain without sciatica, unspecified back pain laterality, unspecified chronicity 05/13/2024 Telephone [facility] MEDICINE [address] [place], [place] [phone] Heather Marroquin MD Nurse Triage 05/11/2024 Orders Only GENERIC EXTERNAL DATA DEPARTMENT Provider, Generic External Data 05/03/2024 Refill [facility] [address] [place], [place] [phone] Heather Marroquin MD 04/16/2024 Orders Only [facility] External Provider, [facility] 04/08/2024 Telephone [facility] OPTOMETRY [address] [place] [address] Farhana Dalal, OD from Last 3 Months Immunizations Name Administration Dates Next Due HepB-CpG 05/28/2023 INFLUENZA INJECTABLE QUADRIV ALANT CCIIV4 MDCK Multi-dose vial 02/10/2019 Influenza injectable quadriv alent IIV4 with preservative 01/20/2017 Influenza injectable quadrivalent preservative f ree 01/22/2022,01/23/2021 Moderna Covid-19 Vaccine 12+ 09/20/2020,08/24/19 21 Moderna Covid-19 Vaccine 6+ Bivalent 02/20/2022 TD (adult), 2 Lf tetanus tox oid, preservative free, adsorbed 02/25/2019 Tdap 12/09/2017 Zoster, Recombinant 04/15/2019,02/10/2019 Social History Tobacco Use Types Packs/Day Years Used Date Smoking Tobacco: Former Cigarettes Smokeless Tobacco: Never Tobacco Cessation:Counseling Given: Not Answered Alcohol Use Standard Drinks/Week Comments Never 0 [...] the past 12 months, has t he [employer], [employer], oil or water [employer] threatened to shut off services in your home? No 03/03/2023 Sex and Gender Information Value Date Recorded Sex Assigned at Male 02/25/2022 10:18 AM EDT Legal Sex Male 10:18 AM EDT Gender Identity Male 02/25/2022 10:18 AM EDT Sexual Orientation Straight 02/25/2022 10 :18 AM EDT Last Filed Vital Signs Vital Sign Reading Time Taken Comments Blood Pressure 190/110 05/25/2024 2:55 PM EST Pulse 74 05/25/2024 2:17 PM EST Temperature 36.5 ??C (97.7 ??F) 05/25/2024 2:17 PM ES T Respiratory Rate 20 05/25/2024 2:17 PM EST Oxygen Saturation 98% 05/25/2024 2:17 PM EST Inhaled Oxygen Concentration - - Weight 127 kg (280 lb) 05/25/2024 2:17 PM EST Height 172.7 cm (5' 8 ) 05/25/2024 2:17 PM EST Body Mass Index 42.57 05/25/2024 2:17 PM EST Plan of Treatment Upcoming Encounters Date Type Department Care Team (Late st Contact Info) Description 06/03/2024 8:45 AM EST Office Visit [facility] [address] [place] [address] Heatehr Marroquin MD [address] [place] [address] Health Maintenance Due Date Last Done Comments CT Colonography 1965 Colonoscopy 1965 Colorectal Cancer Screening 1965 Dental Oral Exam 1965 Dental Prophylaxis 1965 Dental X-Ray: Bitewings 1965 Dental X-Ray: Full Mouth 1965 Depression Screening 1965 FIT DNA/Cologuard 1965 FIT 1965 FOBT 1965 Sigmoidoscopy 1965 Alcohol/Substance Use Screening 1977 Hepatitis C Screening 11/20/1983 Pneumococcal Vaccine: 50+ Years (1 of 1 - PCV) 11/20/2015 Hepatitis B Vaccines (2 of 2 - CpG 2-dose series) 06/25/2023 05/28/2023 SDOH Screening 07/06/2024 07/07/2023 Tobacco Screening 07/21/2024 07/22/2023 Lipid Panel 06/12/2027 06/12/2022, 12/28, 08/02/2020 DTaP/Tdap/Td Vaccines (3 - Td or Tdap) 02/25/2029 02/25/2019, 12/09/2017 RSV Patients and Patients Aged 60 years or older (1 - 1-dose 75+ series) 2040 Zoster Vaccines Completed 04/15/2019, 02/10/2019 HIV Screening Completed 06/22/2020 COVID-19 Vaccine Completed 04/24/2024, , 02/20/2022, Additional history exists Influenza Vaccine Completed 04/24/2024, , 01/23/2021, Additional history exists HIB Vaccines Aged Out No longer eligi ble based on patient's age to complete this topic HPV Vaccines Aged Out No longer eligi ble based on patient's age to complete this topic Hepatitis A Vaccines Aged Out No long er eligible based on patient's age to complete this topic IPV Vaccines Aged Out No longer eligi ble based on patient's age to complete this topic Meningococcal Vaccine Aged Out No micki herman eligible based on patient's age to complete this topic RSV under 20 months Aged Out No longe r eligible based on patient's age to complete this topic Rotavirus Vaccines Aged Out No longer eligible based on patient's age to complete this topic Procedures Procedure Name Priority Date/Time Associated Diagnosis Comments URINALYSIS, COMPLETE, WITH REFLEX TO CULTURE Routine 05/11/2024 9:[address] ABDOMEN PELVIS W CONTRAST Routine 05/11/2024 9:35 AM EST LIPASE Routine 05/11/2024 7:21 AM EST MAGNESIUM Routine 05/11/2024 7:21 AM EST COMPREHENSIVE METABOLIC PANEL Routine 05/11/2024 7:21 AM EST CBC WITH AUTO DIFFERENTIAL Routine 05/11/2024 7:21 AM EST SARS COV2/INFLUENZA A/B AND RSV RNA QL NAAT Routine 05/11/2024 7:21 AM EST FL GUIDANCE IN OR Routine 04/16/2024 1:3 0 PM EST LIPID PANEL, STANDARD Routine 06/12/2022 9:52 AM EST Hypertension, unspecified type HIV 1/2 ANTIGEN/ANTIBODY, FOURTH GENERATION W/RFL Routine 06/22/2020 8:18 AM EST from Last 3 Months or Most Recently Relevant to Health Maintenance Results * (ABNORMAL) Urinalysis, Complete, with Reflex to Culture (05/11/2024 9:52 AM EST) Color Urine Dark Yellow [facility] Appearance Urine Clear [facility] PH 6.0 5.0 - 9.0 [facility] Glucose Urine UA Negative Negative mg/dL [facility] Urine Blood Moderate (2+)(A) Negative [facility] Specific [place] - Urine >=1.030(H) 1.005 - 1.025 [facility] Urine Protein 100 (2+)(A) Neg-Trace mg/dL [facility] Urine Ketones Trace Negative mg/dL [facility] Nitrite Urine Negative Negative [facility] Leukocyte Esterase Urine Negative Negative [facility] RBC Urine >20(A) 0 - 2 /HPF [facility] Urine WBC 0-5 0 - 5 /HPF [facility] Urine Squamous Epithelial Cell 11-20 0 - 2 /HPF [facility] Urine Bacteria None Seen None Seen [facility] Hyaline Casts, Urine 3-5 0 - 2 /LPF [facility] 05/11/2024 9:52 AM EST 05/11/2024 9:57 AM EST Narrative [facility] - 05/11/2024 10:11 AM EST [id number], [employer] Generic External Data Provider LAB URINE ORDERAB LES Final Result [facility] [address] [place] [phone] * CT Abdomen Pelvis w/ Contrast (05/11/2024 9:35 AM EST) Anatomical Region Laterality Modality Body, Pelvis, Abdomen Computed T omography 05/11/2024 9:35 AM EST Narrative 05/11/2024 10:54 AM EST ? [facility] ?[address] ?[place] [address] ? CT Scan Report ? Signed ? Patient: Naman White ?MR#: M ?? [id number] ? : 1965 ?Acct:[id number] ? Age/Sex: 58 / M ?ADM Date: 05/11/24 ? Loc: HO.ED ? Attending Dr: ? Ordering Physician: Alona Mackenzie ?? Date of Service: 05/11/24 ?? Procedure(s): CT abdomen pelvis w IV con ?? Accession Number(s): [id number] ? cc: Alona Mackenzie; Heather Marroquin MD ? Report Number: ?? [id number]: Total DLP = ??880.00 mGy-cm ?? EXAMINATION: [...] DD/ 0935 ? TD/TT: 05/11/24 1027 ? Color Coater: ? Procedure Note Moises, Kera - 05/11/[address] [place] [address] [address] Scan Report Signed Patient: Aroldo White#: M [id number] : 1965Acct:[id number] Age/Sex: 58 / MADM Date: 05/11/24 Loc: HO.ED Attending Dr: Ordering Physician: Alona Mackenzie Date of Service: 05/11/24 Procedure(s): CT abdomen pelvis w IV con Accession Number(s): [id number] cc: Alona Mackenzie; Heather Marroquin MD Report Number: [id number]: Total DLP = 880.00 mGy-cm EXAMINATION: CT [...] 05/11/24 1051 DD/ 0935 TD/TT: 05/11/24 1027 Color Coater: [facility] External Provider IMG CT PROCEDURES Final Result * SARS-CoV-2 RNA, Influenza A/B, and RSV RNA, Ql NAAT (05/11/2024 7:21 AM EST) Influenza A PCR NEGATIVE Negative [facility] Influenza B PCR NEGATIVE Negative [facility] Resp Syncy Virus RNA Qual PCR NEGATIVE Negative [facility] SARS COV2 PCR NEGATIVE Negative [facility] Comment:All test results mus t be [...] use by authorized laboratories.Testing performed on the [employer] GeneXpert utilizingreal-time RT-PCR.All SARS CoV2 and positive influenza A/B results arereported to [facility]. 05/11/2024 7:21 AM EST 05/11/2024 7:23 AM EST Generic External Data Provider LAB MICROBIOLOGY - GENERAL ORDERABLES Final Result [facility] [address] [place] [phone] * (ABNORMAL) CBC auto differential (05/11/2024 7:21 AM EST) White Blood Count 10.7 4.8 - 10.8 X10*3/uL [facility] Red Blood Count 5.12 4.60 - 5.80 X10*6/uL [facility] Hemoglobin 15.7 14.0 - 18.0 g/dl [facility] Hematocrit 46.4 42.0 - 52.0 % [facility] Mean Corpuscular Volume 90.6 80.0 - 98.0 fL [facility] Mean Corpuscular Hemoglobin 30.7 27.0 - 33.0 pg [facility] Mean Corpuscular HGB Conc 33.8 31.0 - 36.0 g/dl [facility] Red Cell Distribution Width 14.7 11.0 - 16.0 % [facility] Platelet Count 352 160 - 400 X10*3/uL [facility] Mean Platelet Volume 9.1(L) 9.4 - 12.4 fL [facility] Neutrophils Percent Auto 54.7 45 - 73 % [facility] Imm Gran Pct Auto 0.4 0.0 - 0.4 % [facility] Lymphocytes Percent Auto 31.9 20 - 40 % [facility] Monocytes Percent Auto 12.3(H) 2 - 11 % [facility] Eosinophils Percent Auto 0.4 0 - 4 % [facility] Basophils Percent Auto 0.3 0 - 2 % [facility] NRBC Pct Auto 0.0 0.0 - 0.2 /100WBC [facility] Neutrophils Absolute Auto 5.9 2.0 - 8.3 x10*3/uL [facility] Imm Gran Abs Auto 0.04(H) 0.00 - 0.03 X10*3/uL [facility] Lymphocytes Absolute Auto 3.4 1.2 - 4.9 X10*3/uL [facility] Monocytes Absolute Auto 1.3(H) 0.1 - 1.2 X10*3/uL [facility] Eosinophils Absolute Auto 0.0 0.0 - 0.4 X10*3/uL [facility] Basophils Absolute Auto 0.0 0.0 - 0.2 X10*3/uL [facility] NRBC Abs Auto 0.000 0.0 - 0.012 X10*3/uL [facility] 05/11/2024 7:21 AM EST 05/11/2024 7:23 AM EST us Generic External Data Provider LAB BLOOD ORDERAB LES Final Result Performing Organization Address [facility] Co de Phone Number [facility] [address] [place] [phone] * Magnesium (05/11/2024 7:21 AM EST) Pathologist [facility] Magnesium 2.1 1.6 - 2.6 mg/dL [facility] 05/11/2024 7:21 AM EST 05/11/2024 7:23 AM EST us Generic External Data Provider LAB BLOOD ORDERAB LES Final Result Performing Organization Address [facility] de Phone Number [facility] [address] [place] [phone] * Lipase (05/11/2024 7:21 AM EST) Pathologist [facility] Lipase 15 8 - 78 U/L [facility] 05/11/2024 7:21 AM EST 05/11/2024 7:23 AM EST Generic External Data Provider LAB BLOOD ORDERAB LES Final Result Performing Organization Address [facility] de Phone Number [facility] [address] [place] [phone] * (ABNORMAL) Comprehensive Metabolic Panel (05/11/2024 7:21 AM EST) Pathologist [facility] Sodium 140 135 - 145 mmol/L [facility] Potassium 3.4 3.3 - 5.1 mmol/L [facility] Chloride 104 96 - 108 mmol/L [facility] Carbon Dioxide 26 22 - 29 mmol/L [facility] Anion Gap 13 12 - 20 [facility] Urea Nitrogen (BUN) 18(H) 9 - 16 mg/dL [facility] Creatinine, Serum 1.00 0.5 - 1.4 mg/dL [facility] Creatinine Clr Calc Pharmacy 102.4 [facility] Comment:eGFR (calculated fro m the MDRD study equation) and eCrCl(calculated from the Cockcroft-Gault equation) are based ondifferent parameters and may not yield comparable results.If eCrCl result is absurd, please check patient'sheight/weight. Estimated Glomerular Filt Rate >60 [facility] Comment:Chronic Kidney Disea se: Estimated GFR < 60 mL/min/1.73p0Asmdat Kidney Disease: Estimated GFR < 15 mL/min/1.73m2 Glucose 100 60 - 115 mg/dL [facility] Calcium 9.0 8.4 - 10.2 mg/dL [facility] Bilirubin, Total 0.3 0.0 - 1.0 mg/dL [facility] Aspartate Amino Transferase 25 5 - 37 U/L [facility] Alanine Aminotransferase 20 0 - 40 U/L [facility] Total Protein 7.7 6.5 - 8.0 g/dL [facility] Albumin Level 4.2 3.5 - 5.0 g/dL [facility] Alkaline Phosphatase 85 39 - 117 U/L [facility] 05/11/2024 7:21 AM EST 05/11/2024 7:23 AM EST us Generic External Data Provider LAB BLOOD ORDERAB LES Final Result [facility] [address] [place] [phone] * FL Guidance in OR (04/16/2024 1:30 PM EST) Anatomical Region Laterality Modality X-Ray Angiograph y 04/16/2024 1:30 PM EST Narrative 05/27/2024 8:01 AM EST ? [facility] ?[address] ?[place] [address] ? Fluoroscopy Report ? Signed ? Patient: Bolivar Altreche,Shickley ?MR#: M ?? [id number] ? : 1965 ?Acct:[id number] ? Age/Sex: 58 / M ?ADM Date: 04/16/24 ? Loc: HO.SSS ? Attending Dr: Royal Harkins MD ? Ordering Physician: Royal Harkins MD ?? Date of Service: 04/16/24 ?? Procedure(s): FL guidance in OR ?? Accession Number(s): [id number] ? cc: Lena Pham NP; Roayl Harkins MD ? EXAMINATION: ?? FLUORO GUIDANCE IN OR ? CLINICAL INFORMATION: ?? L4-L5 transforaminal epidural steroid injection, right. ? COMPARISON: ?? None available. ? TECHNIQUE: ?? Fluoroscopy supervised by: Dr. Royal Harkins. ?? Fluoroscopy time: 21.1 seconds. ?? Cumulative Dose: 17.986 mGy. ?? DAP: 7.8237 Gy-cm2 (trujillo-centimeter squared). ?? Images: 1. ? FINDINGS: ?? The transforaminal needle is seen at the L4-L5 level on the left. ?? Injected contrast is in the epidural space. ? FL/FL guidance in OR ?? IMPRESSION: ?? Fluoroscopy during procedure. Please see procedure report for ?? additional information. ? Electronically signed by: ??Jerry Delgado MD ??05/27/2024 07:58 AM EST ? Dictated By: ?Jerry Delgado MD ? Signed By: ?<Electronically signed by Jerry Delgado MD in OV> ? 05/27/24 0758 ? DD/ 1330 ? TD/TT: 04/16/24 1345 ? Color Coater: SS ? Procedure Note Moises, Image - 05/27/[address] [address] Fluoroscopy Report Signed Patient: Aroldo White#: M [id number] : 1965Acct:[id number] Age/Sex: 58 / MADM Date: 04/16/24 Loc: HO.SSS Attending Dr: Royal Harkins MD Ordering Physician: Royal Harkins MD Date of Service: 04/16/24 Procedure(s): FL guidance in OR Accession Number(s): [id number] cc: Lena Pham COMMUNITY SERVICES OFFICER; Royal Harkins MD EXAMINATION: FLUORO GUIDANCE IN OR CLINICAL INFORMATION: L4-L5 transforaminal epidural steroid injection, right. COMPARISON: None available. TECHNIQUE: Fluoroscopy supervised by: Dr. Royal Harkins. Fluoroscopy time: 21.1 seconds. Cumulative Dose: 17.986 mGy. DAP: 7.8237 Gy-cm2 (trujillo-centimeter squared). Images: 1. FINDINGS: The transforaminal needle is seen at the L4-L5 level on the left. Injected contrast is in the epidural space. FL/FL guidance in OR IMPRESSION: Fluoroscopy during procedure. Please see procedure report for additional information. Electronically signed by: Jerry Delgado MD 05/27/2024 07:58 AM EST Dictated By: Jerry Delgado MD Signed By: <Electronically signed by Jerry Delgado MD in OV> 05/27/24 0758 DD/ 1330 TD/TT: 04/16/24 1345 Color Coater: [facility] External Provider IMG IR PROCEDURES Edited Result - Final * (ABNORMAL) Lipid Panel, Standard (06/12/2022 9:52 AM EST) Cholesterol, Total 297(H) <200 mg/dL [facility] HDL Cholesterol 69 > OR = 40 mg/dL [facility] Triglycerides 177(H) <150 mg/dL [facility] LDL Cholesterol 193(H) mg/dL (calc) [facility] Comment: LDL-C levels > or = 190 mg/dL may indicate familial hypercholesterolemia (FH). Clinical assessment and measurement of blood lipid levels should be considered for all first degree relatives of patients with an FH diagnosis. For questions about testing for familial hypercholesterolemia, please call [facility] at 1.238.GENE.INFO. Servando Bernal, et al. J National Lipid Association Recommendations for Patient-Centered Management of Dyslipidemia: Part 1 Journal of Clinical Lipidology 2015;9(2), 129-169. Reference range: <100 Desirable range <100 mg/dL for primary prevention; ?? <70 mg/dL for patients with CHD or diabetic patients with > or = 2 CHD risk factors. LDL-C is now calculated using the Darci-River calculation, which is a validated novel method providing better accuracy than the Friedewald equation in the estimation of LDL-C. Darci SS et al. EDIN. 2013;310(19): 0970-6706 (http://education.Tugende/faq/XEE239) Chol/HDLC Ratio 4.3 <5.0 (calc) [facility] Non-HDL Cholesterol 228(H) <130 mg/dL (calc) [facility] Comment: Non-HDL level > or = 220 is very high and may indicate genetic familial hypercholesterolemia (FH). Clinical assessment and measurement of blood lipid levels should be considered for all first-degree relatives of patients with an FH diagnosis. For patients with diabetes plus 1 major ASCVD risk factor, treating to a non-HDL-C goal of <100 mg/dL (LDL-C of <70 mg/dL) is considered a therapeutic option. Blood Venous blood specimen / Unknown 06/12/2022 9:52 AM EST 06/12/2022 9:53 AM EST Narrative [facility] - 06/13/2022 2:15 PM EST FASTING:NO FASTING: NO us Heather Marroquin MD LAB BLOOD ORDERABLES Final Resul t [facility] [address] [facility], [facility], [place] [address] [employer] [address] [facility], (Nl2) [place] [address] * HIV 1/2 ANTIGEN/ANTIBODY,FOURTH GENERATION W/RFL (06/22/2020 8:18 AM EST) HIV-1/2 ANTIGEN AND ANTIBODIES, 4TH GENERATION W/ REFLEX NON-REACT JANI NON-REACT JANI [facility] Comment: HIV-1 antigen and HIV-1/HIV-2 antibodies were not detected. There is no laboratory evidence of HIV infection. ?? PLEASE NOTE: This information has been disclosed to you from records whose confidentiality may be protected by state law. ??If your state requires such protection, then the state law prohibits you from making any further disclosure of the information without the specific written consent of the person to whom it pertains, or as otherwise permitted by law. A general authorization for the release of medical or other information is NOT sufficient for this purpose. ? For additional information please refer to http://education.[employer]/faq/XHU401 (This link is being provided for informational/ educational purposes only.) ? The performance of this assay has not been clinically validated in patients less than 2 years old. ?? 06/22/2020 8:18 AM EST us Noman Gongora ASSISTANT COMMISSIONER LAB BLOOD ORDERABLES Final Result [facility] [address] from Last 3 Months or Most Recently Relevant to Health Maintenance Insurance [facility] STANDARD [place] [phone] Care Teams Supervisor Beet End Relationship Specialty Start Date End Date Heather Marroquin MD [address] [place] [address] [place] [address] PCP - General Family Medicine 04/06/12
--- OUTSIDE RECORDS SUMMARY | 2024-05-30 07:31 | XMS_ITS | Encounter Summary ---
Author Organization [employer] Address [address] [place] [address] Care Team Providers Care Herd Tester Name Role Phone Heather Marroquin MD Primary Care Provider [phone] Reason for Visit * Reason Onset Date Comments Referral 12/05/2022 Encounter Details Date Type Department Care Team ([facility] st Contact Info) Description 12/05/2022 Telephone [facility] [address] [place], [place] [phone] Heather Marroquin MD [address] [place] [address] Referral Social History Tobacco Use Types Packs/Day Years Used Date Smoking Tobacco: Former Cigarettes Smokeless Tobacco: Never Alcohol Use Standard Drinks/Week Comments Never 0 (1 standard drink = 0.6 oz pur e alcohol) Sex and Gender Information Value Date Recorded Sex Assigned at Male 02/25/2022 10:18 AM EDT Legal Sex Male 10:18 AM EDT Gender Identity Male 02/25/2022 10:18 AM EDT Sexual Orientation Straight 02/25/2022 10 :18 AM EDT documented as of this encounter Miscellaneous Notes * Telephone Encounter - Ghislaine Zapata - 12/05/2022 4:17 PM EDT Referral was faxed to Neurology and sleep at [address] * Telephone Encounter - Samara Shay - 12/05/2022 3:49 PM EDT Tc from zane with neurology states they cannot take referral due to doctor not treating resistant hypertension. States pt can be referred to Hiwot Sanchez located at renal and transplant [address] [place] [address]. documented in this encounter Plan of Treatment Upcoming Encounters Date Type Department Care Team ([facility] st Contact Info) Description 06/03/2024 8:45 AM EST Office Visit [facility] [address] [place] [address] Heather Marroquin MD [address] [place] [address] documented as of this encounter Visit Diagnoses Not on filedocumented in this encounter Care Teams Herd Tester Relationship Specialty Start Date End Date Heather Marroquin MD [address] [place] [address] PCP - General Family Medicine 04/06/12 documented as of this encounter
--- OUTSIDE RECORDS SUMMARY | 2024-05-30 07:31 | XMS_ITS | Encounter Summary ---
Author Organization [employer] Address [address] [place] [address] Care Team Providers Care Rubber Stamp Assembler Name Role Phone Heather Marroquin MD Primary Care Provider [phone] Encounter Details Date Type Department Care Team (Late st Contact Info) Description 04/16/2024 Orders Only [facility] External Provider, [facility] Social History Tobacco Use Types Packs/Day Years [...] 8:45 AM EST Office Visit [facility] PEDS [address] [facility] [place] [address] Heather Marroquin MD [address] [place] [address] documented as of this encounter Procedures Procedure Name Priority Date/Time Associated Diagnosis Comments FL GUIDANCE IN OR Routine 04/16/2024 1:3 0 PM EST documented in this encounter Results * FL Guidance in OR (04/16/2024 1:30 PM EST) Anatomical Region Laterality Modality X-Ray Angiograph y 04/16/2024 1:30 PM EST Narrative 05/27/2024 8:01 AM EST ? [facility] ?[address] ?[place] [address] ? Fluoroscopy Report ? Signed ? Patient: Naman White ?MR#: [id number] ?? [id number] ? : 1965 ?Acct:[id number] ? Age/Sex: 58 / M ?ADM Date: 04/16/24 ? Loc: HO.[facility] ? Attending Dr: Royal Harkins MD ? Ordering Physician: Royal Harkins MD ?? Date of Service: 04/16/24 ?? Procedure(s): FL guidance in OR ?? Accession Number(s): [id number] ? cc: Lena Pham ASSEMBLER MOVEMENT; Royal Harkins MD ? EXAMINATION: ?? FLUORO GUIDANCE [...] ??Jerry Delgado MD ??05/27/2024 07:58 AM EST ?? RP ? Dictated By: ?Jerry Delgado MD ? Signed By: ?<Electronically signed by Jerry Delgado MD in OV> ? 05/27/248 ? DD/ 1330 ? TD/TT: 04/16/24 1345 ? Retail Sales Assistant: SS ? Procedure Note [place], Kera - 05/27/2024 [place] [address] Fluoroscopy Report Signed Patient: Aroldo White#: M [id number] : 1965Acct:[id number] Age/Sex: 58 / MADM Date: 04/16/24 Loc: [facility] Attending Dr: Royal Harkins MD Ordering Physician: Royal Harkins MD Date of Service: 04/16/24 Procedure(s): FL guidance in OR Accession Number(s): [id number] cc: Lena Pham ASSEMBLER MOVEMENT; Royal Harkins MD EXAMINATION: FLUORO GUIDANCE IN [...] 05/27/24 0758 DD/ 1330 TD/TT: 04/16/24 1345 Retail Sales Assistant: J[facility] External Provider IMG IR PROCEDURES Edited Result - Final documented in this encounter Visit Diagnoses Not on filedocumented in this encounter Care Teams Rubber Stamp Assembler Relationship Specialty Start Date End Date Heather Marroquin MD [address] [place] [address] PCP - General Family Medicine 04/06/12 documented as of this encounter
--- OUTSIDE RECORDS SUMMARY | 2024-05-30 07:31 | XMS_ITS | Encounter Summary ---
Author Organization [employer] Address [address] [place] [address] Care Team Providers Care Credit Product Analyst Name Role Phone Heather Marroquin MD Primary Care Provider [phone] Encounter Details Date Type Department Care Team (Latest Contact Info) Description 05/25/2024 Travel Social History Tobacco Use Types Packs/Day Years [...] Description 06/03/2024 8:45 AM EST Office Visit [facility] PEDS [address] [place] [address] Heather Marroquin MD [address] [place] [address] documented as of this encounter Visit Diagnoses Not on filedocumented in this encounter Care Teams Credit Product Analyst Relationship Specialty Start Date End Date Heather Marroquin MD [address] [place] [address] PCP - General Family Medicine 04/06/12 documented as of this encounter
--- OUTSIDE RECORDS SUMMARY | 2024-05-30 07:31 | XMS_ITS | Encounter Summary ---
Author Organization [employer] Address [address] [place] [address] Care Team Providers Care Battery Plate Remover Name Role Phone Heather Marroquin MD Primary Care Provider [phone] Encounter Details Date Type Department Care Team ([facility] st Contact Info) Description 05/25/2024 2:40 PM EST Office Visit [facility] MED & PEDS [address] [place], [place] [phone] Stephanie Mcclelland MD [address] [place], [place] [phone] Severe uncontrolled hypertension (Primary Dx) Social History Tobacco Use Types Packs/Day Years [...] the past 12 months, has t he [employer], oil or water company threatened to shut off services in your home? No 03/03/2023 Sex and Gender Information Value Date Recorded Sex Assigned at Male 02/25/2022 10:18 AM EDT Legal Sex Male 10:18 AM EDT Gender Identity Male 02/25/2022 10:18 AM EDT Sexual Orientation Straight 02/25/2022 10 :18 AM EDT documented as of this encounter Last Filed Vital Signs Vital Sign Reading [...] Mass Index 42.57 05/25/2024 2:17 PM EST documented in this encounter Progress Notes * Stephanie Mcclelland MD - 05/25/2024 2:40 PM EST Subjective Patient ID: Naman Lutz is a 58 y.o. male who presents for high blood pressure. ABDIEL Florence was in the ED two weeks ago for gastroenteritis. His BP was very high then and he is concerned about it. Has been prescribed many medications for high blood pressure but thinks they are too many and stopped taking them. He did start taking one yesterday but he is not sure which one. He has been feeling generally bad and has been having headaches. He does not have a home BP machine. He eats mostly home-cooked food without added salt. Review of Systems Constitutional: Negative for chills and fever. Respiratory: Negative for cough. Cardiovascular: Negative for chest pain and leg swelling. Genitourinary: Negative for decreased urine volume. Neurological: Positive for headaches. Negative for weakness. Objective BP (!) 170/104 (BP Location: Right arm, Patient Position: Sitting, BP Cuff Size: Large adult) Pulse 74 Temp 97.7 ??F (36.5 ??C) (Oral) Resp 20 Ht 5' 8 (1.727 m) Wt 280 lb (127 kg) SpO2 98% BMI 42.57 kg/m?? BP (!) 200/110 (BP Location: Right arm, BP Cuff Size: Large adult) Pulse 74 Temp 97.7 ??F (36.5 ??C) (Oral) Resp 20 Ht 5' 8 (1.727 m) Wt 280 lb (127 kg) SpO2 98% BMI 42.57 kg/m?? Left arm: 180/110 Right arm repeat: 190/110 Physical Exam Constitutional: Appearance: He is not ill-appearing. HENT: Head: Normocephalic and atraumatic. Mouth/Throat: Mouth: Mucous membranes are moist. Eyes: General: No scleral icterus. Extraocular Movements: Extraocular movements intact. Pupils: Pupils are equal, round, and reactive to light. Cardiovascular: Rate and Rhythm: Normal rate and regular rhythm. Pulses: Normal pulses. Heart sounds: Normal heart sounds. No murmur heard. No gallop. Pulmonary: Effort: Pulmonary effort is normal. Breath sounds: Normal breath sounds. Musculoskeletal: Right lower leg: No edema. Left lower leg: No edema. Neurological: General: No focal deficit present. Mental Status: He is alert. Psychiatric: Mood and Affect: Mood normal. Behavior: Behavior normal. Assessment/Plan Diagnoses and all orders for this visit: Severe uncontrolled hypertension: Had normal creatinine on 05/11/24 when in ED for gastroenteritis. His K was only 3.4 that day and historically it has run around 3.5. Reports excessive daytime sleepiness. Does not seem to eat a high- sodium diet. Little exercise. He is obese with a BMI of 42. He is not taking any medication right now and has 6 different medication bottles that he just filled. I told him to start chlorthalidone 50 mg/day and losartan 100 mg/day and to return in 1 week to see his PCP. Would consider referral to Renal or w/u for secondary causes of HTN. Future Appointments Date Time Provider Department Center 06/03/2024 8:45 AM Heather Marroquin MD [facility] documented in this encounter Plan of Treatment Upcoming Encounters Date Type Department Care Team (Late st Contact Info) Description 06/03/2024 8:45 AM EST Office Visit [facility] PEDS [address] [place] [address] Heather Marroquin MD [address] [place] [address] documented as of this encounter Visit Diagnoses Diagnosis Severe uncontrolled hypertension- Primary Unspecified essential hypertension documented in this encounter Care Teams Battery Plate Remover Relationship Specialty Start Date End Date Heather Marroquin MD [address] [place] [address] PCP - General Family Medicine 04/06/12 documented as of this encounter
--- OUTSIDE RECORDS SUMMARY | 2024-05-30 07:31 | XMS_ITS | Encounter Summary ---
Author Organization [employer] Address [address] [place] [address] Care Team Providers Care Social Work Coordinator Name Role Phone Heather Marroquin MD Primary Care Provider [phone] Reason for Visit * Reason Onset Date Comments Med Refill 05/03/2024 Encounter Details Date Type Department Care Team (Late st Contact Info) Description 05/03/2024 Refill [facility] [address] [place] [address] Heather Marroquin MD [address] [place] [address] Social History Tobacco Use Types Packs/Day Years [...] t he electric, gas, oil or water [employer] threatened to shut off services in your home? No 03/03/2023 Sex and Gender Information Value Date Recorded Sex Assigned at Male 02/25/2022 10:18 AM EDT Legal Sex Male 10:18 AM EDT Gender Identity Male 02/25/2022 10:18 AM EDT Sexual Orientation Straight 02/25/2022 10 :18 AM EDT documented as of this encounter Miscellaneous Notes * Telephone Encounter - Chris Bautista - 05/03/2024 10:19 AM EST TC from pt requesting medication refill. Medications needing refill : cetirizine (ZyrTEC) 10 MG tablet To be sent to: [facility]/pharmacy [address] [place] [address] documented in this encounter Plan of Treatment Upcoming Encounters Date Type Department Care Team (Late st Contact Info) Description 06/03/2024 8:45 AM EST Office Visit [facility] [address] [place] [address] Heather Marroquin MD [address] [place] [address] documented as of this encounter Visit Diagnoses Not on filedocumented in this encounter Care Teams Social Work Coordinator Relationship Specialty Start Date End Date Heather Marroquin MD [address] [place] [address] PCP - General Family Medicine 04/06/12 documented as of this encounter
[2024-05-30 07:35] LABS: IDNOW Serial# 58CA691E; Strep A Nucleic Acid Negative (Negative)
[2024-05-30 08:08] LABS: Influenza A PCR NEGATIVE (Negative); Influenza B PCR NEGATIVE (Negative); Resp Syncy Virus RNA Qual PCR NEGATIVE (Negative); SARS COV2 PCR INHOUSE NEGATIVE (Negative)
--- NOTE | 2024-05-30 09:13 | ED.GENADULT ---
HPI - General Adult General Chief complaint: General Medical Stated complaint: sore throat Time Seen by Provider: 05/30/24 09:07 Source: patient Mode of arrival: ambulatory Limitations: no limitations History of Present Illness ED Provider: VALERIE COONEY PA-C HPI narrative: 58 year old male with pmhx significant for HTN, anxiety, lumbar DDD, renal calculi presents to the ED today for evaluation of headache, cough productive of green sputum, and sore throat x3 days. Endorses odynophagia, no dysphagia. No known sick contacts. Denies fever, chills, chest pain, sob, wheezing, N/V/D. No recent travel. Also endorses twisting his right knee while walking up the steps to his apartment 2-3 days ago. He did not fall to the ground or strike his head. No thinners. Admits to pain along the anteriomedial aspect of the right knee. He has been able to ambulate on the RLE. Taking tylenol/motrin at home with minimal relief - last doses were last night. Denies calf pain. No recent travel/ long car rides. Related Data Home Medications ?Medication ?Instructions ?Recorded ?Confirmed chlorthalidone 50 mg tablet 1 tab PO DAILY 05/21/21 04/16/24 amlodipine 10 mg tablet 1 tab PO DAILY 05/25/21 04/16/24 Previous Rx's ?Medication ?Instructions ?Recorded [id number]-pxcmpqxpofnnn-lptmqemc 1 cap PO Q4-6H PRN headache #14 04/21/22 50 mg-300 mg-40 mg capsule caps (Fioricet) acetaminophen 500 mg tablet 500 mg PO Q6H PRN pain #30 tabs 05/11/24 (Tylenol Extra Strength) ondansetron 4 mg disintegrating 4 mg PO Q8H PRN nausea and 05/11/24 tablet vomiting #14 tabs azithromycin 250 mg tablet See Rx Instructions PO .COMPLEX #6 05/30/24 tabs guaifenesin 200 mg tablet 200 mg PO TID PRN cough #10 tabs 05/30/24 prednisone 20 mg tablet 40 mg (2 x 20 mg) PO DAILY 5 days 05/30/24 #10 tabs Allergies Allergy/AdvReac Type Severity Reaction Status Date / Time aspirin [ASA] Allergy Intermediate Dizziness Verified 05/30/24 07:05 Review of Systems Review of Systems: Constitutional: No fever, chills, fatigue, night sweats, weight changes ENT/Mouth: No ear pain, hearing loss, nasal congestion, sinus pain, rhinorrhea, +sore throat Eyes: No eye pain, swelling, redness, vision changes, discharge Cardio: No chest pain, palpitations, BARRAZA, orthopnea, peripheral edema Pulm: No SOB, cough, sputum, wheezing, dyspnea, hemoptysis, +cough GI: No nausea, vomiting, hematemesis, abdominal pain, diarrhea, constipation, hematochezia, melena : No irregular bleeding, dysuria, frequency, urgency, hesitancy, hematuria, flank pain, urinary flow changes, urinary incontinence or retention MSK: No back pain, neck pain, joint pain, myalgias, +right knee pain Skin: No lesions, rashes Neuro: No weakness, numbness, paresthesias, LOC, dizziness, +headache Psych: No anxiety/panic, depression, SI/HI, AH/VH All other systems reviewed and are negative. [facility] [place] Past Medical History Attestation statement: The following information was validated with the patient. Source: old records reviewed and nursing notes reviewed Medical History COVID-19 vaccine series completed Renal calculi MRSA (methicillin resistant Staphylococcus aureus) Disc degeneration, lumbar Spondylosis of lumbar spine Cholecystectomy planned Anxiety HTN (hypertension) Surgical History Hx of cholecystectomy Hx of cystoscopy Social History Social History Are you a primary director critical care to a significant other at home: No Do you presently have visiting nurse or other home services: No Alcohol intake: never Patient Tobacco Use Status: Never used Tobacco Advance Directives: No Advance Directives Information Provided: Yes Do you have a plan to hurt others: No Plan Physical Exam ED Vital Signs: Vital Signs - 24 hr 05/30/24 07:00 Temperature 98.0 F Pulse Rate 75 Respiratory Rate 18 Blood Pressure 160/92 H Pulse Oximetry 95 Oxygen Delivery Method Room Air BMI result Body Mass Index 44.8 Vital signs stable General: Well appearing, in no acute distress. Skin: Warm, dry, intact. No rashes or lesions. Head: Normocephalic, atraumatic. EENT: Hearing is intact b/l. Conjunctiva clear. PERRLA. EOM intact. Moist mucous membranes.?posterior oropharynx without erythema or edema, no tonsilar exudates or peritonsilar masses, uvula midline, controling secretions and speaking in complete sentences. Neck: Supple without LAD Cardiac: Chest wall symmetric. RRR Lungs: Normal respiratory effort without accessory muscle use. +bronchospastic cough. CTA bilaterally. No rales, rhonchi, or wheezes.? Ext: +no noted swelling, erythema or deformity to right knee. no open wound. ttp along anteromedial aspect of right knee without palpable deformity, fluctuance or crepitus. FROM intact to right knee. no pain on flexion or extension. 2+ popliteal, DP/PT pulse intact. Neuro: AOx3. Normal speech. Strength 5/5 intact throughout. Sensation intact to light touch. NV intact distally. Ambulating with steady gait. Course Course Course Narrative: Patient tested negative for COVID, flu, RSV, strep throat. Chest x-ray shows mild interstitial prominence with scattered peribronchial thickening without focal consolidation to suggest pneumonia. Will treat for bronchitis. Azithromycin, guaifenesin and prednisone sent to pharmacy. The x-ray of his right knee shows tricompartmental degenerative changes without acute fracture. Concern for knee sprain. santos wrap applied. educated on RICE therapy. Treated with toradol and Tessalon in the ED. Patient has remained stable throughout ED visit today. Discussed worrisome signs and symptoms and when to return to the ED. All questions answered at this time. Patient is agreeable with disposition and stable for discharge. Medications Administered Discontinued Medications Generic Name Dose Route Start Last Admin Trade Name Freq PRN Reason Stop Dose Admin Benzonatate 200 mg 05/30/24 09:14 05/30/24 09:21 Benzonatate 100 Mg Capsule PO 05/30/24 09:15 200 mg ONCE ONE Administration Ketorolac Tromethamine 30 mg 05/30/24 09:14 05/30/24 09:22 Ketorolac Tromethamine 30 Mg/Ml Vial IM 05/30/24 09:15 30 mg ONCE ONE Administration Medical Decision Making Medical Decision Making MDM Narrative: 58 year old male with pmhx significant for HTN, anxiety, lumbar DDD, renal calculi presents to the ED today for evaluation of headache, cough productive of green sputum, and sore throat x3 days. hypertensive, vitals are otherwise wnl. he is nontoxic appearing and in NAD. Normal respiratory effort without accessory muscle use. bronchospastic cough. CTA bilaterally. No rales, rhonchi, or wheezes.?on exam of RLE, no noted swelling, erythema or deformity to right knee. no open wound. ttp along anteromedial aspect of right knee without palpable deformity, fluctuance or crepitus. FROM intact to right knee. no pain on flexion or extension. 2+ popliteal, DP/PT pulse intact. Differential diagnosis includes viral syndrome, strep throat, bronchitis, pneumonia. Unliely mono, RECREATIONAL RESORT MANAGER, retropharyngeal abscess, pleural effusion. Concern for knee contusion, knee sprain/ strain, fracture, dislocation. Presentation not consistent with gout, pseudogout, septic joint, lyme arthritis, bursitis, tendonitis. Unlikely NV compromise, threat to limb, compartment syndrome. Plan for viral/strep swabs, cxr, xr right knee, pain control, and re-evaluation. Differential Diagnosis Differential Diagnoses: The differential diagnosis associated with the presentation includes as above. Admission/Observation not indicated. Lab Data MDM Lab Attestation statement: I reviewed the patient's lab results. as above. Labs: Lab Results 05/30/24 Range/Units 07:18 Influenza Type A (PCR) NEGATIVE (Negative) Influenza Type B (PCR) NEGATIVE (Negative) RSV RNA Qual (PCR) NEGATIVE (Negative) SARS-CoV-2 RNA (RT-PCR) NEGATIVE (Negative) S. pyogenes GrpA ANITA Negative (Negative) Independent Interpretation I performed an independent interpretation of an: Plain X-Ray Interpretation: CXR without focal infiltrate/ consolidation XR right knee without fracture Radiology Impression Discussion of test interpretation with radiology: I have reviewed the radiologist's reading. Radiologist Impression: CLINICAL HISTORY: TWISTED KNEE, MEDIAL PAIN 4 view right knee Comparison: CR/SR - XR KNEE RT 3V - 02/22/24 07:26 EDT Findings: No fractures or dislocations. Moderate tricompartmental degenerative change. No joint effusion. No radiopaque foreign body. IMPRESSION: 1. No acute findings. This document has been electronically signed by: Rick Cummins MD on 05/30/2024 09:40:11 CLINICAL HISTORY: PRODUCTIVE COUGH 2 views chest Comparison: CR/RI/SR - XR CHEST 1V - 11/03/23 08:18 EDT Findings: Cardiac and mediastinal contours are normal. Mild interstitial prominence with scattered peribronchial thickening. No focal consolidation. No effusion. No pneumothorax. No acute osseous finding. Impression: Mild interstitial prominence with scattered peribronchial thickening. No focal consolidation to suggest pneumonia. This document has been electronically signed by: Rick Cummins MD on 05/30/2024 09:40:35 External Record Review External record reviewed: Inpatient record, Office record, Outpatient record, Prior outpatient labs, Prior outpatient radiology, Primary care record and Outside ED record Prescription Management I considered prescription management with: Antibiotic (azithromycin) and Other (guafenesin) Social Determinants Patient?s care significantly limited by Social Determinants of Health including: Other Social Determinant of Health Critical Care Time Critical Care Time Critical Care Time: No Discharge Plan Discharge Clinical Impression: Acute bronchitis, Right knee sprain Patient Disposition: Home, Self-Care Instructions: Knee Sprain (DC), How to Use an Elastic Bandage (ED), Acute Bronchitis (ED), R.I.C.E. Treatment (ED) Additional Instructions: You tested negative for covid, flu, rsv, and strep throat. Your chest xray shows inflammation of your airways, consistent with bronchitis. Azithromycin as an antibiotic that has been sent to your pharmacy for treatment. Take this as prescribed over the next 5 days. Prednisone as a steroid that has been sent to your pharmacy to help with inflammation. Take this as prescribed over the next 5 days. If you are diabetic, please monitor your sugars at home as this can increase your blood sugar. Guaifenesin has been sent to your pharmacy for you to take as needed for cough. The x-ray of your right knee does not show acute fracture. You likely sprained your knee. Utilize RICE therapy at home -rest, ice, compress (with Santos wrap) and elevate the knee to help with pain/swelling. I recommend you take 600mg ibuprofen every 6 hours or Tylenol 650mg every 6 hours as needed for pain. If needed, you can alternate these medications so that you take one medication every 3 hours. For example, at noon take ibuprofen, then at 3pm take Tylenol, then at 6pm take ibuprofen. Please follow up with your primary care provider. Return with any new or worsening symptoms. In the case of an emergency call 911. Prescriptions: New prednisone 20 mg tablet 40 mg PO DAILY 5 Days Qty: 10 0RF azithromycin 250 mg tablet See Rx Instructions .ROUTE .COMPLEX Qty: 6 0RF Rx Instructions: For 250 mg dose pack: take 500 mg today (day 1), then 250 mg for 4 days (days 2-5) guaifenesin 200 mg tablet 200 mg PO TID PRN (Reason: cough) Qty: 10 0RF No Action qshdonhtty-owfuljtiazuhc-dqnu [Fioricet] 50-300-40 mg capsule 1 cap PO Q4-6H PRN (Reason: headache) Qty: 14 0RF chlorthalidone 50 mg tablet 1 tab PO DAILY amlodipine 10 mg tablet 1 tab PO DAILY acetaminophen [Tylenol Extra Strength] 500 mg tablet 500 mg PO Q6H PRN (Reason: pain) Qty: 30 0RF ondansetron 4 mg tablet,disintegrating 4 mg PO Q8H PRN (Reason: nausea and vomiting) Qty: 14 0RF Referrals: Heather Marroquin MD [Primary Care Provider] - Stand Alone Forms: Work/School Release Print Language: Vietnamese
[2024-05-30] MEDS: Benzonatate 100 MG CAPSULE 200 MG PO (09:21)
[2024-05-30] MEDS: Ketorolac Tromethamine 30 MG/ML VIAL IM (09:22)
[2024-05-30 10:39] VITALS: BP 160/92; PULSE 75; RESP 18; TEMP 36.7; O2SAT 95
== END 2024-05-30 10:40 | disposition home or self-care (01) ==
PROVIDERS: Emergency Provider Emergency Medicine; PCP Student in an Organized Health Care Education/Training Program
DX: J20.9 Acute bronchitis, unspecified (principal); M25.561 Pain in right knee; J02.9 Acute pharyngitis, unspecified; R51.9 Headache, unspecified; R07.89 Other chest pain; R05.9 Cough, unspecified; R11.2 Nausea with vomiting, unspecified; Z03.818 Encounter for observation for suspected exposure to other biological agents ruled out
CPT/HCPCS: 0241U; 71046; 73564; 87651; 96372; 99283; 99284; J1885

== ENCOUNTER → 2024-05-30 09:13 | Outpatient (BNV) | payer MEDICARE, MEDICAID, SELFPAY | PROVIDERS: Emergency Provider Emergency Medicine; PCP Student in an Organized Health Care Education/Training Program; Visit Provider Radiology Vascular & Interventional Radiology | DX: M25.561 Pain in right knee (principal); R05.9 Cough, unspecified | CPT/HCPCS: 71046; 73564 ==

== ENCOUNTER 2024-09-07 07:46 | Emergency (ER) | payer MEDICARE, MEDICAID, SELFPAY ==
--- NOTE | ~2024-09-07 | XR_ITS ---
EXAMINATION: XR KNEE 4 OR MORE VIEWS RIGHT HISTORY: pain, swelling COMPARISON: Comparison is made with the prior examination dated 05/30/2024. FINDINGS: Four views of the right knee are submitted. Osseous mineralization is normal. There is no fracture or dislocation. There is mild narrowing of the medial compartment. There is no joint effusion. There are soft tissue calcifications at the medial aspect of the proximal calf without change. XR/XR knee RT 4V IMPRESSION: Mild narrowing medial compartment. Electronically signed by: Stephan Dee MD 09/07/2024 09:26 AM EDT
--- NOTE | ~2024-09-07 | US_ITS ---
EXAMINATION: US TRIPLEX LOWER EXTREMITY, RIGHT CLINICAL INFORMATION: Edema, right lower extremity. COMPARISON: None available. TECHNIQUE: Color-flow triplex imaging with spectral analysis and compression Doppler were performed on the right lower extremity. FINDINGS: Respiratory variation, normal compression and augmented flow are noted throughout the interrogated common femoral vein, superficial femoral vein, profunda femoral vein, popliteal vein and midcalf peroneal and posterior tibial venous segments show . There is no Funk's cyst. US/US venous duplex LE RT IMPRESSION: No acute deep venous thrombosis interrogated veins, right lower extremity. Electronically signed by: Mike Moreno MD 09/07/2024 09:32 AM EDT
[2024-09-07 08:07] VITALS: BP 175/103; PULSE 65; RESP 16; TEMP 36.4; O2SAT 98; BMI 45.5
--- NOTE | 2024-09-07 08:33 | ED.EXTPRO ---
HPI - Extremity Problem General Chief complaint: Extremity Injury, Lower Stated complaint: R leg pain Time Seen by Provider: 09/07/24 08:20 Source: patient Mode of arrival: ambulatory Limitations: no limitations History of Present Illness ED Provider: Eri Isbell PA-C HPI Narrative: 58 yo male PMH of HTN, MRSA, and DDD with LBP, splenectomy, cholycystectomy, anxiety, presenting to the ER for evaluation of right knee pain. Reports knee pain worse at nighttime x 3 days, has trialed Motrin and Tylenol without relief. Denies falling, landing on leg abnormally, or twisting. Denies any change or difficulties with gait, redness or streaking, no warmth to the area. Non-radiating, denies numbness or tingling, or fevers. MD Complaint: extremity pain Onset (ago): day(s) Pain Consistency: intermittent Location: right Quality: aching Radiation: none Associated symptoms: denies other symptoms Related Data Home Medications ?Medication ?Instructions ?Recorded ?Confirmed chlorthalidone 50 mg tablet 1 tab PO DAILY 05/21/21 04/16/24 amlodipine 10 mg tablet 1 tab PO DAILY 05/25/21 04/16/24 Previous Rx's ?Medication ?Instructions ?Recorded hrzsecrqxl-mlfnglufmpghy-skpvzsvh 1 cap PO Q4-6H PRN headache #14 04/21/22 50 mg-300 mg-40 mg capsule caps (Fioricet) acetaminophen 500 mg tablet 500 mg PO Q6H PRN pain #30 tabs 05/11/24 (Tylenol Extra Strength) ondansetron 4 mg disintegrating 4 mg PO Q8H PRN nausea and 05/11/24 tablet vomiting #14 tabs azithromycin 250 mg tablet See Rx Instructions PO .COMPLEX #6 05/30/24 tabs guaifenesin 200 mg tablet 200 mg PO TID PRN cough #10 tabs 05/30/24 prednisone 20 mg tablet 40 mg (2 x 20 mg) PO DAILY 5 days 05/30/24 #10 tabs naproxen 500 mg tablet 500 mg PO BID PRN pain #20 tabs 09/07/24 Allergies Allergy/AdvReac Type Severity Reaction Status Date / Time aspirin [ASA] Allergy Intermediate Dizziness Verified 09/07/24 08:09 Review of Systems Review of Systems: Yes all other systems are reviewed and are negative PMFSH Past Medical History Medical History COVID-19 vaccine series completed Renal calculi MRSA (methicillin resistant Staphylococcus aureus) Disc degeneration, lumbar Spondylosis of lumbar spine Cholecystectomy planned Anxiety HTN (hypertension) Surgical History Hx of cholecystectomy Hx of cystoscopy Social History Social History Are you a primary insurance healthcare consultant to a significant other at home: No Do you presently have visiting nurse or other home services: No Alcohol intake: never Patient Tobacco Use Status: Never used Tobacco Smoked in Last 30 Days: No Use of substances other than those prescribed or required for medical reasons: No Advance Directives: No Advance Directives Information Provided: No Physical Exam Vital Signs: Vital Signs: Last Vital Signs Temp 97.6 F 09/07/24 08:07 Pulse 65 09/07/24 08:07 Resp 16 09/07/24 08:07 BP 175/103 H 09/07/24 08:07 Pulse Ox 98 09/07/24 08:07 O2 Del Method Room Air 09/07/24 08:07 BMI result Body Mass Index 45.5 Appearance: Alert. Oriented X3. No acute distress. HEENT: normal external inspection Neck: Normal inspection. Neck supple. CVS: Normal heart rate and rhythm. Pulses normal. Respiratory: No respiratory distress. Breath sounds normal. Skin: Skin warm and dry. Normal skin color. Normal skin turgor. No rashes. Extremities: No lower extremity edema. Right medial knee area with minimal localized swelling, non-pitting. full ROM. no calf tenderness or swelling Neuro/psych: Oriented X 3. No motor deficit. No sensory or focal deficit. Normal speech and cognition. Medical Decision Making Medical Decision Making MDM Narrative: 58 yo male presenting with 3x days of chronic right medial knee pain, worse at HS, unrelieved with Tylenol and Motrin OTC. ROM intact, strength 5/5 bilateral low extremities. Negative findings for warmth, redness, numbness or tingling. Negative anterior drawer test. US without DVT XR with some medial compartment narrowing, likely arthritis. will d/c with R.I.C.E, NSAID, and ortho follow up as needed Differential Diagnosis Differential Diagnoses: The differential diagnosis associated with the presentation includes osteoarthritis, gee's cyst, fracture, ligament injury Independent Interpretation I performed an independent interpretation of an: Plain X-Ray and Ultrasound Interpretation: us without acute DVT XR without acute fx, no significant effusion seen Radiology Impression Discussion of test interpretation with radiology: I have reviewed the radiologist's reading. External Record Review External record reviewed: Prior outpatient labs and Prior outpatient radiology Prescription Management I considered prescription management with: Pain Medication Chronic Conditions Patient?s care impacted by: Other (obesity) Critical Care Time Critical Care Time Critical Care Time: No Discharge Plan Discharge Clinical Impression: Knee pain Qualifiers: Chronicity: acute Laterality: right Qualified Code(s): M25.561 - Pain in right knee Patient Disposition: Home, Self-Care Instructions: Knee Pain (ED) Additional Instructions: Your ultrasound today did not show any evidence of blood clot. Your x-ray showed some slight narrowing of 1 of the compartments in your knee, most likely due to arthritis changes. Rest your knee and elevate your leg when possible. Recommend ALEXA wrap for support and compression. Use ice several times per day for the next 48 hours. Take the prescribed naproxen and/or Tylenol as needed for pain. Follow up with Orthopedics Follow up with your doctor as needed. Prescriptions: New naproxen 500 mg tablet 500 mg PO BID PRN (Reason: pain) Qty: 20 0RF No Action oaulszaktv-uwruiqablmvhb-holj [Fioricet] 50-300-40 mg capsule 1 cap PO Q4-6H PRN (Reason: headache) Qty: 14 0RF chlorthalidone 50 mg tablet 1 tab PO DAILY amlodipine 10 mg tablet 1 tab PO DAILY prednisone 20 mg tablet 40 mg PO DAILY 5 Days Qty: 10 0RF azithromycin 250 mg tablet See Rx Instructions .ROUTE .COMPLEX Qty: 6 0RF Rx Instructions: For 250 mg dose pack: take 500 mg today (day 1), then 250 mg for 4 days (days 2-5) guaifenesin 200 mg tablet 200 mg PO TID PRN (Reason: cough) Qty: 10 0RF acetaminophen [Tylenol Extra Strength] 500 mg tablet 500 mg PO Q6H PRN (Reason: pain) Qty: 30 0RF ondansetron 4 mg tablet,disintegrating 4 mg PO Q8H PRN (Reason: nausea and vomiting) Qty: 14 0RF Referrals: [facility] [place] [facility] [Provider Group] (knee pain) Heather Marroquin MD [Primary Care Provider] - Print Language: Turkish
--- OUTSIDE RECORDS SUMMARY | 2024-09-07 08:42 | XMS_ITS | Encounter Summary ---
Author Organization [facility] [employer] Address [address] [place] [address] Care Team Providers Care Clinical Exercise Specialist Name Role Phone Heather Marroquin MD Primary Care Provider [phone] Reason for Visit * Reason Onset Date Comments Nurse Triage 05/13/2024 Encounter Details Date Type Department Care Team (Late st Contact Info) Description 05/13/2024 Telephone [facility] MED[facility] [address] [place] [address] Heather Marroquin MD [address] [place] [address] Nurse Triage Social History Tobacco Use Types [...] t he electric, gas, oil or water [employer] threatened to shut off services in your [...] 05/13/2024 1:09 PM EST Date: 05/11 Hospital: [facility] [place] Seen for: Vomiting, Diarrhea, Abdominal Pain Symptomatic Yes Called pt. Pt. States that he went to [facility] [place] ED for vomiting, diarrhea. Pt has been [...] ED visit on : Date: 05/11 Hospital: [facility] [place] Seen for: Vomiting, Diarrhea, Abdominal Pain Symptomatic Yes *if yes message should go to Triage [phone] documented in this encounter Plan of Treatment Not on file documented as of this encounter Visit Diagnoses Not on filedocumented in this encounter Care Teams Clinical Exercise Specialist Relationship Specialty Start Date End Date Heather Marroquin MD [address] [place] [phone] PCP - General Family Medicine 04/06/12 documented as of this encounter
--- OUTSIDE RECORDS SUMMARY | 2024-09-07 08:42 | XMS_ITS | Clinical Summary ---
Author Organization [employer] Address [address] [facility] [address] [place] [address] Care Team Providers Care Ornamental Painter Name Role Phone Heather Marroquin MD Primary Care Provider [phone] Allergies Active Allergy Reactions Criticality Noted Date Comments Lisinopril Cough Low 07/15/2018 Penicillins Rash High 06/26/2010 Other reaction(s): rash: NAUSEAS Medications cholecalciferol (Vitamin D-3) 25 MCG (1000 UT) capsule take 1 Capsule by Oral route once a day 1 Active clobetasol (Temovate) 0.05 % ointmentIndicatio ns:Venous stasis dermatitis of both lower extremities Apply topically 2 times daily. 60 g 3 Active triamcinolone (Kenalog) 0.1 % cream Apply topically if needed in the morning and at bedtime (pain and swelling). 30 g 2 4 Active cyclobenzaprine (Flexeril) 10 MG tablet Take 1 tablet (10 mg) by mouth if needed in the morning, at noon, and at bedtime for muscle spasms for up to 10 days. 30 tablet 4 Active naproxen (Naprosyn) 500 MG tablet TAKE 1 TABLET BY MOUTH TWICE A DAY 60 tablet 1 4 Active cetirizine (ZyrTEC) 10 MG tablet Take 1 tablet (10 mg) by mouth at bedtime. 90 tablet 1 5 Active traZODone (Desyrel) 100 MG tabletIndications :Insomnia, unspecified type Take 1 tablet (100 mg) by mouth at bedtime. 30 tablet 3 5 09/12/19 25 Active cloNIDine (Catapres) 0.1 MG tabletIndications :Low back pain without sciatica, unspecified back pain laterality, unspecified chronicity Take 1 tablet (0.1 mg) by mouth 2 times daily. 60 tablet 5 09/12/19 25 Active amLODIPine (Norvasc) 10 MG tabletIndications :Resistant hypertension Take 1 tablet (10 mg) by mouth Once per day. 30 tablet 3 5 Active chlorthalidone (Hygroton) 50 MG tabletIndications :Resistant hypertension Take 1 tablet (50 mg) by mouth Once per day. 30 tablet 5 Active hydrALAZINE (Apresoline) 25 MG tabletIndications :Resistant hypertension Take 1 tablet (25 mg) by mouth Once per day. 30 tablet 5 05/14/19 26 Active losartan (Cozaar) 100 MG tabletIndications :Resistant hypertension Take 1 tablet (100 mg) by mouth Once per day. 30 tablet 5 05/14/19 26 Active spironolactone (Aldactone) 25 MG tabletIndications :Resistant hypertension Take 1 tablet (25 mg) by mouth Once per day. 30 tablet 5 05/14/19 26 Active Active Problems Problem Noted Date Diagnosed Date [...] Encounters Date Type Department Care Team Description 08/24/2024 Telephone [facility] MED & PEDS [address] [place] [address] Heather Marroquin MD No Show 08/12/2024 Patient Outreach [facility] MEDICINE [address] [place], [place] [phone] Heather Marroquin MD Pre-visit Planning (Pre visit planning unable to LVM ) 07/29/2024 Travel from Last 3 Months Immunizations Name Administration [...] 05/25/2024 2:17 PM EST Plan of Treatment Health Maintenance Due Date Last Done Comments [...] Screening 07/21/2024 07/22/2023 Lipid Panel 06/12/2027 06/12/2022, 09/12/2020, 08/02/2020 DTaP/Tdap/Td Vaccines (3 - Td or [...] Procedure Name Priority Date/Time Associated Diagnosis Comments LIPID PANEL, STANDARD Routine 06/12/2022 9:52 AM EST Hypertension, unspecified type HIV 1/2 ANTIGEN/ANTIBODY, FOURTH GENERATION W/RFL Routine 06/22/2020 8:18 AM EST from Last 3 Months or Most Recently Relevant to Health Maintenance Results * (ABNORMAL) Lipid Panel, Standard (06/12/2022 9:52 AM EST) Cholesterol, Total 297(H) <200 mg/dL [facility] HDL Cholesterol 69 > OR = 40 mg/dL [facility] Triglycerides 177(H) <150 mg/dL [facility] LDL Cholesterol 193(H) mg/dL (calc) [facility] Comment: LDL-C levels > or = 190 mg/dL may indicate familial hypercholesterolemia (FH). Clinical assessment and measurement of blood lipid levels should be considered for all first degree relatives of patients with an FH diagnosis. For questions about testing for familial hypercholesterolemia, please call [employer] [facility] at [phone].GENE.INFO. Al T, et al. J National Lipid Association Recommendations for Patient-Centered Management of Dyslipidemia: Part 1 Journal of Clinical Lipidology 2015;9(2), 129-169. Reference range: <100 Desirable range <100 mg/dL for primary prevention; ?? <70 mg/dL for patients with CHD or diabetic patients with > or = 2 CHD risk factors. LDL-C is now calculated using the Errol calculation, which is a validated novel method providing better accuracy than the Friedewald equation in the estimation of LDL-C. Darci SS et al. EDIN. 2013;310(19): 0140-7563 (http://education.BuddyBet/faq/FGZ738) Chol/HDLC Ratio 4.3 <5.0 (calc) [facility] Non-HDL Cholesterol 228(H) <130 mg/dL (calc) [facility] Comment: Non-HDL level > or = 220 [...] BLOOD ORDERABLES Final Resul t [facility] [address] [facility] [facility], [place] [address] [employer] [employer] [place] [employer] [address], ([address]) [place] [address] * HIV 1/2 ANTIGEN/ANTIBODY,FOURTH GENERATION W/RFL (06/22/2020 8:18 AM EST) [facility] HIV-1/2 ANTIGEN AND ANTIBODIES, 4TH GENERATION W/ REFLEX NON-REACT JANI NON-REACT JANI [facility] Comment: HIV-1 antigen and HIV-1/HIV-2 [...] ? For additional information please refer to http://[employer].PSC Info Group/faq/KYQ109 (This link is being provided for informational/ educational purposes only.) ? The performance of this assay has not been clinically validated in patients less than 2 years old. ?? 06/22/2020 8:18 AM EST [facility] BLOOD ORDERABLES Final Result Performing Organization Address City/State/[facility] Co de Phone Number [facility] Anywhere [address] from Last 3 Months or Most Recently Relevant to Health Maintenance Insurance [facility] [place] [place] [id number] [place] [phone] [place] [id number] Care Teams Ornamental Painter Relationship Specialty Start Date End Date Heather Marroquin MD [address] [place] [id number] PCP - General Family Medicine 04/06/12
--- OUTSIDE RECORDS SUMMARY | 2024-09-07 08:42 | XMS_ITS | Encounter Summary ---
Author Organization [employer] Address [address] [place] [address] Care Team Providers Care Turnaround Engineer Name Role Phone Heather Marroquin MD Primary Care Provider [phone] Encounter Details Date Type Department Care Team ([facility] st Contact Info) Description 05/14/2024 Orders Only [facility] CHC MED & PEDS [address] [place], [place] [phone] Tony Sainz MD [address] [place] [address] Resistant hypertension (Primary Dx); Insomnia, unspecified type; [...] as of this encounter Plan of Treatment Not on file documented as of this encounter Visit Diagnoses Diagnosis Resistant hypertension- Primary Insomnia, unspecified type Low back pain without sciatica, unspecified back pain laterality, unspecified chronicity documented in this encounter Care Teams Turnaround Engineer Relationship Specialty Start Date End Date Heather Marroquin MD [address] [place] [id number] PCP - General Family Medicine 04/06/12 documented as of this encounter
--- OUTSIDE RECORDS SUMMARY | 2024-09-07 08:42 | XMS_ITS | Encounter Summary ---
Author Organization [employer] Address [address] [facility] [address] [facility] [address] [place] [address] Care Team Providers Care Form Coverer Name Role Phone Heather Marroquin MD Primary Care Provider [phone] Reason for Visit * Reason Onset Date Comments Referral 12/05/2022 Encounter Details Date Type Department Care Team ([facility] st Contact Info) Description 12/05/2022 Telephone [facility] CHC MED & PEDS [address] [place], [place] [phone] Heather Marroquin MD [address] [place] [address] Referral Social History Tobacco Use Types Packs/Day [...] Hiwot Sanchez located at renal and transplant [address] [place] [address]. documented in this encounter Plan of Treatment Not on file documented as of this encounter Visit Diagnoses Not on filedocumented in this encounter Care Teams Form Coverer Relationship Specialty Start Date End Date Heather Marroquin MD [address] [place] [phone] PCP - General Family Medicine 04/06/12 documented as of this encounter
--- NOTE | 2024-09-07 09:19 | PC.NURSE ---
Pt comes to ED today with c/p pain to RLE x2-3 days. Pt reports pain is a 9/10 and constant. He states pain causes him to have limited ROM and pain with ambulation. Pt observed ambulating to xray with a safe and steady gait. Bedside u/s completed and Pt seen by Xray--awaiting image results. Dispo pending.
[2024-09-07 10:17] VITALS: BP 173/81; PULSE 72; RESP 16; TEMP 36.4; O2SAT 95
== END 2024-09-07 10:17 | disposition home or self-care (01) ==
PROVIDERS: Emergency Provider Emergency Medicine; PCP Student in an Organized Health Care Education/Training Program
DX: M25.561 Pain in right knee (principal); M79.89 Other specified soft tissue disorders
CPT/HCPCS: 73564; 93971; 99284

== ENCOUNTER → 2024-09-07 08:50 | Outpatient (BNV) | payer MEDICARE, MEDICAID, SELFPAY | PROVIDERS: Emergency Provider Emergency Medicine; PCP Student in an Organized Health Care Education/Training Program; Visit Provider Radiology Diagnostic Radiology | DX: R60.9 Edema, unspecified (principal); M25.561 Pain in right knee; M25.461 Effusion, right knee | CPT/HCPCS: 73564 ==

== ENCOUNTER 2024-10-20 05:45 | Emergency (ER) | payer MEDICARE, SELFPAY ==
[2024-10-20 05:51] VITALS: BP 148/80; PULSE 85; RESP 16; TEMP 37.1; O2SAT 94; BMI 37.1
--- NOTE | 2024-10-20 05:51 | ECG_ITS ---
Test Reason : DIZZINESS Blood Pressure : */* mmHG Vent. Rate : 78 BPM Atrial Rate : 78 BPM P-R Int : 132 ms QRS Dur : 88 ms QT Int : 412 ms P-R-T Axes : 32 65 37 degrees QTcB Int : 469 ms Normal sinus rhythm Normal ECG When compared with ECG of 22-Jan-2021 10:12, Premature ventricular complexes are no longer Present Referred By: Generic ED Physician Electronically Signed By: ALYSSA CRUZ
[2024-10-20 06:26] LABS: Basophils Absolute Auto 0.1 X10*3/uL (0.0-0.2); Basophils Percent Auto 0.6 % (0-2); Eosinophils Absolute Auto 0.3 X10*3/uL (0.0-0.4); Eosinophils Percent Auto 2.7 % (0-4); Hemoglobin 15.1 g/dl (14.0-18.0); Imm Gran Abs Auto 0.02 X10*3/uL (0.00-0.03); Imm Gran Pct Auto 0.2 % (0.0-0.4); Lymphocytes Absolute Auto 3.7 X10*3/uL (1.2-4.9); Lymphocytes Percent Auto 37.5 % (20-40); Mean Corpuscular HGB Conc 33.6 g/dl (31.0-36.0); Mean Corpuscular Hemoglobin 30.8 pg (27.0-33.0); Mean Corpuscular Volume 91.8 fL (80.0-98.0); Mean Platelet Volume 10.4 fL (9.4-12.4); Monocytes Absolute Auto 1.3 X10*3/uL (0.1-1.2); Monocytes Percent Auto 12.8 % (2-11); Neutrophils Absolute Auto 4.6 x10*3/uL (2.0-8.3); Neutrophils Percent Auto 46.2 % (45-73); Red Cell Distribution Width 14.4 % (11.0-16.0)
[2024-10-20 06:34] LABS: Platelet Count 310 X10*3/uL (160-400); White Blood Count 9.9 X10*3/uL (4.8-10.8)
[2024-10-20 06:42] VITALS: BP 153/76; PULSE 77; RESP 14; O2SAT 97
[2024-10-20 06:45] LABS: Anion Gap 17 (12-20); Blood Urea Nitrogen 14 mg/dL (9-16); Calcium 9.2 mg/dL (8.4-10.2); Carbon Dioxide 23 mmol/L (22-29); Chloride 106 mmol/L (96-108); Creatinine Clr Calc Pharmacy 95.9; Estimated Glomerular Filt Rate > 60; Glucose Random 113 mg/dL (60-115); Potassium 3.5 mmol/L (3.3-5.1); Sodium 142 mmol/L (135-145)
[2024-10-20 06:48] LABS: COVID-19 Test Negative (Negative); IDNOW Serial# 55D5AD1C; IDNOW Serial# 58CA691E; Influenza A Negative (Negative); Influenza B2 Negative (Negative)
[2024-10-20 06:49] LABS: Troponin-I High Sensitivity 6.6 ng/L (<3.5-35.0)
--- NOTE | 2024-10-20 07:45 | ED.GENADULT ---
HPI - General Adult General Chief complaint: Dizziness Stated complaint: Dizziness, heart pain Time Seen by Provider: 10/20/24 07:45 History of Present Illness ED Provider: Di MEADOWS narrative: The patient is a 58-year-old male with a history of hypertension. He says that he has been feeling unwell since Friday night,, a little over 3 days ago. He says that he had some beer and Tequila. He says he does not usually drink alcohol. He says the next day he woke up with the abdominal pain and a headache and has been nauseated and felt dizzy. He has had body aches and weakness. He says that he has lost his balance a couple of times because of his weakness and dizziness. He says he has also had diarrhea. His chief complaint is of abdominal pain. He also has a headache. He also feels that he is weak and dizzy. No stiff neck. No definite fevers. Some chest discomfort. Diffuse body aches. Related Data Home Medications ?Medication ?Instructions ?Recorded ?Confirmed chlorthalidone 50 mg tablet 1 tab PO DAILY 05/21/21 04/16/24 amlodipine 10 mg tablet 1 tab PO DAILY 05/25/21 04/16/24 Previous Rx's ?Medication ?Instructions ?Recorded [id number]-[id number] 1 cap PO Q4-6H PRN headache #14 04/21/22 50 mg-300 mg-40 mg capsule caps (Fioricet) acetaminophen 500 mg tablet 500 mg PO Q6H PRN pain #30 tabs 05/11/24 (Tylenol Extra Strength) ondansetron 4 mg disintegrating 4 mg PO Q8H PRN nausea and 05/11/24 tablet vomiting #14 tabs azithromycin 250 mg tablet See Rx Instructions PO .COMPLEX #6 05/30/24 tabs guaifenesin 200 mg tablet 200 mg PO TID PRN cough #10 tabs 05/30/24 prednisone 20 mg tablet 40 mg (2 x 20 mg) PO DAILY 5 days 05/30/24 #10 tabs naproxen 500 mg tablet 500 mg PO BID PRN pain #20 tabs 09/07/24 Allergies Allergy/AdvReac Type Severity Reaction Status Date / Time aspirin (ASA) Allergy Intermediate Dizziness Verified 10/20/24 05:55 Review of Systems Review of Systems: Yes all other systems are reviewed and are negative PMFSH Past Medical History Medical History COVID-19 vaccine series completed Renal calculi MRSA (methicillin resistant Staphylococcus aureus) Disc degeneration, lumbar Spondylosis of lumbar spine Cholecystectomy planned Anxiety HTN (hypertension) Surgical History Hx of cholecystectomy Hx of cystoscopy Social History Social History Are you a primary primary care md to a significant other at home: No Do you presently have visiting nurse or other home services: No Alcohol intake: never Patient Tobacco Use Status: Never used Tobacco Advance Directives: No Advance Directives Information Provided: Yes Do you have a plan to hurt others: No Plan Physical Exam ED Vital Signs: Vital Signs - 24 hr 10/20/24 05:51 10/20/24 06:42 10/20/24 08:30 Temperature 98.7 F Pulse Rate 85 77 70 Respiratory Rate 16 14 14 Blood Pressure 148/80 H 153/76 H 162/74 H Pulse Oximetry 94 97 96 Oxygen Delivery Method Room Air Room Air Room Air BMI result Body Mass Index 37.1 Const Other: The patient has a fairly robust looking 58-year-old male who was awake and alert. He does not appear acutely ill or in distress. HENMT Other: Face is symmetrical. Mucous membranes moist. Eyes Other: Pupils are round equal, conjunctivae are clear, extraocular movements intact. No nystagmus. Neck Neck: Yes normal visual inspection, Yes full ROM, Yes no meningeal signs and Yes supple Resp Effort & Inspection: normal respiratory effort Auscultation: clear to auscultation bilaterally Cardio Rate: regular rate Rhythm: regular rhythm Heart sounds: S1 normal heart sound present and S2 normal heart sound present GI Other: The abdomen was soft and did not seem markedly tender. Skin Other: Skin is dry and unremarkable Neuro Other: The patient is awake and alert with a normal mental status. Pupils are round equal and reactive to light, extraocular movements are intact, no nystagmus, face is symmetrical, speech is clear, neck is supple, he moves his extremities normally and appropriately. He seems grossly neurologically intact. General: no meningeal signs Extrem Other: No peripheral edema. No calf swelling or tenderness. No asymmetry. Medications Administered Discontinued Medications Generic Name Dose Route Start Last Admin Trade Name Ace PRN Reason Stop Dose Admin Diphenhydramine HCl 12.5 mg 10/20/24 07:56 10/20/24 08:03 Diphenhydramine Hcl 50 Mg/Ml Vial IVPUSH 10/20/24 07:57 12.5 mg ONCE ONE Administration Sodium Chloride 1,000 mls @ 999 mls/hr 10/20/24 08:00 10/20/24 10:30 Ns IV 10/20/24 09:00 Infused .Q1H1M GEOFFREY Infusion Ketorolac Tromethamine 10 mg 10/20/24 07:56 10/20/24 08:04 Ketorolac Tromethamine 15 Mg/Ml Vial IVPUSH 10/20/24 07:57 10 mg ONCE ONE Administration Metoclopramide HCl 10 mg 10/20/24 07:56 10/20/24 08:04 Metoclopramide Hcl 10 Mg/2 Ml Vial IVPUSH 10/20/24 07:57 10 mg ONCE ONE Administration Medical Decision Making Medical Decision Making [facility] Narrative: The patient is a 58-year-old male who says he has not felt well for about 3 days since Friday night after he has a lot to eat any also had alcohol which he does not usually have. He is complaining of abdominal pain and body aches and headaches, dizziness, and weakness. Also nausea, vomiting, diarrhea. The patient seems to have fairly frequent ER visits in the past. Clinically the patient does not appear obviously unwell and his vital signs were unremarkable. Basic labs were unremarkable. He was treated symptomatically with ketorolac, metoclopramide, diphenhydramine, and IV fluids. He ultimately felt considerably better and requested discharge. Lab Data 10/20/24 06:12 10/20/24 06:12 Labs: Lab Results 10/20/24 Range/Units 06:12 WBC 9.9 (4.8-10.8) X10*3/uL RBC 4.90 (4.60-5.80) X10*6/uL Hgb 15.1 (14.0-18.0) g/dl Hct 45.0 (42.0-52.0) % MCV 91.8 (80.0-98.0) fL MCH 30.8 (27.0-33.0) pg MCHC 33.6 (31.0-36.0) g/dl RDW 14.4 (11.0-16.0) % Plt Count 310 (160-400) X10*3/uL MPV 10.4 (9.4-12.4) fL Immature Gran % (Auto) 0.2 (0.0-0.4) % Neut % (Auto) 46.2 (45-73) % Lymph % (Auto) 37.5 (20-40) % Powell % (Auto) 12.8 H (2-11) % Eos % (Auto) 2.7 (0-4) % Baso % (Auto) 0.6 (0-2) % Lymph # (Auto) 3.7 (1.2-4.9) X10*3/uL Powell # (Auto) 1.3 H (0.1-1.2) X10*3/uL Eos # (Auto) 0.3 (0.0-0.4) X10*3/uL Baso # (Auto) 0.1 (0.0-0.2) X10*3/uL Abs Immat Gran (auto) 0.02 (0.00-0.03) X10*3/uL Absolute Neuts (auto) 4.6 (2.0-8.3) x10*3/uL Absolute Nucleated RBC 0.000 (0.0-0.012) X10*3/uL Nucleated RBC % (auto) 0.0 (0.0-0.2) /100WBC Sodium 142 (135-145) mmol/L Potassium 3.5 (3.3-5.1) mmol/L Chloride 106 (96-108) mmol/L Carbon Dioxide 23 (22-29) mmol/L Anion Gap 17 (12-20) BUN 14 (9-16) mg/dL Creatinine 0.95 (0.5-1.4) mg/dL Estim Creat Clear Calc 95.9 Estimated GFR > 60 Random Glucose 113 (60-115) mg/dL Calcium 9.2 (8.4-10.2) mg/dL Total Bilirubin 0.2 (0.0-1.0) mg/dL Direct Bilirubin < 0.2 (0.0-0.5) mg/dL AST 28 (5-37) U/L ALT 19 (0-40) U/L Alkaline Phosphatase 74 (39-117) U/L Troponin I High Sens 6.6 (<3.5-35.0) ng/L C-Reactive Protein 1.44 H (< or = 0.50) mg/dL Total Protein 7.6 (6.5-8.0) g/dL Albumin 4.2 (3.5-5.0) g/dL Lipase 15 (8-78) U/L COVID-19 (SHO) Negative (Negative) COVID-19 Clin Com See Note Influenza Type A (ANITA) Negative (Negative) Influenza Type B (ANITA) Negative (Negative) Influenza A & B Note See Note Discharge Plan Discharge Clinical Impression: Abdominal pain, Vomiting, Headache Patient Disposition: Home, Self-Care Additional Instructions: I think you had some kind of reaction to the things you ate and drank on Friday evening. This may have triggered some kind of a migraine-like phenomenon. Your laboratory testing was all quite reassuring. Please rest and take it easy today. Drink a lot of fluids. Please follow up with your regular doctor. Return to the emergency room if significantly worse. Prescriptions: No Action [id number] [Fioricet] 50-300-40 mg capsule 1 cap PO Q4-6H PRN (Reason: headache) Qty: 14 0RF chlorthalidone 50 mg tablet 1 tab PO DAILY amlodipine 10 mg tablet 1 tab PO DAILY prednisone 20 mg tablet 40 mg PO DAILY 5 Days Qty: 10 0RF azithromycin 250 mg tablet See Rx Instructions .ROUTE .COMPLEX Qty: 6 0RF Rx Instructions: For 250 mg dose pack: take 500 mg today (day 1), then 250 mg for 4 days (days 2-5) guaifenesin 200 mg tablet 200 mg PO TID PRN (Reason: cough) Qty: 10 0RF acetaminophen [Tylenol Extra Strength] 500 mg tablet 500 mg PO Q6H PRN (Reason: pain) Qty: 30 0RF ondansetron 4 mg tablet,disintegrating 4 mg PO Q8H PRN (Reason: nausea and vomiting) Qty: 14 0RF naproxen 500 mg tablet 500 mg PO BID PRN (Reason: pain) Qty: 20 0RF Referrals: Heather Marroquin MD [Physician, Internal Medicine] Interventions: ED Discharge Assessment Last Done: 10/20/24 11:07 Discharge Date/Time: 10/20/24 11:07 Print Language: Nicaraguan
[2024-10-20] MEDS: 0.9 % Sodium Chloride 1,000 ML 999 ML IV (07:59)
[2024-10-20] MEDS: diphenhydrAMINE HCL 50 MG/ML VIAL 12.5 MG IVPUSH (08:03)
[2024-10-20] MEDS: Ketorolac Tromethamine 15 MG/ML VIAL 10 MG IVPUSH (08:04)
[2024-10-20] MEDS: Metoclopramide HCl 10 MG/2 ML VIAL IVPUSH (08:04)
[2024-10-20 08:21] LABS: Alanine Aminotransferase 19 U/L (0-40); Albumin Level 4.2 g/dL (3.5-5.0); Alkaline Phosphatase 74 U/L (39-117); Aspartate Amino Transferase 28 U/L (5-37); Bilirubin Direct < 0.2 mg/dL (0.0-0.5); Bilirubin Total 0.2 mg/dL (0.0-1.0); C Reactive Protein 1.44 mg/dL (< or = 0.50); Lipase 15 U/L (8-78); Total Protein 7.6 g/dL (6.5-8.0)
[2024-10-20 08:30] VITALS: BP 162/74; PULSE 70; RESP 14; O2SAT 96
[2024-10-20 11:07] VITALS: BP 138/75; PULSE 56; RESP 16; TEMP 37.1; O2SAT 98
== END 2024-10-20 11:07 | disposition home or self-care (01) ==
PROVIDERS: Emergency Provider Emergency Medicine
DX: R42 Dizziness and giddiness (principal); I10 Essential (primary) hypertension; M79.10 Myalgia, unspecified site; R51.9 Headache, unspecified; R10.2 Pelvic and perineal pain; R11.2 Nausea with vomiting, unspecified; R19.7 Diarrhea, unspecified; R07.89 Other chest pain; Z79.899 Other long term (current) drug therapy; Z11.52 Encounter for screening for COVID-19
CPT/HCPCS: 36415; 80048; 80076; 83690; 84484; 85025; 86140; 87502; 87635; 93005; 96361; 96374; 96375; 99284; J1200; J1885; J2765

== ENCOUNTER → 2024-10-20 05:51 | Outpatient (BNV) | payer MEDICARE, MEDICAID, SELFPAY | PROVIDERS: Emergency Provider Emergency Medicine; Visit Provider Internal Medicine | DX: R42 Dizziness and giddiness (principal) | CPT/HCPCS: 93010 ==